=== PATIENT | male | born 1955 | race Caucasian/White ===

== ENCOUNTER → 2017-01-15 | Outpatient (CLI) | payer BC ==
[2017-01-15 13:14] LABS: CHCM 33.7; HCT 44.1 % (39.0-53.0); HDW 2.71; HGB 15.3 gm/dL (13.0-17.5); MCH 31.9 pg (25.0-35.0); MCHC 34.6 g/dL (31.0-37.0); MCV 92.3 fL (80.0-100.0); Mean Platelet Volume 6.7; RBC 4.78 m/uL (4.30-5.90); RDW 13.1 % (11.5-15.5); WBC 6.9 k/uL (3.8-10.6)
[2017-01-15 14:09] LABS: Prostate Specific Antigen 1.59 ng/mL (0.00-4.00)
== END | disposition home or self-care (01) ==
LOC: LABWHC1 12:56
PROVIDERS: ATTEND Specialist
DX: E34.9 Endocrine disorder, unspecified (principal); R53.83 Other fatigue; D64.9 Anemia, unspecified; E89.5 Postprocedural testicular hypofunction; Z12.5 Encounter for screening for malignant neoplasm of prostate; E27.5 Adrenomedullary hyperfunction; E03.4 Atrophy of thyroid (acquired)
CPT/HCPCS: 36415; 82670; 84153; 84403; 84481; 85027

== ENCOUNTER → 2017-06-11 | Outpatient (CLI) | payer BC ==
--- NOTE | 2017-06-11 12:30 | P.PN ---
Progress Note - Text 61-year-old male patient is being seen in follow-up in the sleep center regarding his obstructive sleep apnea. This is the patient's yearly check. The patient is doing well. He has been diagnosed having DEWEY back as thousand and 16 and his disease was severe with an AHI of 74. Currently the patient on CPAP at a pressure of 14 cm of water. He is awaiting his CPAP every night. He is very compliant is waking up refreshed and alert during the day. His epworth score is down to 2. Based on the compliance data, his average CPAP use over the past 30 days is 7.2 hours per night and has been achieving more than 4 hours every night without any interruption. He is AHI while on treatment is down to 0.6 and his affect is only 11 L/m. He is utilizing a simplus fullface mask and is requesting the mass to be switched. Otherwise, his health is been doing well. No new onset comorbidities. No chest pain. No stroke. No signs of any congestion heart failure. No respiratory difficulties at all. VS BP is 145/78, pulse is 68, respirations 16, temperature 97.5, saturation 97% on room air, and poor scores a 12, BMI is 29.6, weight is 195, height is 68 inches The patient appeared well nourished and normally developed. Vital signs as documented. Head exam is unremarkable. No scleral icterus or corneal arcus noted. Neck is without jugular venous distension, thyromegaly, or carotid bruits. Carotid upstrokes are brisk bilaterally. Lungs are clear to auscultation and percussion. Cardiac exam reveals the PMI to be normally sized and situated. Rhythm is regular. First and second heart sounds normal. No murmurs, rubs or gallops. Abdominal exam reveals normal bowel sounds, no masses , no organomegaly and no aortic enlargement. Extremities are nonedematous and both femoral and pedal pulses are normal. Assessment/plan 1 Obstructive sleep apnea CVA with an AHI of 74 currently on CPAP at a pressure of 14 cm of water. The patient is on her successful treatment and the patient has been compliant and treatment will be continued without any changes in the settings and I fitted this patient to airfit F20 fullface mask medium size and the Simplus fullface mask will be discontinued. An order was sent to [facility]. He'll see her back in a years time or earlier if needed
== END ==
LOC: SLEEP 11:49
PROVIDERS: ATTEND Internal Medicine Critical Care Medicine
DX: G47.33 Obstructive sleep apnea (adult) (pediatric) (principal)

== ENCOUNTER 2017-11-29 10:58 | Day surgery (SDC) | payer BC ==
[2017-11-28 08:14] VITALS: BMI 29.5
[~2017-11-29 10:58] MED LIST: ALBUTEROL NEB (CONC) 2.5 MG/0.5 ML INHALATION ONE; ATROPINE SULFATE 0.4 MG/ML 1 ML VIAL IM ONE; LACTATED RINGERS 1,000 ML IV SCH; LIDOCAINE 2% (PF) 20 MG/ML 2 ML AMP INHALATION ONE; Pre Op ABX Message 1 EACH MISC MISCELLANE ONE
[2017-11-29 11:25] VITALS: TEMP 97.7
[2017-11-29] MEDS: LACTATED RINGERS 1,000 ML IV ONE ×2 (11:49→11:54)
[2017-11-29] MEDS ORDERED: LIDOCAINE 1% 20 ML VIAL (10MG/ML) FOR IV START INTRADERMA ONE (11:49)
[2017-11-29 11:50] LABS: Glucose,Whole Blood 83 mg/dL (75-99)
[2017-11-29] MEDS ORDERED: LIDOCAINE 1% INJ 10MG/ML (20 ML MDV) ONE (11:58)
[2017-11-29] MEDS ORDERED: GLYCOPYRROLATE 0.2 MG/ML 2 ML VIAL ONE (11:58)
[2017-11-29] MEDS ORDERED: PROPOFOL 10 MG/ML 20 ML VIAL IV ONE (11:58)
[2017-11-29] MEDS ORDERED: LIDOCAINE 2% (PF) 20 MG/ML 2 ML AMP INHALATION ONE (12:28)
[2017-11-29 12:32] VITALS: RESP 16
--- NOTE | 2017-11-29 12:45 | PCN ---
PROCEDURE NOTE Procedure is a bronchoscopy, airway examination, therapeutic lavage, BAL. PREOPERATIVE DIAGNOSIS: Chronic obstructive pulmonary disease exacerbation with retained secretions. POSTOPERATIVE DIAGNOSIS: Chronic obstructive pulmonary disease exacerbation with retained secretions. PROCEDURE: There was informed consent. There was universal timeout. STEEL WORKER provided unconscious sedation or general anesthesia. The patient's procedure was done in room #1. After the patient was adequately sedated and being fully monitored, the bronchoscope was inserted through the right nostril. It passed through the right nasopharynx into the oropharynx. The hypopharynx was identified and topicalized. The hypopharyngeal structures all appeared normal, that includes the anterior commissure, true cords, false cords, arytenoids, piriform sinuses, right and left vallecula and epiglottis. After topicalization, bronchoscope was pushed through the glottic opening into the trachea. Trachea was quite inflamed and red. Trachea was quite collapsible as well. There were thick secretions noted throughout. We attempted to topicalized the right and left mainstem bronchi, but the patient quickly desaturated. It took him a long time to recover. Therefore, the procedure was aborted. No samples were taken. I will plan on doing the patient next week in the operating room. We will do it under general anesthesia, which would be much safer. MMODL / IJN: [id number] /
[2017-11-29 13:02] VITALS: BP 140/87; PULSE 82
== END 2017-11-29 13:48 | disposition home or self-care (01) ==
LOC: ORWHC2ENDO 10:58
PROVIDERS: ATTEND Internal Medicine Critical Care Medicine
DX: J44.1 Chronic obstructive pulmonary disease with (acute) exacerbation (principal); G47.33 Obstructive sleep apnea (adult) (pediatric); Z99.89 Dependence on other enabling machines and devices; N40.0 Benign prostatic hyperplasia without lower urinary tract symptoms; E78.5 Hyperlipidemia, unspecified; I10 Essential (primary) hypertension; F17.210 Nicotine dependence, cigarettes, uncomplicated; Z88.5 Allergy status to narcotic agent; Z79.51 Long term (current) use of inhaled steroids; Z79.899 Other long term (current) drug therapy; Z88.2 Allergy status to sulfonamides; Z53.8 Procedure and treatment not carried out for other reasons
CPT/HCPCS: 94640; 31622; J0461; J2001 ×2; J2704; 31624

== ENCOUNTER 2017-12-04 11:37 | Day surgery (SDC) | payer BC ==
[2017-12-03 12:49] VITALS: BMI 29.5
[~2017-12-04 11:37] MED LIST changes: +LACTATED RINGERS 1,000 ML IV ONE; -Pre Op ABX Message 1 EACH MISC MISCELLANE ONE
[2017-12-04] MEDS ORDERED: LIDOCAINE 1% 20 ML VIAL (10MG/ML) FOR IV START INTRADERMA ONE (12:14)
[2017-12-04 12:17] LABS: Glucose,Whole Blood 80 mg/dL (75-99)
[2017-12-04] MEDS ORDERED: fentaNYL (PF) 50 MCG/ML 2 ML AMP ONE (13:10)
[2017-12-04] MEDS ORDERED: PROPOFOL 10 MG/ML 20 ML VIAL IV ONE (13:10)
[2017-12-04] MEDS ORDERED: MIDAZOLAM 2 MG/2 ML VIAL ONE (13:10)
[2017-12-04] MEDS ORDERED: SUCCINYLCHOLINE CHLORIDE 100 MG/5 ML SYR IV ONE (13:10)
[2017-12-04] MEDS ORDERED: LIDOCAINE 1% INJ 10MG/ML (20 ML MDV) ONE (13:10)
[2017-12-04 14:05] VITALS: TEMP 99
--- NOTE | 2017-12-04 14:15 | PCN ---
PROCEDURE NOTE PROCEDURE: Bronchoscopy, BAL right middle lobe airway exam, therapeutic lavage. PREOPERATIVE DIAGNOSIS: Severe chronic obstructive pulmonary disease and retained secretions. POSTOP DIAGNOSIS: Severe chronic obstructive pulmonary disease and retained secretions. The patient's procedure was done on the OR side of [facility]. It was done with general anesthesia. There was informed consent. There was universal timeout. Dr. Abdalla was the anesthesiologist. He was assisted by [employer] PRINCIPAL. The operators were myself, Dr. Escamilla and Dr. Puente. After the patient was intubated and placed under general anesthesia, the bronchoscope adapter was connected to the endotracheal tube. The bronchoscope was then pushed through the bronchoscope adapter into the endotracheal tube and down into the windpipe. The trachea appeared normal. Trachea ted was sharp. There was minimal secretions. Next, there was a thorough evaluation of both lungs including the right upper lobe and its three segments, right middle lobe in its two segments, right lower lobe and its five segments, the left upper lobe proper and its two segments, the lingula and its two segments and left lower lobe and its four segments. There were minimal to moderate number of secretions. They were mildly purulent. There was no mass or tumor. There was some bleeding probably from the process of intubation. This is minimal at best. The bronchoscope was wedged into the right middle lobe. The BAL took place. The patient tolerated the procedure well. The bronchoscope was withdrawn. The patient will be recovered. There was no immediate complication. The fluid was sent for analysis. MMODL / IJN: [id number] /
[2017-12-04 14:29] VITALS: RESP 16
[2017-12-04 15:17] VITALS: BP 137/74; PULSE 76
[2017-12-04 17:31] LABS: Color,BF Colorless
[2017-12-04 17:32] LABS: Appearance,BF Hazy; Nucleated Cells, Body Fluid 50 /uL; RBC, Body Fluid 125 /uL
[2017-12-04 17:35] LABS: Mononuclear WBC,Body Fluid 80 %; Polynuclear WBC,Body Fluid 20 %; Total Cells Counted,Body Fluid 100
== END 2017-12-04 15:43 | disposition home or self-care (01) ==
LOC: ORWHC2ENDO 11:37
PROVIDERS: ATTEND Internal Medicine Critical Care Medicine
DX: G47.33 Obstructive sleep apnea (adult) (pediatric) (principal); Z99.89 Dependence on other enabling machines and devices; I10 Essential (primary) hypertension; E78.5 Hyperlipidemia, unspecified; M19.90 Unspecified osteoarthritis, unspecified site; F17.210 Nicotine dependence, cigarettes, uncomplicated; Z79.51 Long term (current) use of inhaled steroids; Z79.52 Long term (current) use of systemic steroids; Z79.899 Other long term (current) drug therapy; Z88.5 Allergy status to narcotic agent; Z88.2 Allergy status to sulfonamides
CPT/HCPCS: 94640; 87798 ×3; 87496; 87498; 87529; 88108; 88305; 89050; 87252; 87502; 87634; 87070; 87205; 87116; 87102; 87206; 31624; J2250; J0461; J2001 ×2; J3010; J0330; J2704; 31645

== ENCOUNTER 2018-02-13 21:37 | Emergency (ER) | payer BC ==
[2018-02-13 21:43] VITALS: TEMP 98.2
[2018-02-13] MEDS ORDERED: methylPREDNISolone SOD SUCCI 125 MG/2 ML VIAL IV STA (21:57)
[2018-02-13] MEDS ORDERED: IPRATROPIUM-ALBUTEROL 3 ML NEB INHALATION STA ×2 (21:57→23:29)
--- NOTE | 2018-02-13 22:00 | ED ---
SOB HPI - General Chief Complaint: Shortness of Breath Stated Complaint: EWA Time Seen by Provider: 02/13/18 21:57 Source: patient, RN notes reviewed Mode of arrival: ambulatory Limitations: no limitations - History of Present Illness Initial Comments: This is a 62-year-old male with a history of COPD who states she's had increasing shortness of breath for the past 2 days. He denies any fevers chills nausea vomiting sweats chest pain phlegm production he does state he has some slight edema to his lower extremities he states his abdomen has been distended but first quite some time he has some epigastric tenderness. He denies any nausea vomiting diarrhea or other symptoms at this time. He has no known history of CHF he states no other modifying factors he does use of grass inhalers at home they have not been helping patient does state also that he had a bronchoscopy done in November but has not seemed to get better since then. MD Complaint: shortness of breath - Related Data Home Medications Medication Instructions Recorded Confirmed Atorvastatin [Lipitor] 20 mg PO HS 11/28/17 02/13/18 Budesonide-Formot 160-4.5 Mcg 2 puff INHALATION BID 11/28/17 02/13/18 [Symbicort 160-4.5 Mcg Inhaler] Tadalafil [Cialis] 5 mg PO DAILY PRN 11/28/17 02/13/18 Testosterone Cypionate 100 mg IM WESA 11/28/17 02/13/18 [Depo-Testosterone] amLODIPine [Norvasc] 5 mg PO DAILY 11/28/17 02/13/18 Previous Rx's Medication Instructions Recorded predniSONE 20 mg PO BID #10 tab 02/14/18 Allergies Allergy/AdvReac Type Severity Reaction Status Date / Time codeine Allergy Unknown Verified 02/13/18 22:31 Sulfa (Sulfonamide Allergy Rash/Hives Verified 02/13/18 22:31 Antibiotics) Review of Systems ROS Statement: Those systems with pertinent positive or pertinent negative responses have been documented in the HPI. ROS Other: All systems not noted in ROS Statement are negative. Past Medical History Past Medical History: Asthma, COPD, Hyperlipidemia, Hypertension, Osteoarthritis (OA), Skin Disorder, Sleep Apnea/CPAP/BIPAP Additional Past Medical History / Comment(s): rash on chest "for years", recent respiratory infection and SOB History of Any Multi-Drug Resistant Organisms: None Reported Past Surgical History: Appendectomy, Cholecystectomy, Orthopedic Surgery Additional Past Surgical History / Comment(s): fx left hand -surgery with pins/ plate, hemorrhoidectomy Past Anesthesia/Blood Transfusion Reactions: No Reported Reaction Additional Past Anesthesia/Blood Transfusion Reaction / Comment(s): states last bronch. was cancelled due to "low O2 sats" Past Psychological History: No Psychological Hx Reported Smoking Status: Current every day smoker - Past Family History Father Family Medical History: Cancer Mother Family Medical History: Cancer Sister(s) Family Medical History: Cancer General Exam - General Exam Comments Initial Comments: This is a well-developed well-nourished awake alert oriented 3 male Limitations: no limitations General appearance: alert, anxious Head exam: Present: atraumatic, normocephalic, normal inspection Eye exam: Present: normal appearance, PERRL, EOMI. Absent: scleral icterus, conjunctival injection, periorbital swelling ENT exam: Present: normal exam, mucous membranes moist Neck exam: Present: normal inspection. Absent: tenderness, meningismus, lymphadenopathy Respiratory exam: Present: accessory muscle use, decreased breath sounds. Absent: respiratory distress, wheezes, rales, rhonchi, stridor Cardiovascular Exam: Present: regular rate, normal rhythm, normal heart sounds. Absent: systolic murmur, diastolic murmur, rubs, gallop, clicks GI/Abdominal exam: Present: soft, distended, tenderness (About epigastric tenderness palpation no guarding rebound masses or bruits), normal bowel sounds. Absent: guarding, rebound, rigid Extremities exam: Present: full ROM, normal capillary refill, pedal edema. Absent: tenderness, joint swelling, calf tenderness Back exam: Present: normal inspection Neurological exam: Present: alert, oriented X3, CN II-XII intact Psychiatric exam: Present: normal affect, normal mood Skin exam: Present: warm, dry, intact, normal color. Absent: rash Course Vital Signs 02/13/18 02/13/18 02/13/18 21:40 22:05 22:10 Temperature 98.2 F Pulse Rate 79 68 69 Respiratory 24 16 Rate Blood Pressure 165/77 154/74 O2 Sat by Pulse 97 93 L Oximetry 02/13/18 02/13/18 02/13/18 22:23 22:49 23:54 Temperature Pulse Rate 72 72 73 Respiratory 19 Rate Blood Pressure 152/78 O2 Sat by Pulse 98 Oximetry 02/14/18 02/14/18 00:00 00:02 Temperature Pulse Rate 71 69 Respiratory 16 Rate Blood Pressure 148/67 O2 Sat by Pulse 97 Oximetry - Reevaluation(s) Reevaluation #1: 02/13/18 23:29 Reevaluation patient reveals he is got some improvement but still short of breath lung sounds are improved with increased aeration still some scattered wheezes at the bases. He will receive a repeat updraft as well as some IV magnesium. His magnesium level was in the low normal range. Medical Decision Making - Medical Decision Making Reevaluation the patient reveals he is feeling much improved and would like to go home he'll be discharged he had markedly improved respiratory status. The presentation is consistent with a COPD exacerbation - Lab Data Result diagrams: 02/13/18 21:57 02/13/18 21:57 Lab Results 02/13/18 02/13/18 02/13/18 Range/Units 21:57 21:57 21:57 WBC (3.8-10.6) k/uL RBC (4.30-5.90) m/uL Hgb (13.0-17.5) gm/dL Hct (39.0-53.0) % MCV (80.0-100.0) fL MCH (25.0-35.0) pg MCHC (31.0-37.0) g/dL RDW (11.5-15.5) % Plt Count (150-450) k/uL Neutrophils % % Lymphocytes % % Monocytes % % Eosinophils % % Basophils % % Neutrophils # (1.3-7.7) k/uL Lymphocytes # (1.0-4.8) k/uL Monocytes # (0-1.0) k/uL Eosinophils # (0-0.7) k/uL Basophils # (0-0.2) k/uL PT (9.0-12.0) sec INR (<1.2) APTT (22.0-30.0) sec Sodium 143 (137-145) mmol/L Potassium 4.3 (3.5-5.1) mmol/L Chloride 108 H (98-107) mmol/L Carbon Dioxide 24 (22-30) mmol/L Anion Gap 11 mmol/L BUN 18 (9-20) mg/dL Creatinine 1.00 (0.66-1.25) mg/dL Est GFR (CKD-EPI)AfAm >90 (>60 ml/min/1.73 sqM) Est GFR (CKD-EPI)NonAf 79 (>60 ml/min/1.73 sqM) Glucose 104 H (74-99) mg/dL Calcium 9.6 (8.4-10.2) mg/dL Magnesium 1.9 (1.6-2.3) mg/dL Total Bilirubin 0.5 (0.2-1.3) mg/dL AST 25 (17-59) U/L ALT 41 (21-72) U/L Alkaline Phosphatase 57 (38-126) U/L Total Creatine Kinase 131 (55-170) U/L CK-MB (CK-2) 1.7 (0.0-2.4) ng/mL CK-MB (CK-2) Rel Index 1.3 Troponin I <0.012 (0.000-0.034) ng/mL NT-Pro-B Natriuret Pep 65 pg/mL Total Protein 6.2 L (6.3-8.2) g/dL Albumin 3.8 (3.5-5.0) g/dL Amylase (30-110) U/L Lipase (23-300) U/L 02/13/18 02/13/18 02/13/18 Range/Units 21:57 21:57 21:57 WBC 9.9 (3.8-10.6) k/uL RBC 5.36 (4.30-5.90) m/uL Hgb 16.3 (13.0-17.5) gm/dL Hct 48.2 (39.0-53.0) % MCV 89.8 (80.0-100.0) fL MCH 30.4 (25.0-35.0) pg MCHC 33.8 (31.0-37.0) g/dL RDW 14.0 (11.5-15.5) % Plt Count 197 (150-450) k/uL Neutrophils % 68 % Lymphocytes % 19 % Monocytes % 6 % Eosinophils % 4 % Basophils % 1 % Neutrophils # 6.7 (1.3-7.7) k/uL Lymphocytes # 1.9 (1.0-4.8) k/uL Monocytes # 0.6 (0-1.0) k/uL Eosinophils # 0.4 (0-0.7) k/uL Basophils # 0.1 (0-0.2) k/uL PT 9.6 (9.0-12.0) sec INR 1.0 (<1.2) APTT 22.4 (22.0-30.0) sec Sodium (137-145) mmol/L Potassium (3.5-5.1) mmol/L Chloride (98-107) mmol/L Carbon Dioxide (22-30) mmol/L Anion Gap mmol/L BUN (9-20) mg/dL Creatinine (0.66-1.25) mg/dL Est GFR (CKD-EPI)AfAm (>60 ml/min/1.73 sqM) Est GFR (CKD-EPI)NonAf (>60 ml/min/1.73 sqM) Glucose (74-99) mg/dL Calcium (8.4-10.2) mg/dL Magnesium (1.6-2.3) mg/dL Total Bilirubin (0.2-1.3) mg/dL AST (17-59) U/L ALT (21-72) U/L Alkaline Phosphatase (38-126) U/L Total Creatine Kinase (55-170) U/L CK-MB (CK-2) (0.0-2.4) ng/mL CK-MB (CK-2) Rel Index Troponin I (0.000-0.034) ng/mL NT-Pro-B Natriuret Pep pg/mL Total Protein (6.3-8.2) g/dL Albumin (3.5-5.0) g/dL Amylase 60 (30-110) U/L Lipase 98 (23-300) U/L - EKG Data -: EKG Interpreted by Ma EKG shows normal: sinus rhythm (Sinus rhythm rate is 72 WA interval 148 QRS 74 QT since QTC 366/400 nonspecific T-wave configuration) - Radiology Data Radiology results: report reviewed (Imaging shows no definite acute processes), image reviewed Disposition Clinical Impression: Acute exacerbation of chronic obstructive airways disease Disposition: HOME SELF-CARE Condition: Good Instructions: COPD (Chronic Obstructive Pulmonary Disease) (ED) Prescriptions: predniSONE 20 mg PO BID #10 tab Is patient prescribed a controlled substance at d/c from ED?: No Referrals: James Mascorro III, MD [Primary Care Provider] - 1-2 days
[2018-02-13 22:07] LABS: Basophils # (A) 0.1 k/uL (0-0.2); Basophils % (A) 1 %; Eosinophils # (A) 0.4 k/uL (0-0.7); Eosinophils % (A) 4 %; HCT 48.2 % (39.0-53.0); HGB 16.3 gm/dL (13.0-17.5); Lymphocytes # (A) 1.9 k/uL (1.0-4.8); Lymphocytes % (A) 19 %; MCH 30.4 pg (25.0-35.0); MCHC 33.8 g/dL (31.0-37.0); MCV 89.8 fL (80.0-100.0); Mean Platelet Volume 6.7; Monocytes # (A) 0.6 k/uL (0-1.0); Monocytes % (A) 6 %; Neutrophils # (A) 6.7 k/uL (1.3-7.7); Neutrophils % (A) 68 %; Platelet Count 197 k/uL (150-450); RBC 5.36 m/uL (4.30-5.90); WBC 9.9 k/uL (3.8-10.6)
[2018-02-13 22:18] LABS: ALT 41 U/L (21-72); AST 25 U/L (17-59); Albumin 3.8 g/dL (3.5-5.0); Alkaline Phosphatase 57 U/L (38-126); Anion Gap 11 mmol/L; Blood Urea Nitrogen 18 mg/dL (9-20); Calcium 9.6 mg/dL (8.4-10.2); Carbon Dioxide 24 mmol/L (22-30); Chloride 108 mmol/L (98-107); Glucose 104 mg/dL (74-99); Magnesium 1.9 mg/dL (1.6-2.3); Potassium 4.3 mmol/L (3.5-5.1); Sodium 143 mmol/L (137-145); Total Bilirubin 0.5 mg/dL (0.2-1.3); Total Protein 6.2 g/dL (6.3-8.2)
[2018-02-13 22:23] LABS: Creatine Kinase 131 U/L (55-170)
[2018-02-13 22:24] LABS: Partial Thromboplastin Time 22.4 sec (22.0-30.0); Prothrombin Time 9.6 sec (9.0-12.0)
[2018-02-13 22:35] LABS: Creatine Kinase MB 1.7 ng/mL (0.0-2.4); Troponin I <0.012 ng/mL (0.000-0.034)
--- NOTE | 2018-02-13 22:59 | XR ---
EXAM: XR Chest, 2 Views CLINICAL HISTORY: difficulty breathing TECHNIQUE: Frontal and lateral views of the chest. COMPARISON: 11/21/17 FINDINGS: Lungs: Unremarkable. No consolidation. Pleural space: Unremarkable. No pneumothorax. Heart: Unremarkable. No cardiomegaly. Mediastinum: Unremarkable. Bones/joints: Unremarkable. IMPRESSION: Normal chest x-rays. No significant interval change
--- NOTE | 2018-02-13 23:00 | XR ---
EXAM: XR Abdomen, 2 Views CLINICAL HISTORY: Pain TECHNIQUE: Frontal view of the abdomen/pelvis with upright view of the abdomen. COMPARISON: No relevant prior studies available. FINDINGS: Intraperitoneal space: No free air. Gastrointestinal tract: Unremarkable. No dilation. Bones/joints: Unremarkable. IMPRESSION: Normal abdominal x-rays.
[2018-02-13 23:01] LABS: Amylase 60 U/L (30-110); Lipase 98 U/L (23-300)
[2018-02-13] MEDS ORDERED: MAGNESIUM SULFATE-D5W PMX 1 GM in DEXTROSE/WATER 1 100ML.BAG IVPB ONE (23:29)
[2018-02-14 00:02] VITALS: PULSE 69
[2018-02-14 00:17] VITALS: BP 148/67; RESP 16
== END 2018-02-14 01:02 | disposition home or self-care (01) ==
LOC: EC 21:37
DX: J44.1 Chronic obstructive pulmonary disease with (acute) exacerbation (principal); R14.0 Abdominal distension (gaseous); R10.816 Epigastric abdominal tenderness; E78.5 Hyperlipidemia, unspecified; I10 Essential (primary) hypertension; G47.30 Sleep apnea, unspecified; F17.200 Nicotine dependence, unspecified, uncomplicated; Z79.51 Long term (current) use of inhaled steroids; Z79.899 Other long term (current) drug therapy; Z88.2 Allergy status to sulfonamides; Z88.5 Allergy status to narcotic agent; Z99.89 Dependence on other enabling machines and devices; Z90.49 Acquired absence of other specified parts of digestive tract
CPT/HCPCS: 99285; 96365; 96375; 36415; 94640 ×2; 93005; 83880; 80053; 82150; 82550; 82553; 83690; 83735; 84484; 85025; 85610; 85730; 71046; 74018; J2930; J3475

== ENCOUNTER 2018-02-21 21:18 | Observation (INO) | payer BC ==
[2018-02-21] MEDS ORDERED: methylPREDNISolone SOD SUCCI 125 MG/2 ML VIAL IV STA (21:51)
[2018-02-21] MEDS ORDERED: IPRATROPIUM-ALBUTEROL 3 ML NEB INHALATION STA (21:51)
--- NOTE | 2018-02-21 21:57 | ED ---
SOB HPI - General Chief Complaint: Shortness of Breath Stated Complaint: EWA Time Seen by Provider: 02/21/18 21:31 Source: patient, family Mode of arrival: ambulatory Limitations: no limitations - History of Present Illness Initial Comments: This 62-year-old white male presents with a complaint of some shortness of breath. It is been present for approximately 10 days. He denies any cough but has had occasional wheezing. He denies any fever or chest pain. He denies any leg pain but does state that he's had some swelling in his legs. He does relate a 20+ pound weight gain in the past 3 months ever since he stop smoking. He is attributing this to increased eating. He denies any history of congestive heart failure or other cardiac disease. He does have a history of COPD and sees Dr. Escamilla up for this. He was just seen this morning and Dr. Escamilla wanted to admit him to the hospital but the patient refused but did agree to come to the hospital this evening if his symptoms did not improve or worsen. He states that they have worsened and therefore he presents to the ER. He does relate that the shortness of breath is much worse with any exertion. He denies any other complaints or modifying factors. - Related Data Home Medications Medication Instructions Recorded Confirmed Atorvastatin [Lipitor] 20 mg PO HS 11/28/17 02/21/18 Budesonide-Formot 160-4.5 Mcg 2 puff INHALATION BID 11/28/17 02/21/18 [Symbicort 160-4.5 Mcg Inhaler] Tadalafil [Cialis] 5 mg PO DAILY PRN 11/28/17 02/21/18 amLODIPine [Norvasc] 5 mg PO DAILY 11/28/17 02/21/18 Azithromycin [Zithromax] 500 mg PO DAILY 02/21/18 02/21/18 Testosterone Cypionate 100 mg IM WESA 02/21/18 02/21/18 [Depo-Testosterone] predniSONE See Taper PO DAILY 02/21/18 02/21/18 Allergies Allergy/AdvReac Type Severity Reaction Status Date / Time codeine Allergy Unknown Verified 02/21/18 22:08 Sulfa (Sulfonamide Allergy Rash/Hives Verified 02/21/18 22:08 Antibiotics) Review of Systems ROS Statement: Those systems with pertinent positive or pertinent negative responses have been documented in the HPI. ROS Other: All systems not noted in ROS Statement are negative. Past Medical History Past Medical History: Asthma, COPD, Hyperlipidemia, Hypertension, Osteoarthritis (OA), Skin Disorder, Sleep Apnea/CPAP/BIPAP Additional Past Medical History / Comment(s): rash on chest "for years" History of Any Multi-Drug Resistant Organisms: None Reported Past Surgical History: Appendectomy, Cholecystectomy, Orthopedic Surgery Additional Past Surgical History / Comment(s): fx left hand -surgery with pins/ plate, hemorrhoidectomy Past Anesthesia/Blood Transfusion Reactions: No Reported Reaction Additional Past Anesthesia/Blood Transfusion Reaction / Comment(s): states last bronch. was cancelled due to "low O2 sats" Past Psychological History: No Psychological Hx Reported Smoking Status: Former smoker Past Alcohol Use History: None Reported Past Drug Use History: None Reported - Past Family History Father Family Medical History: Cancer Mother Family Medical History: Cancer Sister(s) Family Medical History: Cancer General Exam - General Exam Comments Initial Comments: GENERAL: The patient is well nourished and well hydrated. VITAL SIGNS: Heart rate, blood pressure, respiratory rate reviewed as recorded in nurse's notes. EYES: Pupils are round and reactive. Extraocular movements are intact. No conjunctival / lid redness or swelling. ENT: No external evidence of injury, swelling, or ecchymosis. Airway is patent. Throat is clear. NECK: Nontender. No swelling or evidence of injury. No subcutaneous emphysema. Trachea is midline. No thyroid mass. HEART: Regular rate and rhythm. Good peripheral pulses. No pitting edema noted to lower extremities. There may be minimal swelling. LUNGS/CHEST: Breath sounds clear and equal bilaterally. No rales, rhonchi, or wheezes. No ecchymosis, subcutaneous emphysema, or tenderness. ABDOMEN: Abdomen soft without tenderness. No palpable masses or organomegaly. No peritoneal signs. No abdominal wall swelling or ecchymosis. EXTREMITIES: No extremity tenderness. Normal muscle tone and function. No thoracolumbar tenderness. NEUROLOGIC: Sensation is grossly intact. Cranial nerve exam reveals face is symmetrical, tongue is midline, speech is clear. SKIN: No abrasions or ecchymosis is noted. No induration or masses noted. PSYCHIATRIC: Alert and oriented. Appropriate behavior and judgment. Limitations: no limitations Course Vital Signs 02/21/18 02/21/18 02/21/18 21:19 22:02 22:13 Temperature 98.4 F Pulse Rate 87 76 75 Respiratory 20 22 24 Rate Blood Pressure 165/77 174/75 156/75 O2 Sat by Pulse 98 92 L 93 L Oximetry 02/21/18 02/21/18 22:28 23:00 Temperature Pulse Rate 80 70 Respiratory 20 Rate Blood Pressure 136/65 O2 Sat by Pulse 94 L Oximetry Medical Decision Making - Medical Decision Making The patient was seen and examined. All diagnostics were reviewed. An IV is started and he does receive a DuoNeb breathing treatment. He did receive a Solu -Medrol IM injection this morning and therefore is given 60 mg of Solu-Medrol IV now. The EKG shows a normal sinus rhythm at a rate of 79. There is no acute ST-T wave changes identified. The CA interval is 134, QRS duration is 84 , and the QTC intervals 424. The chest x-ray does not show any acute processes. The laboratory is reviewed. He has negative troponin, negative d- dimer, and the BNP is not elevated. The remainder of labs are essentially within normal limits with a slight leukocytosis. His oxygen is down at times to 92% on 2 L per nasal cannula. He states that he feel short of breath still after a breathing treatment on recheck. The exact cause of his symptoms are not definitively determine but it is felt as though he may have an exacerbation of his COPD. Other rare potential possibilities could be a cardiac-related ischemia versus rare fungal infection. Is felt as though he would need additional workup on an inpatient basis. Case is discussed with Dr. Hdz and he is agreeable with admission to internal medicine, Dr. Hooker. Case will be discussed with Dr. Hooker in the near future. - Lab Data Result diagrams: 02/21/18 21:55 02/21/18 21:55 Lab Results 02/21/18 02/21/18 02/21/18 Range/Units 21:55 21:55 21:55 WBC 13.8 H (3.8-10.6) k/uL RBC 5.26 (4.30-5.90) m/uL Hgb 16.3 (13.0-17.5) gm/dL Hct 48.9 (39.0-53.0) % MCV 93.1 (80.0-100.0) fL MCH 31.0 (25.0-35.0) pg MCHC 33.3 (31.0-37.0) g/dL RDW 14.1 (11.5-15.5) % Plt Count 220 (150-450) k/uL Neutrophils % 87 % Lymphocytes % 7 % Monocytes % 5 % Eosinophils % 1 % Basophils % 0 % Neutrophils # 12.0 H (1.3-7.7) k/uL Lymphocytes # 0.9 L (1.0-4.8) k/uL Monocytes # 0.7 (0-1.0) k/uL Eosinophils # 0.1 (0-0.7) k/uL Basophils # 0.0 (0-0.2) k/uL PT (9.0-12.0) sec INR (<1.2) APTT (22.0-30.0) sec D-Dimer (<0.60) mg/L FEU Sodium 140 (137-145) mmol/L Potassium 4.5 (3.5-5.1) mmol/L Chloride 104 (98-107) mmol/L Carbon Dioxide 24 (22-30) mmol/L Anion Gap 12 mmol/L BUN 23 H (9-20) mg/dL Creatinine 1.17 (0.66-1.25) mg/dL Est GFR (CKD-EPI)AfAm 76 (>60 ml/min/1.73 sqM) Est GFR (CKD-EPI)NonAf 65 (>60 ml/min/1.73 sqM) Glucose 153 H (74-99) mg/dL Calcium 9.2 (8.4-10.2) mg/dL Total Bilirubin 0.5 (0.2-1.3) mg/dL AST 35 (17-59) U/L ALT 64 (21-72) U/L Alkaline Phosphatase 79 (38-126) U/L Total Creatine Kinase 80 (55-170) U/L CK-MB (CK-2) 2.4 (0.0-2.4) ng/mL CK-MB (CK-2) Rel Index 3.0 Troponin I <0.012 (0.000-0.034) ng/mL NT-Pro-B Natriuret Pep pg/mL Total Protein 6.2 L (6.3-8.2) g/dL Albumin 3.9 (3.5-5.0) g/dL 02/21/18 02/21/18 Range/Units 21:55 21:55 WBC (3.8-10.6) k/uL RBC (4.30-5.90) m/uL Hgb (13.0-17.5) gm/dL Hct (39.0-53.0) % MCV (80.0-100.0) fL MCH (25.0-35.0) pg MCHC (31.0-37.0) g/dL RDW (11.5-15.5) % Plt Count (150-450) k/uL Neutrophils % % Lymphocytes % % Monocytes % % Eosinophils % % Basophils % % Neutrophils # (1.3-7.7) k/uL Lymphocytes # (1.0-4.8) k/uL Monocytes # (0-1.0) k/uL Eosinophils # (0-0.7) k/uL Basophils # (0-0.2) k/uL PT 9.8 (9.0-12.0) sec INR 1.0 (<1.2) APTT 21.5 L (22.0-30.0) sec D-Dimer <0.17 (<0.60) mg/L FEU Sodium (137-145) mmol/L Potassium (3.5-5.1) mmol/L Chloride (98-107) mmol/L Carbon Dioxide (22-30) mmol/L Anion Gap mmol/L BUN (9-20) mg/dL Creatinine (0.66-1.25) mg/dL Est GFR (CKD-EPI)AfAm (>60 ml/min/1.73 sqM) Est GFR (CKD-EPI)NonAf (>60 ml/min/1.73 sqM) Glucose (74-99) mg/dL Calcium (8.4-10.2) mg/dL Total Bilirubin (0.2-1.3) mg/dL AST (17-59) U/L ALT (21-72) U/L Alkaline Phosphatase (38-126) U/L Total Creatine Kinase (55-170) U/L CK-MB (CK-2) (0.0-2.4) ng/mL CK-MB (CK-2) Rel Index Troponin I (0.000-0.034) ng/mL NT-Pro-B Natriuret Pep 66 pg/mL Total Protein (6.3-8.2) g/dL Albumin (3.5-5.0) g/dL Disposition Clinical Impression: Dyspnea, Hypertension, Acute exacerbation of chronic obstructive airways disease, Hypoxia Disposition: ADMITTED IP TO THIS HOSP Condition: Fair Is patient prescribed a controlled substance at d/c from ED?: No Referrals: James Mascorro III, MD [Primary Care Provider] - 1-2 days Time of Disposition: 23:59 Decision Date: 02/22/18 Decision Time: 00:00
[2018-02-21 22:29] LABS: Basophils % (A) 0 %; Eosinophils # (A) 0.1 k/uL (0-0.7); Eosinophils % (A) 1 %; HCT 48.9 % (39.0-53.0); HGB 16.3 gm/dL (13.0-17.5); Lymphocytes # (A) 0.9 k/uL (1.0-4.8); Lymphocytes % (A) 7 %; MCHC 33.3 g/dL (31.0-37.0); MCV 93.1 fL (80.0-100.0); Mean Platelet Volume 7.2; Monocytes # (A) 0.7 k/uL (0-1.0); Monocytes % (A) 5 %; Neutrophils % (A) 87 %; Platelet Count 220 k/uL (150-450); RBC 5.26 m/uL (4.30-5.90); RDW 14.1 % (11.5-15.5); WBC 13.8 k/uL (3.8-10.6)
[2018-02-21 22:42] LABS: Albumin 3.9 g/dL (3.5-5.0); Calcium 9.2 mg/dL (8.4-10.2); Potassium 4.5 mmol/L (3.5-5.1); Total Bilirubin 0.5 mg/dL (0.2-1.3); Total Protein 6.2 g/dL (6.3-8.2)
[2018-02-21 22:43] LABS: D-Dimer <0.17 mg/L FEU (<0.60); Prothrombin Time 9.8 sec (9.0-12.0)
[2018-02-21 22:55] LABS: Creatine Kinase 80 U/L (55-170); Partial Thromboplastin Time 21.5 sec (22.0-30.0)
[2018-02-21 23:08] LABS: Creatine Kinase MB 2.4 ng/mL (0.0-2.4); Troponin I <0.012 ng/mL (0.000-0.034)
--- NOTE | 2018-02-21 23:22 | XR ---
EXAMINATION TYPE: XR chest 2V DATE OF EXAM: 02/21/2018 COMPARISON: 02/13/2018 HISTORY: Difficulty breathing TECHNIQUE: Frontal and lateral views of the chest are obtained. FINDINGS: There is no heart failure nor confluent pneumonic infiltrate. The costophrenic angles are clear. There are chest leads. Bones appear osteopenic. IMPRESSION: No active cardiopulmonary disease. Lung markings are increased very slightly compared t o old exam.
[2018-02-22] MEDS ORDERED: IPRATROPIUM-ALBUTEROL 3 ML NEB INHALATION PRN (00:18)
[2018-02-22] MEDS: methylPREDNISolone SOD SUCCI 125 MG/2 ML VIAL IV SCH ×4 (05:50→23:16)
[2018-02-22] MEDS: SYMBICORT 160-4.5 MCG INHALER INHALATION SCH ×2 (06:01→20:28)
[2018-02-22 07:28] LABS: Glucose,Whole Blood 129 mg/dL (75-99)
[2018-02-22] MEDS: INSULIN ASPART 100 UNIT/ML 1 ML 10 ML VIAL SQ SCH ×4 (07:40→21:58)
[2018-02-22] MEDS: AZITHROMYCIN 500 MG in SODIUM CHLORIDE 0.9% 250 ML IVPB SCH (08:27)
[2018-02-22] MEDS: ENOXAPARIN 40 MG/0.4 ML SYRINGE SQ SCH (08:29)
[2018-02-22] MEDS: amLODIPine 5 MG TAB PO SCH (08:29)
[2018-02-22] MEDS: TESTOSTERONE CYPIONATE 200 MG/ML 1ML VIAL IM SCH (08:30)
--- NOTE | 2018-02-22 11:24 | P.CNPUL ---
History of Present Illness Consult date: 02/22/18 Requesting physician: Fabrizio Hooker Reason for consult: dyspnea, COPD Chief complaint: Exertional dyspnea, orthopnea, peripheral edema History of present illness: Mr. Cisneros is a 62-year-old white male patient of Dr. Mascorro, who also sees Dr. Escamilla in the pulmonary office for his moderately severe COPD, with a baseline FEV1 of 59% of predicted, presented to the emergency department on 02/21/2018 at 2118, for a complaint of ongoing shortness of breath since last . Patient was seen in the emergency department on 02/13/2018 with complaints of shortness of breath, increasing bilateral lower extremity edema, abdominal distention, some epigastric tenderness. Was treated with nebulized bronchodilators, received some magnesium supplementation for his slightly lower magnesium level, cardiac markers, troponins, proBNP were all within normal limits, there was no leukocytosis, EKG did not show any acute ischemic changes. Patient was sent home on oral prednisone with instructions to follow-up with Dr. Escamilla in the office. Patient was seen by Dr. Escamilla on 02/17/2018, was not feeling any better, still complaining of significant dyspnea, orthopnea, chest tightness. He was given Depo-Medrol in the office, and he was subsequently seen again on 02/21/2018 follow-up. He completed a course of Zithromax, his prednisone dose was increased to 50 mg daily, he was given another dose of Depo- Medrol, started on Lasix 20 mg daily for his bilateral lower extremity edema. Patient was offered an inpatient hospitalization, however he declined initially , in view of his worsening symptoms he did present to the emergency department on the night of 02/21/2018. He states despite outpatient treatment, symptoms persist. 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 He denies any fever or chills, denies any cough, denies any sputum production, denies any chest pain. He is complaining of increased abdominal distention, which is worse after eating. Denies any bowel habit change, on today's exam his abdomen is noted to be significantly distended and tympanic, there is mild epigastric tenderness to palpation. He states he had a normal bowel movement this morning, no melena nor hematochezia. Chest x-ray showed no active cardiopulmonary disease, mild prominence of lung markings compared the previous exam. EKG showed normal sinus rhythm without any acute ischemic changes. Lab work showed WBC of 13.8, hemoglobin of 16.3, d-dimer was negative, electrolytes are within normal limits , BUN was 23, creatinine is 1.17. Liver enzymes were all within normal limits, troponin was negative 1, proBNP was 66, lipase and amylase from 02/13/2018 were at 98 and 60 respectively. Past medical history includes obstructive sleep apnea, and the patient reports being compliant with his CPAP machine, benign prostatic hyperplasia, hyperlipidemia, hypertension. We're asked to see the patient in regards to his ongoing symptoms of dyspnea. Review of Systems All systems: negative Constitutional: Denies chills, Denies fever Eyes: denies blurred vision, denies pain Ears, nose, mouth and throat: Denies headache, Denies sore throat Cardiovascular: Reports dyspnea on exertion, Reports edema, Reports leg edema, Reports orthopnea, Denies chest pain, Denies shortness of breath Respiratory: Reports sleep apnea, Denies cough Gastrointestinal: Denies abdominal pain, Denies diarrhea, Denies nausea, Denies vomiting Musculoskeletal: Denies myalgias Integumentary: Denies pruritus, Denies rash Neurological: Denies numbness, Denies weakness Psychiatric: Denies anxiety, Denies depression Endocrine: Denies fatigue, Denies weight change Past Medical History Past Medical History: Asthma, COPD, Hyperlipidemia, Hypertension, Osteoarthritis (OA), Skin Disorder, Sleep Apnea/CPAP/BIPAP Additional Past Medical History / Comment(s): rash on chest "for years" History of Any Multi-Drug Resistant Organisms: None Reported Past Surgical History: Appendectomy, Cholecystectomy, Orthopedic Surgery Additional Past Surgical History / Comment(s): fx left hand -surgery with pins/ plate, hemorrhoidectomy Past Anesthesia/Blood Transfusion Reactions: No Reported Reaction Additional Past Anesthesia/Blood Transfusion Reaction / Comment(s): states last bronch. was cancelled due to "low O2 sats" Past Psychological History: No Psychological Hx Reported Smoking Status: Former smoker Past Alcohol Use History: None Reported Additional Past Alcohol Use History / Comment(s): smokes 1 PPD, for approx 40 yrs Past Drug Use History: None Reported - Past Family History Father Family Medical History: Cancer Mother Family Medical History: Cancer Sister(s) Family Medical History: Cancer Medications and Allergies Home Medications Medication Instructions Recorded Confirmed Type Atorvastatin [Lipitor] 20 mg PO HS 11/28/17 02/21/18 History Budesonide-Formot 160-4.5 Mcg 2 puff INHALATION BID 11/28/17 02/21/18 History [Symbicort 160-4.5 Mcg Inhaler] Tadalafil [Cialis] 5 mg PO DAILY PRN 11/28/17 02/21/18 History amLODIPine [Norvasc] 5 mg PO DAILY 11/28/17 02/21/18 History Azithromycin [Zithromax] 500 mg PO DAILY 02/21/18 02/21/18 History Testosterone Cypionate 100 mg IM [facility] 02/21/18 02/21/18 History [Depo-Testosterone] predniSONE See Taper PO DAILY 02/21/18 02/21/18 History Allergies Allergy/AdvReac Type Severity Reaction Status Date / Time codeine Allergy Unknown Verified 02/21/18 22:08 Sulfa (Sulfonamide Allergy Rash/Hives Verified 02/21/18 22:08 Antibiotics) Physical Exam Vitals: Vital Signs Temp Pulse Pulse Resp BP BP BP 02/22/18 06:17 98 F 80 20 159/85 02/22/18 06:15 76 02/22/18 06:02 79 02/22/18 01:36 98.2 F 79 20 168/83 02/22/18 00:55 72 22 145/67 02/21/18 23:00 70 20 136/65 02/21/18 22:28 80 02/21/18 22:13 75 24 156/75 02/21/18 22:02 76 22 174/75 02/21/18 21:19 98.4 F 87 20 165/77 Pulse Ox 02/22/18 06:17 97 02/22/18 06:15 02/22/18 06:02 97 02/22/18 01:36 92 L 02/22/18 00:55 92 L 02/21/18 23:00 94 L 02/21/18 22:28 02/21/18 22:13 93 L 02/21/18 22:02 92 L 02/21/18 21:19 98 Intake and Output 02/21/18 02/22/18 02/22/18 22:59 06:59 14:59 Intake Total 120 690 Balance 120 690 Intake: Amount of Fluid Infused ( 20 ml) Intake, IV Titration 250 Amount Azithromycin 500 mg In 250 Sodium Chloride 0.9% 250 ml @ 125 mls/hr IVPB DAILY [facility] Rx#:[id number] Oral 100 440 Other: Weight 95.254 kg 93.894 kg - Constitutional 62-year-old white male, pleasant, appears flushed and mildly short of breath with conversation General appearance: mild distress - EENT Eyes: PERRLA, dentition normal ENT: NA/AT, normal oropharynx Ears: bilateral: normal - Neck Neck: no lymphadenopathy, normal ROM Carotids: bilateral: upstroke normal Thyroid: bilateral: normal size - Respiratory Respiratory: bilateral: diminished - Cardiovascular Rhythm: regular Heart sounds: normal: S1, S2 ankle Peripheral Edema: bilateral: 1+ leg Peripheral Edema: bilateral: 1+ dorsalis pedis Peripheral Pulses: bilateral: Normal radial pulse Peripheral Pulses: bilateral: Normal - Gastrointestinal abdominal distention and epigastric tenderness General gastrointestinal: distended, no organomegaly, soft, tenderness Localized gastrointestinal: tender: epigastric periumbilical - Integumentary Integumentary: normal turgor - Neurologic Neurologic: CNII-XII intact - Musculoskeletal Musculoskeletal: gait normal, strength equal bilaterally - Psychiatric Psychiatric: A&O x's 3, appropriate affect, intact judgment & insight Results - Laboratory Findings CBC and BMP: 02/21/18 21:55 02/21/18 21:55 PT/INR, D-dimer PT 9.8 sec (9.0-12.0) 02/21/18 21:55 INR 1.0 (<1.2) 02/21/18 21:55 D-Dimer <0.17 mg/L FEU (<0.60) 02/21/18 21:55 Abnormal lab findings: Abnormal Labs 02/21/18 02/21/18 02/21/18 21:55 21:55 21:55 WBC 13.8 H Neutrophils # 12.0 H Lymphocytes # 0.9 L APTT 21.5 L BUN 23 H Glucose 153 H POC Glucose (mg/dL) Total Protein 6.2 L 02/22/18 07:14 WBC Neutrophils # Lymphocytes # APTT BUN Glucose POC Glucose (mg/dL) 129 H Total Protein - Diagnostic Findings Chest x-ray: report reviewed, image reviewed Additional studies: EKG reviewed Assessment and Plan Plan: Assessment: #1. Exertional dyspnea, orthopnea, peripheral leg edema, recent weight gain of 15 pounds in 6 weeks under investigation, rule out cardiac etiology #2. Recent exacerbation of COPD, treated with systemic steroids, course of antibiotics. Currently stable #3. Abdominal distention, epigastric tenderness. Patient was seen in the emergency room on 02/13/2018 and lipase and amylase are within normal limits. Two-view abdominal x-ray on 02/13/2018 was normal. No change in bowel pattern, no diarrhea, no constipation. Patient has a previous history of cholecystectomy #4. Moderately severe COPD, with a baseline FEV1 of 59% of predicted #5. Hypertension, hyperlipidemia #6. Severe obstructive sleep apnea with an AHI of 74, on CPAP therapy at a pressure of 14 cm of water, reports being compliant with therapy #7. Recent bronchoscopy with BAL on 12/04/2017, cytology was negative for any evidence of malignant cells, bronchial wash cultures were negative #8. Nicotine dependence, currently in remission, patient quit 6 weeks ago, but smoked 1-1/2 packs a day for over 50 years #9. History of BPH Plan: Continue nebulized bronchodilators, continue systemic steroids, empiric antibiotics. Will obtain 2-D echocardiogram, and consult cardiology to rule out cardiac causes patient's dyspnea. 6 minute walk test was done on room air, during which no desaturation was noted, patient maintain a pulse ox of 95%. We' ll obtain ultrasound of the gallbladder for ongoing abdominal distention and epigastric tenderness. We'll continue to follow I performed a history & physical examination of the patient and discussed their management with my nurse practitioner, Cornelia Chacon. I reviewed the nurse practitioner's note and agree with the documented findings and plan of care. Lung sounds are diminished. The findings and the impression was discussed with the patient. I attest to the documentation by the nurse practitioner. Time with Patient: Greater than 30
[2018-02-22 12:14] LABS: Glucose,Whole Blood 139 mg/dL (75-99)
[2018-02-22] MEDS: IPRATROPIUM-ALBUTEROL 3 ML NEB INHALATION SCH ×3 (12:15→20:28)
[2018-02-22 14:28] LABS: Hemoglobin A1C 5.3 % (4.0-6.0)
--- NOTE | 2018-02-22 16:15 | ECHOF ---
Referral Reason:sob MEASUREMENTS -------- HEIGHT: 175.3 cm WEIGHT: 93.9 kg BP: 170/70 RVIDd: 2.8 cm (< 3.3) IVSd: 1.4 cm (0.6 - 1.1) LVIDd: 3.9 cm (3.9 - 5.3) LVPWd: 1.6 cm (0.6 - 1.1) IVSs: 1.9 cm LVIDs: 2.6 cm LVPWs: 1.6 cm LA Diam: 3.2 cm (2.7 - 3.8) Ao Diam: 3.6 cm (2.0 - 3.7) AV Cusp: 1.5 cm (1.5 - 2.6) LA Diam: 4.0 cm (2.7 - 3.8) MV EXCURSION: 17.701 mm (> 18.000) MV EF SLOPE: 133 mm/s (70 - 150) EPSS: 0.2 cm MV E Kris: 0.68 m/s MV DecT: 180 ms MV A Kris: 0.62 m/s MV E/A Ratio: 1.11 RAP: 5.00 mmHg RVSP: 27.22 mmHg FINDINGS -------- Sinus rhythm. This was a technically adequate study. The left ventricular size is normal. There is moderate concentric left ventricular hypertrophy. O verall left ventricular systolic function is low-normal with, an EF between 50 - 55 %. The right ventricle is normal in size. The left atrial size is normal. The right atrial size is normal. The aortic valve is trileaflet, and appears structurally normal. No aortic stenosis or regurgitation. Mild mitral regurgitation is present. Mild tricuspid regurgitation present. There is no evidence of pulmonary hypertension. The right v entricular systolic pressure, as measured by Doppler, is 27.22mmHg. Trace/mild (physiologic) pulmonic regurgitation. The aortic root size is normal. There is no pericardial effusion. CONCLUSIONS -------- 1. The left ventricular size is normal. 2. There is moderate concentric left ventricular hypertrophy. 3. Overall left ventricular systolic function is low-normal with, an EF between 50 - 55 %. 4. The aortic valve is trileaflet, and appears structurally normal. No aortic stenosis or regurgitati on. 5. Mild mitral regurgitation is present. 6. Mild tricuspid regurgitation present. 7. There is no evidence of pulmonary hypertension. 8. The right ventricular systolic pressure, as measured by Doppler, is 27.22mmHg. 9. Trace/mild (physiologic) pulmonic regurgitation. 10. The aortic root size is normal. 11. There is no pericardial effusion. ACAD[employer]IC AFFAIRS DIRECTOR: Nicole Elaine RDCS
--- NOTE | 2018-02-22 17:15 | P.CRDCN ---
History of Present Illness Consult date: 02/22/18 History of present illness: This is a 62-year-old gentleman with history of COPD and chronic shortness of breath has been experiencing increasing shortness of breath over the last one month. Any activity, will make him short of breath. He was eating also sometimes precipitate this. He denies any chest pain. He does complain of some tightness in the lower chest area. His EKGs did not reveal any acute changes. His troponin is within normal limits. His proBNP is within normal limits. Patient doesn't have any pedal edema or JVD. His lungs appeared to be clear. Apparently, tassel maker felt as his symptoms are not explained by the pulmonary issues. Patient is a smoker and has history of hypertension and hypercholesterolemia. No family history of ischemic heart disease. Echo showed normal LV function. The possibility of underlying ischemic heart disease to be considered, though the symptoms are atypical. I discussed with family about cardiac catheterization and also advised him to discuss with tassel maker. If the tassel maker and feel his symptoms are not pulmonary related, we will proceed with cardiac catheterization for definitive diagnosis. Review of Systems As per the chart Past Medical History Past Medical History: Asthma, COPD, Hyperlipidemia, Hypertension, Osteoarthritis (OA), Skin Disorder, Sleep Apnea/CPAP/BIPAP Additional Past Medical History / Comment(s): rash on chest "for years" History of Any Multi-Drug Resistant Organisms: None Reported Past Surgical History: Appendectomy, Cholecystectomy, Orthopedic Surgery Additional Past Surgical History / Comment(s): fx left hand -surgery with pins/ plate, hemorrhoidectomy Past Anesthesia/Blood Transfusion Reactions: No Reported Reaction Additional Past Anesthesia/Blood Transfusion Reaction / Comment(s): states last bronch. was cancelled due to "low O2 sats" Past Psychological History: No Psychological Hx Reported Smoking Status: Former smoker Past Alcohol Use History: None Reported Additional Past Alcohol Use History / Comment(s): smokes 1 PPD, for approx 40 yrs Past Drug Use History: None Reported - Past Family History Father Family Medical History: Cancer Mother Family Medical History: Cancer Sister(s) Family Medical History: Cancer Medications and Allergies Home Medications Medication Instructions Recorded Confirmed Type Atorvastatin [Lipitor] 20 mg PO HS 11/28/17 02/21/18 History Budesonide-Formot 160-4.5 Mcg 2 puff INHALATION BID 11/28/17 02/21/18 History [Symbicort 160-4.5 Mcg Inhaler] Tadalafil [Cialis] 5 mg PO DAILY PRN 11/28/17 02/21/18 History amLODIPine [Norvasc] 5 mg PO DAILY 11/28/17 02/21/18 History Azithromycin [Zithromax] 500 mg PO DAILY 02/21/18 02/21/18 History Testosterone Cypionate 100 mg IM [facility]A 02/21/18 02/21/18 History [Depo-Testosterone] predniSONE See Taper PO DAILY 02/21/18 02/21/18 History Allergies Allergy/AdvReac Type Severity Reaction Status Date / Time codeine Allergy Unknown Verified 02/21/18 22:08 Sulfa (Sulfonamide Allergy Rash/Hives Verified 02/21/18 22:08 Antibiotics) Physical Exam Vitals: Vital Signs Temp Pulse Pulse Pulse Pulse Pulse Resp 02/22/18 16:27 82 02/22/18 16:15 82 02/22/18 15:00 99.1 F 83 16 02/22/18 12:28 80 02/22/18 12:15 80 02/22/18 10:48 94 92 02/22/18 10:42 85 02/22/18 06:17 98 F 80 20 02/22/18 06:15 76 02/22/18 06:02 79 02/22/18 01:36 98.2 F 79 20 02/22/18 00:55 72 22 02/21/18 23:00 70 20 02/21/18 22:28 80 02/21/18 22:13 75 24 02/21/18 22:02 76 22 02/21/18 21:19 98.4 F 87 20 BP BP BP Pulse Ox Pulse Ox Pulse Ox Pulse Ox 02/22/18 16:27 02/22/18 16:15 02/22/18 15:00 172/81 97 02/22/18 12:28 02/22/18 12:15 02/22/18 10:48 96 94 L 02/22/18 10:42 95 02/22/18 06:17 159/85 97 02/22/18 06:15 02/22/18 06:02 97 02/22/18 01:36 168/83 92 L 02/22/18 00:55 145/67 92 L 02/21/18 23:00 136/65 94 L 02/21/18 22:28 02/21/18 22:13 156/75 93 L 02/21/18 22:02 174/75 92 L 02/21/18 21:19 165/77 98 Intake and Output 02/22/18 02/22/18 02/22/18 06:59 14:59 22:59 Intake Total 120 690 Balance 120 690 Intake: Amount of Fluid Infused ( 20 ml) Intake, IV Titration 250 Amount Azithromycin 500 mg In 250 Sodium Chloride 0.9% 250 ml @ 125 mls/hr IVPB DAILY [facility] Rx#:[id number] Oral 100 440 Other: # Voids 2 2 Weight 93.894 kg 93.894 kg GENERAL EXAM: Patient is alert and oriented: Patient is in moderate distress HEENT: Normocephalic. Normal reaction of pupils, equal size, normal range of extraocular motion. No erythema or exudates in the throat. NECK: No masses, no nuchal rigidity. CHEST: No chest wall deformity. LUNGS: Equal air entry with no crackles or wheeze. HEART: S1 and S2 normal with no audible mumurs or gallops. Regular rhythm, femorals equal on both sides.. ABDOMEN: No hepatosplenomegaly, normal bowel sounds, no guarding or rigidity. SKIN: No rashes CENTRAL NERVOUS SYSTEM: No focal deficits. EXTREMITIES: No cyanosis, clubbing or edema. Results 02/21/18 21:55 02/21/18 21:55 Cardiac Enzymes 02/21/18 02/21/18 Range/Units 21:55 21:55 AST 35 (17-59) U/L CK-MB (CK-2) 2.4 (0.0-2.4) ng/mL Troponin I <0.012 (0.000-0.034) ng/mL Coagulation 02/21/18 Range/Units 21:55 PT 9.8 (9.0-12.0) sec APTT 21.5 L (22.0-30.0) sec CBC 02/21/18 Range/Units 21:55 WBC 13.8 H (3.8-10.6) k/uL RBC 5.26 (4.30-5.90) m/uL Hgb 16.3 (13.0-17.5) gm/dL Hct 48.9 (39.0-53.0) % Plt Count 220 (150-450) k/uL Comprehensive Metabolic Panel 02/21/18 Range/Units 21:55 Sodium 140 (137-145) mmol/L Potassium 4.5 (3.5-5.1) mmol/L Chloride 104 (98-107) mmol/L Carbon Dioxide 24 (22-30) mmol/L BUN 23 H (9-20) mg/dL Creatinine 1.17 (0.66-1.25) mg/dL Glucose 153 H (74-99) mg/dL Calcium 9.2 (8.4-10.2) mg/dL AST 35 (17-59) U/L ALT 64 (21-72) U/L Alkaline Phosphatase 79 (38-126) U/L Total Protein 6.2 L (6.3-8.2) g/dL Albumin 3.9 (3.5-5.0) g/dL Current Medications Generic Name Dose Route Start Last Admin Trade Name Freq PRN Reason Stop Dose Admin Albuterol/Ipratropium 3 ml 02/22/18 00:18 02/22/18 06:01 Duoneb 0.5 Mg-3 Mg/3 Ml Soln INHALATION 3 ml RT-Q4H PRN Administration Shortness Of Breath Or Wheezing Albuterol/Ipratropium 3 ml 02/22/18 12:00 02/22/18 16:15 Duoneb 0.5 Mg-3 Mg/3 Ml Soln INHALATION 3 ml RT-QID VALERIE Administration Amlodipine Besylate 5 mg 02/22/18 09:00 02/22/18 08:29 Norvasc PO 5 mg DAILY [facility] Administration Atorvastatin Calcium 20 mg 02/22/18 21:00 Lipitor PO HS VALERIE Budesonide/Formoterol Fumarate 2 puff 02/22/18 08:00 02/22/18 06:01 Symbicort 160-4.5 Mcg Inhaler INHALATION 2 puff RT-BID VALERIE Administration Enoxaparin Sodium 40 mg 02/22/18 09:00 02/22/18 08:29 Lovenox SQ 40 mg DAILY [facility] Administration Azithromycin 500 mg/ Sodium 250 mls @ 125 mls/hr 02/22/18 09:00 02/22/18 08: 27 Chloride IVPB 125 mls/hr DAILY [facility] Administration Insulin Aspart 0 unit 02/22/18 07:30 02/22/18 12:22 Novolog SQ Not Given ACHS [facility] Protocol Methylprednisolone Sodium Succinate 60 mg 02/22/18 06:00 02/22/18 12:39 Solu-Medrol IV 60 mg Q6HR VALERIE Administration Testosterone Cypionate 100 mg 02/22/18 09:00 02/22/18 08:30 Depo-Testosterone IM Not Given [facility]A [facility] Intake and Output 02/22/18 02/22/18 02/22/18 06:59 14:59 22:59 Intake Total 120 690 Balance 120 690 Intake: Amount of Fluid Infused ( 20 ml) Intake, IV Titration 250 Amount Azithromycin 500 mg In 250 Sodium Chloride 0.9% 250 ml @ 125 mls/hr IVPB DAILY [facility] Rx#:[id number] Oral 100 440 Other: # Voids 2 2 Weight 93.894 kg 93.894 kg Patient Weight 02/23/18 06:59 Weight 93.894 kg 02/21/18 21:55 02/21/18 21:55 EKG Interpretations (text) Sinus rhythm Assessment and Plan (1) Acute exacerbation of chronic obstructive airways disease Current Visit: Yes Status: Acute Code(s): J44.1 - CHRONIC OBSTRUCTIVE PULMONARY DISEASE W (ACUTE) EXACERBATION SNOMED Code(s): 984365745 (2) Dyspnea Current Visit: Yes Status: Acute Code(s): R06.00 - DYSPNEA, UNSPECIFIED SNOMED Code(s): 490611983 (3) Hypertension Current Visit: Yes Status: Acute Code(s): I10 - ESSENTIAL (PRIMARY) HYPERTENSION SNOMED Code(s): 10038854 (4) Hyperlipidemia associated with type 2 diabetes mellitus Current Visit: Yes Status: Acute Code(s): E11.69 - TYPE 2 DIABETES MELLITUS WITH OTHER SPECIFIED COMPLICATION; E78.5 - HYPERLIPIDEMIA, UNSPECIFIED SNOMED Code(s): 625441516687 (5) Hyperlipidemia Current Visit: Yes Status: Acute Code(s): E78.5 - HYPERLIPIDEMIA, UNSPECIFIED SNOMED Code(s): 96196718 Plan: Continue current medical therapy. I will add nitrates empirically. If family and tassel maker agree, may proceed with cardiac catheterization for definitive diagnosis to rule out underlying ischemic heart disease.
[2018-02-22 17:19] LABS: Glucose,Whole Blood 211 mg/dL (75-99)
--- NOTE | 2018-02-22 18:16 | US ---
EXAMINATION TYPE: US abdomen comp/pelvis limited DATE OF EXAM: 02/22/2018 COMPARISON: Previous ultrasound abdomen 02/05/2011 CLINICAL HISTORY: abd distention. GB removed 3-4 years ago. NPO. Abdomen distension. EXAM MEASUREMENTS: Liver Length: 21.3 cm CBD: 0.4 cm CHD: 0.5 cm Spleen: 11.1 cm Right Kidney: 9.9 x 5.4 x 6.5 cm Left Kidney: 10.7 x 4.8 x 6.2 cm Limited exam due to overlying bowel gas Pancreas: Obscured by bowel gas Liver: Appears enlarged and course. Right cystic appearing lesion = 0.7 x 0.6 x 0.8 cm. Left septa jami cystic appearing lesion = 3.4 x 3.3 x 3.6 cm Gallbladder: Surgically absent CBD: wnl CHD: wnl Spleen: wnl Right Kidney: Mid cystic appearing lesion in cortical region - 1.7 x 1.5 x 1.6 cm, lesion is anechoi c. Left Kidney: wnl and the kidneys show normal cortical medullary differentiation Upper IVC: wnl Abd Aorta: Obscured by overlying bowel gas Bladder: distended, wnl as visualized Bilateral Jets not seen There is no ascites. IMPRESSION: Hepatomegaly, correlate for possible hepatic steatosis, large septated cyst was seen on p revious exam. Postop changes. Cystic focus right kidney, consider follow-up to assess for stability.
[2018-02-22 20:55] LABS: Glucose,Whole Blood 185 mg/dL (75-99)
--- NOTE | 2018-02-22 21:53 | P.HPIM ---
History of Present Illness H&P Date: 02/22/18 Chief Complaint: Shortness of breath Mr. Cisneros is a 62-year-old male with a past medical history of severe COPD, hypertension, hyperlipidemia, obstructive sleep apnea coming into the hospital with a chief complaint of difficulty in breathing. Patient follows with Dr. Mascorro and also with Dr. Escamilla for his severe COPD. He was recently in the emergency department the for the same and the he was treated with the bronchodilators and sent home on prednisone. Patient was seen by Dr. Escamilla in his clinic on 02/17/2018 for the same complaint of dyspnea orthopnea and chest tightness for which she was given Medrol Dosepak that he completed. In spite of the antibiotic and the steroid therapy patient continued to have difficulty in breathing and so admitted for it. Patient also complains of some epigastric tenderness and no also abdominal distention that has been going on and off for the past 1-2 months. Patient denies having any fever, cough or chills or rigors. He denies having any orthopnea PND chest pain or palpitations. No complaints of lower extremity swelling. No history of recent travel. No recent history of surgeries. Review of Systems REVIEW OF SYSTEMS: PSYCH: No anxiety or depression NEURO:No c/o weakness of the extremties, No facial droop, No speech abnormalities. VASCULAR: No bilateral lower extremity swelling HEMATOLOGIC: No history of easy bleeding and bruising . No recent infections . RESPIRATORY: No cough, No chest discomfort. IMMUNE: No infections INTEGUMENT: no rashes OPHTHALMOLOGIC: No blurry vision and no eye discharge : No dysuria or hematuria CARDIAC: No chest pain , shortness of breath , paroxysmal nocturnal dyspnea MUSCULOSKELETAL : No Aches or pains in the joints or muscles. GI: Abdominal distention for the past 1-2 months, no nausea vomiting or diarrhea , has some epigastric tenderness Past Medical History Past Medical History: Asthma, COPD, Hyperlipidemia, Hypertension, Osteoarthritis (OA), Skin Disorder, Sleep Apnea/CPAP/BIPAP Additional Past Medical History / Comment(s): rash on chest "for years" History of Any Multi-Drug Resistant Organisms: None Reported Past Surgical History: Appendectomy, Cholecystectomy, Orthopedic Surgery Additional Past Surgical History / Comment(s): fx left hand -surgery with pins/ plate, hemorrhoidectomy Past Anesthesia/Blood Transfusion Reactions: No Reported Reaction Additional Past Anesthesia/Blood Transfusion Reaction / Comment(s): states last bronch. was cancelled due to "low O2 sats" Past Psychological History: No Psychological Hx Reported Smoking Status: Former smoker Past Alcohol Use History: None Reported Additional Past Alcohol Use History / Comment(s): smokes 1 PPD, for approx 40 yrs Past Drug Use History: None Reported - Past Family History Father Family Medical History: Cancer Mother Family Medical History: Cancer Sister(s) Family Medical History: Cancer Medications and Allergies Home Medications Medication Instructions Recorded Confirmed Type Atorvastatin [Lipitor] 20 mg PO HS 11/28/17 02/21/18 History Budesonide-Formot 160-4.5 Mcg 2 puff INHALATION BID 11/28/17 02/21/18 History [Symbicort 160-4.5 Mcg Inhaler] Tadalafil [Cialis] 5 mg PO DAILY PRN 11/28/17 02/21/18 History amLODIPine [Norvasc] 5 mg PO DAILY 11/28/17 02/21/18 History Azithromycin [Zithromax] 500 mg PO DAILY 02/21/18 02/21/18 History Testosterone Cypionate 100 mg IM WESA 02/21/18 02/21/18 History [Depo-Testosterone] predniSONE See Taper PO DAILY 02/21/18 02/21/18 History Allergies Allergy/AdvReac Type Severity Reaction Status Date / Time codeine Allergy Unknown Verified 02/21/18 22:08 Sulfa (Sulfonamide Allergy Rash/Hives Verified 02/21/18 22:08 Antibiotics) Physical Exam Vitals: Vital Signs Temp Pulse Pulse Pulse Pulse Pulse Resp 02/22/18 16:27 82 02/22/18 16:15 82 02/22/18 15:00 99.1 F 83 16 02/22/18 12:28 80 02/22/18 12:15 80 02/22/18 10:48 94 92 02/22/18 10:42 85 02/22/18 06:17 98 F 80 20 02/22/18 06:15 76 02/22/18 06:02 79 02/22/18 01:36 98.2 F 79 20 02/22/18 00:55 72 22 02/21/18 23:00 70 20 02/21/18 22:28 80 02/21/18 22:13 75 24 02/21/18 22:02 76 22 02/21/18 21:19 98.4 F 87 20 BP BP BP Pulse Ox Pulse Ox Pulse Ox Pulse Ox 02/22/18 16:27 02/22/18 16:15 02/22/18 15:00 172/81 97 02/22/18 12:28 02/22/18 12:15 02/22/18 10:48 96 94 L 02/22/18 10:42 95 02/22/18 06:17 159/85 97 02/22/18 06:15 02/22/18 06:02 97 02/22/18 01:36 168/83 92 L 02/22/18 00:55 145/67 92 L 02/21/18 23:00 136/65 94 L 02/21/18 22:28 02/21/18 22:13 156/75 93 L 02/21/18 22:02 174/75 92 L 02/21/18 21:19 165/77 98 Intake and Output 02/22/18 02/22/18 02/22/18 06:59 14:59 22:59 Intake Total 120 690 Balance 120 690 Intake: Amount of Fluid Infused ( 20 ml) Intake, IV Titration 250 Amount Azithromycin 500 mg In 250 Sodium Chloride 0.9% 250 ml @ 125 mls/hr IVPB DAILY [facility] Rx#:[id number] Oral 100 440 Other: # Voids 2 2 Weight 93.894 kg 93.894 kg GENERAL EXAM GEN. APPEARANCE: alert, in no apparent distress HEAD EXAM: atraumatic, normocephalic, normal inspection RESPIRATORY EXAM: Decreased breath sounds in all lung johnson CARDIOVASCULAR EXAM: regular rate, normal rhythm, normal heart sounds. Absent : systolic murmur, diastolic murmur, rubs, gallop, clicks GI/ABDOMINAL EXAM: Positive for epigastric tenderness and mild abdominal distention. No guarding or rigidity. EXTREMITIES EXAM: normal inspection, full ROM, normal capillary refill. Absent : tenderness, pedal edema, joint swelling, calf tenderness NEUROLOGICAL EXAM: alert, oriented X3, CN II-XII intact, motor sensory deficit PSYCHIATRIC EXAM: normal affect, normal mood SKIN EXAM: warm, dry, intact, normal color. Absent: rash Results CBC & Chem 7: 02/21/18 21:55 02/21/18 21:55 Labs: Abnormal Lab Results - Last 24 Hours (Table) 05/18/18 05/18/18 05/18/18 Range/Units 21:55 21:55 21:55 WBC 13.8 H (3.8-10.6) k/uL Neutrophils # 12.0 H (1.3-7.7) k/uL Lymphocytes # 0.9 L (1.0-4.8) k/uL APTT 21.5 L (22.0-30.0) sec BUN 23 H (9-20) mg/dL Glucose 153 H (74-99) mg/dL POC Glucose (mg/dL) (75-99) mg/dL Total Protein 6.2 L (6.3-8.2) g/dL 02/22/18 02/22/18 Range/Units 07:14 11:43 WBC (3.8-10.6) k/uL Neutrophils # (1.3-7.7) k/uL Lymphocytes # (1.0-4.8) k/uL APTT (22.0-30.0) sec BUN (9-20) mg/dL Glucose (74-99) mg/dL POC Glucose (mg/dL) 129 H 139 H (75-99) mg/dL Total Protein (6.3-8.2) g/dL Thrombosis Risk Factor Assmnt - Choose All That Apply Any of the Below Risk Factors Present?: Yes Each Factor Represents 1 point: Obesity (BMI >25) Other Risk Factors: Yes Each Risk Factor Represents 2 Points: Age 61-74 years Thrombosis Risk Factor Assessment Total Risk Factor Score: 3 Thrombosis Risk Factor Assessment Level: Moderate Risk Assessment and Plan Assessment: ASSESSMENT Shortness of breath- multifactorial- COPD exacerbation, , recent abdominal distention, , cannot rule out cardiac etiology Reason exacerbation of COPD Abdominal distention with epigastric tenderness Hypertension Hyperlipidemia Obstructive sleep apnea Severe COPD Nicotine dependence History of BPH CKD Stgae 2 Plan: Patient will be continued on IV steroids and empirically on azithromycin. We will get a 2-D echo. We'll order an ultrasound of the abdomen. Resume his home medications. Further recommendations depending on the progress of the patient.
[2018-02-22] MEDS: ATORVASTATIN 20 MG TAB PO SCH (21:58)
[2018-02-23] MEDS: methylPREDNISolone SOD SUCCI 125 MG/2 ML VIAL IV SCH ×4 (05:55→23:56)
[2018-02-23] MEDS: INSULIN ASPART 100 UNIT/ML 1 ML 10 ML VIAL SQ SCH ×4 (07:36→21:18)
[2018-02-23 07:39] LABS: Glucose,Whole Blood 122 mg/dL (75-99)
[2018-02-23] MEDS: AZITHROMYCIN 500 MG in SODIUM CHLORIDE 0.9% 250 ML IVPB SCH (07:57)
[2018-02-23] MEDS: ENOXAPARIN 40 MG/0.4 ML SYRINGE SQ SCH (07:58)
[2018-02-23] MEDS: amLODIPine 5 MG TAB PO SCH (07:58)
[2018-02-23] MEDS: IPRATROPIUM-ALBUTEROL 3 ML NEB INHALATION SCH ×4 (08:10→19:49)
[2018-02-23] MEDS: SYMBICORT 160-4.5 MCG INHALER INHALATION SCH ×2 (08:10→19:50)
[2018-02-23 12:09] LABS: Glucose,Whole Blood 157 mg/dL (75-99)
[2018-02-23 12:18] LABS: Basophils % (A) 0 %; Eosinophils # (A) 0.1 k/uL (0-0.7); Eosinophils % (A) 0 %; HCT 46.6 % (39.0-53.0); HGB 15.3 gm/dL (13.0-17.5); Lymphocytes # (A) 0.4 k/uL (1.0-4.8); Lymphocytes % (A) 2 %; MCH 31.1 pg (25.0-35.0); MCHC 32.8 g/dL (31.0-37.0); MCV 94.8 fL (80.0-100.0); Mean Platelet Volume 7.8; Monocytes # (A) 0.8 k/uL (0-1.0); Monocytes % (A) 5 %; Neutrophils # (A) 16.4 k/uL (1.3-7.7); Neutrophils % (A) 92 %; Platelet Count 190 k/uL (150-450); RBC 4.92 m/uL (4.30-5.90); RDW 14.4 % (11.5-15.5); WBC 17.7 k/uL (3.8-10.6)
[2018-02-23 12:35] LABS: Anion Gap 14 mmol/L; Blood Urea Nitrogen 26 mg/dL (9-20); Calcium 8.4 mg/dL (8.4-10.2); Carbon Dioxide 20 mmol/L (22-30); Chloride 105 mmol/L (98-107); Glucose 176 mg/dL (74-99); Potassium 4.5 mmol/L (3.5-5.1); Sodium 139 mmol/L (137-145)
--- NOTE | 2018-02-23 16:42 | CT ---
EXAMINATION TYPE: CT abdomen pelvis wo con DATE OF EXAM: 02/23/2018 COMPARISON: NONE HISTORY: 62-year-old male Midline abdominal pain and distention CT DLP: 1048 mGycm. Automated exposure control for dose reduction was used. TECHNIQUE: Contiguous axial scanning of the abdomen and pelvis without IV contrast. Coronal and sagit brett reconstructions performed. FINDINGS: Heart is normal size without pericardial effusion. Lung bases clear without pleural effusion. Small hiatal hernia. Scattered subcentimeter hypodensities within the liver too small for accurate CT characterization, li lexii cysts. Liver is enlarged at 19.3 cm craniocaudal. There is a lobulated cyst at the inferior righ t lobe measuring 3.9 cm. Cholecystectomy clips. Adrenal glands, left kidney with incidental retroaortic left renal vein, spleen, and pancreas show no gross abnormality. 1.4 cm hypodense lesion likely cortical cyst lateral right kidney. No hydronephrosis on either side. No dilated small bowel, free fluid, or free air. No mesenteric or retroperitoneal lymphadenopathy. Sigmoid diverticulosis without pericolonic inflammatory change. Tiny foci of air within the subcutaneous fat of the right mid abdomen. Tiny fatty umbilical hernia. T here is mild periumbilical fat stranding extending down the midline of the lower abdomen. Fat-containing left indirect inguinal hernia. Bladder nondistended but shows mild circumferential wall thickening. Prostate gland mildly enlarged a t 4.9 cm wide. Bones: Degenerative changes lower lumbar spine. No osseous destructive process. IMPRESSION: 1. Periumbilical fat stranding with some fat stranding tracking down the midline lower abdomen. There is also a tiny focus of subcutaneous air in the right mid abdomen. Query history of subcutaneous inj ections in this patient and correlate for cellulitis. 2. Small hiatal hernia, moderate stool, and sigmoid diverticulosis. 3. Tiny fatty umbilical hernia likely incidental.
[2018-02-23 17:32] LABS: Glucose,Whole Blood 208 mg/dL (75-99)
--- NOTE | 2018-02-23 17:56 | P.PN ---
Subjective Progress Note Date: 02/23/18 Principal diagnosis: Dyspnea, secondary to COPD, and possibly cardiac related. Mr. Cisneros is a 62-year-old white male patient of Dr. Mascorro, who also sees Dr. Escamilla in the pulmonary office for his moderately severe COPD, with a baseline FEV1 of 59% of predicted, presented to the emergency department on 02/21/2018 at 2118, for a complaint of ongoing shortness of breath since last . Patient was seen in the emergency department on 02/13/2018 with complaints of shortness of breath, increasing bilateral lower extremity edema, abdominal distention, some epigastric tenderness. Was treated with nebulized bronchodilators, received some magnesium supplementation for his slightly lower magnesium level, cardiac markers, troponins, proBNP were all within normal limits, there was no leukocytosis, EKG did not show any acute ischemic changes. Patient was sent home on oral prednisone with instructions to follow-up with Dr. Escamilla in the office. Patient was seen by Dr. Escamilla on 02/17/2018, was not feeling any better, still complaining of significant dyspnea, orthopnea, chest tightness. He was given Depo-Medrol in the office, and he was subsequently seen again on 02/21/2018 follow-up. He completed a course of Zithromax, his prednisone dose was increased to 50 mg daily, he was given another dose of Depo- Medrol, started on Lasix 20 mg daily for his bilateral lower extremity edema. Patient was offered an inpatient hospitalization, however he declined initially , in view of his worsening symptoms he did present to the emergency department on the night of 02/21/2018. He states despite outpatient treatment, symptoms persist. 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 He denies any fever or chills, denies any cough, denies any sputum production, denies any chest pain. He is complaining of increased abdominal distention, which is worse after eating. Denies any bowel habit change, on today's exam his abdomen is noted to be significantly distended and tympanic, there is mild epigastric tenderness to palpation. He states he had a normal bowel movement this morning, no melena nor hematochezia. Chest x-ray showed no active cardiopulmonary disease, mild prominence of lung markings compared the previous exam. EKG showed normal sinus rhythm without any acute ischemic changes. Lab work showed WBC of 13.8, hemoglobin of 16.3, d-dimer was negative, electrolytes are within normal limits , BUN was 23, creatinine is 1.17. Liver enzymes were all within normal limits, troponin was negative 1, proBNP was 66, lipase and amylase from 02/13/2018 were at 98 and 60 respectively. Past medical history includes obstructive sleep apnea, and the patient reports being compliant with his CPAP machine, benign prostatic hyperplasia, hyperlipidemia, hypertension. We're asked to see the patient in regards to his ongoing symptoms of dyspnea. Patient was reevaluated today on 02/23/2018, feeling slightly better, but overall he is about the same. His echocardiogram was noted, he was seen by cardiology, infiltrating the possibility of cardiac catheterization, and I believe that would be appropriate. Again, based on my clinical judgment, the patient has more profound symptoms of shortness of breath than could be attributed to his underlying COPD. Not to mention on physical examination he has no wheezing, his breath sounds are mostly diminished at the bases, and his FEV1 is not severe enough to explain all his pulmonary symptoms. Objective - Vital Signs Vital signs: Vital Signs Temp 97.7 F 02/23/18 15:00 Pulse 85 02/23/18 15:41 Resp 16 02/23/18 15:35 BP 150/84 02/23/18 15:00 Pulse Ox 97 02/23/18 15:30 Intake & Output 02/22/18 02/23/18 02/23/18 18:59 06:59 18:59 Intake Total 690 600 340 Balance 690 600 340 Weight 93.894 kg 93.894 kg Intake: Intake, IV Titration 250 Amount Azithromycin 500 mg In 250 Sodium Chloride 0.9% 250 ml @ 125 mls/hr IVPB DAILY [facility] Rx#:[id number] Oral 440 600 340 Other: # Voids 2 1 - Exam Constitutional 62-year-old white male, pleasant, appears flushed and mildly short of breath with conversation General appearance: mild distress - EENT Eyes: PERRLA, dentition normal ENT: NA/AT, normal oropharynx Ears: bilateral: normal - Neck Neck: no lymphadenopathy, normal ROM Carotids: bilateral: upstroke normal Thyroid: bilateral: normal size - Respiratory Respiratory: bilateral: diminished, no crackles or rhonchi or wheezes. - Cardiovascular Rhythm: regular Heart sounds: normal: S1, S2 ankle Peripheral Edema: bilateral: 1+ leg Peripheral Edema: bilateral: 1+ dorsalis pedis Peripheral Pulses: bilateral: Normal radial pulse Peripheral Pulses: bilateral: Normal - Gastrointestinal abdominal distention and epigastric tenderness General gastrointestinal: distended, no organomegaly, soft, tenderness Localized gastrointestinal: tender: epigastric periumbilical - Integumentary Integumentary: normal turgor - Neurologic Neurologic: CNII-XII intact - Musculoskeletal Musculoskeletal: gait normal, strength equal bilaterally - Psychiatric Psychiatric: A&O x's 3, appropriate affect, intact judgment & insight - Labs CBC & Chem 7: 02/23/18 11:35 02/23/18 11:35 Labs: Abnormal Lab Results - Last 24 Hours (Table) 02/22/18 02/23/18 02/23/18 Range/Units 20:48 07:19 11:35 WBC 17.7 H (3.8-10.6) k/uL Neutrophils # 16.4 H (1.3-7.7) k/uL Lymphocytes # 0.4 L (1.0-4.8) k/uL Carbon Dioxide (22-30) mmol/L BUN (9-20) mg/dL Glucose (74-99) mg/dL POC Glucose (mg/dL) 185 H 122 H (75-99) mg/dL 02/23/18 02/23/18 02/23/18 Range/Units 11:35 11:58 17:23 WBC (3.8-10.6) k/uL Neutrophils # (1.3-7.7) k/uL Lymphocytes # (1.0-4.8) k/uL Carbon Dioxide 20 L (22-30) mmol/L BUN 26 H (9-20) mg/dL Glucose 176 H (74-99) mg/dL POC Glucose (mg/dL) 157 H 208 H (75-99) mg/dL Microbiology - Last 24 Hours (Table) 02/21/18 21:55 Blood Culture - Preliminary Blood No Growth after 24 hours Assessment and Plan Assessment: #1. Exertional dyspnea, orthopnea, peripheral leg edema, recent weight gain of 15 pounds in 6 weeks under investigation, rule out cardiac etiology #2. Recent exacerbation of COPD, treated with systemic steroids, course of antibiotics. Currently stable #3. Abdominal distention, epigastric tenderness. Patient was seen in the emergency room on 02/13/2018 and lipase and amylase are within normal limits. Two-view abdominal x-ray on 02/13/2018 was normal. No change in bowel pattern, no diarrhea, no constipation. Patient has a previous history of cholecystectomy #4. Moderately severe COPD, with a baseline FEV1 of 59% of predicted #5. Hypertension, hyperlipidemia #6. Severe obstructive sleep apnea with an AHI of 74, on CPAP therapy at a pressure of 14 cm of water, reports being compliant with therapy #7. Recent bronchoscopy with BAL on 12/04/2017, cytology was negative for any evidence of malignant cells, bronchial wash cultures were negative #8. Nicotine dependence, currently in remission, patient quit 6 weeks ago, but smoked 1-1/2 packs a day for over 50 years #9. History of BPH Recommendation: Continue present treatment plan, I believe the patient may benefit from cardiac catheterization, I still have no clue why his symptoms are more pronounced than they should be based on his pulmonary findings and based on his PFT. We'll continue to follow. Time with Patient: Less than 30
[2018-02-23 20:49] LABS: Glucose,Whole Blood 191 mg/dL (75-99)
[2018-02-23] MEDS: ATORVASTATIN 20 MG TAB PO SCH (21:18)
[2018-02-24] MEDS: methylPREDNISolone SOD SUCCI 125 MG/2 ML VIAL IV SCH ×4 (06:25→23:21)
[2018-02-24 07:17] LABS: Glucose,Whole Blood 116 mg/dL (75-99)
[2018-02-24] MEDS: SYMBICORT 160-4.5 MCG INHALER INHALATION SCH (07:24)
[2018-02-24] MEDS: IPRATROPIUM-ALBUTEROL 3 ML NEB INHALATION SCH ×4 (07:24→20:16)
[2018-02-24] MEDS: INSULIN ASPART 100 UNIT/ML 1 ML 10 ML VIAL SQ SCH ×4 (07:48→21:39)
[2018-02-24] MEDS: AZITHROMYCIN 500 MG in SODIUM CHLORIDE 0.9% 250 ML IVPB SCH (08:10)
[2018-02-24] MEDS: amLODIPine 5 MG TAB PO SCH (08:10)
[2018-02-24] MEDS: ENOXAPARIN 40 MG/0.4 ML SYRINGE SQ SCH ×2 (08:10→10:01)
[2018-02-24 08:55] LABS: Anion Gap 16 mmol/L; Blood Urea Nitrogen 29 mg/dL (9-20); Calcium 8.8 mg/dL (8.4-10.2); Carbon Dioxide 19 mmol/L (22-30); Chloride 106 mmol/L (98-107); Glucose 133 mg/dL (74-99); Potassium 4.6 mmol/L (3.5-5.1); Sodium 141 mmol/L (137-145)
[2018-02-24 11:23] LABS: Glucose,Whole Blood 116 mg/dL (75-99)
[2018-02-24 11:25] LABS: Basophils % (A) 0 %; Eosinophils % (A) 0 %; HCT 51.5 % (39.0-53.0); HGB 16.6 gm/dL (13.0-17.5); Lymphocytes # (A) 0.4 k/uL (1.0-4.8); Lymphocytes % (A) 2 %; MCH 30.6 pg (25.0-35.0); MCHC 32.3 g/dL (31.0-37.0); Mean Platelet Volume 7.1; Monocytes # (A) 0.5 k/uL (0-1.0); Monocytes % (A) 3 %; Neutrophils # (A) 16.6 k/uL (1.3-7.7); Neutrophils % (A) 94 %; Platelet Count 224 k/uL (150-450); RBC 5.43 m/uL (4.30-5.90); RDW 14.1 % (11.5-15.5); WBC 17.7 k/uL (3.8-10.6)
[2018-02-24] MEDS ORDERED: NITROGLYCERIN SL TABS 0.4 MG TAB SUBLINGUAL PRN (12:37)
[2018-02-24] MEDS ORDERED: ALPRAZolam 0.5 MG TAB PO PRN (12:37)
[2018-02-24] MEDS ORDERED: ALPRAZolam 0.25 MG TAB PO PRN (12:37)
[2018-02-24] MEDS ORDERED: SODIUM CHLORIDE 0.9% 1,000 ML in EMPTY BAG 1 BAG IV ONE (12:37)
--- NOTE | 2018-02-24 13:21 | P.PN ---
Subjective Progress Note Date: 02/24/18 Principal diagnosis: Exertional dyspnea, orthopnea, in part related to COPD, rule out cardiac etiology Mr. Cisneros is a 62-year-old white male patient of Dr. Mascorro, who also sees Dr. Escamilla in the pulmonary office for his moderately severe COPD, with a baseline FEV1 of 59% of predicted, presented to the emergency department on 02/21/2018 at 2118, for a complaint of ongoing shortness of breath since last . Patient was seen in the emergency department on 02/13/2018 with complaints of shortness of breath, increasing bilateral lower extremity edema, abdominal distention, some epigastric tenderness. Was treated with nebulized bronchodilators, received some magnesium supplementation for his slightly lower magnesium level, cardiac markers, troponins, proBNP were all within normal limits, there was no leukocytosis, EKG did not show any acute ischemic changes. Patient was sent home on oral prednisone with instructions to follow-up with Dr. Escamilla in the office. Patient was seen by Dr. Escamilla on 02/17/2018, was not feeling any better, still complaining of significant dyspnea, orthopnea, chest tightness. He was given Depo-Medrol in the office, and he was subsequently seen again on 02/21/2018 follow-up. He completed a course of Zithromax, his prednisone dose was increased to 50 mg daily, he was given another dose of Depo- Medrol, started on Lasix 20 mg daily for his bilateral lower extremity edema. Patient was offered an inpatient hospitalization, however he declined initially , in view of his worsening symptoms he did present to the emergency department on the night of 02/21/2018. He states despite outpatient treatment, symptoms persist. 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 He denies any fever or chills, denies any cough, denies any sputum production, denies any chest pain. He is complaining of increased abdominal distention, which is worse after eating. Denies any bowel habit change, on today's exam his abdomen is noted to be significantly distended and tympanic, there is mild epigastric tenderness to palpation. He states he had a normal bowel movement this morning, no melena nor hematochezia. Chest x-ray showed no active cardiopulmonary disease, mild prominence of lung markings compared the previous exam. EKG showed normal sinus rhythm without any acute ischemic changes. Lab work showed WBC of 13.8, hemoglobin of 16.3, d-dimer was negative, electrolytes are within normal limits , BUN was 23, creatinine is 1.17. Liver enzymes were all within normal limits, troponin was negative 1, proBNP was 66, lipase and amylase from 02/13/2018 were at 98 and 60 respectively. Past medical history includes obstructive sleep apnea, and the patient reports being compliant with his CPAP machine, benign prostatic hyperplasia, hyperlipidemia, hypertension. We're asked to see the patient in regards to his ongoing symptoms of dyspnea. Patient was reevaluated today on 02/23/2018, feeling slightly better, but overall he is about the same. His echocardiogram was noted, he was seen by cardiology, infiltrating the possibility of cardiac catheterization, and I believe that would be appropriate. Again, based on my clinical judgment, the patient has more profound symptoms of shortness of breath than could be attributed to his underlying COPD. Not to mention on physical examination he has no wheezing, his breath sounds are mostly diminished at the bases, and his FEV1 is not severe enough to explain all his pulmonary symptoms. On 02/24/2018 patient seen in follow-up on medical surgical floor. He states his breathing is about the same, becomes dyspneic on exertion. Lung sounds are diminished, no wheezes over rales. He was seen in consultation by cardiology, and is awaiting cardiac catheterization tomorrow on 02/25/2018. On room air, with O2 sat at 95%, hemodynamically stable, afebrile. Denies any chest pain, has very minimal pretibial trace edema. Continues on nebulized bronchodilators , Symbicort, IV steroids and empiric antibiotics. Blood culture showed no growth to date. Today's labs were reviewed, and showed WBC of 17.7, hemoglobin 16.6, CO2 of 19, B1 is 29, creatinine is 1.0. Echocardiogram was completed and showed preserved left ventricular systolic function with an EF between 50-55%, no evidence of pulmonary hypertension, mild mitral and tricuspid regurgitation. Objective - Vital Signs Vital signs: Vital Signs Temp 97.0 F L 02/24/18 07:00 Pulse 88 02/24/18 10:54 Resp 20 02/24/18 07:00 BP 156/90 05/21/18 07:00 Pulse Ox 95 02/24/18 07:00 Intake & Output 02/23/18 02/24/18 02/24/18 18:59 06:59 18:59 Intake Total 340 Balance 340 Intake: Oral 340 Other: # Voids 1 # Bowel Movements 0 - Exam Constitutional 62-year-old white male, pleasant, appears flushed and mildly short of breath with conversation General appearance: mild distress - EENT Eyes: PERRLA, dentition normal ENT: NA/AT, normal oropharynx Ears: bilateral: normal - Neck Neck: no lymphadenopathy, normal ROM Carotids: bilateral: upstroke normal Thyroid: bilateral: normal size - Respiratory Respiratory: bilateral: diminished, no crackles or rhonchi or wheezes. - Cardiovascular Rhythm: regular Heart sounds: normal: S1, S2 ankle Peripheral Edema: bilateral: 1+ leg Peripheral Edema: bilateral: 1+ dorsalis pedis Peripheral Pulses: bilateral: Normal radial pulse Peripheral Pulses: bilateral: Normal - Gastrointestinal Abdomen is distended, but less tense on today's exam, no epigastric discomfort noted today. General gastrointestinal: distended, no organomegaly, soft, tenderness Localized gastrointestinal: tender: epigastric periumbilical - Integumentary Integumentary: normal turgor - Neurologic Neurologic: CNII-XII intact - Musculoskeletal Musculoskeletal: gait normal, strength equal bilaterally - Psychiatric Psychiatric: A&O x's 3, appropriate affect, intact judgment & insight - Labs CBC & Chem 7: 02/24/18 08:27 02/24/18 08:27 Labs: Abnormal Lab Results - Last 24 Hours (Table) 02/23/18 02/23/18 02/24/18 Range/Units 17:23 20:47 07:14 WBC (3.8-10.6) k/uL Neutrophils # (1.3-7.7) k/uL Lymphocytes # (1.0-4.8) k/uL Carbon Dioxide (22-30) mmol/L BUN (9-20) mg/dL Glucose (74-99) mg/dL POC Glucose (mg/dL) 208 H 191 H 116 H (75-99) mg/dL 02/24/18 02/24/18 02/24/18 Range/Units 08:27 08:27 11:16 WBC 17.7 H (3.8-10.6) k/uL Neutrophils # 16.6 H (1.3-7.7) k/uL Lymphocytes # 0.4 L (1.0-4.8) k/uL Carbon Dioxide 19 L (22-30) mmol/L BUN 29 H (9-20) mg/dL Glucose 133 H (74-99) mg/dL POC Glucose (mg/dL) 116 H (75-99) mg/dL Microbiology - Last 24 Hours (Table) 02/21/18 21:55 Blood Culture - Preliminary Blood No Growth after 48 hours Assessment and Plan Plan: Assessment: #1. Exertional dyspnea, orthopnea, peripheral leg edema, recent weight gain of 15 pounds in 6 weeks under investigation, patient is awaiting to his heart catheterization on 02/25/2018 #2. Recent exacerbation of COPD, treated with systemic steroids, course of antibiotics. Currently stable #3. Abdominal distention, epigastric tenderness. Patient was seen in the emergency room on 02/13/2018 and lipase and amylase are within normal limits. Two-view abdominal x-ray on 02/13/2018 was normal. No change in bowel pattern, no diarrhea, no constipation. Patient has a previous history of cholecystectomy #4. Moderately severe COPD, with a baseline FEV1 of 59% of predicted #5. Hypertension, hyperlipidemia #6. Severe obstructive sleep apnea with an AHI of 74, on CPAP therapy at a pressure of 14 cm of water, reports being compliant with therapy #7. Recent bronchoscopy with BAL on 12/04/2017, cytology was negative for any evidence of malignant cells, bronchial wash cultures were negative #8. Nicotine dependence, currently in remission, patient quit 6 weeks ago, but smoked 1-1/2 packs a day for over 50 years #9. History of BPH Plan: Continue current medical treatment, continue IV steroids at 60 mg every 6 hours , both which Symbicort 2 nebulized Pulmicort and Perforomist, continue DuoNeb. Patient is awaiting his heart catheterization of 02/25/2018. His have moderately severe COPD and his baseline, and his dyspnea could be attributed to his advanced lung disease. Overall remains stable, no acute events overnight. Follow with you. I performed a history & physical examination of the patient and discussed their management with my nurse practitioner, Cornelia Chacon. I reviewed the nurse practitioner's note and agree with the documented findings and plan of care. Lung sounds are diminished. The findings and the impression was discussed with the patient. I attest to the documentation by the nurse practitioner. Time with Patient: Less than 30
[2018-02-24] MEDS ORDERED: amLODIPine 5 MG TAB PO STA (13:58)
--- NOTE | 2018-02-24 14:03 | P.PN ---
Subjective Mr. Cisneros is a pleasant 62-year-old male past medical history significant for asthma, COPD, dyslipidemia, hypertension, sleep apnea and former tobacco use. Dr. Jones saw him in consultation over the weekend for increasing shortness of breath. He has a history of COPD, however he has been following with Dr. Escamilla and it is their feeling that his shortness of breath is possibly related to a cardiac etiology since he has been on steroids and antibiotics with no improvement in exertional dyspnea. He continues to complain of exertional shortness of breath with no chest pain. Laboratory data reviewed, WBC 17.7, hemoglobin 16.6, placed to 24, sodium 141, potassium 4.6, creatinine 1.0. Blood pressure 156/90 heart rate 79 afebrile maintaining oxygen saturation on room air. Echocardiogram obtained reveals preserved left ventricular systolic function with ejection fraction 50-55%, mild MR and mild TR present. No evidence of pulmonary hypertension with an RVSP of 27.22 mmHg. Objective - Vital Signs Vital signs: Vital Signs Temp 97.0 F L 02/24/18 07:00 Pulse 88 02/24/18 10:54 Resp 20 02/24/18 07:00 BP 156/90 02/24/18 07:00 Pulse Ox 95 02/24/18 07:00 Intake & Output 02/23/18 02/24/18 02/24/18 18:59 06:59 18:59 Intake Total 340 Balance 340 Intake: Oral 340 Other: # Voids 1 # Bowel Movements 0 - Exam GENERAL: Well-appearing, well-nourished and in no acute distress. NECK: Supple without JVD or thyromegaly. LUNGS: Breath sounds clear to auscultation bilaterally. Respiration equal and unlabored. No wheezes, rales or rhonchi. HEART: Regular rate and rhythm without murmurs, rubs or gallops. S1 and S2 heard. EXTREMITIES: Normal range of motion, no edema. No clubbing or cyanosis. Peripheral pulses intact and strong. - Labs CBC & Chem 7: 02/24/18 08:27 02/24/18 08:27 Labs: Abnormal Lab Results - Last 24 Hours (Table) 02/23/18 02/23/18 02/24/18 Range/Units 17:23 20:47 07:14 WBC (3.8-10.6) k/uL Neutrophils # (1.3-7.7) k/uL Lymphocytes # (1.0-4.8) k/uL Carbon Dioxide (22-30) mmol/L BUN (9-20) mg/dL Glucose (74-99) mg/dL POC Glucose (mg/dL) 208 H 191 H 116 H (75-99) mg/dL 02/24/18 02/24/18 02/24/18 Range/Units 08:27 08:27 11:16 WBC 17.7 H (3.8-10.6) k/uL Neutrophils # 16.6 H (1.3-7.7) k/uL Lymphocytes # 0.4 L (1.0-4.8) k/uL Carbon Dioxide 19 L (22-30) mmol/L BUN 29 H (9-20) mg/dL Glucose 133 H (74-99) mg/dL POC Glucose (mg/dL) 116 H (75-99) mg/dL Microbiology - Last 24 Hours (Table) 02/21/18 21:55 Blood Culture - Preliminary Blood No Growth after 48 hours Assessment and Plan Assessment: ASSESSMENT 1. Dyspnea on exertion 2. Acute exacerbation COPD, on IV steroids, IV antibiotics and breathing treatments 3. Hypertension, uncontrolled on amlodipine. May be secondary to IV steroids 4. Dyslipidemia 5. Recent history of nicotine dependence, patient quit 6 weeks ago 6. Leukocytosis PLAN Increase amlodpine to 10 mg daily, give additional dose of 5 mg now x1. Plan for cardiac catheterization tomorrow with Dr. Jones. I have discussed the risks, benefits and alternative therapies for the above-mentioned procedure and for both sedation/analgesia as well as necessary blood product administration, if indicated, as they pertain to this patient. The patient has indicated understanding and acceptance of the risks and procedures discussed. Questions have been answered appropriately and he is agreeable to move forward with above stated procedure. Orders have been placed and case boarded with the [facility]. Further recommendations based on clinical course. Nurse Practitioner note has been reviewed, I agree with a documented findings and plan of care. Patient was seen and examined.
[2018-02-24 16:59] LABS: Glucose,Whole Blood 154 mg/dL (75-99)
--- NOTE | 2018-02-24 17:30 | P.PN ---
Subjective Progress Note Date: 02/24/18 Progress note being dictated for Dr. Andrews. Mr. Cisneros is a 62-year-old male with a past medical history of severe COPD, hypertension, hyperlipidemia, obstructive sleep apnea coming into the hospital with a chief complaint of difficulty in breathing. Patient follows with Dr. Mascorro and also with Dr. Escamilla for his severe COPD. He was recently in the emergency department the for the same and the he was treated with the bronchodilators and sent home on prednisone. Patient was seen by Dr. Escamilla in his clinic on 02/17/2018 for the same complaint of dyspnea orthopnea and chest tightness for which she was given Medrol Dosepak that he completed. In spite of the antibiotic and the steroid therapy patient continued to have difficulty in breathing and so admitted for it. Patient also complains of some epigastric tenderness and no also abdominal distention that has been going on and off for the past 1-2 months. Patient denies having any fever, cough or chills or rigors. He denies having any orthopnea PND chest pain or palpitations. No complaints of lower extremity swelling. No history of recent travel. No recent history of surgeries. Review of Systems REVIEW OF SYSTEMS: PSYCH: No anxiety or depression NEURO:No c/o weakness of the extremties, No facial droop, No speech abnormalities. VASCULAR: No bilateral lower extremity swelling HEMATOLOGIC: No history of easy bleeding and bruising . No recent infections . RESPIRATORY: No cough, No chest discomfort. IMMUNE: No infections INTEGUMENT: no rashes OPHTHALMOLOGIC: No blurry vision and no eye discharge : No dysuria or hematuria CARDIAC: No chest pain , shortness of breath , paroxysmal nocturnal dyspnea MUSCULOSKELETAL : No Aches or pains in the joints or muscles. GI: Abdominal distention for the past 1-2 months, no nausea vomiting or diarrhea , has some epigastric tenderness 02/24/2018 Maintained on IV steroids, nebulized bronchodilators and IV antibiotics of Zithromax.Complains of exertional shortness of breath. Denies chest pain, palpitations. Maintaining O2 sats of 95% on room air at rest. LFTs normal on admission, lipase and amylase of 02/13/2018, 98 and 60.reports wwight gain of approximately 15 pounds in the last 2 months. Complains of abdominal distention with mild diffuse midepigastric discomfort. CT of abdomen and pelvis reporting scattered subcentimeter hypodensities within the liver too small for accurate CT characterization, suspect cysts, enlarged liver, lobulated cyst in the inferior right lobe measuring 3.9 cm, Pancreas shows no gross abnormality, right lateral kidney with 1.4 cm hypodense lesion, likely cortical cyst, no bilateral hydronephrosis, right mid abdomen with tiny focus of subcutaneous air, possible cellulitis small hiatal hernia, moderate stool, and sigmoid diverticulosis, tiny fatty umbilical hernia,. Umbilical fat stranding tracking down midline lower abdomen. Echo reports preserved LV function, EF 50-55%. Preliminary blood cultures negative .Afebrile. Objective - Vital Signs Vital signs: Vital Signs Temp 97.4 F L 02/24/18 14:26 Pulse 88 02/24/18 16:41 Resp 16 02/24/18 14:26 BP 155/74 02/24/18 14:26 Pulse Ox 97 02/24/18 16:28 Intake & Output 02/23/18 02/24/18 02/24/18 18:59 06:59 18:59 Intake Total 340 1200 Balance 340 1200 Intake: Oral 340 1200 Other: # Voids 1 3 # Bowel Movements 0 - Exam GEN. APPEARANCE: Sitting up at side of bed, alert and oriented 3, no acute distress HEAD EXAM: atraumatic, normocephalic, normal inspection RESPIRATORY EXAM: Diminished bilateral bases, no crackles or wheezing or rhonchi CARDIOVASCULAR EXAM: regular rate, normal rhythm, normal heart sounds. Absent : systolic murmur, diastolic murmur, rubs, gallop, clicks GI/ABDOMINAL EXAM: Positive for diffuse mid-epigastric tenderness and mild abdominal distention. No guarding or rigidity. EXTREMITIES EXAM: normal inspection, full ROM, normal capillary refill, mild pedal edema. Absent: tenderness, joint swelling, calf tenderness NEUROLOGICAL EXAM: alert, oriented X3, CN II-XII intact, motor sensory deficit PSYCHIATRIC EXAM: normal affect, normal mood SKIN EXAM: warm, dry, intact, normal color. Absent: rash - Labs CBC & Chem 7: 02/24/18 08:27 02/24/18 08:27 Labs: Abnormal Lab Results - Last 24 Hours (Table) 02/23/18 02/23/18 02/24/18 Range/Units 17:23 20:47 07:14 WBC (3.8-10.6) k/uL Neutrophils # (1.3-7.7) k/uL Lymphocytes # (1.0-4.8) k/uL Carbon Dioxide (22-30) mmol/L BUN (9-20) mg/dL Glucose (74-99) mg/dL POC Glucose (mg/dL) 208 H 191 H 116 H (75-99) mg/dL 02/24/18 02/24/18 02/24/18 Range/Units 08:27 08:27 11:16 WBC 17.7 H (3.8-10.6) k/uL Neutrophils # 16.6 H (1.3-7.7) k/uL Lymphocytes # 0.4 L (1.0-4.8) k/uL Carbon Dioxide 19 L (22-30) mmol/L BUN 29 H (9-20) mg/dL Glucose 133 H (74-99) mg/dL POC Glucose (mg/dL) 116 H (75-99) mg/dL Microbiology - Last 24 Hours (Table) 02/21/18 21:55 Blood Culture - Preliminary Blood No Growth after 48 hours Assessment and Plan Assessment: Shortness of breath- multifactorial- COPD exacerbation, , recent abdominal distention, cannot rule out cardiac etiology Reason exacerbation of COPD Abdominal distention with epigastric tenderness of unclear etiology;CT reporting scattered hypodensities within the liver too small for accurate CT characterization, suspect cysts, enlarged liver, lobulated cyst in the inferior right lobe measuring 3.9 cm, right mid abdomen with tiny focus of subcutaneous air,small hiatal hernia, moderate stool, and sigmoid diverticulosis, tiny fatty umbilical hernia right lateral kidney with 1.4 cm hypodense lesion, likely cortical cyst, no bilateral hydronephrosis per CT Hypertension Hyperlipidemia Obstructive sleep apnea Severe COPD Nicotine dependence, quit 6 weeks ago History of BPH CKD Stage II Plan: Continue current medication regime ,monitoring and symptomatic treatment. Maintain IV steroids, nebulized bronchodilators, antibiotics .Scheduled for cardiac catheterization in a.m. Pending findings, consider MRI of abdomen. Repeat labs in a.m. Plan of care discussed at bedside with both patient and , state understanding of and agreement with. The impression and plan of care has been dictated as directed. : I performed a history and examination of this patient, discussed the same with the dictator. I agree with the dictator's note ,documented as a scribe. Any additional findings or plans will be noted.
[2018-02-24] MEDS: BUDESONIDE 1 MG/2 ML NEBU INHALATION SCH (20:14)
[2018-02-24] MEDS: FORMOTEROL FUMARATE 20 MCG/2 ML NEBU INHALATION SCH (20:14)
[2018-02-24 20:32] LABS: Glucose,Whole Blood 252 mg/dL (75-99)
[2018-02-24] MEDS: ATORVASTATIN 20 MG TAB PO SCH (22:28)
[2018-02-25] MEDS ORDERED: ASPIRIN 325 MG TAB PO ONE (06:00)
[2018-02-25] MEDS ORDERED: ATORVASTATIN 80 MG TAB PO ONE (06:00)
[2018-02-25] MEDS: methylPREDNISolone SOD SUCCI 125 MG/2 ML VIAL IV SCH ×2 (06:15→12:41)
[2018-02-25] MEDS: FORMOTEROL FUMARATE 20 MCG/2 ML NEBU INHALATION SCH ×2 (07:08→20:59)
[2018-02-25] MEDS: BUDESONIDE 1 MG/2 ML NEBU INHALATION SCH ×2 (07:08→20:59)
[2018-02-25] MEDS: IPRATROPIUM-ALBUTEROL 3 ML NEB INHALATION SCH ×4 (07:08→20:59)
[2018-02-25 07:27] LABS: Glucose,Whole Blood 118 mg/dL (75-99)
[2018-02-25] MEDS: INSULIN ASPART 100 UNIT/ML 1 ML 10 ML VIAL SQ SCH ×2 (08:00→12:41)
[2018-02-25] MEDS: AZITHROMYCIN 500 MG in SODIUM CHLORIDE 0.9% 250 ML IVPB SCH (08:04)
[2018-02-25] MEDS: amLODIPine 10 MG TAB PO SCH (08:05)
[2018-02-25] MEDS: ENOXAPARIN 40 MG/0.4 ML SYRINGE SQ SCH (08:05)
[2018-02-25 09:17] LABS: Basophils % (A) 0 %; Eosinophils # (A) 0.1 k/uL (0-0.7); Eosinophils % (A) 0 %; HCT 51.1 % (39.0-53.0); HGB 16.5 gm/dL (13.0-17.5); Lymphocytes # (A) 0.3 k/uL (1.0-4.8); Lymphocytes % (A) 2 %; MCH 30.6 pg (25.0-35.0); MCHC 32.2 g/dL (31.0-37.0); MCV 94.9 fL (80.0-100.0); Mean Platelet Volume 6.9; Monocytes # (A) 0.6 k/uL (0-1.0); Monocytes % (A) 4 %; Neutrophils # (A) 14.9 k/uL (1.3-7.7); Neutrophils % (A) 94 %; Platelet Count 183 k/uL (150-450); RBC 5.39 m/uL (4.30-5.90); RDW 14.3 % (11.5-15.5); WBC 15.9 k/uL (3.8-10.6)
[2018-02-25] MEDS ORDERED: SODIUM CHLORIDE 0.9% 1,000 ML IV ONE (09:23)
[2018-02-25] MEDS ORDERED: LIDOCAINE 2% INJ 20 MG/ML SQ ONE (09:27)
[2018-02-25] MEDS ORDERED: MIDAZOLAM 2 MG/2 ML VIAL IVP ONE (09:28)
[2018-02-25] MEDS ORDERED: fentaNYL (PF) 50 MCG/ML 2 ML AMP IVP ONE (09:28)
[2018-02-25 09:30] LABS: Calcium 8.6 mg/dL (8.4-10.2); Potassium 4.6 mmol/L (3.5-5.1)
[2018-02-25] MEDS ORDERED: IOPAMIDOL-370 125ML BTL INJ ONE (09:38)
[2018-02-25] MEDS ORDERED: RX INFO: IV CONTRAST WAS GIVEN 1 EACH MISC MISCELLANE PRN (09:49)
[2018-02-25] MEDS ORDERED: IOPAMIDOL-250 50ML BTL INTRAARTER ONE (09:51)
--- NOTE | 2018-02-25 10:00 | P.PCN ---
Date of Procedure: 02/25/18 Preoperative Diagnosis: Dyspnea Postoperative Diagnosis: Minimal coronary artery disease. Elevated end-diastolic pressure suggestive of diastolic dysfunction and possible CHF based on diastolic dysfunction Procedure(s) Performed: Left heart catheterization with left ventriculography. Description of Procedure: HISTORY: This is a 62-year-old gentleman with history of COPD who is been experiencing increasing shortness of breath. Patient has history of hypertension and hypercholesteremia and previous history of smoking. ProBNP is within normal limits. Patient is advised to have a cardiac catheterization to rule out any underlying ischemic heart disease. CONSENT:I have discussed the risks, benefits and alternative therapies for the above-mentioned procedure and for both sedation/analgesia as well as necessary blood product administration, if indicated, as they pertain to this patient. The patient has indicated understanding and acceptance of the risks and procedures discussed. PROCEDURE: Patient was brought to the lab in a fasting state. Patient was given some IV sedation. The right groin is infiltrated with lidocaine and right femoral artery was entered using Seldinger technique. A 6-Malian catheter was left in place and selective coronary arteriography and left ventriculography was performed. Patient tolerated the procedure well. Femoral angiogram was performed and Angio-Seal was applied for hemostasis. No immediate complications were noted and patient was transferred to [facility] in a stable condition Conscious Sedation: Versed 1 mg Fentanyl 25 g Duration 15minutes HEMODYNAMICS: The aortic pressure is 150/70. Left ankle end-diastolic pressure is about 20-22. There was no gradient across the aortic valve SELECTIVE CORONARY ARTERIOGRAPHY: LEFT MAIN: Almost nonexistent dividing into LAD and circumflex immediately THE LEFT ANTERIOR DESCENDING CORONARY ARTERY: This is a good caliber vessel with mild ectatic changes and irregularities without any significant focal occlusive disease. Use ice to good-sized first diagonal branch THE LEFT CIRCUMFLEX AND IS CORONARY ARTERY: This is a moderate caliber vessel giving rise moderate caliber OM branch. Circumflex and branches are free of occlusive disease THE RIGHT CORONARY ARTERY: This is a dominant vessel giving rise good-sized PDA and PLV. The vessel has mild ectatic changes with irregularities without any significant focal lesion. LEFT VENTRICULOGRAPHY: Showed normal LV size with good systolic function. The end-diastolic pressure is elevated FINAL IMPRESSION: Minimal coronary artery disease. Elevated end-diastolic pressures may suggest diastolic CHF PLAN: We'll add lisinopril along with small dose of diuretic and potassium. Continue risk factor modification PROGNOSIS: Fair
--- NOTE | 2018-02-25 10:17 | P.PN ---
Subjective Progress Note Date: 02/25/18 Principal diagnosis: Exertional dyspnea, orthopnea, in part related to COPD, rule out cardiac etiology Mr. Cisneros is a 62-year-old white male patient of Dr. Mascorro, who also sees Dr. Escamilla in the pulmonary office for his moderately severe COPD, with a baseline FEV1 of 59% of predicted, presented to the emergency department on 02/21/2018 at 2118, for a complaint of ongoing shortness of breath since last . Patient was seen in the emergency department on 02/13/2018 with complaints of shortness of breath, increasing bilateral lower extremity edema, abdominal distention, some epigastric tenderness. Was treated with nebulized bronchodilators, received some magnesium supplementation for his slightly lower magnesium level, cardiac markers, troponins, proBNP were all within normal limits, there was no leukocytosis, EKG did not show any acute ischemic changes. Patient was sent home on oral prednisone with instructions to follow-up with Dr. Escamilla in the office. Patient was seen by Dr. Escamilla on 02/17/2018, was not feeling any better, still complaining of significant dyspnea, orthopnea, chest tightness. He was given Depo-Medrol in the office, and he was subsequently seen again on 02/21/2018 follow-up. He completed a course of Zithromax, his prednisone dose was increased to 50 mg daily, he was given another dose of Depo- Medrol, started on Lasix 20 mg daily for his bilateral lower extremity edema. Patient was offered an inpatient hospitalization, however he declined initially , in view of his worsening symptoms he did present to the emergency department on the night of 02/21/2018. He states despite outpatient treatment, symptoms persist. 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 He denies any fever or chills, denies any cough, denies any sputum production, denies any chest pain. He is complaining of increased abdominal distention, which is worse after eating. Denies any bowel habit change, on today's exam his abdomen is noted to be significantly distended and tympanic, there is mild epigastric tenderness to palpation. He states he had a normal bowel movement this morning, no melena nor hematochezia. Chest x-ray showed no active cardiopulmonary disease, mild prominence of lung markings compared the previous exam. EKG showed normal sinus rhythm without any acute ischemic changes. Lab work showed WBC of 13.8, hemoglobin of 16.3, d-dimer was negative, electrolytes are within normal limits , BUN was 23, creatinine is 1.17. Liver enzymes were all within normal limits, troponin was negative 1, proBNP was 66, lipase and amylase from 02/13/2018 were at 98 and 60 respectively. Past medical history includes obstructive sleep apnea, and the patient reports being compliant with his CPAP machine, benign prostatic hyperplasia, hyperlipidemia, hypertension. We're asked to see the patient in regards to his ongoing symptoms of dyspnea. Patient was reevaluated today on 02/23/2018, feeling slightly better, but overall he is about the same. His echocardiogram was noted, he was seen by cardiology, infiltrating the possibility of cardiac catheterization, and I believe that would be appropriate. Again, based on my clinical judgment, the patient has more profound symptoms of shortness of breath than could be attributed to his underlying COPD. Not to mention on physical examination he has no wheezing, his breath sounds are mostly diminished at the bases, and his FEV1 is not severe enough to explain all his pulmonary symptoms. On 02/24/2018 patient seen in follow-up on medical surgical floor. He states his breathing is about the same, becomes dyspneic on exertion. Lung sounds are diminished, no wheezes over rales. He was seen in consultation by cardiology, and is awaiting cardiac catheterization tomorrow on 02/25/2018. On room air, with O2 sat at 95%, hemodynamically stable, afebrile. Denies any chest pain, has very minimal pretibial trace edema. Continues on nebulized bronchodilators , Symbicort, IV steroids and empiric antibiotics. Blood culture showed no growth to date. Today's labs were reviewed, and showed WBC of 17.7, hemoglobin 16.6, CO2 of 19, B1 is 29, creatinine is 1.0. Echocardiogram was completed and showed preserved left ventricular systolic function with an EF between 50-55%, no evidence of pulmonary hypertension, mild mitral and tricuspid regurgitation. On 02/25/2018 patient seen again. Reports feeling better, lung sounds are diminished with a few scattered rhonchi, but overall patient reports improvement in his dyspnea. He is on room air, pulse ox of 97%, afebrile, vital signs are stable. Denies any chest pain, denies any fever or chills, patient has been treated with IV steroids, nebulized bronchodilators, and empiric antibiotics in the form of azithromycin. Patient is awaiting his heart catheterization today. Objective - Vital Signs Vital signs: Vital Signs Temp 98.4 F 02/25/18 06:00 Pulse 86 02/25/18 07:30 Resp 16 02/25/18 06:00 BP 157/79 02/25/18 06:00 Pulse Ox 95 02/25/18 06:00 Intake & Output 02/24/18 02/25/18 02/25/18 18:59 06:59 18:59 Intake Total 1800 747.2 100 Balance 1800 747.2 100 Intake: IV 100 Intake, IV Titration 747.2 Amount Sodium Chloride 0.9% 1, 747.2 000 ml In Empty Bag 1 bag @ 1 ML/KG/HR 93.89 mls/ hr IV .[id number] ONE Rx#: [id number] Oral 1800 Other: # Voids 1 1 - Exam Constitutional 62-year-old white male, pleasant, appears flushed, but in no acute distress. General appearance: mild distress - EENT Eyes: PERRLA, dentition normal ENT: NA/AT, normal oropharynx Ears: bilateral: normal - Neck Neck: no lymphadenopathy, normal ROM Carotids: bilateral: upstroke normal Thyroid: bilateral: normal size - Respiratory Respiratory: bilateral: diminished, no crackles or rhonchi or wheezes. - Cardiovascular Rhythm: regular Heart sounds: normal: S1, S2 ankle Peripheral Edema: bilateral: 1+ leg Peripheral Edema: bilateral: 1+ dorsalis pedis Peripheral Pulses: bilateral: Normal radial pulse Peripheral Pulses: bilateral: Normal - Gastrointestinal Abdomen is distended, but less tense on today's exam, no epigastric discomfort noted today. General gastrointestinal: distended, no organomegaly, soft, tenderness Localized gastrointestinal: tender: epigastric periumbilical - Integumentary Integumentary: normal turgor - Neurologic Neurologic: CNII-XII intact - Musculoskeletal Musculoskeletal: gait normal, strength equal bilaterally - Psychiatric Psychiatric: A&O x's 3, appropriate affect, intact judgment & insight - Labs CBC & Chem 7: 02/25/18 08:51 02/25/18 08:51 Labs: Abnormal Lab Results - Last 24 Hours (Table) 02/24/18 02/24/18 02/24/18 Range/Units 08:27 11:16 16:56 WBC 17.7 H (3.8-10.6) k/uL Neutrophils # 16.6 H (1.3-7.7) k/uL Lymphocytes # 0.4 L (1.0-4.8) k/uL Carbon Dioxide (22-30) mmol/L BUN (9-20) mg/dL Glucose (74-99) mg/dL POC Glucose (mg/dL) 116 H 154 H (75-99) mg/dL 02/24/18 02/25/18 02/25/18 Range/Units 20:30 07:25 08:51 WBC 15.9 H (3.8-10.6) k/uL Neutrophils # 14.9 H (1.3-7.7) k/uL Lymphocytes # 0.3 L (1.0-4.8) k/uL Carbon Dioxide (22-30) mmol/L BUN (9-20) mg/dL Glucose (74-99) mg/dL POC Glucose (mg/dL) 252 H 118 H (75-99) mg/dL 02/25/18 Range/Units 08:51 WBC (3.8-10.6) k/uL Neutrophils # (1.3-7.7) k/uL Lymphocytes # (1.0-4.8) k/uL Carbon Dioxide 20 L (22-30) mmol/L BUN 31 H (9-20) mg/dL Glucose 127 H (74-99) mg/dL POC Glucose (mg/dL) (75-99) mg/dL Microbiology - Last 24 Hours (Table) 02/21/18 21:55 Blood Culture - Preliminary Blood No Growth after 72 hours Assessment and Plan Plan: Assessment: #1. Exertional dyspnea, orthopnea, peripheral leg edema, recent weight gain of 15 pounds in 6 weeks under investigation, patient is awaiting to his heart catheterization on 02/25/2018 #2. Recent exacerbation of COPD, treated with systemic steroids, course of antibiotics. Currently stable #3. Abdominal distention, epigastric tenderness. Patient was seen in the emergency room on 02/13/2018 and lipase and amylase are within normal limits. Two-view abdominal x-ray on 02/13/2018 was normal. No change in bowel pattern, no diarrhea, no constipation. Patient has a previous history of cholecystectomy #4. Moderately severe COPD, with a baseline FEV1 of 59% of predicted #5. Hypertension, hyperlipidemia #6. Severe obstructive sleep apnea with an AHI of 74, on CPAP therapy at a pressure of 14 cm of water, reports being compliant with therapy #7. Recent bronchoscopy with BAL on 12/04/2017, cytology was negative for any evidence of malignant cells, bronchial wash cultures were negative #8. Nicotine dependence, currently in remission, patient quit 6 weeks ago, but smoked 1-1/2 packs a day for over 50 years #9. History of BPH Plan: We'll continue current plan of treatment, patient reports significant improvement with his dyspnea today. Awaiting his heart catheterization today, we will continue to follow. I performed a history & physical examination of the patient and discussed their management with my nurse practitioner, Cornelia Chacon. I reviewed the nurse practitioner's note and agree with the documented findings and plan of care. Lung sounds are diminished. The findings and the impression was discussed with the patient. I attest to the documentation by the nurse practitioner. Time with Patient: Less than 30
[2018-02-25] MEDS: LISINOPRIL 5 MG TAB PO SCH (12:41)
[2018-02-25] MEDS: SODIUM CHLORIDE 0.9% 1,000 ML IV SCH (12:41)
[2018-02-25] MEDS ORDERED: SENNOSIDES 8.6 MG TAB PO PRN (12:43)
[2018-02-25] MEDS ORDERED: POLYETHYLENE GLYCOL 3350 17 GM POWD.PACK PO PRN (12:43)
--- NOTE | 2018-02-25 15:27 | P.PN ---
Subjective 62-year-old male with a past medical history of severe COPD, hypertension, hyperlipidemia, obstructive sleep apnea coming into the hospital with a chief complaint of difficulty in breathing. Patient follows with Dr. Mascorro and also with Dr. Escamilla for his severe COPD. He was recently in the emergency department the for the same and the he was treated with the bronchodilators and sent home on prednisone. Patient was seen by Dr. Escamilla in his clinic on 2017 for the same complaint of dyspnea orthopnea and chest tightness for which she was given Medrol Dosepak that he completed. In spite of the antibiotic and the steroid therapy patient continued to have difficulty in breathing and so admitted for it. Patient also complains of some epigastric tenderness and no also abdominal distention that has been going on and off for the past 1-2 months. 02/25/2018 Patient is not wheezing today patient underwent cardia catheterization which did not show any stentable atherosclerotic coronary vascular disease, patient and his are concerned about abdominal distention patient has distended abdomen tympanic in nature probably secondary to constipation there is no significant intra-abdominal pathology was appreciated on the CAT scan although patient had some renal cysts with chest incidental findings for which patient will lead to follow up with neurology as an outpatient. Patient will be switched to oral prednisone. IV Solu-Medrol will be discontinued. Patient will be started on oral prednisone Constitutional: Denied any fatigue denied any fever. Cardio vascular: denied any chest pain, palpitations Gastrointestinal denied any nausea vomiting Pulmonary: Denied any shortness of breath cough Neurologic denied any new focal deficits Objective - Vital Signs Vital signs: Vital Signs Temp 97.2 F L 02/25/18 12:34 Pulse 76 02/25/18 15:19 Resp 14 02/25/18 13:34 BP 152/82 02/25/18 13:34 Pulse Ox 92 L 02/25/18 13:34 Intake & Output 02/24/18 02/25/18 02/25/18 18:59 06:59 18:59 Intake Total 1800 747.2 726 Balance 1800 747.2 726 Intake: IV 100 Sodium Chloride 0.9% 1, 0 000 ml @ 75 mls/hr IV . [id number] [facility] Rx#:[id number] Intake, IV Titration 747.2 150 Amount Sodium Chloride 0.9% 1, 150 000 ml @ 75 mls/hr IV . [id number] [facility] Rx#:[id number] Sodium Chloride 0.9% 1, 747.2 000 ml In Empty Bag 1 bag @ 1 ML/KG/HR 93.89 mls/ hr IV .[id number] [facility] Rx#: [id number] Oral 1800 476 Other: # Voids 1 1 - Exam PHYSICAL EXAMINATION: GENERAL: The patient is alert and oriented x3, not in any acute distress. Well developed, well nourished. HEENT: Pupils are round and equally reacting to light. EOMI. No scleral icterus. No conjunctival pallor. Normocephalic, atraumatic. No pharyngeal erythema. No thyromegaly. CARDIOVASCULAR: S1 and S2 present. No murmurs, rubs, or gallops. PULMONARY: Chest is clear to auscultation, no wheezing or crackles. ABDOMEN: , nontender distended tympanic normoactive bowel sounds. No palpable organomegaly. MUSCULOSKELETAL: No joint swelling or deformity. EXTREMITIES: No cyanosis, clubbing, or pedal edema. NEUROLOGICAL: Gross neurological examination did not reveal any focal deficits. SKIN: No rashes. - Labs CBC & Chem 7: 02/25/18 08:51 02/25/18 08:51 Labs: Abnormal Lab Results - Last 24 Hours (Table) 02/24/18 02/24/18 02/25/18 Range/Units 16:56 20:30 07:25 WBC (3.8-10.6) k/uL Neutrophils # (1.3-7.7) k/uL Lymphocytes # (1.0-4.8) k/uL Carbon Dioxide (22-30) mmol/L BUN (9-20) mg/dL Glucose (74-99) mg/dL POC Glucose (mg/dL) 154 H 252 H 118 H (75-99) mg/dL 02/25/18 02/25/18 Range/Units 08:51 08:51 WBC 15.9 H (3.8-10.6) k/uL Neutrophils # 14.9 H (1.3-7.7) k/uL Lymphocytes # 0.3 L (1.0-4.8) k/uL Carbon Dioxide 20 L (22-30) mmol/L BUN 31 H (9-20) mg/dL Glucose 127 H (74-99) mg/dL POC Glucose (mg/dL) (75-99) mg/dL Microbiology - Last 24 Hours (Table) 02/21/18 21:55 Blood Culture - Preliminary Blood No Growth after 72 hours Assessment and Plan Plan: Assessment and Plan Assessment: Shortness of breath- multifactorial- COPD exacerbation, along with morbid obesity obstructive sleep apnea ,, shortness of breath improved. Patient is status post cardiac catheterization which did not show any significant atherosclerotic coronary occlusive disease Acute exacerbation of COPD Abdominal distention with epigastric tenderness of unclear etiology;CT reporting scattered hypodensities within the liver too small for accurate CT characterization, suspect cysts, enlarged liver, lobulated cyst in the inferior right lobe measuring 3.9 cm, right mid abdomen with tiny focus of subcutaneous air,small hiatal hernia, moderate stool, and sigmoid diverticulosis, tiny fatty umbilical hernia right lateral kidney with 1.4 cm hypodense lesion, likely cortical cyst, no bilateral hydronephrosis per CT, follow-up with urology as an outpatient Hypertension Hyperlipidemia Obstructive sleep apnea Severe COPD Nicotine dependence, quit 6 weeks ago History of BPH CKD Stage II
[2018-02-25] MEDS: FUROSEMIDE 20 MG TAB PO SCH (16:19)
[2018-02-25] MEDS: ATORVASTATIN 20 MG TAB PO SCH (19:58)
[2018-02-26 06:21] LABS: Calcium 8.4 mg/dL (8.4-10.2); Potassium 4.8 mmol/L (3.5-5.1)
[2018-02-26] MEDS: BUDESONIDE 1 MG/2 ML NEBU INHALATION SCH (07:01)
[2018-02-26] MEDS: IPRATROPIUM-ALBUTEROL 3 ML NEB INHALATION SCH ×3 (07:01→15:36)
[2018-02-26] MEDS: FORMOTEROL FUMARATE 20 MCG/2 ML NEBU INHALATION SCH (07:01)
[2018-02-26] MEDS: SODIUM CHLORIDE 0.9% 1,000 ML IV SCH ×2 (07:33→12:00)
[2018-02-26 08:42] VITALS: RESP 16; TEMP 97.3
[2018-02-26] MEDS: LISINOPRIL 5 MG TAB PO SCH (08:44)
[2018-02-26] MEDS: amLODIPine 10 MG TAB PO SCH (08:44)
[2018-02-26] MEDS: ENOXAPARIN 40 MG/0.4 ML SYRINGE SQ SCH (08:44)
[2018-02-26] MEDS: FUROSEMIDE 20 MG TAB PO SCH (08:44)
[2018-02-26] MEDS: AZITHROMYCIN 500 MG in SODIUM CHLORIDE 0.9% 250 ML IVPB SCH (08:53)
[2018-02-26] MEDS ORDERED: POTASSIUM CHLORIDE ER 10 MEQ TAB.ER.PRT PO SCH (09:00)
[2018-02-26] MEDS ORDERED: predniSONE 20 MG TAB PO SCH (09:00)
[2018-02-26] MEDS: TESTOSTERONE CYPIONATE 200 MG/ML 1ML VIAL IM SCH (10:47)
[2018-02-26 11:24] VITALS: BP 152/78
--- NOTE | 2018-02-26 12:46 | P.PN ---
Subjective Progress Note Date: 02/26/18 Principal diagnosis: Exertional dyspnea, orthopnea, in part related to COPD, rule out cardiac etiology Mr. Cisneros is a 62-year-old white male patient of Dr. Mascorro, who also sees Dr. Escamilla in the pulmonary office for his moderately severe COPD, with a baseline FEV1 of 59% of predicted, presented to the emergency department on 02/21/2018 at 2118, for a complaint of ongoing shortness of breath since last . Patient was seen in the emergency department on 02/13/2018 with complaints of shortness of breath, increasing bilateral lower extremity edema, abdominal distention, some epigastric tenderness. Was treated with nebulized bronchodilators, received some magnesium supplementation for his slightly lower magnesium level, cardiac markers, troponins, proBNP were all within normal limits, there was no leukocytosis, EKG did not show any acute ischemic changes. Patient was sent home on oral prednisone with instructions to follow-up with Dr. Escamilla in the office. Patient was seen by Dr. Escamilla on 02/17/2018, was not feeling any better, still complaining of significant dyspnea, orthopnea, chest tightness. He was given Depo-Medrol in the office, and he was subsequently seen again on 02/21/2018 follow-up. He completed a course of Zithromax, his prednisone dose was increased to 50 mg daily, he was given another dose of Depo- Medrol, started on Lasix 20 mg daily for his bilateral lower extremity edema. Patient was offered an inpatient hospitalization, however he declined initially , in view of his worsening symptoms he did present to the emergency department on the night of 02/21/2018. He states despite outpatient treatment, symptoms persist. 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 He denies any fever or chills, denies any cough, denies any sputum production, denies any chest pain. He is complaining of increased abdominal distention, which is worse after eating. Denies any bowel habit change, on today's exam his abdomen is noted to be significantly distended and tympanic, there is mild epigastric tenderness to palpation. He states he had a normal bowel movement this morning, no melena nor hematochezia. Chest x-ray showed no active cardiopulmonary disease, mild prominence of lung markings compared the previous exam. EKG showed normal sinus rhythm without any acute ischemic changes. Lab work showed WBC of 13.8, hemoglobin of 16.3, d-dimer was negative, electrolytes are within normal limits , BUN was 23, creatinine is 1.17. Liver enzymes were all within normal limits, troponin was negative 1, proBNP was 66, lipase and amylase from 02/13/2018 were at 98 and 60 respectively. Past medical history includes obstructive sleep apnea, and the patient reports being compliant with his CPAP machine, benign prostatic hyperplasia, hyperlipidemia, hypertension. We're asked to see the patient in regards to his ongoing symptoms of dyspnea. Patient was reevaluated today on 02/23/2018, feeling slightly better, but overall he is about the same. His echocardiogram was noted, he was seen by cardiology, infiltrating the possibility of cardiac catheterization, and I believe that would be appropriate. Again, based on my clinical judgment, the patient has more profound symptoms of shortness of breath than could be attributed to his underlying COPD. Not to mention on physical examination he has no wheezing, his breath sounds are mostly diminished at the bases, and his FEV1 is not severe enough to explain all his pulmonary symptoms. On 02/24/2018 patient seen in follow-up on medical surgical floor. He states his breathing is about the same, becomes dyspneic on exertion. Lung sounds are diminished, no wheezes over rales. He was seen in consultation by cardiology, and is awaiting cardiac catheterization tomorrow on 02/25/2018. On room air, with O2 sat at 95%, hemodynamically stable, afebrile. Denies any chest pain, has very minimal pretibial trace edema. Continues on nebulized bronchodilators , Symbicort, IV steroids and empiric antibiotics. Blood culture showed no growth to date. Today's labs were reviewed, and showed WBC of 17.7, hemoglobin 16.6, CO2 of 19, B1 is 29, creatinine is 1.0. Echocardiogram was completed and showed preserved left ventricular systolic function with an EF between 50-55%, no evidence of pulmonary hypertension, mild mitral and tricuspid regurgitation. On 02/25/2018 patient seen again. Reports feeling better, lung sounds are diminished with a few scattered rhonchi, but overall patient reports improvement in his dyspnea. He is on room air, pulse ox of 97%, afebrile, vital signs are stable. Denies any chest pain, denies any fever or chills, patient has been treated with IV steroids, nebulized bronchodilators, and empiric antibiotics in the form of azithromycin. Patient is awaiting his heart catheterization today. On 02/26/2018 patient seen again on selective care unit. He underwent heart catheterization yesterday and 02/25/2013, and it was a clear cath, with no significant occlusive coronary artery disease was found. From pulmonary standpoint patient reports improvement, less dyspneic, less wheezy. He denies any fever or chills, lung sounds are clear to auscultation, diminished at the bases. He has been treated with 5 days of azithromycin, nebulized bronchodilators and IV steroids, is stable for discharge home today from pulmonary standpoint. Objective - Vital Signs Vital signs: Vital Signs Temp 97.3 F L 02/26/18 08:00 Pulse 85 02/26/18 11:23 Resp 16 02/26/18 11:23 BP 152/78 02/26/18 11:23 Pulse Ox 93 L 02/26/18 11:23 Intake & Output 02/25/18 02/26/18 02/26/18 18:59 06:59 18:59 Intake Total 726 650 118 Balance 726 650 118 Weight 95.5 kg Intake: IV 100 650 Sodium Chloride 0.9% 1, 0 650 000 ml @ 75 mls/hr IV . [id number] VALERIE Rx#:[id number] Intake, IV Titration 150 Amount Sodium Chloride 0.9% 1, 150 000 ml @ 75 mls/hr IV . [id number] VALERIE Rx#:[id number] Oral [id number] Other: # Voids 1 - Exam Constitutional 62-year-old white male, pleasant, appears flushed, but in no acute distress. General appearance: mild distress - EENT Eyes: PERRLA, dentition normal ENT: NA/AT, normal oropharynx Ears: bilateral: normal - Neck Neck: no lymphadenopathy, normal ROM Carotids: bilateral: upstroke normal Thyroid: bilateral: normal size - Respiratory Respiratory: bilateral: diminished, no crackles or rhonchi or wheezes. - Cardiovascular Rhythm: regular Heart sounds: normal: S1, S2 ankle Peripheral Edema: bilateral: 1+ leg Peripheral Edema: bilateral: 1+ dorsalis pedis Peripheral Pulses: bilateral: Normal radial pulse Peripheral Pulses: bilateral: Normal - Gastrointestinal Abdomen is distended, but less tense on today's exam, no epigastric discomfort noted today. General gastrointestinal: distended, no organomegaly, soft, tenderness Localized gastrointestinal: tender: epigastric periumbilical - Integumentary Integumentary: normal turgor - Neurologic Neurologic: CNII-XII intact - Musculoskeletal Musculoskeletal: gait normal, strength equal bilaterally - Psychiatric Psychiatric: A&O x's 3, appropriate affect, intact judgment & insight - Labs CBC & Chem 7: 02/25/18 08:51 02/26/18 05:47 Labs: Abnormal Lab Results - Last 24 Hours (Table) 02/26/18 Range/Units 05:47 BUN 33 H (9-20) mg/dL Glucose 111 H (74-99) mg/dL Microbiology - Last 24 Hours (Table) 02/21/18 21:55 Blood Culture - Preliminary Blood No Growth after 96 hours Assessment and Plan Plan: Assessment: #1. Exertional dyspnea, orthopnea, peripheral leg edema, recent weight gain of 15 pounds in 6 weeks under investigation, heart catheterization on 02/25/2018 was negative for any significant coronary artery disease #2. Recent exacerbation of COPD, treated with systemic steroids, course of antibiotics. Currently stable #3. Abdominal distention, epigastric tenderness. Patient was seen in the emergency room on 02/13/2018 and lipase and amylase are within normal limits. Two-view abdominal x-ray on 02/13/2018 was normal. No change in bowel pattern, no diarrhea, no constipation. Patient has a previous history of cholecystectomy #4. Moderately severe COPD, with a baseline FEV1 of 59% of predicted #5. Hypertension, hyperlipidemia #6. Severe obstructive sleep apnea with an AHI of 74, on CPAP therapy at a pressure of 14 cm of water, reports being compliant with therapy #7. Recent bronchoscopy with BAL on 12/04/2017, cytology was negative for any evidence of malignant cells, bronchial wash cultures were negative #8. Nicotine dependence, currently in remission, patient quit 6 weeks ago, but smoked 1-1/2 packs a day for over 50 years #9. History of BPH Plan: Patient's IV steroids have been transition to prednisone, patient is improving from pulmonary standpoint, less dyspneic. Patient has been tolerating ambulation, heart catheterization results were noted. There was minimal artery artery disease, but there was elevation in the end-diastolic pressure suggesting diastolic CHF. Patient was started on small dose of Lasix. Patient is stable for discharge home from pulmonary standpoint, is completed 5 days of azithromycin, he can go home on prednisone 40 mg daily until she sees Dr. Seymour in the office next week on Saturday, we'll continue his maintenance inhalers. I performed a history & physical examination of the patient and discussed their management with my nurse practitioner, Cornelia Chacon. I reviewed the nurse practitioner's note and agree with the documented findings and plan of care. Lung sounds are diminished. The findings and the impression was discussed with the patient. I attest to the documentation by the nurse practitioner. Time with Patient: Less than 30
--- NOTE | 2018-02-26 14:32 | P.PN ---
Subjective Progress Note Date: 02/26/18 This is a 62-year-old gentleman with history of COPD and chronic shortness of breath has been experiencing increasing shortness of breath over the last one month. Any activity, will make him short of breath. He was eating also sometimes precipitate this. He denies any chest pain. He does complain of some tightness in the lower chest area. His EKGs did not reveal any acute changes. His troponin is within normal limits. His proBNP is within normal limits. Patient doesn't have any pedal edema or JVD. His lungs appeared to be clear. Apparently, health and wellness instructor felt as his symptoms are not explained by the pulmonary issues. Patient is a smoker and has history of hypertension and hypercholesterolemia. No family history of ischemic heart disease. Echo showed normal LV function. The possibility of underlying ischemic heart disease to be considered, though the symptoms are atypical. I discussed with family about cardiac catheterization and also advised him to discuss with health and wellness instructor. If the health and wellness instructor and feel his symptoms are not pulmonary related, we will proceed with cardiac catheterization for definitive diagnosis. 02/26/2018 Patient did undergo cardiac catheterization yesterday that did not reveal any significant obstructive coronary artery disease. Patient was seen and examined this morning, feels well, denies any chest pain, right groin is soft, no evidence of any hematoma. Hemodynamically stable. Objective - Vital Signs Vital signs: Vital Signs Temp 97.3 F L 02/26/18 08:00 Pulse 85 02/26/18 11:23 Resp 16 02/26/18 11:23 BP 152/78 02/26/18 11:23 Pulse Ox 93 L 02/26/18 11:23 Intake & Output 02/25/18 02/26/18 02/26/18 18:59 06:59 18:59 Intake Total 726 650 118 Balance 726 650 118 Weight 95.5 kg Intake: IV 100 650 Sodium Chloride 0.9% 1, 0 650 000 ml @ 75 mls/hr IV . [id number] VALERIE Rx#:[id number] Intake, IV Titration 150 Amount Sodium Chloride 0.9% 1, 150 000 ml @ 75 mls/hr IV . [id number] VALERIE Rx#:[id number] Oral [id number] Other: # Voids 1 - Exam PHYSICAL EXAMINATION: HEENT: Head is atraumatic, normocephalic. Pupils equal, round. Neck is supple. There is no elevated jugular venous pressure. HEART EXAMINATION: Heart S1, S2 normal. No murmur or gallop heard. CHEST EXAMINATION: On's reveal fine expiratory wheezing throughout. ABDOMEN: Soft, nontender. Bowel sounds are heard. No organomegaly noted. EXTREMITIES: 2+ peripheral pulses with no evidence of peripheral edema and no calf tenderness noted. Right groin soft, no evidence of any hematoma. NEUROLOGIC patient is awake, alert and oriented -3.] . - Labs CBC & Chem 7: 02/25/18 08:51 02/26/18 05:47 Labs: Abnormal Lab Results - Last 24 Hours (Table) 02/26/18 Range/Units 05:47 BUN 33 H (9-20) mg/dL Glucose 111 H (74-99) mg/dL Microbiology - Last 24 Hours (Table) 02/21/18 21:55 Blood Culture - Preliminary Blood No Growth after 96 hours Assessment and Plan Plan: Assessment and plan #1 COPD exacerbation #2 exertional shortness of breath, status post cardiac catheterization which did not reveal any obstructive coronary artery disease #3 hypertension #4 hyperlipidemia #5 sleep apnea on CPAP at home. Plan From cardiology's perspective, patient may be able to be discharged home today. We will make him a follow-up appointment in the office post discharge. DNP note has been reviewed, I agree with a documented findings and plan of care. Patient was seen and examined.
--- NOTE | 2018-02-26 15:08 | P.DS ---
Providers Date of admission: 02/22/18 00:18 Attending physician: Jessica Burton Consults: 02/22/18 00:18 Consult Physician Routine Consulting Provider: Corey Hdz Consult Reason/Comments: copd, dyspnea, hypoxia Do you want consulting provider notified?: Yes 02/22/18 09:58 Consult Physician Routine Consulting Provider: Vik Ambrose Consult Reason/Comments: dyspnea on exertion Do you want consulting provider notified?: Yes Primary care physician: James Mascorro [facility] Course: 62-year-old male with a past medical history of severe COPD, hypertension, hyperlipidemia, obstructive sleep apnea coming into the hospital with a chief complaint of difficulty in breathing. Patient follows with Dr. Mascorro and also with Dr. Escamilla for his severe COPD. He was recently in the emergency department the for the same and the he was treated with the bronchodilators and sent home on prednisone. Patient was seen by Dr. Escamilla in his clinic on 2017 for the same complaint of dyspnea orthopnea and chest tightness for which she was given Medrol Dosepak that he completed. In spite of the antibiotic and the steroid therapy patient continued to have difficulty in breathing and so admitted for it. Patient also complains of some epigastric tenderness and no also abdominal distention that has been going on and off for the past 1-2 months. 02/25/2018 Patient is not wheezing today patient underwent cardia catheterization which did not show any stentable atherosclerotic coronary vascular disease, patient and his are concerned about abdominal distention patient has distended abdomen tympanic in nature probably secondary to constipation there is no significant intra-abdominal pathology was appreciated on the CAT scan although patient had some renal cysts with chest incidental findings for which patient will lead to follow up with neurology as an outpatient. Patient will be switched to oral prednisone. IV Solu-Medrol will be discontinued. Patient will be started on oral prednisone 02/26/2018 Patient is clinically doing well had good bowel movement although he does have abdominal distention. Which is tympanic in nature. Patient will be discharged today. PHYSICAL EXAMINATION: GENERAL: The patient is alert and oriented x3, not in any acute distress. Well developed, well nourished. HEENT: Pupils are round and equally reacting to light. EOMI. No scleral icterus. No conjunctival pallor. Normocephalic, atraumatic. No pharyngeal erythema. No thyromegaly. CARDIOVASCULAR: S1 and S2 present. No murmurs, rubs, or gallops. PULMONARY: Chest is clear to auscultation, no wheezing or crackles. ABDOMEN: , nontender distended tympanic normoactive bowel sounds. No palpable organomegaly. MUSCULOSKELETAL: No joint swelling or deformity. EXTREMITIES: No cyanosis, clubbing, or pedal edema. NEUROLOGICAL: Gross neurological examination did not reveal any focal deficits. SKIN: No rashes. Pertinent Studies: Assessment and Plan Assessment: Shortness of breath- multifactorial- COPD exacerbation, along with morbid obesity obstructive sleep apnea ,, shortness of breath improved. Patient is status post cardiac catheterization which did not show any significant atherosclerotic coronary occlusive disease Acute exacerbation of COPD Abdominal distention with epigastric tenderness of unclear etiology;CT reporting scattered hypodensities within the liver too small for accurate CT characterization, suspect cysts, enlarged liver, lobulated cyst in the inferior right lobe measuring 3.9 cm, right mid abdomen with tiny focus of subcutaneous air,small hiatal hernia, moderate stool, and sigmoid diverticulosis, tiny fatty umbilical hernia right lateral kidney with 1.4 cm hypodense lesion, likely cortical cyst, no bilateral hydronephrosis per CT, follow-up with urology as an outpatient Hypertension Hyperlipidemia Obstructive sleep apnea Severe COPD Nicotine dependence, quit 6 weeks ago History of BPH CKD Stage II Patient Condition at Discharge: Fair Plan - Discharge Summary New Discharge Prescriptions: New Furosemide [Lasix] 20 mg PO DAILY #30 tab Lisinopril [Zestril] 5 mg PO DAILY #30 tab Polyethylene Glycol 3350 [Miralax] 17 gm PO DAILY PRN #30 powd.pack PRN Reason: Constipation Potassium Chloride ER [K-Dur 10] 10 meq PO DAILY #30 tab.er.prt predniSONE 40 mg PO DAILY #10 tab Ranitidine HCl [Zantac] 150 mg PO BID #30 tab Continue Budesonide-Formot 160-4.5 Mcg [Symbicort 160-4.5 Mcg Inhaler] 2 puff INHALATION BID Atorvastatin [Lipitor] 20 mg PO HS Tadalafil [Cialis] 5 mg PO DAILY PRN PRN Reason: ERECTILE DYSFUNCTION Testosterone Cypionate [Depo-Testosterone] 100 mg IM WESA Azithromycin [Zithromax] 500 mg PO DAILY Changed amLODIPine [Norvasc] 10 mg PO DAILY #0 Discontinued predniSONE See Taper PO DAILY Discharge Medication List Atorvastatin [Lipitor] 20 mg PO HS 11/28/17 [History] Budesonide-Formot 160-4.5 Mcg [Symbicort 160-4.5 Mcg Inhaler] 2 puff INHALATION BID 11/28/17 [History] Tadalafil [Cialis] 5 mg PO DAILY PRN 11/28/17 [History] Azithromycin [Zithromax] 500 mg PO DAILY 02/21/18 [History] Testosterone Cypionate [Depo-Testosterone] 100 mg IM WESA 02/21/18 [History] Furosemide [Lasix] 20 mg PO DAILY #30 tab 02/26/18 [Rx] Lisinopril [Zestril] 5 mg PO DAILY #30 tab 02/26/18 [Rx] Polyethylene Glycol 3350 [Miralax] 17 gm PO DAILY PRN #30 powd.pack 02/26/18 [Rx ] Potassium Chloride ER [K-Dur 10] 10 meq PO DAILY #30 tab.er.prt 02/26/18 [Rx] Ranitidine HCl [Zantac] 150 mg PO BID #30 tab 02/26/18 [Rx] amLODIPine [Norvasc] 10 mg PO DAILY #0 02/26/18 [Rx] predniSONE 40 mg PO DAILY #10 tab 02/26/18 [Rx] Follow up Appointment(s)/Referral(s): James Mascorro III, MD [Primary Care Provider] - 03/13/18 1:30 pm ( with Beth TAYLOR) Donovan Escamilla DO [Doctor of Osteopathic Medicine] - 03/05/18 11:00 am (Saturday Previously scheduled appointment) Tavo Jones MD [STAFF PHYSICIAN] - 03/06/18 2:15 pm () Patient Instructions/Handouts: *Surgery [facility] - After Heart Catheterization - Forwarder Operator Instructions, Left Heart Catheterization (DC), COPD (Chronic Obstructive Pulmonary Disease) (DC)
[2018-02-26 15:53] VITALS: PULSE 90
[2018-02-26] MEDS ORDERED: SYMBICORT 160-4.5 MCG INHALER INHALATION SCH (20:00)
--- NOTE | 2018-03-05 15:23 | CDI ---
Outpatient Documentation Clarification Form Date: 03-05-18 CDS/Caterer Helper Name: LORENZO TRIVEDI Phone: If you have question, contact Debbie Nails, School Leader at [phone] M-F 8:30 am to 6pm. Patient Name: LOLA FUENTES Admit Date: [id number] Discharge Date: [id number] ATTENTION: The Clinical Documentation Specialists (CDI) and [facility] Coding Staff appreciate your assistance in clarifying documentation. Please respond to the clarification below the line at the bottom and electronically sign. The CDI & [facility] Coding staff will review the response and follow-up if needed. Please note: Queries are made part of the Legal Health Record. If you have any questions, please contact the author of this message via ITS or call the School Leader. Dr. BEDOLLA, PLEASE CONFIRM DX OF "DIABETES MELLITUS" PER CONSULT DICTATION. IF PT HAS DIABETES MELLITUS, PLEASE ADD DIAGNOSIS BELOW THE LINE. THANK YOU FOR YOUR TIME AND CONSIDERATION, LORENZO TRIVEDI No diabetes mellitus MTDD
== END 2018-02-26 15:59 | disposition home or self-care (01) ==
LOC: EC 21:18 → 4MS4W 02-22 00:18 → 6SEL 02-25 10:11
PROVIDERS: ADMIT Hospitalist; ATTEND Hospitalist
DX: R06.02 Shortness of breath (principal); J44.1 Chronic obstructive pulmonary disease with (acute) exacerbation; E66.01 Morbid (severe) obesity due to excess calories; Z68.31 Body mass index [BMI] 31.0-31.9, adult; G47.33 Obstructive sleep apnea (adult) (pediatric); R14.0 Abdominal distension (gaseous); R10.13 Epigastric pain; E78.5 Hyperlipidemia, unspecified; Z87.891 Personal history of nicotine dependence; N40.0 Benign prostatic hyperplasia without lower urinary tract symptoms; D72.829 Elevated white blood cell count, unspecified; R60.0 Localized edema; I12.9 Hypertensive chronic kidney disease with stage 1 through stage 4 chronic kidney disease, or unspecified chronic kidney disease; N18.2 Chronic kidney disease, stage 2 (mild); M79.89 Other specified soft tissue disorders; Z79.899 Other long term (current) drug therapy; Z79.51 Long term (current) use of inhaled steroids; Z88.5 Allergy status to narcotic agent; Z88.2 Allergy status to sulfonamides; M19.90 Unspecified osteoarthritis, unspecified site; Z99.89 Dependence on other enabling machines and devices; R21 Rash and other nonspecific skin eruption; Z90.49 Acquired absence of other specified parts of digestive tract; R07.89 Other chest pain; R06.01 Orthopnea; Z80.9 Family history of malignant neoplasm, unspecified; Z79.890 Hormone replacement therapy; R09.02 Hypoxemia; N28.1 Cyst of kidney, acquired; K59.00 Constipation, unspecified
CPT/HCPCS: 99285 ×2; 96375 ×2; 96376 ×4; 96365; 96366 ×4; 96372 ×4; 36415; 94640 ×11; 94760 ×4; 93005 ×2; 93306; 93458; 85379; 83880; 80053; 80048 ×4; 82550; 82553; 84484; 85025 ×4; 85610; 85730; 87040; 83036; 71046; 76700; 76857; 74176; G0378 ×6; C1760; C1894; C1769; J1071; J2001; J2250; J2930 ×5; J0456 ×5; J1650 ×5; J3010; J7512; Q9966; Q9967

== ENCOUNTER 2018-02-27 11:36 | Observation (INO) | payer BC ==
--- NOTE | 2018-02-27 12:03 | ED ---
Weakness HPI - General Chief complaint: Weakness Stated complaint: falls since heart cath Time Seen by Provider: 02/27/18 11:49 Source: patient, family, RN notes reviewed Mode of arrival: wheelchair Limitations: no limitations - History of Present Illness Initial comments: This is a 62-year-old male who was just discharged from the hospital yesterday after being treated for COPD he also did time in a heart cath which was apparently normal was sent back in today because of weakness. He fell before he went home from the hospital yesterday his legs just suddenly gave out he states he also fell going up the steps in his house. The shower this morning. He denies any back pain fevers chills nausea vomiting sweats no shortness of breath no focal weakness he states is like to suddenly go. This is never happened to him before he has no history of recent illnesses other than the COPD and apparent chest pain. No trouble bowel movements no urinary or fecal incontinence. No other modifying factors at this time MD Complaint: difficulty walking - Related Data Home Medications Medication Instructions Recorded Confirmed Atorvastatin [Lipitor] 20 mg PO HS 11/28/17 02/27/18 Budesonide-Formot 160-4.5 Mcg 2 puff INHALATION BID 11/28/17 02/27/18 [Symbicort 160-4.5 Mcg Inhaler] Tadalafil [Cialis] 5 mg PO DAILY PRN 11/28/17 02/27/18 Testosterone Cypionate 100 mg IM [facility] 02/21/18 02/27/18 [Depo-Testosterone] Previous Rx's Medication Instructions Recorded Furosemide [Lasix] 20 mg PO DAILY #30 tab 02/26/18 Lisinopril [Zestril] 5 mg PO DAILY #30 tab 02/26/18 Polyethylene Glycol 3350 [Miralax] 17 gm PO DAILY PRN #30 powd.pack 02/26/18 Potassium Chloride ER [K-Dur 10] 10 meq PO DAILY #30 tab.er.prt 02/26/18 Ranitidine HCl [Zantac] 150 mg PO BID #30 tab 02/26/18 amLODIPine [Norvasc] 10 mg PO DAILY #0 02/26/18 predniSONE 40 mg PO DAILY #10 tab 02/26/18 Allergies Allergy/AdvReac Type Severity Reaction Status Date / Time codeine Allergy Unknown Verified 02/27/18 12:15 Sulfa (Sulfonamide Allergy Rash/Hives Verified 02/27/18 12:15 Antibiotics) Review of Systems ROS Statement: Those systems with pertinent positive or pertinent negative responses have been documented in the HPI. ROS Other: All systems not noted in ROS Statement are negative. Past Medical History Past Medical History: Asthma, COPD, Hyperlipidemia, Hypertension, Osteoarthritis (OA), Skin Disorder, Sleep Apnea/CPAP/BIPAP Additional Past Medical History / Comment(s): rash on chest "for years" History of Any Multi-Drug Resistant Organisms: None Reported Past Surgical History: Appendectomy, Cholecystectomy, Heart Catheterization, Orthopedic Surgery Additional Past Surgical History / Comment(s): fx left hand -surgery with pins/ plate, hemorrhoidectomy Past Anesthesia/Blood Transfusion Reactions: No Reported Reaction Additional Past Anesthesia/Blood Transfusion Reaction / Comment(s): states last bronch. was cancelled due to "low O2 sats" Past Psychological History: No Psychological Hx Reported Smoking Status: Former smoker Past Alcohol Use History: None Reported Past Drug Use History: None Reported - Past Family History Father Family Medical History: Cancer Mother Family Medical History: Cancer Sister(s) Family Medical History: Cancer General Exam - General Exam Comments Initial Comments: This is a well-developed well-nourished awake alert oriented times 3 male Limitations: no limitations General appearance: alert, in no apparent distress Head exam: Present: atraumatic, normocephalic, normal inspection Eye exam: Present: normal appearance, PERRL, EOMI. Absent: scleral icterus, conjunctival injection, periorbital swelling ENT exam: Present: normal exam, mucous membranes moist Neck exam: Present: normal inspection, full ROM. Absent: tenderness, meningismus, lymphadenopathy Respiratory exam: Present: normal lung sounds bilaterally. Absent: respiratory distress, wheezes, rales, rhonchi, stridor Cardiovascular Exam: Present: regular rate, normal rhythm, normal heart sounds. Absent: systolic murmur, diastolic murmur, rubs, gallop, clicks GI/Abdominal exam: Present: soft, normal bowel sounds. Absent: distended, tenderness, guarding, rebound, rigid Extremities exam: Present: normal inspection, full ROM, normal capillary refill. Absent: tenderness, pedal edema, joint swelling, calf tenderness Back exam: Present: normal inspection, full ROM. Absent: tenderness, CVA tenderness (R), CVA tenderness (L), muscle spasm, paraspinal tenderness, vertebral tenderness Neurological exam: Present: alert, oriented X3, CN II-XII intact Psychiatric exam: Present: normal affect, normal mood Skin exam: Present: warm, dry, intact, normal color. Absent: rash Course Vital Signs 02/27/18 02/27/18 11:44 13:05 Temperature 96.9 F L Pulse Rate 70 74 Respiratory 18 19 Rate Blood Pressure 149/81 160/86 O2 Sat by Pulse 97 97 Oximetry Medical Decision Making - Medical Decision Making I did discuss case with family and with Dr. Burton the patient will be admitted for IV fluids neurological evaluation. - Lab Data Result diagrams: 02/27/18 12:04 02/27/18 12:04 Lab Results 02/27/18 02/27/18 02/27/18 Range/Units 12:00 12:04 12:04 WBC (3.8-10.6) k/uL RBC (4.30-5.90) m/uL Hgb (13.0-17.5) gm/dL Hct (39.0-53.0) % MCV (80.0-100.0) fL MCH (25.0-35.0) pg MCHC (31.0-37.0) g/dL RDW (11.5-15.5) % Plt Count (150-450) k/uL Neutrophils % % Lymphocytes % % Monocytes % % Eosinophils % % Basophils % % Neutrophils # (1.3-7.7) k/uL Lymphocytes # (1.0-4.8) k/uL Monocytes # (0-1.0) k/uL Eosinophils # (0-0.7) k/uL Basophils # (0-0.2) k/uL Sodium 140 (137-145) mmol/L Potassium 4.8 (3.5-5.1) mmol/L Chloride 104 (98-107) mmol/L Carbon Dioxide 24 (22-30) mmol/L Anion Gap 12 mmol/L BUN 35 H (9-20) mg/dL Creatinine 1.00 (0.66-1.25) mg/dL Est GFR (CKD-EPI)AfAm >90 (>60 ml/min/1.73 sqM) Est GFR (CKD-EPI)NonAf 79 (>60 ml/min/1.73 sqM) Glucose 97 (74-99) mg/dL POC Glucose (mg/dL) (75-99) mg/dL POC Glu Farebox Repairer ID Calcium 8.7 (8.4-10.2) mg/dL Magnesium 2.5 H (1.6-2.3) mg/dL Total Bilirubin 1.3 (0.2-1.3) mg/dL AST 53 (17-59) U/L ALT 83 H (21-72) U/L Alkaline Phosphatase 53 (38-126) U/L Total Creatine Kinase 558 H (55-170) U/L CK-MB (CK-2) 3.9 H* (0.0-2.4) ng/mL CK-MB (CK-2) Rel Index 0.7 C-Reactive Protein <5.0 (<10.0) mg/L Total Protein 5.9 L (6.3-8.2) g/dL Albumin 3.6 (3.5-5.0) g/dL TSH 2.380 (0.465-4.680) mIU/L Urine Color Yellow Urine Appearance Clear (Clear) Urine pH 7.0 (5.0-8.0) Ur Specific Carrie 1.020 (1.001-1.035) Urine Protein Negative (Negative) Urine Glucose (UA) Negative (Negative) Urine Ketones Negative (Negative) Urine Blood Negative (Negative) Urine Nitrite Negative (Negative) Urine Bilirubin Negative (Negative) Urine Urobilinogen 3.0 (<2.0) mg/dL Ur Leukocyte Esterase Negative (Negative) 02/27/18 02/27/18 Range/Units 12:04 12:11 WBC 13.4 H (3.8-10.6) k/uL RBC 5.61 (4.30-5.90) m/uL Hgb 17.1 (13.0-17.5) gm/dL Hct 52.0 (39.0-53.0) % MCV 92.6 (80.0-100.0) fL MCH 30.4 (25.0-35.0) pg MCHC 32.9 (31.0-37.0) g/dL RDW 14.0 (11.5-15.5) % Plt Count 174 (150-450) k/uL Neutrophils % 89 % Lymphocytes % 3 % Monocytes % 7 % Eosinophils % 1 % Basophils % 0 % Neutrophils # 11.9 H (1.3-7.7) k/uL Lymphocytes # 0.5 L (1.0-4.8) k/uL Monocytes # 0.9 (0-1.0) k/uL Eosinophils # 0.1 (0-0.7) k/uL Basophils # 0.0 (0-0.2) k/uL Sodium (137-145) mmol/L Potassium (3.5-5.1) mmol/L Chloride (98-107) mmol/L Carbon Dioxide (22-30) mmol/L Anion Gap mmol/L BUN (9-20) mg/dL Creatinine (0.66-1.25) mg/dL Est GFR (CKD-EPI)AfAm (>60 ml/min/1.73 sqM) Est GFR (CKD-EPI)NonAf (>60 ml/min/1.73 sqM) Glucose (74-99) mg/dL POC Glucose (mg/dL) 91 (75-99) mg/dL POC Glu Farebox Repairer ID Ashli John Calcium (8.4-10.2) mg/dL Magnesium (1.6-2.3) mg/dL Total Bilirubin (0.2-1.3) mg/dL AST (17-59) U/L ALT (21-72) U/L Alkaline Phosphatase (38-126) U/L Total Creatine Kinase (55-170) U/L CK-MB (CK-2) (0.0-2.4) ng/mL CK-MB (CK-2) Rel Index C-Reactive Protein (<10.0) mg/L Total Protein (6.3-8.2) g/dL Albumin (3.5-5.0) g/dL TSH (0.465-4.680) mIU/L Urine Color Urine Appearance (Clear) Urine pH (5.0-8.0) Ur Specific Carrie (1.001-1.035) Urine Protein (Negative) Urine Glucose (UA) (Negative) Urine Ketones (Negative) Urine Blood (Negative) Urine Nitrite (Negative) Urine Bilirubin (Negative) Urine Urobilinogen (<2.0) mg/dL Ur Leukocyte Esterase (Negative) - EKG Data -: EKG Interpreted by Hi EKG shows normal: sinus rhythm (EKG shows normal sinus rhythm of 69 NE interval 1:30 QRS duration 90 QT since QTC 410/[address]-T wave changes) - Radiology Data Radiology results: report reviewed, image reviewed Disposition Clinical Impression: Weakness of both lower limbs, Dehydration Disposition: ADMITTED IP TO THIS [facility] Condition: Stable Referrals: James Msacorro III, MD [Primary Care Provider] - 1-2 days
[2018-02-27 12:16] LABS: Glucose,Whole Blood 91 mg/dL (75-99)
[2018-02-27 12:21] LABS: Basophils % (A) 0 %; Eosinophils # (A) 0.1 k/uL (0-0.7); Eosinophils % (A) 1 %; HGB 17.1 gm/dL (13.0-17.5); Lymphocytes # (A) 0.5 k/uL (1.0-4.8); Lymphocytes % (A) 3 %; MCH 30.4 pg (25.0-35.0); MCHC 32.9 g/dL (31.0-37.0); MCV 92.6 fL (80.0-100.0); Monocytes # (A) 0.9 k/uL (0-1.0); Monocytes % (A) 7 %; Neutrophils # (A) 11.9 k/uL (1.3-7.7); Neutrophils % (A) 89 %; Platelet Count 174 k/uL (150-450); RBC 5.61 m/uL (4.30-5.90); WBC 13.4 k/uL (3.8-10.6)
[2018-02-27 12:38] LABS: ALT 83 U/L (21-72); AST 53 U/L (17-59); Albumin 3.6 g/dL (3.5-5.0); Alkaline Phosphatase 53 U/L (38-126); Anion Gap 12 mmol/L; Blood Urea Nitrogen 35 mg/dL (9-20); C Reactive Protein <5.0 mg/L (<10.0); Calcium 8.7 mg/dL (8.4-10.2); Carbon Dioxide 24 mmol/L (22-30); Chloride 104 mmol/L (98-107); Glucose 97 mg/dL (74-99); Magnesium 2.5 mg/dL (1.6-2.3); Potassium 4.8 mmol/L (3.5-5.1); Sodium 140 mmol/L (137-145); Total Bilirubin 1.3 mg/dL (0.2-1.3); Total Protein 5.9 g/dL (6.3-8.2)
--- NOTE | 2018-02-27 12:40 | CT ---
EXAMINATION TYPE: CT brain wo con DATE OF EXAM: 02/27/2018 COMPARISON: NONE HISTORY: Falls, weakness CT DLP: 1072.[address] of the brain was performed. The ventricles, basal cisterns and sulci overlying the cerebral convexities demonstrate mild enlargem ent. There is no evidence for intracranial hemorrhage or sulcal effacement. There is decreased attenuation about the periventricular white matter and deep white matter of both c erebral hemispheres, compatible with chronic small vessel ischemia. Differential diagnosis does inclu de demyelination. No mass effects are seen.No midline shift. Osseous calvarium is intact. If symptoms persist consider MRI. IMPRESSION: 1. Age related atrophic and chronic small vessel ischemic change without acute intracranial process s een at this time.
--- NOTE | 2018-02-27 12:49 | XR ---
EXAMINATION TYPE: XR chest 2V DATE OF EXAM: 02/27/2018 COMPARISON: Prior chest 02/21/2018 HISTORY: Cough TECHNIQUE: Frontal and lateral views of the chest are obtained. FINDINGS: Prominent lung volumes suggests underlying COPD. Heart is enlarged although patient is rot ated which may accentuate the appearance. No evident airspace disease, pneumothorax, or pleural effus ion. Pulmonary vascularity and mau are stable. IMPRESSION: No acute cardiopulmonary process.
--- NOTE | 2018-02-27 12:53 | XR ---
Lumbosacral spine HISTORY: Back pain, falls 5 views of the lumbosacral spine submitted. Correlation CT abdomen pelvis 02/23/2018 Right paraspinal calcification measures approximately 3 mm and corresponds to the level of the head o f the pancreas. Surgical clips are present right upper quadrant. Bone mineralization is somewhat reduced. There is no evident spondylolysis or spondylolisthesis. Mult ilevel spondylosis is present. Loss of disc height is greatest at L5-S1, there is associated vacuum p henomenon. Sclerosis present in the posterior elements is compatible with facet arthropathy. IMPRESSION: Degenerative disc disease, facet arthropathy, osteopenia. Additional findings above. No a cute fracture or subluxation.
[2018-02-27 12:55] LABS: Creatine Kinase MB 3.9 ng/mL (0.0-2.4)
[2018-02-27 13:35] LABS: Appearance,Urine Clear (Clear); Bilirubin,Urine Negative (Negative); Blood,Urine Negative (Negative); Color,Urine Yellow; Glucose,Urine (UA) Negative (Negative); Ketones,Urine Negative (Negative); Leukocyte Esterase,Urine Negative (Negative); Nitrite,Urine Negative (Negative); Protein,Urine Negative (Negative)
[2018-02-27] MEDS ORDERED: NALOXONE 0.4 MG/ML 1 ML VIAL IV PRN (13:41)
[2018-02-27] MEDS ORDERED: POLYETHYLENE GLYCOL 3350 17 GM POWD.PACK PO PRN (13:43)
[2018-02-27] MEDS ORDERED: SODIUM CHLORIDE 0.9% 1,000 ML IV SCH (13:45)
--- NOTE | 2018-02-27 18:07 | P.CNNES ---
History of Present Illness Consult date: 03/03/18 Reason for Consult: Patient admitted with bilateral leg weakness. History of Present Illness: This patient is a 62-year-old right-handed white male who was just recently discharged from the hospital on 02/26/2018 after being treated for COPD exacerbation. Apparently prior to his discharge home yesterday he did have a fall in the hospital and was complaining of weakness in the legs. He was discharged home and apparently while climbing steps to get into his house his legs gave out and he had fallen. This morning in the shower he still complained of bilateral leg weakness. For these reasons he was brought back to the emergency room today for further evaluation. He was seen in the ER by Dr. Oden who recommended a computed tomography scan of the brain to be done as well as CT of the lumbar spine. Computed tomography scan of the brain performed today revealed age-related atrophy and chronic small vessel ischemic changes without acute process. Computed tomography scan of the lumbar spine revealed degenerative disc disease and facet arthropathy. Was some degree of osteopenia noted. No evidence of acute fracture or subluxation. In the emergency room his total creatinine kinase was elevated at 558. This possibly was due to his fall findings. The patient apparently has not had trouble with leg weakness in the past. He denies any bowel or bladder difficulties at this time. He has no significant history of severe back pain symptoms in the past. According to his this morning he continued to have difficulty with his leg weakness which prompted them to see their primary care physician who referred them to the emergency room. The patient once again denies any significant back pain symptoms. During his most recent hospitalization last week apparently on the day of discharge yesterday he was noted to have weakness in the legs but did not mention this to the hospital nursing staff or attendings. states that she did mention it to him that they should have this checked prior to his discharge but he did not want to stay and decided to go home yesterday. The patient once again states that the leg weakness seems to be more when he bends his knees. He denies any significant back pain on examination today. He does have some hip pain bilaterally which comes and goes. The patient denies any recent falls. 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 He normally never gets weak to the point that he cannot ambulate on his own. There has been also a slight increase in abdominal distention in the last year and for this reason he is being further evaluated for this condition with an MRI of the abdomen. The patient states that he has been treated for severe COPD for the past 2 months and has been taking oral steroids. Given the long- standing history of steroid use the possibility of his leg weakness becomes steroid-induced myopathy. He is also taking Lipitor 20 mg daily which may be a statin-induced myopathy contributing to his generalized weakness. Once again the states that he has been very active all of his life and this is a big change for him in terms of his inability to ambulate without the use of a cane or walker. The patient denies any paresthesias or numbness in his legs. Once again he does experience some hip discomfort but is not giving him any significant pain at this time. He also denies any back pain at this time. According to the years ago he was seen by assisted living care manager for possibility of ankylosing spondylitis. We have recommended the patient undergo an MRI of the lumbar spine for further evaluation. The patient denies any bowel or bladder complaints at this time. Given the acute onset of his symptoms we have also recommended that he be evaluated for possibility of early Guillain-Bob syndrome. We will obtain a lumbar puncture for further evaluation for him tomorrow morning. We've also recommended a repeat total creatine kinase to be done tomorrow to see if this is still elevated. If the values continue to increase would consider discontinuation of his Lipitor. We have recommended physical therapy for him as well. Depending on the results of his testing we will give further recommendations. This case was discussed today at length with Dr. Burton at bedside. He is aware of our findings and recommendations and agrees with our treatment plan. This patient's overall neurological findings and our treatment plan was discussed at length with the patient and his at bedside. All of their questions were answered. Neurology is now been consulted for further evaluation and recommendations. Review of Systems Constitutional: Reports weakness, Denies chills, Denies fever Eyes: denies blurred vision, denies pain Ears, nose, mouth and throat: Denies headache, Denies sore throat Cardiovascular: Denies chest pain, Denies shortness of breath Respiratory: Denies cough Gastrointestinal: Denies abdominal pain, Denies diarrhea, Denies nausea, Denies vomiting Musculoskeletal: Denies myalgias Integumentary: Denies pruritus, Denies rash Neurological: Reports gait dysfunction, Reports motor disturbance, Denies numbness, Denies weakness Psychiatric: Denies anxiety, Denies depression Endocrine: Denies fatigue, Denies weight change Past Medical History Past Medical History: Asthma, COPD, Hyperlipidemia, Hypertension, Osteoarthritis (OA), Skin Disorder, Sleep Apnea/CPAP/BIPAP Additional Past Medical History / Comment(s): rash on chest "for years", uses cpap machine, had shingel vaccine not sure of date. History of Any Multi-Drug Resistant Organisms: None Reported Past Surgical History: Appendectomy, Cholecystectomy, Heart Catheterization, Orthopedic Surgery Additional Past Surgical History / Comment(s): fx left hand -surgery with pins/ plate, hemorrhoidectomy, bronchosocpy Past Anesthesia/Blood Transfusion Reactions: No Reported Reaction Additional Past Anesthesia/Blood Transfusion Reaction / Comment(s): states last bronch. was cancelled due to "low O2 sats" Smoking Status: Former smoker - Past Family History Father Family Medical History: Cancer Mother Family Medical History: Cancer Sister(s) Family Medical History: Cancer Medications and Allergies Home Medications Medication Instructions Recorded Confirmed Type Atorvastatin [Lipitor] 20 mg PO HS 11/28/17 02/27/18 History Budesonide-Formot 160-4.5 Mcg 2 puff INHALATION BID 11/28/17 02/27/18 History [Symbicort 160-4.5 Mcg Inhaler] Tadalafil [Cialis] 5 mg PO DAILY PRN 11/28/17 02/27/18 History Testosterone Cypionate 100 mg IM [facility] 02/21/18 02/27/18 History [Depo-Testosterone] Furosemide [Lasix] 20 mg PO DAILY #30 tab 02/26/18 02/27/18 Rx Lisinopril [Zestril] 5 mg PO DAILY #30 tab 02/26/18 02/27/18 Rx Polyethylene Glycol 3350 [Miralax] 17 gm PO DAILY PRN #30 powd.pack 02/26/18 Rx Potassium Chloride ER [K-Dur 10] 10 meq PO DAILY #30 tab.er.prt 02/26/18 Rx Ranitidine HCl [Zantac] 150 mg PO BID #30 tab 02/26/18 02/27/18 Rx amLODIPine [Norvasc] 10 mg PO DAILY #0 02/26/18 02/27/18 Rx predniSONE 40 mg PO DAILY #10 tab 02/26/18 02/27/18 Rx Allergies Allergy/AdvReac Type Severity Reaction Status Date / Time codeine Allergy Unknown Verified 02/27/18 12:15 Sulfa (Sulfonamide Allergy Rash/Hives Verified 02/27/18 12:15 Antibiotics) Physical Examination - Vital Signs Vital Signs: Vital Signs Temp Pulse Pulse Resp BP BP Pulse Ox 02/27/18 14:42 99.0 F 73 18 158/95 99 02/27/18 14:25 97.8 F 72 19 131/79 98 02/27/18 13:05 74 19 160/86 97 02/27/18 11:44 96.9 F L 70 18 149/81 97 Intake and Output 02/27/18 02/27/18 02/27/18 06:59 14:59 22:59 Other: Weight 95.254 kg - Constitutional General appearance: average body habitus, cooperative - EENT EENT: PERRL, mucous membranes moist - Respiratory Respiratory: lungs clear, normal breath sounds - Cardiovascular Cardiovascular: regular rate, normal S1, normal S2 Extremities: no peripheral edema bilaterally - Gastrointestinal Gastrointestinal: normoactive bowel sounds - Integumentary Integumentary: normal - Neurologic Speech examination: intact Sensorimotor examination: intact Motor examination - right side: 3/5: hip flexors, 4/5: knee extensors, dorsiflexion, toe extension (EHL), plantarflexion, 5/5: biceps, triceps, wrist flexion, wrist extension, 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 Motor examination - left side: 3/5: hip flexors, 4/5: knee extensors, dorsiflexion, toe extension (EHL), plantarflexion, 5/5: biceps, triceps, wrist flexion, wrist extension, 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 Detailed sensory examination: intact Reflex and gait examination: intact Reflexes: 1+: ankle, bicep, knee, tricep - Musculoskeletal Musculoskeletal: no pain - Psychiatric Psychiatric: mood/affect appropriate, cooperative Results - Laboratory Findings CBC and BMP: 02/27/18 12:04 02/27/18 12:04 Abnormal Lab Findings: Abnormal Labs 02/27/18 02/27/18 02/27/18 12:04 12:04 12:04 WBC 13.4 H Neutrophils # 11.9 H Lymphocytes # 0.5 L BUN 35 H Magnesium 2.5 H ALT 83 H Total Creatine Kinase 558 H CK-MB (CK-2) 3.9 H* Total Protein 5.9 L Assessment and Plan (1) Steroid-induced myopathy Current Visit: Yes Status: Acute Code(s): G72.0 - DRUG-INDUCED MYOPATHY; T38.0X5A - ADVERSE EFFECT OF GLUCOCORT/SYNTH ANALOG, INIT SNOMED Code(s): 02236199 (2) Statin myopathy Current Visit: Yes Status: Acute Code(s): G72.0 - DRUG-INDUCED MYOPATHY; T46.6X5A - ADVERSE EFFECT OF ANTIHYPERLIP AND ANTIARTERIO DRUGS, INIT SNOMED Code(s): 054066118 (3) Weakness of both lower limbs Current Visit: Yes Status: Acute Code(s): R29.898 - [facility] SYMPTOMS AND SIGNS INVOLVING THE MUSCULOSKELETAL SYSTEM SNOMED Code(s): 4549566 (4) Acute exacerbation of chronic obstructive airways disease Current Visit: No Status: Acute Code(s): J44.1 - CHRONIC OBSTRUCTIVE PULMONARY DISEASE W (ACUTE) EXACERBATION SNOMED Code(s): 428505607 Plan: This patient is a 62-year-old male who was just discharged from hospital yesterday after being treated for acute COPD exacerbation and cardiac catheterization. Patient was discharged home yesterday and apparently developed rather quickly weakness in both of his lower extremities. Apparently prior to discharge yesterday he sustained a fall due to both legs buckling on him. This morning he continued to have weakness in both legs and was advised to come to the emergency room by his primary care physician. Patient was seen in the ER and was sent for a computed tomography scan of the brain and CT of the lumbar spine. Results are as noted above. Patient states that he has had bilateral leg weakness of new onset. We have recommended further evaluation including MRI of the lumbar spine for further evaluation of lumbar disc disease or lumbar spondylosis. Clinically he does not seem to have symptoms to suggest this. We've also recommended that he be evaluated for acute myopathy possibly steroid-induced her statin induced. His total creatine kinase was elevated on admission. We will get a repeat level tomorrow. We will also obtain a lumbar puncture tomorrow to rule out any possibility of early Guillain-Bob syndrome. This seems to be less likely but will be evaluated. We have discussed all of these findings in detail with the patient and his at bedside. All of their questions were answered. We will await further testing to be completed and we will give further recommendations at that time. His overall prognosis at this time remains guarded. Time with Patient: Greater than 30
--- NOTE | 2018-02-27 18:44 | HP ---
HISTORY AND PHYSICAL CHIEF COMPLAINT: Weakness and fall. HISTORY OF PRESENT ILLNESS: This 62-year-old gentleman with a past medical history of multiple medical problems including COPD was recently admitted for COPD acute exacerbation. The patient also had epigastric tenderness and CT scan showed hypodensities scattered in the liver. MRI has been ordered. The patient also had other multiple medical issues including hypertension, hyperlipidemia, sleep apnea. Patient is followed by Dr. Mascorro in the outpatient setting. The patient apparently had a fall. The patient had multiple falls after discharge and the patient apparently trips and falls and under various circumstances mainly because of weakness of the legs. The patient also complaining of progressive abdominal distention. Patient also has some rash also. Patient had facies as well. The patient also seen by Dr. Escamilla in the outpatient setting. A CT scan of the brain was done which showed age-appropriate changes and no acute intracranial process. There is no history of fever, rigors or chills. No history of headache, loss of conscious or seizures. PAST MEDICAL HISTORY: History of recent COPD, history of asthma, hypertension, hyperlipidemia, history of DJD, history of sleep apnea, history of appendectomy, cholecystectomy, cardiac catheterization. MEDICATIONS: Prior to admission include home medications are: 1. Prednisone 40 mg p.o. daily. 2. Norvasc 10 mg p.o. daily. 4. Cialis 5 mg daily p.r.n. 5. Zantac 150 mg p.o. b.i.d. 6. K-Dur 10 mEq p.o. daily. 7. MiraLAX 17 g p.o. daily p.r.n. 8. Zestril 5 mg p.o. daily. 9. Lasix 20 mg p.o. daily. 10.Symbicort 160/4.5 two puffs b.i.d. 11.Lipitor 20 mg p.o. ALLERGIES: ARE CODEINE, SULFA. FAMILY HISTORY: History of cancer in the family. SOCIAL HISTORY: Previous history of smoking. No history of alcohol intake. REVIEW OF SYSTEMS: ENT: No diminished vision. No diminished hearing. CARDIOVASCULAR: No angina or palpitations. Respiratory: As mentioned earlier. GI no nausea or vomiting. : No dysuria. NERVOUS SYSTEM: As mentioned earlier. ALLERGY/IMMUNOLOGY: No asthma or hayfever. MUSCULOSKELETAL: As mentioned earlier. HEMATOLOGY/ONCOLOGY: No history of anemia. ENDOCRINE: No history of diabetes or hypothyroidism. CONSTITUTIONAL: As mentioned earlier. DERMATOLOGY: Negative. RHEUMATOLOGY: Negative. PSYCHIATRIC: As mentioned earlier. PHYSICAL EXAMINATION: GENERAL: Alert, oriented times three. VITAL SIGNS: Pulse 72, blood pressure 131/70, respiration 18, temperature 97.8, pulse ox 98% on 2 L. HEENT: Conjunctivae normal. Oral mucosa moist. NECK: No jugular venous distention. No lymph node enlargement. No carotid bruit. Otherwise present. Rash also present. Acne formation lesions present in the upper limb. CARDIOVASCULAR: S1-S2. RESPIRATORY: Breath sounds diminished in the bases. Bilateral scattered rhonchi and crackles. Breath sounds diminished on the left side. ABDOMEN: Soft, obese, suspected fluid thrill present. No mass palpable. LEGS: No edema. No swelling. Emaciated. NERVOUS SYSTEM: Higher functions as mentioned. Cranial nerves 2 thru 12 grossly intact. Upper limbs minimal proximal weakness grade 4. Lower limbs significant grade 3+ weakness in the both lower limbs and especially the proximal groups. No sensory abnormalities. Reflexes are normal. JOINTS: No active deforming arthropathy. LYMPHATICS: No lymph nodes palpable in the neck, axillae or groin. SKIN: As mentioned earlier. LABS: WBC 13.24, hemoglobin 17, sodium 140, potassium 4.8, CK is 558 and ALT is 83. ASSESSMENT: 1. Fall and proximal myopathy, possibly steroid induced. 2. 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 3. Chronic obstructive pulmonary disease. 4. Increased ALT, possibly mild hepatitis. 5. Increased CK with possibly rhabdomyolysis. 6. Increased WBC. 7. History of recent liver lesions for outpatient MRI. 8. History of asthma, chronic obstructive pulmonary disease. 9. Hypertension. 10.Hyperlipidemia. 11.History of degenerative joint disease. 12.History of sleep apnea. 13.Obesity with body mass index of 31. 14.History of cholecystectomy. 15.History of nicotine dependence. RECOMMENDATIONS AND DISCUSSION: In this 62-year-old gentleman who presented with multiple complex medical issues. We will monitor the patient closely. Continue the current medications, symptomatic treatment. I recommend PT/OT evaluation, possible ECF rehab. Otherwise I would recommend Dr. Escamilla's and Neurology consultation. MRA will be ordered doctor. Dr. Crespo is also planning MRA of the back and also lumbar puncture also. Continue the rest of medications. As mentioned earlier, the prognosis guarded. Further recommendations to follow. A copy of dictation will be forwarded to Dr. Mascorro , who is the primary physician. See orders for details. I would also recommend DVT prophylaxis. Will repeat liver functions as well. See orders for further details. MMODL / IJN: [id number] / MTDD
[2018-02-27] MEDS: SYMBICORT 160-4.5 MCG INHALER INHALATION SCH (19:38)
[2018-02-27] MEDS: ATORVASTATIN 20 MG TAB PO SCH (21:16)
[2018-02-27] MEDS: HEPARIN SODIUM,PORCINE 5,000 UNIT/ML 1 ML VIAL SQ SCH (21:16)
[2018-02-27] MEDS: FAMOTIDINE 20 MG TAB PO SCH (21:16)
[2018-02-27 23:22] VITALS: RESP 16
[2018-02-28 07:18] LABS: Basophils % (A) 0 %; Eosinophils # (A) 0.1 k/uL (0-0.7); Eosinophils % (A) 1 %; HCT 49.5 % (39.0-53.0); HGB 16.4 gm/dL (13.0-17.5); Lymphocytes # (A) 0.8 k/uL (1.0-4.8); Lymphocytes % (A) 7 %; MCH 30.7 pg (25.0-35.0); Mean Platelet Volume 7.1; Monocytes # (A) 0.9 k/uL (0-1.0); Monocytes % (A) 7 %; Neutrophils % (A) 84 %; Platelet Count 155 k/uL (150-450); RBC 5.33 m/uL (4.30-5.90); RDW 13.9 % (11.5-15.5)
[2018-02-28 07:30] LABS: ALT 74 U/L (21-72); AST 40 U/L (17-59); Alkaline Phosphatase 49 U/L (38-126); Anion Gap 8 mmol/L; Blood Urea Nitrogen 32 mg/dL (9-20); Calcium 8.2 mg/dL (8.4-10.2); Carbon Dioxide 26 mmol/L (22-30); Chloride 104 mmol/L (98-107); Creatine Kinase 258 U/L (55-170); Glucose 88 mg/dL (74-99); Potassium 4.5 mmol/L (3.5-5.1); Sodium 138 mmol/L (137-145); Total Protein 5.1 g/dL (6.3-8.2)
[2018-02-28] MEDS: HEPARIN SODIUM,PORCINE 5,000 UNIT/ML 1 ML VIAL SQ SCH ×2 (07:40→20:09)
[2018-02-28] MEDS: predniSONE 20 MG TAB PO SCH (07:41)
[2018-02-28] MEDS: amLODIPine 10 MG TAB PO SCH (07:41)
[2018-02-28] MEDS: FUROSEMIDE 20 MG TAB PO SCH (07:41)
[2018-02-28] MEDS: POTASSIUM CHLORIDE ER 10 MEQ TAB.ER.PRT PO SCH (07:41)
[2018-02-28] MEDS: FAMOTIDINE 20 MG TAB PO SCH ×2 (07:41→20:09)
[2018-02-28] MEDS: LISINOPRIL 5 MG TAB PO SCH (07:42)
[2018-02-28] MEDS: SYMBICORT 160-4.5 MCG INHALER INHALATION SCH ×2 (07:47→19:46)
--- NOTE | 2018-02-28 10:52 | MR ---
EXAMINATION TYPE: MR lumbar spine wo/w con DATE OF EXAM: 02/28/2018 COMPARISON: Plain film 02/27/2018 HISTORY: Bilateral leg weakness, r/o spondylosis TECHNIQUE: Multiplanar, multisequence images of the lumbar spine were acquired utilizing 9.5 mL intravenous Gada vist gadolinium contrast. L1-L2: Normal disc appearance without desiccation. No herniation, protrusion or disc bulging. No ca nal stenosis is present. Foramina are patent bilaterally. L2-L3: Normal disc appearance without desiccation. No herniation, protrusion or disc bulging. No ca nal stenosis is present. Foramina are patent bilaterally. L3-L4: There is loss of disc height signal present. No significant foraminal encroachment or central stenosis. Minimal broad-based posterior disc bulge causes only slight anterior mass effect on the the sarah sac. L4-L5: Broad-based posterior disc bulge causes mild anterior mass effect on the thecal sac, there is no significant central stenosis or foraminal encroachment. Probable hemangioma present in the L4 vert ebral body. There is some facet arthropathy change. L5-S1: Some loss of disc height and signal present at L5-S1, small ossific density present posterior to the disc, there may be contact of the proximal S1 nerve root left greater than right, there is no significant spinal stenosis from circumferential extension of endplate disc complex encroaches somewh at on the foramen on the right greater than left, there is some motion, however. Lumbar segments are intact. No paraspinal masses are identified. Conus medullaris has a normal appe arance. Lumbar vertebral bodies show preserved height, alignment, there is mild multilevel spondylosi s with endplate discogenic marrow signal change. Spinal curvature is noted. No abnormal enhancement f ollowing contrast administration. There is a retroaortic left renal vein noted suggesting renal vein collar IMPRESSION: Degenerative disc disease as described. No sizable disc herniation. Small disc bulges as described co rrelate for S1 radiculopathy.
--- NOTE | 2018-02-28 11:05 | P.CNPUL ---
History of Present Illness Consult date: 02/28/18 Requesting physician: Jessica Burton Reason for consult: other Chief complaint: Bilateral lower extremity weakness History of present illness: Mr. Cisneros is a 62-year-old white male patient of Dr. Mascorro, follows with Dr. Escamilla in the pulmonary office for his history of COPD, who was recently hospitalized for an acute COPD exacerbation and discharged home on 02/27/2018 in stable condition. Patient was treated with multiple rounds of prednisone, IV steroids, antibiotics, on an outpatient basis and inpatient, in view of his symptoms of of dyspnea related to COPD exacerbation. Patient was discharged home on prednisone taper. Note that the patient also underwent presentation during last admission and found minimal coronary artery disease. She came into the emergency department with complaints of weakness in bilateral lower extremities, and a fall due to his legs suddenly giving out. Denied any fever or chills, denied any worsening dyspnea. Denied any headaches, no nausea or vomiting. No episodes of bowel urinary incontinence. Lab work showed elevated creatinine kinase at 558, elevated CK-MB at 3.9, BUN of 35, creatinine 1. Electrolytes are within normal limits, urinalysis was clear, WBC is 13.4. Chest x-ray showed no acute cardiopulmonary process. She showed normal sinus rhythm, lumbar spine x-ray showed degenerative disc disease, facet arthropathic and osteopenia. No acute fracture or subluxation was noted. Brain CT showed age-related atrophic and chronic small vessel ischemic changes without acute intracranial process. Neurology was consulted for neurologic evaluation, and is awaiting to have a lumbar puncture. From pulmonary standpoint his COPD stable, patient is not complaining of any ongoing dyspnea, wheezing, chest congestion. Review of Systems All systems: negative Constitutional: Denies chills, Denies fever Eyes: denies blurred vision, denies pain Ears, nose, mouth and throat: Denies headache, Denies sore throat Cardiovascular: Denies chest pain, Denies shortness of breath Respiratory: Denies cough Gastrointestinal: Denies abdominal pain, Denies diarrhea, Denies nausea, Denies vomiting Musculoskeletal: Denies myalgias Integumentary: Denies pruritus, Denies rash Neurological: Reports gait dysfunction, Reports weakness, Denies numbness Psychiatric: Denies anxiety, Denies depression Endocrine: Denies fatigue, Denies weight change Past Medical History Past Medical History: Asthma, COPD, Hyperlipidemia, Hypertension, Osteoarthritis (OA), Skin Disorder, Sleep Apnea/CPAP/BIPAP Additional Past Medical History / Comment(s): rash on chest "for years", uses cpap machine, had shingel vaccine not sure of date. History of Any Multi-Drug Resistant Organisms: None Reported Past Surgical History: Appendectomy, Cholecystectomy, Heart Catheterization, Orthopedic Surgery Additional Past Surgical History / Comment(s): fx left hand -surgery with pins/ plate, hemorrhoidectomy, bronchosocpy Past Anesthesia/Blood Transfusion Reactions: No Reported Reaction Additional Past Anesthesia/Blood Transfusion Reaction / Comment(s): states last bronch. was cancelled due to "low O2 sats" Smoking Status: Former smoker - Past Family History Father Family Medical History: Cancer Mother Family Medical History: Cancer Sister(s) Family Medical History: Cancer Medications and Allergies Home Medications Medication Instructions Recorded Confirmed Type Atorvastatin [Lipitor] 20 mg PO HS 11/28/17 02/27/18 History Budesonide-Formot 160-4.5 Mcg 2 puff INHALATION BID 11/28/17 02/27/18 History [Symbicort 160-4.5 Mcg Inhaler] Tadalafil [Cialis] 5 mg PO DAILY PRN 11/28/17 02/27/18 History Testosterone Cypionate 100 mg IM WESA 02/21/18 02/27/18 History [Depo-Testosterone] Furosemide [Lasix] 20 mg PO DAILY #30 tab 02/26/18 02/27/18 Rx Lisinopril [Zestril] 5 mg PO DAILY #30 tab 02/26/18 02/27/18 Rx Polyethylene Glycol 3350 [Miralax] 17 gm PO DAILY PRN #30 powd.pack 02/26/18 Rx Potassium Chloride ER [K-Dur 10] 10 meq PO DAILY #30 tab.er.prt 02/26/18 Rx Ranitidine HCl [Zantac] 150 mg PO BID #30 tab 02/26/18 02/27/18 Rx amLODIPine [Norvasc] 10 mg PO DAILY #0 02/26/18 02/27/18 Rx predniSONE 40 mg PO DAILY #10 tab 02/26/18 02/27/18 Rx Allergies Allergy/AdvReac Type Severity Reaction Status Date / Time codeine Allergy Unknown Verified 02/27/18 12:15 Sulfa (Sulfonamide Allergy Rash/Hives Verified 02/27/18 12:15 Antibiotics) Physical Exam Vitals: Vital Signs Temp Pulse Pulse Resp BP BP Pulse Ox 02/28/18 05:00 97.7 F 74 16 166/87 93 L 02/28/18 00:25 72 159/79 02/27/18 21:40 97.5 F L 78 16 178/95 95 02/27/18 14:42 99.0 F 73 18 158/95 99 02/27/18 14:25 97.8 F 72 19 131/79 98 02/27/18 13:05 74 19 160/86 97 02/27/18 11:44 96.9 F L 70 18 149/81 97 Intake and Output 02/27/18 02/28/18 02/28/18 22:59 06:59 14:59 Intake Total 590 Balance 590 Intake: Oral 590 Other: Voiding Method Toilet Toilet # Voids 2 1 1 Weight 95.254 kg GENERAL EXAM: Alert, pleasant, 62-year-old white male, comfortable in no apparent distress. HEAD: Normocephalic/atraumatic. EYES: Normal reaction of pupils, equal size. Conjunctiva pink, sclera white. NOSE: Clear with pink turbinates. THROAT: No erythema or exudates. NECK: No masses, no JVD, no thyroid enlargement, no adenopathy. CHEST: No chest wall deformity. Symmetrical expansion. LUNGS: Diminished breath sounds with no crackles, wheeze, a few scattered rhonchi. CVS: Regular rate and rhythm, normal S1 and S2, no gallops, no murmurs, no rubs ABDOMEN: Soft, nontender. No hepatosplenomegaly, normal bowel sounds, no guarding or rigidity. EXTREMITIES: No clubbing, no edema, no cyanosis, 2+ pulses and upper and lower extremities. MUSCULOSKELETAL: Muscle strength and tone normal. SPINE: No scoliosis or deformity SKIN: No rashes CENTRAL NERVOUS SYSTEM: Alert and oriented -3. No focal deficits, tone is normal in all 4 extremities. PSYCHIATRIC: Alert and oriented -3. Appropriate affect. Intact judgment and insight. Results - Laboratory Findings CBC and BMP: 02/28/18 06:24 02/28/18 06:24 Abnormal lab findings: Abnormal Labs 02/27/18 02/27/18 02/27/18 12:04 12:04 12:04 WBC 13.4 H Neutrophils # 11.9 H Lymphocytes # 0.5 L BUN 35 H Calcium Magnesium 2.5 H ALT 83 H Creatine Kinase Total Creatine Kinase 558 H CK-MB (CK-2) 3.9 H* Total Protein 5.9 L Albumin 02/28/18 02/28/18 06:24 06:24 WBC 12.0 H Neutrophils # 10.0 H Lymphocytes # 0.8 L BUN 32 H Calcium 8.2 L Magnesium ALT 74 H Creatine Kinase 258 H Total Creatine Kinase CK-MB (CK-2) Total Protein 5.1 L Albumin 3.0 L - Diagnostic Findings Chest x-ray: report reviewed, image reviewed Additional studies: EKG reviewed, lumbar spine x-ray and brain CT results reviewed Assessment and Plan Plan: Assessment: #1. Weakness in bilateral lower extremities, under investigation, could possibly be related to steroid-induced myopathy or possibly statin-induced myopathy #2. Elevation of the creatinine kinase, CK-MB possibly related to the above #3. Moderately severe COPD, with a baseline FEV1 of 59% of predicted, stable. History of recent hospitalization for exacerbation of COPD, improved #4. Hypertension, hyperlipidemia #5. Severe obstructive sleep apnea with an AHI of 74, on CPAP therapy at a pressure of 14 cm of water and the patient reports being compliant with therapy #6. History of bronchoscopy with BAL on 11/26/2017, cytology was negative for any evidence of malignancy, bronchial wash cultures were negative #7. Nicotine dependence, currently in remission, patient quit 6 weeks ago, carries [id number] smoking history #8. History of BPH Plan: Continue Symbicort, continue prednisone, lipid DuoNeb on as-needed basis, patient's COPD able, patient denies any worsening dyspnea, appears to be much improved from his last admission. We'll continue to follow with you. Neurology consult was noted. I performed a history & physical examination of the patient and discussed their management with my nurse practitioner, Cornelia Chacon. I reviewed the nurse practitioner's note and agree with the documented findings and plan of care. Lung sounds are positive for a few rhonchi. The findings and the impression was discussed with the patient. I attest to the documentation by the nurse practitioner. Time with Patient: Greater than 30
[2018-02-28] MEDS ORDERED: MIDAZOLAM 2 MG/2 ML VIAL IVP ONE (13:43)
[2018-02-28] MEDS ORDERED: fentaNYL (PF) 50 MCG/ML 2 ML AMP IVP ONE (13:43)
[2018-02-28] MEDS ORDERED: LACTATED RINGERS 1,000 ML IV ONE (13:45)
--- NOTE | 2018-02-28 14:23 | P.PCN ---
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 Condition: stable Complication: none. Description of the procedure procedure risk and benefits discussed with the patient , consent signed. Patient and the procedure area placed in sitting position back prepped with chlorhexidine 3 times been local infiltration of the skin and subcutaneous tissue with lidocaine 1% 2 mL for skin and subcu interstitial frustrations at L4- 5 levels then 22-gauge Quincke-type needle advanced slowly at L4- 5 interlaminar space there was positive cerebrospinal fluid which was clear, no heme, no paresthesia ,total of 8 ML of clear cerebrospinal fluid collected in 4 different tubes 2 mL in each, then the needle removed and a Band-Aid applied and patient tolerated the procedure well without any complications.
[2018-02-28 15:02] LABS: Glucose,CSF 58 mg/dL (40-70); Total Protein,CSF 105 mg/dL (12-60)
[2018-02-28 15:10] LABS: Appearance,CSF Clear; CSF Tube Number 1; CSF Tube Number 4; CSF Tube Volume 2; Nucleated Cells, CSF 1 u/L (0-5); Red Blood Cell,CSF 9 u/L (0-10)
[2018-02-28 15:11] LABS: CSF Tube Volume 2.5; Nucleated Cells, CSF 0 u/L (0-5); Red Blood Cell,CSF 0 u/L (0-10)
--- NOTE | 2018-02-28 18:54 | PN ---
PROGRESS NOTE This 62-year-old gentleman with a past history of multiple medical problems was admitted with weakness and fall, proximal myopathy suspected, possibly steroid- induced or statin-induced. The patient is being followed closely. Neurology following the patient closely. MRI could not be done. Creatine kinase is still elevated and lumbar puncture showed a CSF protein of 105. PT/OT is evaluating the patient for possible ECF rehab. PAST MEDICAL HISTORY: Reviewed. REVIEW OF SYSTEMS: CARDIOVASCULAR: No angina or palpitations. RESPIRATORY: As mentioned earlier. GI: As mentioned earlier. : No dysuria. NERVOUS: No numbness, weakness. As mentioned earlier. CURRENT MEDICATIONS: 1. Norvasc 10 mg daily. 2. Lipitor 20 mg q.h.s. 3. Symbicort 160/4.5, 2 puffs b.i.d. 4. Pepcid 20 mg. 5. Lasix 20 mg daily. 6. Heparin 5 subcu b.i.d. 7. Ceftin. 8. Narcan. 9. MiraLAX. 10.K-Dur. 11.Prednisone 40 mg daily. PHYSICAL EXAM: Patient is alert, oriented x3. Pulse 75, blood pressure 120/88, respirations 16 , temperature 97.5, pulse ox 94% on room air. HEENT: Conjunctivae normal. Oral mucosa moist. NECK: No jugular venous distention. No carotid bruits. No lymph node enlargement. CARDIOVASCULAR: S1, S2 muffled. No S3, S4. RESPIRATORY: Breath sounds diminished in the bases. Scattered rhonchi and crackles. Expiratory wheezing also present. LEGS: No edema. No swelling. Emaciated. NERVOUS SYSTEM: Higher functions as mentioned earlier. No sensory abnormality. Significant weakness in the lower limbs. Proximal muscles upper limb also present. SKIN: As mentioned earlier. LYMPHATIC: No lymphadenopathy in neck or axillae. JOINTS: No active deforming arthropathy. LABS: WBC 12 and BUN is 32, creatinine is 258. ASSESSMENT: 1. 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 2. Possible cushingoid symptoms secondary to steroids. 3. Ruled out Guillain-Shamokin syndrome. 4. Increased protein in the cerebrospinal fluid. 5. Chronic obstructive pulmonary disease. 6. Increased ALT, possibly mild hepatitis. 7. Increased CK with possible acute rhabdomyolysis. 8. Increased WBC. 9. History of recent liver lesions for outpatient MRI. 10.History of asthma, chronic obstructive pulmonary disease. 11.Hypertension. 12.Hyperlipidemia. 13.History of degenerative joint disease. 14.Sleep apnea. 15.Obesity with body mass index of 31. 16.History of cholecystectomy. 17.History nicotine dependence. RECOMMENDATIONS AND DISCUSSION: Recommend to continue current medical management. Continue symptomatic treatment. Otherwise, continue with current medications. Continue with bronchodilators. Continue with. PT/OT evaluation, DVT prophylaxis. Monitor labs closely. Otherwise, closely follow with multiple consultants. Prognosis guarded. Further recommendations to follow. MMODL / IJN: [id number] / MTDD
[2018-02-28] MEDS: ATORVASTATIN 20 MG TAB PO SCH (20:09)
--- NOTE | 2018-02-28 21:38 | P.PN ---
Subjective Progress Note Date: 02/28/18 This patient is a 62-year-old right-handed white male who was admitted to hospital yesterday for evaluation bilateral leg weakness. Patient had just recently been discharged from home after being treated for any acute COPD exacerbation. He was discharged home on 02/27/2018. He was brought back to the ER yesterday due to lateral leg weakness. He was admitted to hospital and we were consulted for further evaluation. We've recommended MRI of the lumbar spine to be done which was completed today. MRI of the lumbar spine reveals degenerative disc disease with no sizable disc herniation. Small disc bulges were noted. Correlation for S1 radiculopathy was mentioned. No significant disc herniation was evident to explain bilateral leg weakness. He had been on high-dose steroids for over a month and a half and there was concern that he may have developed some form of steroid myopathy. He was also recommended to undergo a lumbar puncture for further evaluation of Guillain-Bob syndrome. Patient completed his spinal tap this morning and results are noted. CSF rbc count was 9 and WBC count 1. CSF total protein was 105. The spinal fluid results suggest possibility of early form of acute demyelinating polyneuropathy. However the patient has shown improvement with leg strength today. His deep tendon reflexes are preserved in both lower extremities. This finding would be against a diagnosis of acute GBS. At this point we have discussed these lab results with the patient and his in detail. We have also gone over the MRI and spinal fluid results with Dr. Burton. We have recommended to continue close monitoring of his condition for the next 24-48 hours. As long as his muscle strength continues to improve we will hold off on any further aggressive treatment. As mentioned he would benefit from EMG study possibly his outpatient once he is discharged for further assessment. If his leg weakness were to worsen or he becomes areflexic in the lower extremities we would recommend transfer to a tertiary center for further management of acute demyelinating polyneuropathy. Overall the patient is feeling better today. He states he was able to walk in his room without having his legs buckling. We will continue to follow his progress closely during this admission. Objective - Vital Signs Vital signs: Vital Signs Temp 97.5 F L 02/28/18 14:25 Pulse 75 02/28/18 15:31 Resp 16 02/28/18 15:31 BP 152/86 05/25/18 14:25 Pulse Ox 95 02/28/18 14:25 Intake & Output 02/28/18 02/28/18 03/01/18 06:59 18:59 06:59 Intake Total 590 60 Balance 590 60 Weight 95.254 kg Intake: Oral 590 60 Other: Voiding Method Toilet Toilet Toilet # Voids 1 2 - Exam Physical examination: PHYSICAL EXAMINATION: Patient is resting comfortably in bed. VITAL SIGNS: Blood pressure is [152/86]. Heart rate is [75]. Respiration is [16] . Temperature is [97.5]. HEENT: Head is atraumatic, neck is supple, there were no carotid bruits. CHEST: Lungs are clear to auscultation and percussion. CARDIAC: S1, S2 normal rate and rhythm. There is no murmur. ABDOMEN: Soft and nontender. Bowel sounds are present. EXTREMITIES: There is no pedal edema. Peripheral pulses are present. Neurological examination: Patient has a nonfocal neurological examination. Muscle strength in the lower extremities is improved 4/5 throughout. Deep tendon reflexes are 1+ in both upper and lower extremities. Plantar responses flexor bilaterally. - Labs CBC & Chem 7: 02/28/18 06:24 02/28/18 06:24 Labs: Abnormal Lab Results - Last 24 Hours (Table) 02/28/18 02/28/18 02/28/18 Range/Units 06:24 06:24 11:00 WBC 12.0 H (3.8-10.6) k/uL Neutrophils # 10.0 H (1.3-7.7) k/uL Lymphocytes # 0.8 L (1.0-4.8) k/uL BUN 32 H (9-20) mg/dL Calcium 8.2 L (8.4-10.2) mg/dL ALT 74 H (21-72) U/L Creatine Kinase 258 H 219 H (55-170) U/L Total Protein 5.1 L (6.3-8.2) g/dL Albumin 3.0 L (3.5-5.0) g/dL CSF Total Protein (12-60) mg/dL 02/28/18 Range/Units 13:59 WBC (3.8-10.6) k/uL Neutrophils # (1.3-7.7) k/uL Lymphocytes # (1.0-4.8) k/uL BUN (9-20) mg/dL Calcium (8.4-10.2) mg/dL ALT (21-72) U/L Creatine Kinase (55-170) U/L Total Protein (6.3-8.2) g/dL Albumin (3.5-5.0) g/dL CSF Total Protein 105 H (12-60) mg/dL Assessment and Plan (1) Steroid-induced myopathy Current Visit: Yes Status: Acute Code(s): G72.0 - DRUG-INDUCED MYOPATHY; T38.0X5A - ADVERSE EFFECT OF GLUCOCORT/SYNTH ANALOG, INIT SNOMED Code(s): 63297520 (2) Statin myopathy Current Visit: Yes Status: Acute Code(s): G72.0 - DRUG-INDUCED MYOPATHY; T46.6X5A - ADVERSE EFFECT OF ANTIHYPERLIP AND ANTIARTERIO DRUGS, INIT SNOMED Code(s): 544829436 (3) Weakness of both lower limbs Current Visit: Yes Status: Acute Code(s): R29.898 - OT SYMPTOMS AND SIGNS INVOLVING THE MUSCULOSKELETAL SYSTEM SNOMED Code(s): 2049292 (4) Acute exacerbation of chronic obstructive airways disease Current Visit: No Status: Acute Code(s): J44.1 - CHRONIC OBSTRUCTIVE PULMONARY DISEASE W (ACUTE) EXACERBATION SNOMED Code(s): 403422258 Plan: This patient is a 62-year-old male being evaluated for bilateral lower extremity leg weakness. He underwent an MRI of the lumbar spine today the results of which are noted above. There was no significant disc herniation noted in the lumbar region to explain his leg weakness. He has been on high- dose steroids for over a month and a half for treatment of severe COPD. His findings suggest possibility of steroid-induced myopathy. He underwent a lumbar puncture today for further evaluation for possible Guillain-Bob syndrome. Spinal fluid results came back equivocal. We will need to monitor his condition closely as he is showing improvement in muscle strength today. He has evidence of preserved deep tendon reflexes in both lower extremities which makes Guillain-Bob less likely as a cause. The patient would benefit from EMG study for further evaluation. This can be arranged as outpatient. At this point we will continue close monitoring of the patient in terms of his leg strength. If he worsens we will consider transfer of the patient to a tertiary center for further treatment and management. His overall prognosis at this time remains guarded.
[2018-03-01 05:53] VITALS: BP 151/75; PULSE 66; TEMP 97
[2018-03-01] MEDS: SYMBICORT 160-4.5 MCG INHALER INHALATION SCH (07:37)
[2018-03-01] MEDS: POTASSIUM CHLORIDE ER 10 MEQ TAB.ER.PRT PO SCH (07:41)
[2018-03-01] MEDS: FAMOTIDINE 20 MG TAB PO SCH (07:41)
[2018-03-01] MEDS: FUROSEMIDE 20 MG TAB PO SCH (07:41)
[2018-03-01] MEDS: amLODIPine 10 MG TAB PO SCH (07:41)
[2018-03-01] MEDS: predniSONE 20 MG TAB PO SCH (07:41)
[2018-03-01] MEDS: HEPARIN SODIUM,PORCINE 5,000 UNIT/ML 1 ML VIAL SQ SCH (07:41)
[2018-03-01] MEDS: LISINOPRIL 5 MG TAB PO SCH (07:41)
[2018-03-01 07:54] LABS: ALT 79 U/L (21-72); AST 32 U/L (17-59); Albumin 3.1 g/dL (3.5-5.0); Alkaline Phosphatase 54 U/L (38-126); Anion Gap 9 mmol/L; Basophils % (A) 0 %; Blood Urea Nitrogen 28 mg/dL (9-20); Calcium 8.6 mg/dL (8.4-10.2); Carbon Dioxide 26 mmol/L (22-30); Chloride 103 mmol/L (98-107); Eosinophils # (A) 0.2 k/uL (0-0.7); Eosinophils % (A) 1 %; Glucose 108 mg/dL (74-99); HCT 50.5 % (39.0-53.0); HGB 17.1 gm/dL (13.0-17.5); Lymphocytes # (A) 0.9 k/uL (1.0-4.8); Lymphocytes % (A) 7 %; MCH 31.4 pg (25.0-35.0); MCHC 33.8 g/dL (31.0-37.0); MCV 92.9 fL (80.0-100.0); Monocytes # (A) 0.8 k/uL (0-1.0); Monocytes % (A) 6 %; Neutrophils % (A) 84 %; Platelet Count 171 k/uL (150-450); Potassium 4.4 mmol/L (3.5-5.1); RBC 5.44 m/uL (4.30-5.90); Sodium 138 mmol/L (137-145); Total Bilirubin 1.1 mg/dL (0.2-1.3); Total Protein 5.2 g/dL (6.3-8.2); WBC 13.1 k/uL (3.8-10.6)
--- NOTE | 2018-03-01 11:07 | P.PN ---
Subjective Progress Note Date: 03/01/18 Principal diagnosis: Lower extremity weakness Progress note dated 03/01/2018 Mr. Cisneros is a 62-year-old white male patient of Dr. Mascorro, follows with Dr. Escamilla in the pulmonary office for his history of COPD, who was recently hospitalized for an acute COPD exacerbation and discharged home on 02/27/2018 in stable condition. Patient was treated with multiple rounds of prednisone, IV steroids, antibiotics, on an outpatient basis and inpatient, in view of his symptoms of of dyspnea related to COPD exacerbation. Patient was discharged home on prednisone taper. Note that the patient also underwent presentation during last admission and found minimal coronary artery disease. She came into the emergency department with complaints of weakness in bilateral lower extremities, and a fall due to his legs suddenly giving out. Denied any fever or chills, denied any worsening dyspnea. Denied any headaches, no nausea or vomiting. No episodes of bowel urinary incontinence. Lab work showed elevated creatinine kinase at 558, elevated CK-MB at 3.9, BUN of 35, creatinine 1. Electrolytes are within normal limits, urinalysis was clear, WBC is 13.4. Chest x-ray showed no acute cardiopulmonary process. She showed normal sinus rhythm, lumbar spine x-ray showed degenerative disc disease, facet arthropathic and osteopenia. No acute fracture or subluxation was noted. Brain CT showed age-related atrophic and chronic small vessel ischemic changes without acute intracranial process. Neurology was consulted for neurologic evaluation, and is awaiting to have a lumbar puncture. From pulmonary standpoint his COPD stable, patient is not complaining of any ongoing dyspnea, wheezing, chest congestion. Computed tomography scan of the brain showed only chronic changes. X-rays of the lumbar spine showed degenerative arthritis. MRI of the lumbar spine only showed some degenerative disc disease. Nothing acute to explain spinal cord compression or his lower extremity edema. It may relate to his steroids and steroid myopathy. Objective - Vital Signs Vital signs: Vital Signs Temp 97.0 F L 03/01/18 05:00 Pulse 66 03/01/18 05:00 Resp 16 03/01/18 05:00 BP 151/75 03/01/18 05:00 Pulse Ox 93 L 03/01/18 05:00 Intake & Output 02/28/18 03/01/18 03/01/18 18:59 06:59 18:59 Intake Total 60 Balance 60 Weight 95.254 kg Intake: Oral 60 Other: Voiding Method Toilet Toilet # Voids 2 1 - Exam GENERAL EXAM: Alert, pleasant, 62-year-old white male, comfortable in no apparent distress. HEAD: Normocephalic/atraumatic. EYES: Normal reaction of pupils, equal size. Conjunctiva pink, sclera white. NOSE: Clear with pink turbinates. THROAT: No erythema or exudates. NECK: No masses, no JVD, no thyroid enlargement, no adenopathy. CHEST: No chest wall deformity. Symmetrical expansion. LUNGS: Diminished breath sounds with no crackles, wheeze, a few scattered rhonchi. CVS: Regular rate and rhythm, normal S1 and S2, no gallops, no murmurs, no rubs ABDOMEN: Soft, nontender. No hepatosplenomegaly, normal bowel sounds, no guarding or rigidity. EXTREMITIES: No clubbing, no edema, no cyanosis, 2+ pulses and upper and lower extremities. MUSCULOSKELETAL: Muscle strength and tone normal. SPINE: No scoliosis or deformity SKIN: No rashes CENTRAL NERVOUS SYSTEM: Alert and oriented -3. No focal deficits, tone is normal in all 4 extremities. PSYCHIATRIC: Alert and oriented -3. Appropriate affect. Intact judgment and insight. - Labs CBC & Chem 7: 03/01/18 07:03 03/01/18 07:03 Labs: Abnormal Lab Results - Last 24 Hours (Table) 02/28/18 02/28/18 03/01/18 Range/Units 11:00 13:59 07:03 WBC 13.1 H (3.8-10.6) k/uL Neutrophils # 11.0 H (1.3-7.7) k/uL Lymphocytes # 0.9 L (1.0-4.8) k/uL BUN (9-20) mg/dL Glucose (74-99) mg/dL ALT (21-72) U/L Creatine Kinase 219 H (55-170) U/L Total Protein (6.3-8.2) g/dL Albumin (3.5-5.0) g/dL CSF Total Protein 105 H (12-60) mg/dL 03/01/18 Range/Units 07:03 WBC (3.8-10.6) k/uL Neutrophils # (1.3-7.7) k/uL Lymphocytes # (1.0-4.8) k/uL BUN 28 H (9-20) mg/dL Glucose 108 H (74-99) mg/dL ALT 79 H (21-72) U/L Creatine Kinase (55-170) U/L Total Protein 5.2 L (6.3-8.2) g/dL Albumin 3.1 L (3.5-5.0) g/dL CSF Total Protein (12-60) mg/dL Microbiology - Last 24 Hours (Table) 02/28/18 13:59 CSF Gram Stain - Preliminary Cerebral Spinal Fluid Assessment and Plan Assessment: Assessment: #1. Weakness in bilateral lower extremities, under investigation, could possibly be related to steroid-induced myopathy or possibly statin-induced myopathy #2. Elevation of the creatinine kinase, CK-MB possibly related to the above #3. Moderately severe COPD, with a baseline FEV1 of 59% of predicted, stable. History of recent hospitalization for exacerbation of COPD, improved #4. Hypertension, hyperlipidemia #5. Severe obstructive sleep apnea with an AHI of 74, on CPAP therapy at a pressure of 14 cm of water and the patient reports being compliant with therapy #6. History of bronchoscopy with BAL on 11/26/2017, cytology was negative for any evidence of malignancy, bronchial wash cultures were negative #7. Nicotine dependence, currently in remission, patient quit 6 weeks ago, carries [id number] smoking history #8. History of BPH Plan: Plan dated 03/01/2018. The patient's doing well. He denies any weakness in the lower extremities. States he is walking just fine. But like to be discharged home. From our perspective he could be discharged home. It appears that his lumbar spine x- ray CT of the brain and lumbar MRI are all negative. I don't know if there is anything more for neurology to agonist but she since the patient seems to be recovered. I suspect a lot of this is related to his critical illness and his steroids. Time with Patient: Less than 30
--- NOTE | 2018-03-01 12:19 | P.PN ---
Subjective Progress Note Date: 03/01/18 This patient is a 62-year-old right-handed white male who was admitted to hospital yesterday for evaluation bilateral leg weakness. Patient had just recently been discharged from home after being treated for any acute COPD exacerbation. He was discharged home on 02/27/2018. He was brought back to the ER yesterday due to lateral leg weakness. He was admitted to hospital and we were consulted for further evaluation. We've recommended MRI of the lumbar spine to be done which was completed today. MRI of the lumbar spine reveals degenerative disc disease with no sizable disc herniation. Small disc bulges were noted. Correlation for S1 radiculopathy was mentioned. No significant disc herniation was evident to explain bilateral leg weakness. He had been on high-dose steroids for over a month and a half and there was concern that he may have developed some form of steroid myopathy. He was also recommended to undergo a lumbar puncture for further evaluation of Guillain-Bob syndrome. Patient completed his spinal tap this morning and results are noted. CSF rbc count was 9 and WBC count 1. CSF total protein was 105. The spinal fluid results suggest possibility of early form of acute demyelinating polyneuropathy. However the patient has shown improvement with leg strength today. His deep tendon reflexes are preserved in both lower extremities. This finding would be against a diagnosis of acute GBS. At this point we have discussed these lab results with the patient and his in detail. We have also gone over the MRI and spinal fluid results with Dr. Burton. We have recommended to continue close monitoring of his condition for the next 24-48 hours. As long as his muscle strength continues to improve we will hold off on any further aggressive treatment. As mentioned he would benefit from EMG study possibly his outpatient once he is discharged for further assessment. If his leg weakness were to worsen or he becomes areflexic in the lower extremities we would recommend transfer to a tertiary center for further management of acute demyelinating polyneuropathy. The patient has been up and ambulating today in the hallway with the use of his walker. He feels his lower extremity strength is much better. As noted it is felt his symptoms likely reflect some degree of steroid induced myopathy. He did have some proximal weakness in the lower extremity muscle groups. The patient is being considered for discharge home today. Overall the patient is feeling better today. He states he was able to walk in his room without having his legs buckling. The patient is being readied for discharge to home and should follow-up in the outpatient neurology clinic in 2-3 weeks. We will continue to follow his progress closely during this admission. Objective - Vital Signs Vital signs: Vital Signs Temp 97.0 F L 03/01/18 05:00 Pulse 66 03/01/18 05:00 Resp 16 03/01/18 05:00 BP 151/75 03/01/18 05:00 Pulse Ox 93 L 03/01/18 05:00 Intake & Output 02/28/18 03/01/18 03/01/18 18:59 06:59 18:59 Intake Total 60 Balance 60 Weight 95.254 kg Intake: Oral 60 Other: Voiding Method Toilet Toilet # Voids 2 1 - Exam Physical examination: PHYSICAL EXAMINATION: Patient is resting comfortably in bed. VITAL SIGNS: Blood pressure is [151/75]. Heart rate is [66]. Respiration is [16] . Temperature is [97.0]. HEENT: Head is atraumatic, neck is supple, there were no carotid bruits. CHEST: Lungs are clear to auscultation and percussion. CARDIAC: S1, S2 normal rate and rhythm. There is no murmur. ABDOMEN: Soft and nontender. Bowel sounds are present. EXTREMITIES: There is no pedal edema. Peripheral pulses are present. Neurological examination: Patient has a nonfocal neurological examination. Muscle strength in the lower extremities is improved 4/5 throughout. Deep tendon reflexes are 1+ in both upper and lower extremities. Plantar responses flexor bilaterally. - Labs CBC & Chem 7: 03/01/18 07:03 03/01/18 07:03 Labs: Abnormal Lab Results - Last 24 Hours (Table) 02/28/18 03/01/18 03/01/18 Range/Units 13:59 07:03 07:03 WBC 13.1 H (3.8-10.6) k/uL Neutrophils # 11.0 H (1.3-7.7) k/uL Lymphocytes # 0.9 L (1.0-4.8) k/uL BUN 28 H (9-20) mg/dL Glucose 108 H (74-99) mg/dL ALT 79 H (21-72) U/L Total Protein 5.2 L (6.3-8.2) g/dL Albumin 3.1 L (3.5-5.0) g/dL CSF Total Protein 105 H (12-60) mg/dL Microbiology - Last 24 Hours (Table) 02/28/18 13:59 CSF Gram Stain - Preliminary Cerebral Spinal Fluid Assessment and Plan (1) Steroid-induced myopathy Current Visit: Yes Status: Acute Code(s): G72.0 - DRUG-INDUCED MYOPATHY; T38.0X5A - ADVERSE EFFECT OF GLUCOCORT/SYNTH ANALOG, INIT SNOMED Code(s): 16521812 (2) Statin myopathy Current Visit: Yes Status: Acute Code(s): G72.0 - DRUG-INDUCED MYOPATHY; T46.6X5A - ADVERSE EFFECT OF ANTIHYPERLIP AND ANTIARTERIO DRUGS, INIT SNOMED Code(s): 777776384 (3) Weakness of both lower limbs Current Visit: Yes Status: Acute Code(s): R29.898 - OTH SYMPTOMS AND SIGNS INVOLVING THE MUSCULOSKELETAL SYSTEM SNOMED Code(s): 3007459 (4) Acute exacerbation of chronic obstructive airways disease Current Visit: No Status: Acute Code(s): J44.1 - CHRONIC OBSTRUCTIVE PULMONARY DISEASE W (ACUTE) EXACERBATION SNOMED Code(s): 839473591 Plan: The patient is a 62-year-old male who was initially admitted to Hospital for evaluation of bilateral leg weakness. His symptoms came on rather suddenly as he was just discharged from hospital after being treated for severe COPD exacerbation. He underwent initial computed tomography scan of the brain on admission which came back negative any evidence of acute stroke. He was sent for MRI of the lumbar spine which is also negative for any severe disc herniation. He underwent a lumbar puncture for further evaluation for possibility of acute Guillain-Bob which came back negative. There was slight elevation of his protein however this was felt to be secondary to his other medical conditions. The patient's neurological examination also does not support evidence for acute Guillain-Bob syndrome as he is maintained his reflexes in both lower extremities. The patient's clinical course also is showing improvement day by day. This goes against a diagnosis of acute Guillain -Bob. We have recommended that he continue to monitor for any recurrence of leg weakness which can be reevaluated if it were to recur. Overall he is doing better and it seems that his leg weakness symptoms are likely related to steroid induced myopathy. He is being discharged home today and may schedule follow-up in the outpatient neurology clinic in 2-3 weeks. Once again he was advised that if his leg weakness should recur very suddenly and he is unable to walk or ambulate as before he should return to the emergency room immediately for further evaluation and treatment. The patient overall seems to be doing very well today in terms of his leg strength. He is being discharged home and we will continue to follow-up with him in the outpatient clinic. His overall prognosis at this time remains fair.
--- NOTE | 2018-03-02 05:22 | DS ---
DISCHARGE SUMMARY DATE OF SERVICE: 03/01/2018. FINAL DIAGNOSES: 1. 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 2. Possible Cushingoid symptoms secondary to steroids. 3. Rule out Guillain [place] syndrome. 4. Increased protein in the CSF fluid. 5. Chronic obstructive pulmonary disease. 6. Increased ALT, possibly mild hepatitis. 7. Increased CK with mild rhabdomyolysis. 8. Increased WBC. 9. History of recent liver lesions for outpatient MRI. 10.History of asthma. 11.Chronic obstructive pulmonary disease. 12.Hypertension. 13.Hyperlipidemia. 14.History of degenerative joint disease. 15.History of sleep apnea. 16.History of obesity with body mass index of 31. 17.History of cholecystectomy. 18.Remote history of nicotine dependence. DISCHARGE DISPOSITION: The patient is being discharged in stable condition with guarded prognosis. HISTORY OF PRESENT ILLNESS: This 62-year-old gentleman with a past medical history of multiple medical problems was recently admitted to [facility] for COPD acute exacerbation. Currently the patient having generalized myopathy, proximal myopathy, possible steroid induced. The patient was evaluated by pulmonology and as well as Neurology. CSF protein was slightly increased, but however the patient had significant improvement. Guillain [place] syndrome was supposed to be unlikely per Dr. Crespo. The patient has improved significantly. PT/OT was evaluated. Home PT/OT is being arranged. On exam vitals are stable. Cardiovascular: S1, S2 muffled. Abdomen soft. Nervous system: No focal deficits. DISCHARGE INSTRUCTIONS: 1. Diet is cardiac diet. 2. Activity limited until followup. 3. Follow up with Dr. Franki Crespo as advised. 4. Follow up with Dr. Mascorro in 2-3 days. MEDICATIONS ARE: 1. Norvasc 10 mg p.o. daily. 2. Hold Lipitor for now. 3. Symbicort 160/4.5 two puffs b.i.d. 4. Folic acid 1 mg b.i.d. 5. Lasix 20 mg daily. 6. Zestril 2.5 mg. 7. Multivitamins one p.o. daily. 8. Polyethylene glycol. 9. MiraLAX 17 g daily. 10.K-Dur 10 mEq p.o. daily. 11.Prednisone taper as before. 12.Zantac 150 mg p.o. b.i.d. 13.Cialis p.r.n. 14.Testosterone 100 mg IM. 15.Thiamine 100 mg p.o. daily. Once again, the patient is being discharged in stable condition with guarded prognosis. MMSANDOVALL / SIDNEYN: [id number] / MTDD
== END 2018-03-01 13:32 | disposition home health service (06) ==
LOC: EC 11:36 → 5MS5E 13:41
PROVIDERS: ADMIT Hospitalist; ATTEND Hospitalist
DX: G71.11 Myotonic muscular dystrophy (principal); J44.1 Chronic obstructive pulmonary disease with (acute) exacerbation; I10 Essential (primary) hypertension; E78.5 Hyperlipidemia, unspecified; D72.829 Elevated white blood cell count, unspecified; E86.0 Dehydration; Z91.81 History of falling; R74.0 Nonspecific elevation of levels of transaminase and lactic acid dehydrogenase [LDH]; M51.36 Other intervertebral disc degeneration, lumbar region; R74.8 Abnormal levels of other serum enzymes; K76.89 Other specified diseases of liver; M85.80 Other specified disorders of bone density and structure, unspecified site; G47.33 Obstructive sleep apnea (adult) (pediatric); N40.0 Benign prostatic hyperplasia without lower urinary tract symptoms; M25.551 Pain in right hip; M25.552 Pain in left hip; R14.0 Abdominal distension (gaseous); R21 Rash and other nonspecific skin eruption; M19.90 Unspecified osteoarthritis, unspecified site; Z99.89 Dependence on other enabling machines and devices; Z68.31 Body mass index [BMI] 31.0-31.9, adult; E66.9 Obesity, unspecified; Z79.51 Long term (current) use of inhaled steroids; Z79.899 Other long term (current) drug therapy; Z79.52 Long term (current) use of systemic steroids; Z88.2 Allergy status to sulfonamides; Z88.5 Allergy status to narcotic agent; Z87.891 Personal history of nicotine dependence; Z90.49 Acquired absence of other specified parts of digestive tract; Z80.9 Family history of malignant neoplasm, unspecified
CPT/HCPCS: 99285 ×2; 96372 ×2; 36415; 94640 ×4; 93005; 97162; 97166; 62270; 87476; 88108; 84157; 80053 ×3; 82945; 85652; 84443; 82550 ×2; 82553; 83735; 85025 ×3; 86140; 89050; 81003; 87070; 87205; 72110; 71046; 70450; 72158; G0378 ×3; J2250; J1644 ×3; J3010; J7512 ×2; A9581

== ENCOUNTER 2018-03-06 18:39 | Observation (INO) | payer BC ==
[2018-03-06] MEDS ORDERED: ASPIRIN 325 MG TAB PO STA (19:19)
[2018-03-06 19:55] LABS: Basophils # (A) 0.1 k/uL (0-0.2); Basophils % (A) 0 %; Eosinophils # (A) 0.1 k/uL (0-0.7); Eosinophils % (A) 1 %; HCT 52.5 % (39.0-53.0); HGB 17.6 gm/dL (13.0-17.5); Lymphocytes # (A) 0.8 k/uL (1.0-4.8); Lymphocytes % (A) 5 %; MCH 31.4 pg (25.0-35.0); MCHC 33.6 g/dL (31.0-37.0); MCV 93.5 fL (80.0-100.0); Mean Platelet Volume 6.7; Monocytes # (A) 0.8 k/uL (0-1.0); Monocytes % (A) 5 %; Neutrophils % (A) 88 %; Platelet Count 174 k/uL (150-450); RBC 5.61 m/uL (4.30-5.90); RDW 14.1 % (11.5-15.5); WBC 15.9 k/uL (3.8-10.6)
[2018-03-06 20:05] LABS: Calcium 9.4 mg/dL (8.4-10.2); Potassium 5.2 mmol/L (3.5-5.1)
--- NOTE | 2018-03-06 20:59 | CT ---
EXAMINATION TYPE: CT chest angio for PE with contrast and with 3-D reconstructions. DATE OF EXAM: 03/06/2018 COMPARISON: NONE HISTORY: Difficulty breathing x8 days. CONTRAST: CT Chest for pulmonary embolism performed with with IV Contrast, patient injected with 78ml mL of Isovue 370. 3-D reconstructions. CT DLP: 344.8 mGycm. Automated exposure control for dose redu ction was used. FINDINGS: LUNGS: The lungs are grossly clear, there is no concerning parenchymal mass or nodule identified. T here is no pleural effusion or pneumothorax seen. The tracheobronchial tree is patent. MEDIASTINUM: There is satisfactory enhancement of the pulmonary artery and its branches, there is no CT evidence for pulmonary embolism. There are no greater than 1 cm hilar or mediastinal lymph nodes. Coronary calcification noted. No cardiomegaly. No pericardial effusion is seen. OTHER: No additional significant abnormality is seen. IMPRESSION: No acute process. Coronary calcifications noted.
[2018-03-06] MEDS ORDERED: MORPHINE SULFATE 2 MG/ML SYRINGE IV PRN (21:10)
[2018-03-06] MEDS ORDERED: ACETAMINOPHEN TAB 325 MG TAB PO PRN (21:10)
[2018-03-06] MEDS ORDERED: IBUPROFEN 400 MG TAB PO PRN (21:10)
[2018-03-06] MEDS ORDERED: ONDANSETRON 4 MG/2 ML VIAL IVP PRN (21:10)
[2018-03-06] MEDS ORDERED: NALOXONE 0.4 MG/ML 1 ML VIAL IV PRN (21:10)
--- NOTE | 2018-03-06 21:10 | ED ---
SOB HPI - General Chief Complaint: Shortness of Breath Stated Complaint: SOB Time Seen by Provider: 03/06/18 18:47 Source: patient Mode of arrival: ambulatory Limitations: no limitations - History of Present Illness Initial Comments: 62-year-old male with past medical history of COPD presenting for evaluation of shortness of breath. He states that he was evaluated by his primary care physician today who stated that given his continued shortness breath without abnormal lung findings he should present to the ED for evaluation to rule out pulmonary embolus and. The patient states that he has had 2 admissions this last month for COPD and has been on multiple courses of steroids which she has been trying to wean himself off of. He states that his shortness of breath has been constant and there are no alleviating factors however it is worsened with exertion. Denies any associated chest pain, abdominal pain, fevers, chills or cough. He has been having a rash across his abdomen and back and proximal extremities however he states that he has been evaluated for this for the last 3 weeks without any indication of its etiology. Denies any sick contacts. - Related Data Home Medications Medication Instructions Recorded Confirmed Budesonide-Formot 160-4.5 Mcg 2 puff INHALATION RT-BID 11/28/17 03/06/18 [Symbicort 160-4.5 Mcg Inhaler] Tadalafil [Cialis] 5 mg PO DAILY PRN 11/28/17 03/06/18 Testosterone Cypionate 100 mg IM WESA 02/21/18 03/06/18 [Depo-Testosterone] predniSONE 30 mg PO DAILY 03/06/18 03/06/18 Previous Rx's Medication Instructions Recorded Furosemide [Lasix] 20 mg PO DAILY #30 tab 02/26/18 Lisinopril [Zestril] 5 mg PO DAILY #30 tab 02/26/18 Polyethylene Glycol 3350 [Miralax] 17 gm PO DAILY PRN #30 powd.pack 02/26/18 Potassium Chloride ER [K-Dur 10] 10 meq PO DAILY #30 tab.er.prt 02/26/18 Ranitidine HCl [Zantac] 150 mg PO BID #30 tab 02/26/18 amLODIPine [Norvasc] 10 mg PO DAILY #0 02/26/18 Folic Acid 1 mg PO DAILY #30 tablet 03/01/18 Multivitamins, Thera [Multivitamin] 1 tab PO DAILY #30 tablet 03/01/18 Thiamine [Vitamin B-1] 100 mg PO DAILY #30 tablet 03/01/18 Allergies Allergy/AdvReac Type Severity Reaction Status Date / Time codeine Allergy Unknown Verified 03/06/18 19:28 Sulfa (Sulfonamide Allergy Rash/Hives Verified 03/06/18 19:28 Antibiotics) Review of Systems ROS Statement: Those systems with pertinent positive or pertinent negative responses have been documented in the HPI. ROS Other: All systems not noted in ROS Statement are negative. Constitutional: Denies: fever, chills Eyes: Denies: eye pain, eye discharge, vision change ENT: Denies: ear pain, throat pain Respiratory: Reports: dyspnea. Denies: cough, wheezes, hemoptysis, stridor Cardiovascular: Reports: dyspnea on exertion. Denies: chest pain, palpitations , orthopnea, edema, syncope, paroxysmal nocturnal dyspnea Endocrine: Denies: fatigue, polydipsia, polyuria Gastrointestinal: Denies: abdominal pain, nausea, vomiting, diarrhea, constipation, hematemesis, melena, hematochezia Genitourinary: Denies: urgency, dysuria Musculoskeletal: Denies: back pain, arthralgia, myalgia Skin: Reports: rash. Denies: lesions Neurological: Denies: headache, weakness Psychiatric: Denies: anxiety, depression Hematological/Lymphatic: Denies: easy bleeding, easy bruising Past Medical History Past Medical History: Asthma, COPD, Hyperlipidemia, Hypertension, Osteoarthritis (OA), Skin Disorder, Sleep Apnea/CPAP/BIPAP Additional Past Medical History / Comment(s): rash on chest "for years", uses cpap machine, had shingel vaccine not sure of date. History of Any Multi-Drug Resistant Organisms: None Reported Past Surgical History: Appendectomy, Cholecystectomy, Heart Catheterization, Orthopedic Surgery Additional Past Surgical History / Comment(s): fx left hand -surgery with pins/ plate, hemorrhoidectomy, bronchosocpy Past Anesthesia/Blood Transfusion Reactions: No Reported Reaction Additional Past Anesthesia/Blood Transfusion Reaction / Comment(s): states last bronch. was cancelled due to "low O2 sats" Past Psychological History: No Psychological Hx Reported Smoking Status: Former smoker Past Alcohol Use History: None Reported Past Drug Use History: None Reported - Past Family History Father Family Medical History: Cancer Mother Family Medical History: Cancer Sister(s) Family Medical History: Cancer General Exam Limitations: no limitations General appearance: alert, in no apparent distress Head exam: Present: atraumatic, normocephalic, normal inspection Eye exam: Present: normal appearance, PERRL, EOMI. Absent: scleral icterus, conjunctival injection, periorbital swelling ENT exam: Present: normal exam, mucous membranes moist Neck exam: Present: normal inspection. Absent: tenderness, meningismus, lymphadenopathy Respiratory exam: Present: normal lung sounds bilaterally. Absent: respiratory distress, wheezes, rales, rhonchi, stridor Cardiovascular Exam: Present: regular rate, normal rhythm, normal heart sounds. Absent: systolic murmur, diastolic murmur, rubs, gallop, clicks GI/Abdominal exam: Present: soft, normal bowel sounds. Absent: distended, tenderness, guarding, rebound, rigid Rectal exam: Present: deferred Extremities exam: Present: normal inspection, full ROM, normal capillary refill. Absent: tenderness, pedal edema, joint swelling, calf tenderness Back exam: Present: normal inspection Neurological exam: Present: alert, oriented X3, CN II-XII intact Psychiatric exam: Present: normal affect, normal mood Skin exam: Present: warm, dry, intact, rash Course Vital Signs 03/06/18 03/06/18 18:41 19:10 Temperature 97.8 F Pulse Rate 83 Respiratory 20 18 Rate Blood Pressure 157/74 O2 Sat by Pulse 97 Oximetry Medical Decision Making - Medical Decision Making 62-year-old male with past medical history of COPD presenting for evaluation of shortness of breath. On physical examination he appears to be in no apparent distress. Only significant abnormality noted is a maculopapular rash to the abdomen, chest, back, and proximal extremities. No lower extremity edema or JVD. Remainder of his physical exam is benign. He was given a breathing female which did not reveal any worsening breath sounds. Labs are significant for acute kidney injury and a leukocytosis however this is likely due to recent steroid use. There is also an elevation in his initial troponin. CTA of the chest showed no acute process. Given the troponin elevation will admit for further treatment and evaluation and although he has had a recent heart cath we'll continue to trend troponins.Discussed with Dr. Macias who accepted the admission with request for consult to cardiology. Admission order placed and bed request submitted. - Lab Data Result diagrams: 03/06/18 19:46 03/06/18 19:46 Lab Results 03/06/18 03/06/18 03/06/18 Range/Units 19:46 19:46 19:46 WBC 15.9 H (3.8-10.6) k/uL RBC 5.61 (4.30-5.90) m/uL Hgb 17.6 H (13.0-17.5) gm/dL Hct 52.5 (39.0-53.0) % MCV 93.5 (80.0-100.0) fL MCH 31.4 (25.0-35.0) pg MCHC 33.6 (31.0-37.0) g/dL RDW 14.1 (11.5-15.5) % Plt Count 174 (150-450) k/uL Neutrophils % 88 % Lymphocytes % 5 % Monocytes % 5 % Eosinophils % 1 % Basophils % 0 % Neutrophils # 14.0 H (1.3-7.7) k/uL Lymphocytes # 0.8 L (1.0-4.8) k/uL Monocytes # 0.8 (0-1.0) k/uL Eosinophils # 0.1 (0-0.7) k/uL Basophils # 0.1 (0-0.2) k/uL Sodium 137 (137-145) mmol/L Potassium 5.2 H (3.5-5.1) mmol/L Chloride 102 (98-107) mmol/L Carbon Dioxide 22 (22-30) mmol/L Anion Gap 13 mmol/L BUN 47 H (9-20) mg/dL Creatinine 1.26 H (0.66-1.25) mg/dL Est GFR (CKD-EPI)AfAm 69 (>60 ml/min/1.73 sqM) Est GFR (CKD-EPI)NonAf 60 (>60 ml/min/1.73 sqM) Glucose 111 H (74-99) mg/dL Calcium 9.4 (8.4-10.2) mg/dL Troponin I (0.000-0.034) ng/mL NT-Pro-B Natriuret Pep 48 pg/mL 03/06/18 Range/Units 19:46 WBC (3.8-10.6) k/uL RBC (4.30-5.90) m/uL Hgb (13.0-17.5) gm/dL Hct (39.0-53.0) % MCV (80.0-100.0) fL MCH (25.0-35.0) pg MCHC (31.0-37.0) g/dL RDW (11.5-15.5) % Plt Count (150-450) k/uL Neutrophils % % Lymphocytes % % Monocytes % % Eosinophils % % Basophils % % Neutrophils # (1.3-7.7) k/uL Lymphocytes # (1.0-4.8) k/uL Monocytes # (0-1.0) k/uL Eosinophils # (0-0.7) k/uL Basophils # (0-0.2) k/uL Sodium (137-145) mmol/L Potassium (3.5-5.1) mmol/L Chloride (98-107) mmol/L Carbon Dioxide (22-30) mmol/L Anion Gap mmol/L BUN (9-20) mg/dL Creatinine (0.66-1.25) mg/dL Est GFR (CKD-EPI)AfAm (>60 ml/min/1.73 sqM) Est GFR (CKD-EPI)NonAf (>60 ml/min/1.73 sqM) Glucose (74-99) mg/dL Calcium (8.4-10.2) mg/dL Troponin I 0.040 H* (0.000-0.034) ng/mL NT-Pro-B Natriuret Pep pg/mL - EKG Data EKG Comments: EKG shows normal sinus rhythm with ventricular rate of 75. Disposition Clinical Impression: Elevated troponin, DEE DEE (acute kidney injury), Shortness of breath Disposition: ADMITTED IP TO THIS HOSP Referrals: James Mascorro III, MD [Primary Care Provider] - 1-2 days Decision to Admit Reason: Admit from EC Decision Date: 03/06/18 Decision Time: 21:10
[2018-03-06] MEDS ORDERED: NON-FORMULARY DRUG (Tadalafil [Cialis] 5 MG) PO PRN (21:13)
[2018-03-06] MEDS ORDERED: POLYETHYLENE GLYCOL 3350 17 GM POWD.PACK PO PRN (21:13)
[2018-03-07 02:36] LABS: Basophils # (A) 0.1 k/uL (0-0.2); Basophils % (A) 0 %; Eosinophils # (A) 0.1 k/uL (0-0.7); Eosinophils % (A) 1 %; HCT 49.5 % (39.0-53.0); HGB 16.1 gm/dL (13.0-17.5); Lymphocytes % (A) 7 %; MCH 30.6 pg (25.0-35.0); MCHC 32.6 g/dL (31.0-37.0); Mean Platelet Volume 6.7; Monocytes # (A) 0.8 k/uL (0-1.0); Monocytes % (A) 6 %; Neutrophils # (A) 12.7 k/uL (1.3-7.7); Neutrophils % (A) 85 %; Platelet Count 161 k/uL (150-450); RBC 5.26 m/uL (4.30-5.90); RDW 14.2 % (11.5-15.5); WBC 14.9 k/uL (3.8-10.6)
[2018-03-07 02:52] LABS: Calcium 9.1 mg/dL (8.4-10.2); Potassium 4.4 mmol/L (3.5-5.1)
[2018-03-07 07:48] VITALS: RESP 20
[2018-03-07] MEDS ORDERED: SYMBICORT 160-4.5 MCG INHALER INHALATION SCH (08:00)
[2018-03-07] MEDS ORDERED: predniSONE 10 MG TAB PO SCH (09:00)
[2018-03-07] MEDS ORDERED: POTASSIUM CHLORIDE ER 10 MEQ TAB.ER.PRT PO SCH (09:00)
[2018-03-07] MEDS ORDERED: LISINOPRIL 5 MG TAB PO SCH (09:00)
[2018-03-07] MEDS ORDERED: THIAMINE 100 MG TAB PO SCH (09:00)
[2018-03-07] MEDS ORDERED: FUROSEMIDE 20 MG TAB PO SCH (09:00)
[2018-03-07] MEDS ORDERED: FAMOTIDINE 20 MG TAB PO SCH (09:00)
[2018-03-07] MEDS ORDERED: amLODIPine 10 MG TAB PO SCH (09:00)
[2018-03-07] MEDS ORDERED: MULTIVITAMINS, THERA 1 EACH TAB PO SCH (12:00)
[2018-03-07] MEDS ORDERED: FOLIC ACID 1 MG TAB PO SCH (12:00)
--- NOTE | 2018-03-07 15:21 | CONS ---
CONSULTATION Jacob Cisneros is a 62-year-old gentleman who sees Dr. Jones in the outpatient setting. This gentleman recently on February 25 about 8 days ago underwent a cardiac cath which did not reveal any obstructive CAD. He came into the hospital last evening complaining of some worsening shortness of breath and also he complained of having recurrent episodes of exacerbation of COPD, but did not have any chest discomfort. Because of the equivocal troponin elevation, I was asked to see this patient. He has history of bronchial asthma, hypertension, hyperlipidemia, has a sleep apnea, wears a CPAP. He is status post left hand surgery, some bronchoscopy, cholecystectomy, and also appendectomy. MEDICATIONS: At home include Lasix, lisinopril. potassium supplements, ranitidine, amlodipine, and vitamin supplements. He also takes inhalers and Cialis. EKG revealed a sinus mechanism without any acute changes. PHYSICAL EXAMINATION: Blood pressure is 130/70, pulse is 80 per minute, regular. HEENT: Unremarkable. Fundus was not examined by me. NECK: Supple. No JVD. I do not hear a carotid bruit. There is no thyromegaly. Heart exam reveals S1, S2 heard normally without a rub, murmur or gallop. Lungs are clear. Abdomen is soft, nontender. Lower extremity with normal pulses no edema. Central system is normal. EKG does not reveal any acute changes. LABORATORY DATA: Revealed troponin levels of 0.03 and 0.04, both of which are equivocal. IMPRESSION: 1. Equivocal troponins. Recent cardiac cath was unremarkable for significant coronary artery disease. 2. Hypertension. 3. Chronic obstructive pulmonary disease with recurrent hospitalizations. 4. History of some hypertensive cardiovascular disease. RECOMMENDATIONS: From a cardiac standpoint, no further intervention is necessary. He can be safely discharged and his a pain is atypical. does not require any intervention. His recent cardiac cath within the last 10 days was normal. Discussed with the patient. I will see the patient as needed during the hospitalization, but he can be discharged today and see Dr. Jones in one week. Thank you very much for the consult. MMODL / IJN: [id number] /
[2018-03-07 15:28] VITALS: BP 134/76; PULSE 80; TEMP 97.3
--- NOTE | 2018-03-07 15:58 | P.DS ---
Providers Date of admission: 03/06/18 21:10 Attending physician: John Macias Consults: 03/06/18 21:11 Consult Physician Routine Consulting Provider: [facility] Consult Reason/Comments: Elevated troponin Do you want consulting provider notified?: Yes, Notify in am Primary care physician: [facility] Course: Please refer to my HPI Plan - Discharge Summary Discharge Rx Participant: Yes New Discharge Prescriptions: No Action Budesonide-Formot 160-4.5 Mcg [Symbicort 160-4.5 Mcg Inhaler] 2 puff INHALATION RT-BID Tadalafil [Cialis] 5 mg PO DAILY PRN PRN Reason: ERECTILE DYSFUNCTION Testosterone Cypionate [Depo-Testosterone] 100 mg IM WESA Furosemide [Lasix] 20 mg PO DAILY #30 tab Lisinopril [Zestril] 5 mg PO DAILY #30 tab Polyethylene Glycol 3350 [Miralax] 17 gm PO DAILY PRN #30 powd.pack PRN Reason: Constipation Potassium Chloride ER [K-Dur 10] 10 meq PO DAILY #30 tab.er.prt Ranitidine HCl [Zantac] 150 mg PO BID #30 tab amLODIPine [Norvasc] 10 mg PO DAILY #0 Folic Acid 1 mg PO DAILY #30 tablet Multivitamins, Thera [Multivitamin] 1 tab PO DAILY #30 tablet Thiamine [Vitamin B-1] 100 mg PO DAILY #30 tablet predniSONE 30 mg PO DAILY Discharge Medication List Budesonide-Formot 160-4.5 Mcg [Symbicort 160-4.5 Mcg Inhaler] 2 puff INHALATION RT-BID 11/28/17 [History] Tadalafil [Cialis] 5 mg PO DAILY PRN 11/28/17 [History] Testosterone Cypionate [Depo-Testosterone] 100 mg IM WESA 02/21/18 [History] Furosemide [Lasix] 20 mg PO DAILY #30 tab 02/26/18 [Rx] Lisinopril [Zestril] 5 mg PO DAILY #30 tab 02/26/18 [Rx] Polyethylene Glycol 3350 [Miralax] 17 gm PO DAILY PRN #30 powd.pack 02/26/18 [Rx ] Potassium Chloride ER [K-Dur 10] 10 meq PO DAILY #30 tab.er.prt 02/26/18 [Rx] Ranitidine HCl [Zantac] 150 mg PO BID #30 tab 02/26/18 [Rx] amLODIPine [Norvasc] 10 mg PO DAILY #0 02/26/18 [Rx] Folic Acid 1 mg PO DAILY #30 tablet 03/01/18 [Rx] Multivitamins, Thera [Multivitamin] 1 tab PO DAILY #30 tablet 03/01/18 [Rx] Thiamine [Vitamin B-1] 100 mg PO DAILY #30 tablet 03/01/18 [Rx] predniSONE 30 mg PO DAILY 03/06/18 [History] Follow up Appointment(s)/Referral(s): James Mascorro III, MD [Primary Care Provider] - 03/10/18 10:30 am (saturday with [facility]) Tavo Jones MD [STAFF PHYSICIAN] - 03/10/18 3:00 pm (Saturday at [facility] [place]) Discharge Disposition: HOME SELF-CARE
--- NOTE | 2018-03-07 15:58 | P.HPIM ---
History of Present Illness 58-year-old gentleman with known history of COPD was complaining of on and off shortness of breath because of which her PCP Dr. Mascorro send him to ER to get a CT angios the chest rule out pulmonary embolism patient underwent CT angios the chest which did not show any PE. Patient does have mild leukocytosis due to systemic strides he was taking at home. Patient was recently discharged from my service after he was treated for COPD at that time patient complained of abdominal distention CAT scan was essentially within normal limits but other some angiomas in the liver because of which patient was scheduled to get an outpatient MRI for that. Patient still has abdominal distention without any significant tenderness or pain patient the upon palpation does have mild my minimal tenderness. Patient is found to have minimally elevated troponins because of which a cardiac was consulted and patient was admitted to the hospital. These minimal elevation of troponins are secondary to the recent cutting catheterization. And recent cardiac catheterization did not show any significant atherosclerotic coronary occlusive disease that needs any intervention at this time.. Cardiology evaluated the patient during this hospitalization to clear for him for discharge. Patient is being discharged today in stable medical condition. 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 Review of Systems REVIEW OF SYSTEMS: CONSTITUTIONAL: No fever, no malaise, no fatigue. HEENT: No recent visual problems or hearing problems. Denied any sore throat. CARDIOVASCULAR: No chest pain, orthopnea, PND, no palpitations, no syncope. PULMONARY: No shortness of breath, no cough, no hemoptysis. GASTROINTESTINAL: No diarrhea, no nausea, no vomiting, no abdominal pain. Normoactive bowel sounds. NEUROLOGICAL: No headaches, no weakness, no numbness. HEMATOLOGICAL: Denies any bleeding or petechiae. GENITOURINARY: Denies any burning micturition, frequency, or urgency. MUSCULOSKELETAL/RHEUMATOLOGICAL: Denies any joint pain, swelling, or any muscle pain. ENDOCRINE: Denies any polyuria or polydipsia. The rest of the 14-point review of systems is negative. Past Medical History Past Medical History: Asthma, COPD, Hyperlipidemia, Hypertension, Osteoarthritis (OA), Skin Disorder, Sleep Apnea/CPAP/BIPAP Additional Past Medical History / Comment(s): rash on chest "for years", uses cpap machine, had shingelles vaccine not sure of date. History of Any Multi-Drug Resistant Organisms: None Reported Past Surgical History: Appendectomy, Cholecystectomy, Heart Catheterization, Orthopedic Surgery Additional Past Surgical History / Comment(s): fx left hand -surgery with pins/ plate, hemorrhoidectomy, bronchosocpy Past Anesthesia/Blood Transfusion Reactions: No Reported Reaction Additional Past Anesthesia/Blood Transfusion Reaction / Comment(s): states durign a bronch it . was cancelled due to "low O2 sats/michelle" Smoking Status: Former smoker - Past Family History Father Family Medical History: Cancer Mother Family Medical History: Cancer Sister(s) Family Medical History: Cancer Medications and Allergies Home Medications Medication Instructions Recorded Confirmed Type Budesonide-Formot 160-4.5 Mcg 2 puff INHALATION RT-BID 11/28/17 03/06/18 History [Symbicort 160-4.5 Mcg Inhaler] Tadalafil [Cialis] 5 mg PO DAILY PRN 11/28/17 03/06/18 History Testosterone Cypionate 100 mg IM WESA 02/21/18 03/06/18 History [Depo-Testosterone] Furosemide [Lasix] 20 mg PO DAILY #30 tab 02/26/18 03/06/18 Rx Lisinopril [Zestril] 5 mg PO DAILY #30 tab 02/26/18 03/06/18 Rx Polyethylene Glycol 3350 [Miralax] 17 gm PO DAILY PRN #30 powd.pack 02/26/18 Rx Potassium Chloride ER [K-Dur 10] 10 meq PO DAILY #30 tab.er.prt 02/26/18 Rx Ranitidine HCl [Zantac] 150 mg PO BID #30 tab 02/26/18 03/06/18 Rx amLODIPine [Norvasc] 10 mg PO DAILY #0 02/26/18 03/06/18 Rx Folic Acid 1 mg PO DAILY #30 tablet 03/01/18 03/06/18 Rx Multivitamins, Thera [Multivitamin] 1 tab PO DAILY #30 tablet 03/01/18 03/06/18 Rx Thiamine [Vitamin B-1] 100 mg PO DAILY #30 tablet 03/01/18 03/06/18 Rx predniSONE 30 mg PO DAILY 03/06/18 03/06/18 History Allergies Allergy/AdvReac Type Severity Reaction Status Date / Time codeine Allergy Unknown Verified 03/06/18 19:28 Sulfa (Sulfonamide Allergy Rash/Hives Verified 03/06/18 19:28 Antibiotics) Physical Exam Vitals: Vital Signs Temp Pulse Pulse Resp BP BP Pulse Ox 03/07/18 15:28 97.3 F L 80 20 134/76 95 03/07/18 11:05 97.5 F L 77 20 140/84 93 L 03/07/18 07:44 97.3 F L 81 20 147/84 95 03/07/18 04:00 97.6 F 79 18 142/76 96 03/07/18 00:00 97.8 F 86 18 134/81 95 03/06/18 22:05 97.3 F L 72 18 151/72 96 03/06/18 20:40 91 18 160/90 95 03/06/18 19:10 18 03/06/18 18:41 97.8 F 83 20 157/74 97 Intake and Output 03/07/18 03/07/18 03/07/18 06:59 14:59 22:59 Output Total 300 Balance -300 Output: Urine 300 Other: # Voids 1 1 Weight 87.8 kg PHYSICAL EXAMINATION: GENERAL: The patient is alert and oriented x3, not in any acute distress. Well developed, well nourished. HEENT: Pupils are round and equally reacting to light. EOMI. No scleral icterus. No conjunctival pallor. Normocephalic, atraumatic. No pharyngeal erythema. No thyromegaly. CARDIOVASCULAR: S1 and S2 present. No murmurs, rubs, or gallops. PULMONARY: Chest is clear to auscultation, no wheezing or crackles. ABDOMEN: Soft, distended tympanic with bruises from his previous heparin shots, normoactive bowel sounds. No palpable organomegaly. MUSCULOSKELETAL: No joint swelling or deformity. EXTREMITIES: No cyanosis, clubbing, or pedal edema. NEUROLOGICAL: Gross neurological examination did not reveal any focal deficits. SKIN: No rashes. Results CBC & Chem 7: 03/07/18 02:18 03/07/18 02:18 Labs: Abnormal Lab Results - Last 24 Hours (Table) 03/06/18 03/06/18 03/06/18 Range/Units 19:46 19:46 19:46 WBC 15.9 H (3.8-10.6) k/uL Hgb 17.6 H (13.0-17.5) gm/dL Neutrophils # 14.0 H (1.3-7.7) k/uL Lymphocytes # 0.8 L (1.0-4.8) k/uL Sodium (137-145) mmol/L Potassium 5.2 H (3.5-5.1) mmol/L BUN 47 H (9-20) mg/dL Creatinine 1.26 H (0.66-1.25) mg/dL Glucose 111 H (74-99) mg/dL Troponin I 0.040 H* (0.000-0.034) ng/mL 03/07/18 03/07/18 03/07/18 Range/Units 02:18 02:18 06:09 WBC 14.9 H (3.8-10.6) k/uL Hgb (13.0-17.5) gm/dL Neutrophils # 12.7 H (1.3-7.7) k/uL Lymphocytes # (1.0-4.8) k/uL Sodium 136 L (137-145) mmol/L Potassium (3.5-5.1) mmol/L BUN 43 H (9-20) mg/dL Creatinine (0.66-1.25) mg/dL Glucose 160 H (74-99) mg/dL Troponin I 0.035 H* (0.000-0.034) ng/mL Thrombosis Risk Factor Assmnt - Choose All That Apply Any of the Below Risk Factors Present?: Yes Each Factor Represents 1 point: Abnormal pulmonary function (COPD), Obesity ( BMI >25) Other Risk Factors: Yes Each Risk Factor Represents 2 Points: Age 61-74 years Thrombosis Risk Factor Assessment Total Risk Factor Score: 4 Thrombosis Risk Factor Assessment Level: Moderate Risk Assessment and Plan Plan: -Shortness of breath: Patient is doing well patient is not in COPD exacerbation at this point of time ruled out pulmonary embolism -Minimally elevated troponins: Secondary to above-mentioned reasons as mentioned above no further intervention at this point of time. -Possible hepatic cyst: Patient is undergoing MRI to rule out any significant malignancy associated with that. 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 Mascorro as an outpatient
[2018-03-08] MEDS ORDERED: TESTOSTERONE CYPIONATE 100 MG IM SCH (09:00)
== END 2018-03-07 16:19 | disposition home or self-care (01) ==
LOC: EC 18:39 → 6SEL 21:10
PROVIDERS: ADMIT Internal Medicine; ATTEND Internal Medicine
DX: R06.02 Shortness of breath (principal); J44.9 Chronic obstructive pulmonary disease, unspecified; D72.829 Elevated white blood cell count, unspecified; R14.0 Abdominal distension (gaseous); R77.8 Other specified abnormalities of plasma proteins; E78.5 Hyperlipidemia, unspecified; N17.9 Acute kidney failure, unspecified; I11.9 Hypertensive heart disease without heart failure; M19.90 Unspecified osteoarthritis, unspecified site; G47.30 Sleep apnea, unspecified; Z99.89 Dependence on other enabling machines and devices; R21 Rash and other nonspecific skin eruption; E66.9 Obesity, unspecified; Z68.28 Body mass index [BMI] 28.0-28.9, adult; Z90.49 Acquired absence of other specified parts of digestive tract; Z87.891 Personal history of nicotine dependence; Z80.9 Family history of malignant neoplasm, unspecified; Z79.51 Long term (current) use of inhaled steroids; Z79.899 Other long term (current) drug therapy; Z79.52 Long term (current) use of systemic steroids; Z88.2 Allergy status to sulfonamides; Z88.5 Allergy status to narcotic agent
CPT/HCPCS: 99285; 36415; 94640; 93005; 83880; 80048 ×2; 84484 ×2; 85025 ×2; 71275; G0378 ×2; J7512; Q9967

== ENCOUNTER → 2018-03-14 | Outpatient (CLI) | payer BC ==
[2018-03-14 19:28] LABS: Vitamin D 25 Hydroxy 13.5 ng/mL (30.0-100.0)
== END | disposition home or self-care (01) ==
LOC: LABWHC1 13:53
PROVIDERS: ATTEND Psychiatry & Neurology Neurology
DX: G72.0 Drug-induced myopathy (principal); G62.9 Polyneuropathy, unspecified
CPT/HCPCS: 36415; 82306; 82550; 82553; 82607

== ENCOUNTER 2018-05-23 11:20 | Emergency (ER) | payer BC ==
[2018-05-23 11:51] VITALS: RESP 18
[2018-05-23] MEDS ORDERED: IPRATROPIUM-ALBUTEROL 3 ML NEB INHALATION STA ×2 (12:03→13:30)
[2018-05-23] MEDS ORDERED: methylPREDNISolone SOD SUCCI 125 MG/2 ML VIAL IV STA (12:03)
--- NOTE | 2018-05-23 12:22 | ED ---
General Adult HPI - General Chief complaint: Shortness of Breath Stated complaint: MICHELLE Time Seen by Provider: 05/23/18 11:57 Source: patient, RN notes reviewed Mode of arrival: ambulatory Limitations: no limitations - History of Present Illness Initial comments: Patient is a 62-year-old male with significant past medical history for COPD, presented to the emergency room today with a chief complaint of increased shortness of breath over the last 3-4 months. He does admit that he was hospitalized back in February for the same complaint. Patient states he states symptoms do not seem to be improving. Patient denies any pain. He denies any increased leg swelling. He states that it does get worse as the day goes on. Patient denies any recent fever, chills, chest pain, back pain, abdominal pain, nausea or vomiting, numbness or tingling, dysuria or hematuria, constipation or diarrhea, headaches or visual changes, or any other complaints. - Related Data Home Medications Medication Instructions Recorded Confirmed Budesonide-Formot 160-4.5 Mcg 2 puff INHALATION RT-BID 11/28/17 05/23/18 [Symbicort 160-4.5 Mcg Inhaler] Testosterone Cypionate 100 mg IM WESA 02/21/18 05/23/18 [Depo-Testosterone] predniSONE 20 mg PO DAILY 03/06/18 05/23/18 Previous Rx's Medication Instructions Recorded Furosemide [Lasix] 20 mg PO DAILY #30 tab 02/26/18 Lisinopril [Zestril] 5 mg PO DAILY #30 tab 02/26/18 Polyethylene Glycol 3350 [Miralax] 17 gm PO DAILY PRN #30 powd.pack 02/26/18 Potassium Chloride ER [K-Dur 10] 10 meq PO DAILY #30 tab.er.prt 02/26/18 Ranitidine HCl [Zantac] 150 mg PO BID #30 tab 02/26/18 amLODIPine [Norvasc] 10 mg PO DAILY #0 02/26/18 Folic Acid 1 mg PO DAILY #30 tablet 03/01/18 Multivitamins, Thera [Multivitamin] 1 tab PO DAILY #30 tablet 03/01/18 Thiamine [Vitamin B-1] 100 mg PO DAILY #30 tablet 03/01/18 Allergies Allergy/AdvReac Type Severity Reaction Status Date / Time codeine Allergy Unknown Verified 05/23/18 12:40 Sulfa (Sulfonamide Allergy Rash/Hives Verified 05/23/18 12:40 Antibiotics) Review of Systems ROS Statement: Those systems with pertinent positive or pertinent negative responses have been documented in the HPI. ROS Other: All systems not noted in ROS Statement are negative. Past Medical History Past Medical History: Asthma, COPD, Hypertension, Osteoarthritis (OA), Skin Disorder, Sleep Apnea/CPAP/BIPAP Additional Past Medical History / Comment(s): rash on chest "for years", uses cpap machine, had shingelles vaccine not sure of date. History of Any Multi-Drug Resistant Organisms: None Reported Past Surgical History: Appendectomy, Cholecystectomy, Heart Catheterization, Orthopedic Surgery Additional Past Surgical History / Comment(s): fx left hand -surgery with pins/ plate, hemorrhoidectomy, bronchosocpy Past Anesthesia/Blood Transfusion Reactions: No Reported Reaction Additional Past Anesthesia/Blood Transfusion Reaction / Comment(s): states durign a bronch it . was cancelled due to "low O2 sats/michelle" Past Psychological History: No Psychological Hx Reported Smoking Status: Former smoker Past Alcohol Use History: None Reported Past Drug Use History: None Reported - Past Family History Father Family Medical History: Cancer Mother Family Medical History: Cancer Sister(s) Family Medical History: Cancer General Exam - General Exam Comments Initial Comments: General: The patient is awake and alert, in no distress, and does not appear acutely ill. Eye: Pupils are equal, round and reactive to light, extra-ocular movements are intact. No nystagmus. There is normal conjunctiva bilaterally. No signs of icterus. Ears, nose, mouth and throat: There are moist mucous membranes and no oral lesions. Neck: The neck is supple, there is no tenderness or JVD. Cardiovascular: There is a regular rate and rhythm. No murmur, rub or gallop is appreciated. Respiratory: Bilateral expiratory wheeze. respirations are non-labored, breath sounds are equal. No stridor, rales, or rhonchi. Musculoskeletal: Normal ROM, no tenderness. Strength 5/5. Sensation intact. Pulses equal bilaterally 2+. Neurological: A&O x 3. CN II-XII intact, There are no obvious motor or sensory deficits. Coordination appears grossly intact. Speech is normal. Skin: Skin is warm and dry and no rashes or lesions are noted. Psychiatric: Cooperative, appropriate mood & affect, normal judgment. Limitations: no limitations Course Vital Signs 05/23/18 05/23/18 05/23/18 11:47 12:47 12:57 Temperature 98 F Pulse Rate 73 70 76 Respiratory 18 Rate Blood Pressure 137/76 O2 Sat by Pulse 97 Oximetry 05/23/18 05/23/18 05/23/18 13:43 14:00 14:27 Temperature Pulse Rate 85 80 78 Respiratory 18 Rate Blood Pressure 135/62 O2 Sat by Pulse 95 Oximetry Medical Decision Making - Medical Decision Making Patient reexamined at this time shows no signs of distress. He does move to feeling better after breathing treatments. Patient does have steroids at home. Patient states he feels comfortable being discharged home at this time. 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 He'll return if symptoms increase or worsen. Chest x-ray was negative for any acute abnormality. - Lab Data Result diagrams: 05/23/18 12:20 05/23/18 12:20 Lab Results 05/23/18 05/23/18 05/23/18 Range/Units 12:20 12:20 12:20 WBC 10.4 (3.8-10.6) k/uL RBC 5.35 (4.30-5.90) m/uL Hgb 16.4 (13.0-17.5) gm/dL Hct 49.3 (39.0-53.0) % MCV 92.2 (80.0-100.0) fL MCH 30.7 (25.0-35.0) pg MCHC 33.3 (31.0-37.0) g/dL RDW 15.0 (11.5-15.5) % Plt Count 243 (150-450) k/uL Neutrophils % 79 % Lymphocytes % 10 % Monocytes % 7 % Eosinophils % 2 % Basophils % 1 % Neutrophils # 8.2 H (1.3-7.7) k/uL Lymphocytes # 1.0 (1.0-4.8) k/uL Monocytes # 0.8 (0-1.0) k/uL Eosinophils # 0.2 (0-0.7) k/uL Basophils # 0.1 (0-0.2) k/uL PT (9.0-12.0) sec INR (<1.2) APTT (22.0-30.0) sec Sodium (137-145) mmol/L Potassium (3.5-5.1) mmol/L Chloride (98-107) mmol/L Carbon Dioxide (22-30) mmol/L Anion Gap mmol/L BUN (9-20) mg/dL Creatinine (0.66-1.25) mg/dL Est GFR (CKD-EPI)AfAm (>60 ml/min/1.73 sqM) Est GFR (CKD-EPI)NonAf (>60 ml/min/1.73 sqM) Glucose (74-99) mg/dL Calcium (8.4-10.2) mg/dL Total Bilirubin (0.2-1.3) mg/dL AST (17-59) U/L ALT (21-72) U/L Alkaline Phosphatase (38-126) U/L Total Creatine Kinase 172 H (55-170) U/L CK-MB (CK-2) 1.7 (0.0-2.4) ng/mL CK-MB (CK-2) Rel Index 1.0 Troponin I <0.012 (0.000-0.034) ng/mL NT-Pro-B Natriuret Pep 42 pg/mL Total Protein (6.3-8.2) g/dL Albumin (3.5-5.0) g/dL 05/23/18 05/23/18 Range/Units 12:20 12:20 WBC (3.8-10.6) k/uL RBC (4.30-5.90) m/uL Hgb (13.0-17.5) gm/dL Hct (39.0-53.0) % MCV (80.0-100.0) fL MCH (25.0-35.0) pg MCHC (31.0-37.0) g/dL RDW (11.5-15.5) % Plt Count (150-450) k/uL Neutrophils % % Lymphocytes % % Monocytes % % Eosinophils % % Basophils % % Neutrophils # (1.3-7.7) k/uL Lymphocytes # (1.0-4.8) k/uL Monocytes # (0-1.0) k/uL Eosinophils # (0-0.7) k/uL Basophils # (0-0.2) k/uL PT 9.4 (9.0-12.0) sec INR 0.9 (<1.2) APTT 21.7 L (22.0-30.0) sec Sodium 140 (137-145) mmol/L Potassium 4.8 (3.5-5.1) mmol/L Chloride 106 (98-107) mmol/L Carbon Dioxide 23 (22-30) mmol/L Anion Gap 11 mmol/L BUN 24 H (9-20) mg/dL Creatinine 1.32 H (0.66-1.25) mg/dL Est GFR (CKD-EPI)AfAm 66 (>60 ml/min/1.73 sqM) Est GFR (CKD-EPI)NonAf 57 (>60 ml/min/1.73 sqM) Glucose 109 H (74-99) mg/dL Calcium 10.3 H (8.4-10.2) mg/dL Total Bilirubin 0.8 (0.2-1.3) mg/dL AST 35 (17-59) U/L ALT 57 (21-72) U/L Alkaline Phosphatase 54 (38-126) U/L Total Creatine Kinase (55-170) U/L CK-MB (CK-2) (0.0-2.4) ng/mL CK-MB (CK-2) Rel Index Troponin I (0.000-0.034) ng/mL NT-Pro-B Natriuret Pep pg/mL Total Protein 7.5 (6.3-8.2) g/dL Albumin 4.6 (3.5-5.0) g/dL Disposition Clinical Impression: COPD exacerbation Disposition: HOME SELF-CARE Condition: Good Instructions: COPD (Chronic Obstructive Pulmonary Disease) (ED) Additional Instructions: Please use medication as discussed. Please follow-up with raking machine operator/family doctor in the next 2 days of symptoms have not improved. Please return to emergency room if the symptoms increase or worsen or for any other concerns. Is patient prescribed a controlled substance at d/c from ED?: No Referrals: James Mascorro III, MD [Primary Care Provider] - 1-2 days Time of Disposition: 14:36
[2018-05-23 12:40] LABS: Basophils # (A) 0.1 k/uL (0-0.2); Basophils % (A) 1 %; Eosinophils # (A) 0.2 k/uL (0-0.7); Eosinophils % (A) 2 %; HCT 49.3 % (39.0-53.0); HGB 16.4 gm/dL (13.0-17.5); Lymphocytes % (A) 10 %; MCH 30.7 pg (25.0-35.0); MCHC 33.3 g/dL (31.0-37.0); MCV 92.2 fL (80.0-100.0); Mean Platelet Volume 6.6; Monocytes # (A) 0.8 k/uL (0-1.0); Monocytes % (A) 7 %; Neutrophils # (A) 8.2 k/uL (1.3-7.7); Neutrophils % (A) 79 %; Platelet Count 243 k/uL (150-450); RBC 5.35 m/uL (4.30-5.90); WBC 10.4 k/uL (3.8-10.6)
[2018-05-23 12:54] LABS: Albumin 4.6 g/dL (3.5-5.0); Calcium 10.3 mg/dL (8.4-10.2); Potassium 4.8 mmol/L (3.5-5.1); Total Bilirubin 0.8 mg/dL (0.2-1.3); Total Protein 7.5 g/dL (6.3-8.2)
[2018-05-23 13:04] LABS: Creatine Kinase 172 U/L (55-170)
--- NOTE | 2018-05-23 13:11 | XR ---
EXAMINATION TYPE: XR chest 2V DATE OF EXAM: 05/23/2018 COMPARISON: 02/27/2018 TECHNIQUE: PA and lateral views submitted. HISTORY: Shortness of breath FINDINGS: The lungs are clear and there is no pneumothorax, pleural effusion, or focal pneumonia. Hypertrophi c and degenerative change of the spine. Surgical clips in the abdomen. Bilateral pleural thickening. IMPRESSION: 1. No acute process.
[2018-05-23 13:17] LABS: Creatine Kinase MB 1.7 ng/mL (0.0-2.4); Troponin I <0.012 ng/mL (0.000-0.034)
[2018-05-23 13:21] LABS: INR 0.9 (<1.2); Prothrombin Time 9.4 sec (9.0-12.0)
[2018-05-23 13:22] LABS: Partial Thromboplastin Time 21.7 sec (22.0-30.0)
[2018-05-23 15:21] VITALS: BP 145/71; PULSE 76; TEMP 97.6
== END 2018-05-23 15:20 | disposition home or self-care (01) ==
LOC: EC 11:20
DX: J44.1 Chronic obstructive pulmonary disease with (acute) exacerbation (principal); G47.30 Sleep apnea, unspecified; Z99.89 Dependence on other enabling machines and devices; Z95.818 Presence of other cardiac implants and grafts; Z87.891 Personal history of nicotine dependence; Z79.51 Long term (current) use of inhaled steroids; Z79.52 Long term (current) use of systemic steroids; Z79.890 Hormone replacement therapy; Z88.5 Allergy status to narcotic agent; Z88.2 Allergy status to sulfonamides
CPT/HCPCS: 36415; 94640 ×2; 93005; 83880; 80053; 82550; 82553; 84484; 85025; 85610; 85730; 71046; 99285; 96374; J2930

== ENCOUNTER → 2018-05-26 | Outpatient (CLI) | payer BC ==
[2018-05-26 15:27] LABS: Prostate Specific Antigen 2.13 ng/mL (0.00-4.00)
== END | disposition home or self-care (01) ==
LOC: LABWHC1 05-24 08:42
PROVIDERS: ATTEND Family Medicine
DX: Z00.01 Encounter for general adult medical examination with abnormal findings (principal); I10 Essential (primary) hypertension; N40.1 Benign prostatic hyperplasia with lower urinary tract symptoms; E29.1 Testicular hypofunction
CPT/HCPCS: 36415; 80061; 84153; 84402; 84403; 86803

== ENCOUNTER 2018-06-23 00:52 | Emergency (ER) | payer BC ==
[2018-06-23 00:57] VITALS: RESP 20
[2018-06-23] MEDS ORDERED: ACETAMINOPHEN TAB 500 MG TAB PO STA (00:57)
--- NOTE | 2018-06-23 00:59 | ED ---
General Adult HPI - General Chief complaint: Weakness Stated complaint: Weakness Source: patient, EMS Mode of arrival: EMS Limitations: no limitations - History of Present Illness Initial comments: Jacob is a 62-year-old gentleman with extensive past medical history presents the ED today via EMS for evaluation of fever, and is of breath and generalized weakness. - Related Data Home Medications Medication Instructions Recorded Confirmed Budesonide-Formot 160-4.5 Mcg 2 puff INHALATION RT-BID 11/28/17 06/23/18 [Symbicort 160-4.5 Mcg Inhaler] Testosterone Cypionate 100 mg IM [facility]A 02/21/18 06/23/18 [Depo-Testosterone] predniSONE 20 mg PO DAILY 03/06/18 06/23/18 Previous Rx's Medication Instructions Recorded Furosemide [Lasix] 20 mg PO DAILY #30 tab 02/26/18 Lisinopril [Zestril] 5 mg PO DAILY #30 tab 02/26/18 Polyethylene Glycol 3350 [Miralax] 17 gm PO DAILY PRN #30 powd.pack 02/26/18 Potassium Chloride ER [K-Dur 10] 10 meq PO DAILY #30 tab.er.prt 02/26/18 Ranitidine HCl [Zantac] 150 mg PO BID #30 tab 02/26/18 amLODIPine [Norvasc] 10 mg PO DAILY #0 02/26/18 Folic Acid 1 mg PO DAILY #30 tablet 03/01/18 Multivitamins, Thera [Multivitamin] 1 tab PO DAILY #30 tablet 03/01/18 Thiamine [Vitamin B-1] 100 mg PO DAILY #30 tablet 03/01/18 Allergies Allergy/AdvReac Type Severity Reaction Status Date / Time codeine Allergy Unknown Verified 06/23/18 00:57 Sulfa (Sulfonamide Allergy Rash/Hives Verified 06/23/18 00:57 Antibiotics) Review of Systems ROS Statement: Those systems with pertinent positive or pertinent negative responses have been documented in the HPI. ROS Other: All systems not noted in ROS Statement are negative. Past Medical History Past Medical History: Asthma, COPD, Hypertension, Osteoarthritis (OA), Skin Disorder, Sleep Apnea/CPAP/BIPAP Additional Past Medical History / Comment(s): rash on chest "for years", uses cpap machine, had shingelles vaccine not sure of date. History of Any Multi-Drug Resistant Organisms: None Reported Past Surgical History: Appendectomy, Cholecystectomy, Heart Catheterization, Orthopedic Surgery Additional Past Surgical History / Comment(s): fx left hand -surgery with pins/ plate, hemorrhoidectomy, bronchosocpy Past Anesthesia/Blood Transfusion Reactions: No Reported Reaction Additional Past Anesthesia/Blood Transfusion Reaction / Comment(s): states durign a bronch it . was cancelled due to "low O2 sats/michelle" Past Psychological History: No Psychological Hx Reported Smoking Status: Former smoker Past Alcohol Use History: None Reported Past Drug Use History: None Reported - Past Family History Father Family Medical History: Cancer Mother Family Medical History: Cancer Sister(s) Family Medical History: Cancer General Exam Limitations: no limitations Course Vital Signs 06/23/18 06/23/18 00:53 03:47 Temperature 100 F H 97.7 F Pulse Rate 94 76 Respiratory 20 20 Rate Blood Pressure 152/72 143/70 O2 Sat by Pulse 95 96 Oximetry EKG Findings - EKG Comments: EKG Findings:: EKG obtained at 1:13 AM, rate is 89, rhythm is sinus, there is normal axis, normal intervals, IN 140, QRS was 76, QTC 418. There is no acute ST elevations or depressions no evidence of acute ischemia or infarction. There is flattening of the T waves in lead V6. Medical Decision Making - Lab Data Result diagrams: 06/23/18 01:35 06/23/18 01:35 Lab Results 06/23/18 06/23/18 06/23/18 Range/Units 01:35 01:35 01:35 WBC 9.5 (3.8-10.6) k/uL RBC 4.65 (4.30-5.90) m/uL Hgb 14.2 (13.0-17.5) gm/dL Hct 43.1 (39.0-53.0) % MCV 92.8 (80.0-100.0) fL MCH 30.6 (25.0-35.0) pg MCHC 33.0 (31.0-37.0) g/dL RDW 14.2 (11.5-15.5) % Plt Count 265 (150-450) k/uL Neutrophils % 71 % Lymphocytes % 14 % Monocytes % 9 % Eosinophils % 3 % Basophils % 1 % Neutrophils # 6.8 (1.3-7.7) k/uL Lymphocytes # 1.3 (1.0-4.8) k/uL Monocytes # 0.8 (0-1.0) k/uL Eosinophils # 0.3 (0-0.7) k/uL Basophils # 0.1 (0-0.2) k/uL PT (9.0-12.0) sec INR (<1.2) APTT (22.0-30.0) sec Sodium 138 (137-145) mmol/L Potassium 4.3 (3.5-5.1) mmol/L Chloride 108 H (98-107) mmol/L Carbon Dioxide 20 L (22-30) mmol/L Anion Gap 10 mmol/L BUN 20 (9-20) mg/dL Creatinine 1.31 H (0.66-1.25) mg/dL Est GFR (CKD-EPI)AfAm 66 (>60 ml/min/1.73 sqM) Est GFR (CKD-EPI)NonAf 57 (>60 ml/min/1.73 sqM) Glucose 104 H (74-99) mg/dL Plasma Lactic Acid Alexander 1.2 (0.7-2.0) mmol/L Calcium 9.0 (8.4-10.2) mg/dL Total Bilirubin 0.4 (0.2-1.3) mg/dL AST 27 (17-59) U/L ALT 46 (21-72) U/L Alkaline Phosphatase 57 (38-126) U/L Troponin I (0.000-0.034) ng/mL Total Protein 6.3 (6.3-8.2) g/dL Albumin 3.9 (3.5-5.0) g/dL Urine Color Urine Appearance (Clear) Urine pH (5.0-8.0) Ur Specific [place] (1.001-1.035) Urine Protein (Negative) Urine Glucose (UA) (Negative) Urine Ketones (Negative) Urine Blood (Negative) Urine Nitrite (Negative) Urine Bilirubin (Negative) Urine Urobilinogen (<2.0) mg/dL Ur Leukocyte Esterase (Negative) Influenza Type A RNA (Not Detectd) Influenza Type B (PCR) (Not Detectd) 06/23/18 06/23/18 06/23/18 Range/Units 01:35 01:35 01:35 WBC (3.8-10.6) k/uL RBC (4.30-5.90) m/uL Hgb (13.0-17.5) gm/dL Hct (39.0-53.0) % MCV (80.0-100.0) fL MCH (25.0-35.0) pg MCHC (31.0-37.0) g/dL RDW (11.5-15.5) % Plt Count (150-450) k/uL Neutrophils % % Lymphocytes % % Monocytes % % Eosinophils % % Basophils % % Neutrophils # (1.3-7.7) k/uL Lymphocytes # (1.0-4.8) k/uL Monocytes # (0-1.0) k/uL Eosinophils # (0-0.7) k/uL Basophils # (0-0.2) k/uL PT 9.4 (9.0-12.0) sec INR 0.9 (<1.2) APTT 21.3 L (22.0-30.0) sec Sodium (137-145) mmol/L Potassium (3.5-5.1) mmol/L Chloride (98-107) mmol/L Carbon Dioxide (22-30) mmol/L Anion Gap mmol/L BUN (9-20) mg/dL Creatinine (0.66-1.25) mg/dL Est GFR (CKD-EPI)AfAm (>60 ml/min/1.73 sqM) Est GFR (CKD-EPI)NonAf (>60 ml/min/1.73 sqM) Glucose (74-99) mg/dL Plasma Lactic Acid Alexandre (0.7-2.0) mmol/L Calcium (8.4-10.2) mg/dL Total Bilirubin (0.2-1.3) mg/dL AST (17-59) U/L ALT (21-72) U/L Alkaline Phosphatase (38-126) U/L Troponin I <0.012 (0.000-0.034) ng/mL Total Protein (6.3-8.2) g/dL Albumin (3.5-5.0) g/dL Urine Color Urine Appearance (Clear) Urine pH (5.0-8.0) Ur Specific [place] (1.001-1.035) Urine Protein (Negative) Urine Glucose (UA) (Negative) Urine Ketones (Negative) Urine Blood (Negative) Urine Nitrite (Negative) Urine Bilirubin (Negative) Urine Urobilinogen (<2.0) mg/dL Ur Leukocyte Esterase (Negative) Influenza Type A RNA Not Detected (Not Detectd) Influenza Type B (PCR) Not Detected (Not Detectd) 06/23/18 Range/Units 02:44 WBC (3.8-10.6) k/uL RBC (4.30-5.90) m/uL Hgb (13.0-17.5) gm/dL Hct (39.0-53.0) % MCV (80.0-100.0) fL MCH (25.0-35.0) pg MCHC (31.0-37.0) g/dL RDW (11.5-15.5) % Plt Count (150-450) k/uL Neutrophils % % Lymphocytes % % Monocytes % % Eosinophils % % Basophils % % Neutrophils # (1.3-7.7) k/uL Lymphocytes # (1.0-4.8) k/uL Monocytes # (0-1.0) k/uL Eosinophils # (0-0.7) k/uL Basophils # (0-0.2) k/uL PT (9.0-12.0) sec INR (<1.2) APTT (22.0-30.0) sec Sodium (137-145) mmol/L Potassium (3.5-5.1) mmol/L Chloride (98-107) mmol/L Carbon Dioxide (22-30) mmol/L Anion Gap mmol/L BUN (9-20) mg/dL Creatinine (0.66-1.25) mg/dL Est GFR (CKD-EPI)AfAm (>60 ml/min/1.73 sqM) Est GFR (CKD-EPI)NonAf (>60 ml/min/1.73 sqM) Glucose (74-99) mg/dL Plasma Lactic Acid Alexandre (0.7-2.0) mmol/L Calcium (8.4-10.2) mg/dL Total Bilirubin (0.2-1.3) mg/dL AST (17-59) U/L ALT (21-72) U/L Alkaline Phosphatase (38-126) U/L Troponin I (0.000-0.034) ng/mL Total Protein (6.3-8.2) g/dL Albumin (3.5-5.0) g/dL Urine Color Light Yellow Urine Appearance Clear (Clear) Urine pH 5.5 (5.0-8.0) Ur Specific [place] 1.009 (1.001-1.035) Urine Protein Negative (Negative) Urine Glucose (UA) Negative (Negative) Urine Ketones Negative (Negative) Urine Blood Negative (Negative) Urine Nitrite Negative (Negative) Urine Bilirubin Negative (Negative) Urine Urobilinogen <2.0 (<2.0) mg/dL Ur Leukocyte Esterase Negative (Negative) Influenza Type A RNA (Not Detectd) Influenza Type B (PCR) (Not Detectd) Disposition Clinical Impression: Shortness of breath Disposition: HOME SELF-CARE Condition: Good Instructions: Weakness (ED) Is patient prescribed a controlled substance at d/c from ED?: No Referrals: James Mascorro III, MD [Primary Care Provider] - 1-2 days Time of Disposition: 04:19
[2018-06-23] MEDS: SODIUM CHLORIDE 0.9% 500 ML IV SCH (01:28)
[2018-06-23 01:54] LABS: Basophils # (A) 0.1 k/uL (0-0.2); Basophils % (A) 1 %; Eosinophils # (A) 0.3 k/uL (0-0.7); Eosinophils % (A) 3 %; HCT 43.1 % (39.0-53.0); HGB 14.2 gm/dL (13.0-17.5); Lymphocytes # (A) 1.3 k/uL (1.0-4.8); Lymphocytes % (A) 14 %; MCH 30.6 pg (25.0-35.0); MCV 92.8 fL (80.0-100.0); Mean Platelet Volume 6.6; Monocytes # (A) 0.8 k/uL (0-1.0); Monocytes % (A) 9 %; Neutrophils # (A) 6.8 k/uL (1.3-7.7); Neutrophils % (A) 71 %; Platelet Count 265 k/uL (150-450); RBC 4.65 m/uL (4.30-5.90); RDW 14.2 % (11.5-15.5); WBC 9.5 k/uL (3.8-10.6)
--- NOTE | 2018-06-23 01:56 | XR ---
EXAMINATION TYPE: XR chest 2V DATE OF EXAM: 06/23/2018 COMPARISON: 05/23/2018 HISTORY: Fever TECHNIQUE: Frontal and lateral views of the chest are obtained. FINDINGS: Heart and mediastinum are normal. Lungs are clear of consolidation. There is no pleural ef fusion. Bony thorax is intact. IMPRESSION: No active cardiopulmonary disease. Normal heart. No change.
[2018-06-23 02:03] LABS: Albumin 3.9 g/dL (3.5-5.0); Potassium 4.3 mmol/L (3.5-5.1); Total Bilirubin 0.4 mg/dL (0.2-1.3); Total Protein 6.3 g/dL (6.3-8.2)
[2018-06-23 02:10] LABS: INR 0.9 (<1.2); Prothrombin Time 9.4 sec (9.0-12.0)
[2018-06-23 02:13] LABS: Partial Thromboplastin Time 21.3 sec (22.0-30.0)
[2018-06-23 02:53] LABS: Appearance,Urine Clear (Clear); Bilirubin,Urine Negative (Negative); Blood,Urine Negative (Negative); Color,Urine Light Yellow; Glucose,Urine (UA) Negative (Negative); Ketones,Urine Negative (Negative); Leukocyte Esterase,Urine Negative (Negative); Nitrite,Urine Negative (Negative); PH, Urine 5.5 (5.0-8.0); Protein,Urine Negative (Negative); Specific Gravity,Urine 1.009 (1.001-1.035); Urobilinogen,Urine <2.0 mg/dL (<2.0)
[2018-06-23 03:49] VITALS: BP 143/70; PULSE 76; TEMP 97.7
== END 2018-06-23 04:55 | disposition home or self-care (01) ==
LOC: EC 00:52
DX: R06.02 Shortness of breath (principal); R53.1 Weakness; R50.9 Fever, unspecified; J45.909 Unspecified asthma, uncomplicated; I10 Essential (primary) hypertension; G47.30 Sleep apnea, unspecified; Z79.51 Long term (current) use of inhaled steroids; Z88.5 Allergy status to narcotic agent; Z88.2 Allergy status to sulfonamides; Z87.891 Personal history of nicotine dependence; Z95.1 Presence of aortocoronary bypass graft
CPT/HCPCS: 36415; 71046; 80053; 81003; 83605; 84484; 85025; 85610; 85730; 87040; 87086; 87502; 93005; 96360; 96361; 99285

== ENCOUNTER 2018-10-30 07:27 | Day surgery (SDC) | payer BC ==
[2018-10-28 14:38] VITALS: BMI 31.0
[~2018-10-30 07:27] MED LIST changes: -ALBUTEROL NEB (CONC) 2.5 MG/0.5 ML INHALATION ONE; -ATROPINE SULFATE 0.4 MG/ML 1 ML VIAL IM ONE; -LACTATED RINGERS 1,000 ML IV ONE; +LIDOCAINE 1% 20 ML VIAL (10MG/ML) FOR IV START INTRADERMA PRN; -LIDOCAINE 2% (PF) 20 MG/ML 2 ML AMP INHALATION ONE
[2018-10-30 08:08] VITALS: RESP 16; TEMP 98.3
[2018-10-30 08:35] LABS: Glucose,Whole Blood 94 mg/dL (75-99)
[2018-10-30] MEDS ORDERED: LIDOCAINE 1% INJ 10MG/ML (20 ML MDV) ONE (08:46)
[2018-10-30] MEDS ORDERED: PROPOFOL 10 MG/ML 20 ML VIAL IV ONE (08:46)
--- NOTE | 2018-10-30 08:52 | P.GSHP ---
History of Present Illness H&P Date: 10/30/18 Chief Complaint: Screening colonoscopy This a 63-year-old male presents today for screening colonoscopy. Patient denies a significant GI complaints. His last colonoscopy was over 5 years ago. Past Medical History Past Medical History: Asthma, COPD, Hypertension, Osteoarthritis (OA), Skin Disorder, Sleep Apnea/CPAP/BIPAP Additional Past Medical History / Comment(s): rash on chest "for years", uses cpap machine History of Any Multi-Drug Resistant Organisms: None Reported Past Surgical History: Appendectomy, Cholecystectomy, Heart Catheterization, Orthopedic Surgery Additional Past Surgical History / Comment(s): fx left hand -surgery with pins/ plate, hemorrhoidectomy, bronchoscopy x2, colonscopies Past Anesthesia/Blood Transfusion Reactions: Previous Problems w/ Anesthesia Additional Past Anesthesia/Blood Transfusion Reaction / Comment(s): per "during brochoscopy stopped breathing rescheduled to 12/04/17 was done under general anesthesic and was fine" Smoking Status: Former smoker - Past Family History Father Family Medical History: Cancer Mother Family Medical History: Cancer Sister(s) Family Medical History: Cancer Medications and Allergies Home Medications Medication Instructions Recorded Confirmed Type Budesonide-Formot 160-4.5 Mcg 2 puff INHALATION RT-BID 11/28/17 10/28/18 History [Symbicort 160-4.5 Mcg Inhaler] Testosterone Cypionate 100 mg IM [facility] 02/21/18 10/28/18 History [Depo-Testosterone] Polyethylene Glycol 3350 [Miralax] 17 gm PO DAILY PRN #30 powd.pack 02/26/18 Rx Potassium Chloride ER [K-Dur 10] 10 meq PO DAILY #30 tab.er.prt 02/26/18 Rx Ranitidine HCl [Zantac] 150 mg PO BID #30 tab 02/26/18 10/28/18 Rx Folic Acid 1 mg PO DAILY #30 tablet 03/01/18 10/28/18 Rx Thiamine [Vitamin B-1] 100 mg PO DAILY #30 tablet 03/01/18 10/28/18 Rx Allopurinol [Zyloprim] 100 mg PO DAILY 10/28/18 10/28/18 History Cholecalciferol [Vitamin D3] 5,000 unit PO BID 10/28/18 10/28/18 History Furosemide [Lasix] 40 mg PO DAILY 10/28/18 10/28/18 History Gabapentin [Neurontin] 300 mg PO TID 10/28/18 10/28/18 History Losartan Potassium 100 mg PO DAILY 10/28/18 10/28/18 History Sacubitril/Valsartan [Entresto 24 1 each PO BID 10/28/18 10/28/18 History mg-26 mg Tablet] Vitamin B Complex 1 each PO DAILY 10/28/18 10/28/18 History amLODIPine [Norvasc] 5 mg PO BID 10/28/18 10/28/18 History Allergies Allergy/AdvReac Type Severity Reaction Status Date / Time codeine Allergy Unknown Verified 10/30/18 07:59 Sulfa (Sulfonamide Allergy Rash/Hives Verified 10/30/18 07:59 Antibiotics) Surgical - Exam Vital Signs Temp Pulse Resp BP Pulse Ox 98.3 F 73 16 140/75 97 10/30/18 08:07 10/30/18 08:07 10/30/18 08:07 10/30/18 08:07 10/30/18 08:07 - General well developed, well nourished, no distress - Eyes PERRL - ENT normal pinna - Neck no masses - Respiratory normal expansion - Cardiovascular Rhythm: regular - Abdomen Abdomen: soft, non tender Assessment and Plan Assessment: We'll perform screening colonoscopy.
--- NOTE | 2018-10-30 09:08 | P.OP ---
Date of Procedure: 10/30/18 Preoperative Diagnosis: Screening colonoscopy Postoperative Diagnosis: Diverticulosis Rectal polyp Procedure(s) Performed: Colonoscopy Anesthesia: MAC Surgeon: Bryn Moncada Pathology: other (Rectal polyp) Condition: stable Disposition: PACU Description of Procedure: The patient's placed on the endoscopy table in the lateral position. He received IV sedation. Digital rectal exam was performed which revealed no abnormalities. Flexible colonoscope was then placed patient anus passed throughout the entire colon. The ileocecal valve was visualized. The cecum, ascending and transverse colon appeared normal. In the descending and sigmoid: There was evidence of diverticular changes. There is no evidence of diverticulitis. The scope was then brought back the rectum and there was a small sessile polyp and this was removed with the cold forcep. Scope was withdrawn from the anus. Patient top she will was sent to recovery room stable condition.
[2018-10-30 09:28] VITALS: BP 143/75; PULSE 73
== END 2018-10-30 09:57 | disposition home or self-care (01) ==
LOC: ORWHC2ENDO 07:27
PROVIDERS: ATTEND Surgery
DX: Z12.11 Encounter for screening for malignant neoplasm of colon (principal); K62.1 Rectal polyp; K57.30 Diverticulosis of large intestine without perforation or abscess without bleeding; J44.9 Chronic obstructive pulmonary disease, unspecified; I10 Essential (primary) hypertension; M19.90 Unspecified osteoarthritis, unspecified site; G47.33 Obstructive sleep apnea (adult) (pediatric); R21 Rash and other nonspecific skin eruption; Z99.89 Dependence on other enabling machines and devices; Z79.890 Hormone replacement therapy; Z79.51 Long term (current) use of inhaled steroids; Z79.899 Other long term (current) drug therapy; Z88.5 Allergy status to narcotic agent; Z88.2 Allergy status to sulfonamides; Z90.49 Acquired absence of other specified parts of digestive tract; Z87.891 Personal history of nicotine dependence
CPT/HCPCS: 88305; 45380; J2001; J2704

== ENCOUNTER → 2019-05-26 | Outpatient (CLI) | payer BC ==
--- NOTE | 2019-05-26 16:17 | PN ---
PROGRESS NOTE SLEEP CENTER PROGRESS NOTE: This patient is a 63-year-old male patient coming in for an annual check regarding his obstructive sleep apnea. The patient is well known to me. I diagnosed him having severe obstructive sleep apnea back in 2016, and the patient was found to have severe DEWEY with an AHI of 74. The patient is currently on a CPAP pressure of 14 cm of water. Over this past year the patient has done extremely well. He had a recent hospitalization for increased shortness of breath, and was diagnosed having diastolic heart failure. The patient was given Entresto. Since then his condition has improved and the patient is not having any significant fluid retention. He is also on oral Lasix. In terms of his CPAP therapy, the patient is utilizing his CPAP every night. His compliancy for more than 4 hours is 100%, averaging around 7.3 hours of CPAP use per night. His AHI is down to 1 with a leak of 24 L/minute. He is using a medium-sized Simplus full-face mask. He is waking up refreshed and alert during the day. No angina. No shortness of breath. No chest pain. No cardiac arrhythmias or palpitation overnight. His weight is up by around 10 pounds since his last evaluation 2 years ago. REVIEW OF SYSTEMS: A 14-point review of system was done and is positive for weight gain. No hypersomnia or sleepiness. No restlessness in the lower extremities. No leg cramps. No seizure activity. No altered mentation. No nausea or vomiting. No chest pain. No palpitations. No diarrhea. No constipation. No dysuria, frequency or urgency. No other complaints otherwise for now. MEDICATIONS: Medications include: 1. Entresto one tablet twice a day. 2. Neurontin 300 mg 3 times a day. 3. Allopurinol 100 mg p.o. daily. 4. Lasix 20 mg twice a day. 5. Losartan 100 daily. 6. Ranitidine 150 mg b.i.d. 7. Norvasc 5 mg twice a day. 8. Vitamin B12. 9. Folic acid. 10.Vitamin D3. 11.Potassium. 12.Vitamin B12. SOCIAL HISTORY: The patient is a nonsmoker. No history of alcoholism. No history of IV drugs. PHYSICAL EXAMINATION: VITAL SIGNS: BP is 139/74, pulse 79, respiratory rate 18, temperature 97.7, saturation 95% on room air. Height is 5 feet 8 inches. Weight is 204. BMI is 31.0 [place] score is 12. GENERAL APPEARANCE: Calm, comfortable. HEAD: Atraumatic, normocephalic. NECK: Supple. No JVD. No goiter or neck mass. Mallampati class IV. LUNGS: Clear to auscultation. HEART: Heart sounds are regular rate and rhythm. Normal S1, S2. No S3, S4. No murmurs. ABDOMEN: Soft, nontender. No organomegaly. EXTREMITIES: Plus one pitting edema. There is no cyanosis or clubbing. IMPRESSION: 1. Severe symptomatic obstructive sleep apnea; apnea/hypopnea index of 74; currently on CPAP pressure of 14. The patient continues to be extremely compliant with CPAP therapy. His treatment is successful. His machine was checked and his compliance data was done. 2. Chronic obstructive pulmonary disease. 3. Hyperlipidemia. 4. Hypertension. 5. Osteoarthritis. 6. Diastolic heart failure. PLAN: 1. Continue CPAP therapy at the same level of pressure. 2. Treatment is successful compliance data was checked. 3. Renew the patient's CPAP supplies. 4. medications were reviewed. His condition is stable. See me back in a few years' time, earlier if needed. For now, there is no need for any adjustments on his CPAP pressure setting. MMODL / IJN: [id number] /
== END | disposition home or self-care (01) ==

== ENCOUNTER → 2020-06-15 | Outpatient (CLI) | payer BC ==
--- NOTE | 2020-06-16 07:46 | CTL ---
EXAMINATION TYPE: CT Low Dose Lung DATE OF EXAM ORDERED: 06/15/2020 HISTORY: Long-term tobacco use. Lung cancer screening CT DLP: 142.[address] CTDI: 3.70 mGy Automated exposure control for dose reduction was used. SCREENING VISIT: Initial study COMPARISON: Chest x-ray June 23, 2018. CT chest March 06, 2018. TECHNIQUE: Low dose computed tomography scan was performed through the chest at 1 mm thick sections a nd reconstructed images in the coronal plane at [address] DIAGNOSTIC QUALITY: Satisfactory FINDINGS: LUNG NODULES: None. LUNGS: COPD: Severity: Mild Fibrosis: Severity: None Lymph nodes: None Other findings: None BILATERAL PLEURAL SPACE: Effusion: None Calcification: None Thickening: None Pneumothorax: None HEART: Heart Size: Normal Coronary calcification: Mild to moderate Pericardial effusion: Narrowing OTHER FINDINGS: Upper abdomen: Cholecystectomy clips. Mild generalized fat replaced atrophy of visualized portion of pancreas. Visualized liver shows mild fatty infiltration. Bony thorax: [id number] multilevel anterior and lateral spurring. Mild multilevel disc space na rrowing. Supraclavicular region: None. Other: Moderate calcification at level of aortic valve IMPRESSION: No suspicious nodules. FOLLOW UP CT CHEST RECOMMENDATION: Annual low-dose lung screening CT CT LUNG RAD: Lung-Rad 1 Negative
== END | disposition home or self-care (01) ==
LOC: RADCTMAIN 19:09
PROVIDERS: ATTEND Family Medicine
DX: Z12.2 Encounter for screening for malignant neoplasm of respiratory organs (principal); Z87.891 Personal history of nicotine dependence

== ENCOUNTER 2020-08-03 22:50 | Emergency (ER) | payer BC ==
[2020-08-03] MEDS ORDERED: ACETAMINOPHEN TAB 325 MG TAB PO STA (23:17)
[2020-08-03] MEDS ORDERED: ALBUTEROL HFA INHALER INHALATION STA (23:17)
--- NOTE | 2020-08-03 23:19 | ED ---
Fever HPI - General Chief Complaint: Shortness of Breath Stated Complaint: fever, URI, poss covid exposure Time Seen by Provider: 08/03/20 23:01 Source: patient Mode of arrival: ambulatory Limitations: no limitations - History of Present Illness Initial Comments: This patient is 64-year-old man who presents for fever, cough, wheezing, shortness of breath, congestion and sore throat. The patient states that a few days ago he did have coronavirus exposure. He states that he had been at a health care facility which was experiencing an outbreak. The patient states that he was in bed last night when he developed some myalgias, fever, and then the remainder the symptoms developed over the course of the night and today. MD Complaint: fever Onset/Timin -: days(s) Temperature Source: subjective Context: sick contacts Associated Symptoms: nasal congestion, sore throat, cough, shortness of breath Treatments Prior to Arrival: none - Related Data Home Medications Medication Instructions Recorded Confirmed Budesonide-Formot 160-4.5 Mcg 2 puff INHALATION RT-BID 11/28/17 08/03/20 [Symbicort 160-4.5 Mcg Inhaler] Furosemide [Lasix] 20 mg PO BID@0900,1400 10/28/18 08/03/20 Sacubitril/Valsartan [Entresto 24 1 tab PO BID 10/28/18 08/03/20 mg-26 mg Tablet] Vitamin B Complex 1 cap PO DAILY 10/28/18 08/03/20 amLODIPine [Norvasc] 5 mg PO BID 10/28/18 08/03/20 Cetirizine HCl 10 mg PO HS 08/03/20 08/03/20 Ipratropium-Albuterol Nebulize 3 ml INHALATION RT-QID 08/03/20 08/03/20 [Duoneb 0.5 mg-3 mg/3 ml Soln] Potassium Chloride 10 meq PO HS 08/03/20 08/03/20 Tadalafil [Cialis] 5 mg PO DAILY 08/03/20 08/03/20 Testosterone Cypionate 100 mg IM WESA 08/03/20 08/03/20 [Depo-Testosterone] Previous Rx's Medication Instructions Recorded Folic Acid 1 mg PO DAILY #30 tablet 03/01/18 Thiamine [Vitamin B-1] 100 mg PO DAILY #30 tablet 03/01/18 Allergies Allergy/AdvReac Type Severity Reaction Status Date / Time codeine Allergy Unknown Verified 08/03/20 22:54 Sulfa (Sulfonamide Allergy Rash/Hives Verified 08/03/20 22:54 Antibiotics) Review of Systems ROS Statement: Those systems with pertinent positive or pertinent negative responses have been documented in the HPI. ROS Other: All systems not noted in ROS Statement are negative. Constitutional: Reports: fever, chills. Denies: weakness ENT: Reports: throat pain, congestion Respiratory: Reports: cough, dyspnea, wheezes. Denies: hemoptysis Cardiovascular: Denies: chest pain, palpitations, edema, syncope Gastrointestinal: Denies: abdominal pain, nausea, vomiting, diarrhea Genitourinary: Denies: dysuria, hematuria Musculoskeletal: Reports: myalgia. Denies: back pain, arthralgia Skin: Denies: rash Neurological: Reports: headache. Denies: weakness, numbness Past Medical History Past Medical History: Asthma, COPD, Hypertension, Osteoarthritis (OA), Skin Disorder, Sleep Apnea/CPAP/BIPAP Additional Past Medical History / Comment(s): rash on chest "for years", uses cpap machine History of Any Multi-Drug Resistant Organisms: None Reported Past Surgical History: Appendectomy, Cholecystectomy, Heart Catheterization, Orthopedic Surgery Additional Past Surgical History / Comment(s): fx left hand -surgery with pins/plate, hemorrhoidectomy, bronchoscopy x2, colonscopies Past Anesthesia/Blood Transfusion Reactions: Previous Problems w/ Anesthesia Additional Past Anesthesia/Blood Transfusion Reaction / Comment(s): per 11/29/17 "during brochoscopy stopped breathing rescheduled to 12/04/17 was done under general anesthesic and was fine" Past Psychological History: No Psychological Hx Reported Smoking Status: Never smoker Past Alcohol Use History: None Reported Past Drug Use History: None Reported - Past Family History Father Family Medical History: Cancer Mother Family Medical History: Cancer Sister(s) Family Medical History: Cancer General Exam Limitations: no limitations General appearance: alert, in no apparent distress Head exam: Present: atraumatic, normocephalic Eye exam: Present: normal appearance. Absent: scleral icterus, conjunctival injection Neck exam: Present: full ROM. Absent: meningismus Respiratory exam: Present: wheezes. Absent: respiratory distress, rales, rhonchi, stridor Cardiovascular Exam: Present: regular rate, normal rhythm, normal heart sounds. Absent: systolic murmur, diastolic murmur, rubs, gallop GI/Abdominal exam: Present: soft. Absent: distended, tenderness, guarding, rebound, rigid, mass Extremities exam: Present: normal inspection, normal capillary refill. Absent: pedal edema, calf tenderness Back exam: Present: normal inspection. Absent: CVA tenderness (R), CVA tenderness (L) Neurological exam: Present: alert Skin exam: Present: warm, dry, intact, normal color. Absent: rash Course Vital Signs 08/03/20 22:52 Temperature 101.5 F H Pulse Rate 97 Respiratory 22 Rate Blood Pressure 164/78 O2 Sat by Pulse 93 L Oximetry Medical Decision Making - Lab Data Result diagrams: 08/03/20 23:54 08/03/20 23:54 Lab Results 08/03/20 08/03/20 08/03/20 Range/Units 23:54 23:54 23:54 WBC 12.7 H (3.8-10.6) k/uL RBC 5.27 (4.30-5.90) m/uL Hgb 16.1 (13.0-17.5) gm/dL Hct 48.8 (39.0-53.0) % MCV 92.6 (80.0-100.0) fL MCH 30.5 (25.0-35.0) pg MCHC 33.0 (31.0-37.0) g/dL RDW 13.1 (11.5-15.5) % Plt Count 240 (150-450) k/uL Neutrophils % 77 % Lymphocytes % 11 % Monocytes % 8 % Eosinophils % 2 % Basophils % 2 % Neutrophils # 9.7 H (1.3-7.7) k/uL Lymphocytes # 1.4 (1.0-4.8) k/uL Monocytes # 1.0 (0-1.0) k/uL Eosinophils # 0.3 (0-0.7) k/uL Basophils # 0.2 (0-0.2) k/uL PT 9.5 (9.0-12.0) sec INR 0.9 (<1.2) APTT 24.6 (22.0-30.0) sec D-Dimer 0.49 (<0.60) mg/L FEU Sodium 136 L (137-145) mmol/L Potassium 4.3 (3.5-5.1) mmol/L Chloride 103 (98-107) mmol/L Carbon Dioxide 24 (22-30) mmol/L Anion Gap 9 mmol/L BUN 26 H (9-20) mg/dL Creatinine 1.40 H (0.66-1.25) mg/dL Est GFR (CKD-EPI)AfAm 60 (>60 ml/min/1.73 sqM) Est GFR (CKD-EPI)NonAf 52 (>60 ml/min/1.73 sqM) Glucose 92 (74-99) mg/dL Plasma Lactic Acid Alexandre (0.7-2.0) mmol/L Calcium 9.7 (8.4-10.2) mg/dL Magnesium 1.9 (1.6-2.3) mg/dL Total Bilirubin 0.5 (0.2-1.3) mg/dL AST 23 (17-59) U/L ALT 26 (4-49) U/L Alkaline Phosphatase 59 (38-126) U/L Lactate Dehydrogenase 388 (313-618) U/L C-Reactive Protein 37.8 H (<10.0) mg/L Total Protein 7.0 (6.3-8.2) g/dL Albumin 4.1 (3.5-5.0) g/dL Influenza Type A RNA (Not Detectd) Influenza Type B (PCR) (Not Detectd) 08/03/20 08/03/20 Range/Units 23:54 23:55 WBC (3.8-10.6) k/uL RBC (4.30-5.90) m/uL Hgb (13.0-17.5) gm/dL Hct (39.0-53.0) % MCV (80.0-100.0) fL MCH (25.0-35.0) pg MCHC (31.0-37.0) g/dL RDW (11.5-15.5) % Plt Count (150-450) k/uL Neutrophils % % Lymphocytes % % Monocytes % % Eosinophils % % Basophils % % Neutrophils # (1.3-7.7) k/uL Lymphocytes # (1.0-4.8) k/uL Monocytes # (0-1.0) k/uL Eosinophils # (0-0.7) k/uL Basophils # (0-0.2) k/uL PT (9.0-12.0) sec INR (<1.2) APTT (22.0-30.0) sec D-Dimer (<0.60) mg/L FEU Sodium (137-145) mmol/L Potassium (3.5-5.1) mmol/L Chloride (98-107) mmol/L Carbon Dioxide (22-30) mmol/L Anion Gap mmol/L BUN (9-20) mg/dL Creatinine (0.66-1.25) mg/dL Est GFR (CKD-EPI)AfAm (>60 ml/min/1.73 sqM) Est GFR (CKD-EPI)NonAf (>60 ml/min/1.73 sqM) Glucose (74-99) mg/dL Plasma Lactic Acid Alexandre 1.4 (0.7-2.0) mmol/L Calcium (8.4-10.2) mg/dL Magnesium (1.6-2.3) mg/dL Total Bilirubin (0.2-1.3) mg/dL AST (17-59) U/L ALT (4-49) U/L Alkaline Phosphatase (38-126) U/L Lactate Dehydrogenase (313-618) U/L C-Reactive Protein (<10.0) mg/L Total Protein (6.3-8.2) g/dL Albumin (3.5-5.0) g/dL Influenza Type A RNA Not Detected (Not Detectd) Influenza Type B (PCR) Not Detected (Not Detectd) - EKG Data -: EKG Interpreted by Sc EKG shows normal: sinus rhythm, axis (normal), intervals (normal), QRS complexes (normal) Rate: normal (rate 83 bpm) Interpretation: nonspecific ST-T wave changes Disposition Clinical Impression: Fever Narrative: suspected Covid 19 infection Disposition: HOME SELF-CARE Condition: Good Instructions (If sedation given, give patient instructions): Viral Syndrome (ED) Is patient prescribed a controlled substance at d/c from ED?: No Referrals: James Mascorro III, MD [Primary Care Provider] - 1-2 days
--- NOTE | 2020-08-03 23:41 | XR ---
EXAMINATION TYPE: XR chest 1V DATE OF EXAM: 08/03/2020 COMPARISON: 06/23/2018 HISTORY: Fever TECHNIQUE: FINDINGS: There is no heart failure nor confluent pneumonic infiltrate. There is slight coarsening of interstitial markings. Heart size is normal. There are no hilar masses. There is no sign of pleural effusion. IMPRESSION: Mild pulmonary fibrosis. No acute lung disease. No significant change.
[2020-08-04 00:24] LABS: Basophils # (A) 0.2 k/uL (0-0.2); Basophils % (A) 2 %; Eosinophils # (A) 0.3 k/uL (0-0.7); Eosinophils % (A) 2 %; HCT 48.8 % (39.0-53.0); HGB 16.1 gm/dL (13.0-17.5); Lymphocytes # (A) 1.4 k/uL (1.0-4.8); Lymphocytes % (A) 11 %; MCH 30.5 pg (25.0-35.0); MCV 92.6 fL (80.0-100.0); Mean Platelet Volume 7.1; Monocytes % (A) 8 %; Neutrophils # (A) 9.7 k/uL (1.3-7.7); Neutrophils % (A) 77 %; Platelet Count 240 k/uL (150-450); RBC 5.27 m/uL (4.30-5.90); RDW 13.1 % (11.5-15.5); WBC 12.7 k/uL (3.8-10.6)
[2020-08-04 00:38] LABS: D-Dimer 0.49 mg/L FEU (<0.60); INR 0.9 (<1.2); Partial Thromboplastin Time 24.6 sec (22.0-30.0); Prothrombin Time 9.5 sec (9.0-12.0)
[2020-08-04 00:50] LABS: Albumin 4.1 g/dL (3.5-5.0); C Reactive Protein 37.8 mg/L (<10.0); Calcium 9.7 mg/dL (8.4-10.2); Magnesium 1.9 mg/dL (1.6-2.3); Potassium 4.3 mmol/L (3.5-5.1); Total Bilirubin 0.5 mg/dL (0.2-1.3)
[2020-08-04 01:54] VITALS: BP 160/72; PULSE 90; RESP 18; TEMP 100
[2020-08-04 09:44] LABS: Ferritin 88.1 ng/mL (22.0-322.0)
== END 2020-08-04 01:55 | disposition home or self-care (01) ==
LOC: EC 22:50
DX: R50.9 Fever, unspecified (principal); R05 Cough; R06.2 Wheezing; R06.02 Shortness of breath; R09.89 Other specified symptoms and signs involving the circulatory and respiratory systems; M79.10 Myalgia, unspecified site; R94.31 Abnormal electrocardiogram [ECG] [EKG]; J44.9 Chronic obstructive pulmonary disease, unspecified; I10 Essential (primary) hypertension; G47.30 Sleep apnea, unspecified; Z79.51 Long term (current) use of inhaled steroids; Z79.899 Other long term (current) drug therapy; Z95.5 Presence of coronary angioplasty implant and graft; Z99.89 Dependence on other enabling machines and devices; Z88.5 Allergy status to narcotic agent; Z88.2 Allergy status to sulfonamides
CPT/HCPCS: 36415; 71045; 80053; 82728; 83605; 83615; 83735; 84145; 85025; 85379; 85610; 85730; 86140; 87040; 87502; 93005; 94640; 99285

== ENCOUNTER 2021-04-19 20:26 | Emergency (ER) | payer MEDICARE ==
[2021-04-19 20:34] VITALS: TEMP 98.9
[2021-04-19] MEDS ORDERED: IPRATROPIUM 0.5 MG/2.5 ML NEBU INHALATION STA (21:03)
[2021-04-19] MEDS ORDERED: ALBUTEROL NEBULIZED 2.5 MG/3 ML INHALATION STA (21:03)
[2021-04-19] MEDS ORDERED: methylPREDNISolone SOD SUCCI 125 MG/2 ML VIAL IV STA (21:03)
[2021-04-19] MEDS ORDERED: SODIUM CHLORIDE 0.9% 500 ML 500 ML IV STA (21:03)
--- NOTE | 2021-04-19 21:12 | ED ---
URI HPI - General Chief Complaint: Upper Respiratory Infection Stated Complaint: SOB, chest tightness, fever, diarrhea Time Seen by Provider: 04/19/21 20:49 Source: patient Mode of arrival: ambulatory Limitations: no limitations - History of Present Illness Initial Comments: 65 year-old male patient presents for evaluation of chest tightness, shortness o f breath, and cough that started this morning. States he also had 3 episodes of diarrhea today. Denies any nausea or vomiting. Denies any known fever or chills. Did do 2 breathing treatments at home. Previous smoker. Hx COPD. Patient denies any recent rash, abdominal pain, back pain, numbness, tingling, dizziness, weakness, hematuria, dysuria, urinary urgency, urinary frequency, headache, visual changes, or any other complaints. Did have COVID vaccine in November this year. - Related Data Home Medications Medication Instructions Recorded Confirmed Budesonide-Formot 160-4.5 Mcg 2 puff INHALATION RT-BID 11/28/17 08/03/20 [Symbicort 160-4.5 Mcg Inhaler] Furosemide [Lasix] 20 mg PO BID@0900,1400 10/28/18 08/03/20 Sacubitril/Valsartan [Entresto 24 1 tab PO BID 10/28/18 08/03/20 mg-26 mg Tablet] Vitamin B Complex 1 cap PO DAILY 10/28/18 08/03/20 amLODIPine [Norvasc] 5 mg PO BID 10/28/18 08/03/20 Cetirizine HCl 10 mg PO HS 08/03/20 08/03/20 Ipratropium-Albuterol Nebulize 3 ml INHALATION RT-QID 08/03/20 08/03/20 [Duoneb 0.5 mg-3 mg/3 ml Soln] Potassium Chloride 10 meq PO HS 08/03/20 08/03/20 Tadalafil [Cialis] 5 mg PO DAILY 08/03/20 08/03/20 Testosterone Cypionate 100 mg IM WESA 08/03/20 08/03/20 [Depo-Testosterone] Previous Rx's Medication Instructions Recorded Folic Acid 1 mg PO DAILY #30 tablet 03/01/18 Thiamine [Vitamin B-1] 100 mg PO DAILY #30 tablet 03/01/18 Azithromycin [Zithromax Z-pack (6 0 mg PO DIRECTED #6 tab 04/19/21 tabs)] predniSONE 50 mg PO DAILY #5 tablet 04/19/21 Allergies Allergy/AdvReac Type Severity Reaction Status Date / Time codeine Allergy Unknown Verified 08/03/20 22:54 Sulfa (Sulfonamide Allergy Rash/Hives Verified 08/03/20 22:54 Antibiotics) Review of Systems ROS Statement: Those systems with pertinent positive or pertinent negative responses have been documented in the HPI. ROS Other: All systems not noted in ROS Statement are negative. Past Medical History Past Medical History: Asthma, COPD, Hypertension, Osteoarthritis (OA), Skin Disorder, Sleep Apnea/CPAP/BIPAP Additional Past Medical History / Comment(s): rash on chest "for years", uses cpap machine History of Any Multi-Drug Resistant Organisms: None Reported Past Surgical History: Appendectomy, Cholecystectomy, Heart Catheterization, Or thopedic Surgery Additional Past Surgical History / Comment(s): fx left hand -surgery with pins/plate, hemorrhoidectomy, bronchoscopy x2, colonscopies Past Anesthesia/Blood Transfusion Reactions: Previous Problems w/ Anesthesia Additional Past Anesthesia/Blood Transfusion Reaction / Comment(s): per 11/29/17 "during brochoscopy stopped breathing rescheduled to 12/04/17 was done under general anesthesic and was fine" Past Psychological History: No Psychological Hx Reported Smoking Status: Never smoker Past Alcohol Use History: None Reported Past Drug Use History: None Reported - Past Family History Father Family Medical History: Cancer Mother Family Medical History: Cancer Sister(s) Family Medical History: Cancer General Exam Limitations: no limitations General appearance: alert, in no apparent distress, other (Well-developed, well- nourished adult male patient in mild respiratory distress. Vital signs upon presentation temperature 98.9F oral, pulse 90, respirations 20, blood pressure 140/66, pulse ox 97% on room air.) Eye exam: Present: normal appearance, PERRL, EOMI. Absent: scleral icterus, c onjunctival injection, periorbital swelling ENT exam: Present: normal exam, normal oropharynx, mucous membranes moist Respiratory exam: Present: wheezes (faint expiratory wheezing and noted in the posterior lung johnson). Absent: normal lung sounds bilaterally, respiratory distress, rales, rhonchi, stridor Cardiovascular Exam: Present: regular rate, normal rhythm, normal heart sounds. Absent: systolic murmur, diastolic murmur, rubs, gallop, clicks GI/Abdominal exam: Present: soft, normal bowel sounds. Absent: distended, tenderness, guarding, rebound, rigid Neurological exam: Present: alert, oriented X3, CN II-XII intact Psychiatric exam: Present: normal affect, normal mood Skin exam: Present: warm, dry, intact, normal color. Absent: rash Course Vital Signs 04/19/21 04/19/21 04/19/21 20:32 20:57 21:26 Temperature 98.9 F Pulse Rate 90 81 Respiratory 20 18 Rate Blood Pressure 140/66 O2 Sat by Pulse 97 Oximetry 04/19/21 04/19/21 04/19/21 21:34 21:56 23:20 Temperature Pulse Rate 94 85 94 Respiratory 18 16 Rate Blood Pressure 145/84 165/80 O2 Sat by Pulse 95 98 Oximetry Medical Decision Making - Medical Decision Making 65-year-old male patient passed medical history significant for COPD presents to the emergency department today for evaluation of chest tightness and shortness of breath. Patient states symptoms started this morning. States he has had cough with clear sputum production. Denies any fever or chills. States he also has had 3 episodes of diarrhea today. Physical examination did reveal expiratory wheezing noted in the posterior lung johnson. Abdomen soft and nontender. He is afebrile, oxygen saturation 94-95% on room air. Chest x-ray is negative. Labs are unremarkable. He was given breathing treatment and IV steroids. Upon reevaluation states he is feeling better. Oxygen saturation is improved. He will be discharged with prednisone, azithromycin, and instructed to breathing treatments every 4-6 hours. He is instructed to follow-up with his primary care physician for recheck in 1-2 days. Return parameters discussed in detail. He verbalizes understanding and agrees with this plan. Case discussed with my attending Dr. Martínez. - Lab Data Result diagrams: 04/19/21 21:04/19/21 21: Lab Results 04/19/21 04/19/21 04/19/21 Range/Units 21:13 21:13 21:13 WBC 7.4 (3.8-10.6) k/uL RBC 5.10 (4.30-5.90) m/uL Hgb 16.1 (13.0-17.5) gm/dL Hct 45.5 (39.0-53.0) % MCV 89.2 (80.0-100.0) fL MCH 31.5 (25.0-35.0) pg MCHC 35.3 (31.0-37.0) g/dL RDW 13.6 (11.5-15.5) % Plt Count 195 (150-450) k/uL MPV 6.9 Neutrophils % 72 % Lymphocytes % 14 % Monocytes % 9 % Eosinophils % 1 % Basophils % 1 % Neutrophils # 5.3 (1.3-7.7) k/uL Lymphocytes # 1.0 (1.0-4.8) k/uL Monocytes # 0.7 (0-1.0) k/uL Eosinophils # 0.1 (0-0.7) k/uL Basophils # 0.1 (0-0.2) k/uL PT 9.8 (9.0-12.0) sec INR 0.9 (<1.2) APTT 25.5 (22.0-30.0) sec D-Dimer 0.52 (<0.60) mg/L FEU Sodium 140 (137-145) mmol/L Potassium 4.0 (3.5-5.1) mmol/L Chloride 106 (98-107) mmol/L Carbon Dioxide 23 (22-30) mmol/L Anion Gap 11 mmol/L BUN 18 (9-20) mg/dL Creatinine 1.36 H (0.66-1.25) mg/dL Est GFR (CKD-EPI)AfAm 62 (>60 ml/min/1.73 sqM) Est GFR (CKD-EPI)NonAf 54 (>60 ml/min/1.73 sqM) Glucose 102 H (74-99) mg/dL Lactic Ac Sepsis Rflx Plasma Lactic Acid Alexandre (0.7-2.0) mmol/L Calcium 9.5 (8.4-10.2) mg/dL Magnesium 1.8 (1.6-2.3) mg/dL Total Bilirubin 0.5 (0.2-1.3) mg/dL AST 32 (17-59) U/L ALT 37 (4-49) U/L Alkaline Phosphatase 69 (38-126) U/L Troponin I (0.000-0.034) ng/mL Total Protein 7.4 (6.3-8.2) g/dL Albumin 4.6 (3.5-5.0) g/dL Coronavirus (PCR) (Not Detectd) 04/19/21 04/19/21 04/19/21 Range/Units 21:13 21:13 21:13 WBC (3.8-10.6) k/uL RBC (4.30-5.90) m/uL Hgb (13.0-17.5) gm/dL Hct (39.0-53.0) % MCV (80.0-100.0) fL MCH (25.0-35.0) pg MCHC (31.0-37.0) g/dL RDW (11.5-15.5) % Plt Count (150-450) k/uL MPV Neutrophils % % Lymphocytes % % Monocytes % % Eosinophils % % Basophils % % Neutrophils # (1.3-7.7) k/uL Lymphocytes # (1.0-4.8) k/uL Monocytes # (0-1.0) k/uL Eosinophils # (0-0.7) k/uL Basophils # (0-0.2) k/uL PT (9.0-12.0) sec INR (<1.2) APTT (22.0-30.0) sec D-Dimer (<0.60) mg/L FEU Sodium (137-145) mmol/L Potassium (3.5-5.1) mmol/L Chloride (98-107) mmol/L Carbon Dioxide (22-30) mmol/L Anion Gap mmol/L BUN (9-20) mg/dL Creatinine (0.66-1.25) mg/dL Est GFR (CKD-EPI)AfAm (>60 ml/min/1.73 sqM) Est GFR (CKD-EPI)NonAf (>60 ml/min/1.73 sqM) Glucose (74-99) mg/dL Lactic Ac Sepsis Rflx Plasma Lactic Acid Alexandre 2.3 H* (0.7-2.0) mmol/L Calcium (8.4-10.2) mg/dL Magnesium (1.6-2.3) mg/dL Total Bilirubin (0.2-1.3) mg/dL AST (17-59) U/L ALT (4-49) U/L Alkaline Phosphatase (38-126) U/L Troponin I <0.012 (0.000-0.034) ng/mL Total Protein (6.3-8.2) g/dL Albumin (3.5-5.0) g/dL Coronavirus (PCR) Not Detected (Not Detectd) 04/19/21 Range/Units 21:54 WBC (3.8-10.6) k/uL RBC (4.30-5.90) m/uL Hgb (13.0-17.5) gm/dL Hct (39.0-53.0) % MCV (80.0-100.0) fL MCH (25.0-35.0) pg MCHC (31.0-37.0) g/dL RDW (11.5-15.5) % Plt Count (150-450) k/uL MPV Neutrophils % % Lymphocytes % % Monocytes % % Eosinophils % % Basophils % % Neutrophils # (1.3-7.7) k/uL Lymphocytes # (1.0-4.8) k/uL Monocytes # (0-1.0) k/uL Eosinophils # (0-0.7) k/uL Basophils # (0-0.2) k/uL PT (9.0-12.0) sec INR (<1.2) APTT (22.0-30.0) sec D-Dimer (<0.60) mg/L FEU Sodium (137-145) mmol/L Potassium (3.5-5.1) mmol/L Chloride (98-107) mmol/L Carbon Dioxide (22-30) mmol/L Anion Gap mmol/L BUN (9-20) mg/dL Creatinine (0.66-1.25) mg/dL Est GFR (CKD-EPI)AfAm (>60 ml/min/1.73 sqM) Est GFR (CKD-EPI)NonAf (>60 ml/min/1.73 sqM) Glucose (74-99) mg/dL Lactic Ac Sepsis Rflx Y Plasma Lactic Acid Alexandre (0.7-2.0) mmol/L Calcium (8.4-10.2) mg/dL Magnesium (1.6-2.3) mg/dL Total Bilirubin (0.2-1.3) mg/dL AST (17-59) U/L ALT (4-49) U/L Alkaline Phosphatase (38-126) U/L Troponin I (0.000-0.034) ng/mL Total Protein (6.3-8.2) g/dL Albumin (3.5-5.0) g/dL Coronavirus (PCR) (Not Detectd) - EKG Data -: EKG Interpreted by Me EKG Comments: EKG obtained at 2040 shows normal sinus rhythm with a ventricular rate of 87, PA interval 156, QRS duration 70, QT 322, QTc 387. No evidence of ST elevation or depression. - Radiology Data Radiology results: report reviewed, image reviewed 2 views of the chest shows increased interstitial markings lower lung johnson could relate some mild fibrosis. Normal heart. Disposition Clinical Impression: Upper respiratory infection, COPD exacerbation Disposition: HOME SELF-CARE Condition: Good Instructions (If sedation given, give patient instructions): Upper Respiratory Infection (ED), COPD (Chronic Obstructive Pulmonary Disease) (ED) Additional Instructions: Take medications as directed. Follow-up with the primary care physician for recheck in 1-2 days. May treat him breathing treatments every 4-6 hours. Return for any new, worsening, or concerning symptoms. Prescriptions: predniSONE 50 mg PO DAILY #5 tablet Azithromycin [Zithromax Z-pack (6 tabs)] 0 mg PO DIRECTED #6 tab Is patient prescribed a controlled substance at d/c from ED?: No Referrals: James Mascorro III, MD [Primary Care Provider] - 1-2 days Time of Disposition: 23:03
[2021-04-19 21:23] LABS: Basophils # (A) 0.1 k/uL (0-0.2); Basophils % (A) 1 %; Eosinophils # (A) 0.1 k/uL (0-0.7); Eosinophils % (A) 1 %; HCT 45.5 % (39.0-53.0); HGB 16.1 gm/dL (13.0-17.5); Lymphocytes % (A) 14 %; MCH 31.5 pg (25.0-35.0); MCHC 35.3 g/dL (31.0-37.0); MCV 89.2 fL (80.0-100.0); Mean Platelet Volume 6.9; Monocytes # (A) 0.7 k/uL (0-1.0); Monocytes % (A) 9 %; Neutrophils # (A) 5.3 k/uL (1.3-7.7); Neutrophils % (A) 72 %; Platelet Count 195 k/uL (150-450); RDW 13.6 % (11.5-15.5); WBC 7.4 k/uL (3.8-10.6)
[2021-04-19 21:32] LABS: Albumin 4.6 g/dL (3.5-5.0); Calcium 9.5 mg/dL (8.4-10.2); Magnesium 1.8 mg/dL (1.6-2.3); Total Bilirubin 0.5 mg/dL (0.2-1.3); Total Protein 7.4 g/dL (6.3-8.2)
[2021-04-19 21:39] LABS: D-Dimer 0.52 mg/L FEU (<0.60); INR 0.9 (<1.2); Partial Thromboplastin Time 25.5 sec (22.0-30.0); Prothrombin Time 9.8 sec (9.0-12.0)
--- NOTE | 2021-04-19 22:16 | XR ---
EXAMINATION TYPE: XR chest 2V DATE OF EXAM: 04/19/2021 COMPARISON: 08/03/2020 HISTORY: Short of breath TECHNIQUE: 2 views FINDINGS: Heart and mediastinum are normal. Lungs are clear of consolidation. There are no hilar mass es. There is mild interstitial density in the lower lung johnson. There are chest leads. Costophrenic angles are clear. IMPRESSION: Increased interstitial markings in the lower lung johnson could relate to some mild fibros is. Normal heart.
[2021-04-19] MEDS ORDERED: AZITHROMYCIN 500 MG TAB PO STA (23:01)
[2021-04-19 23:21] VITALS: BP 165/80; PULSE 94; RESP 16
== END 2021-04-19 23:20 | disposition home or self-care (01) ==
LOC: EC 20:26
DX: J06.9 Acute upper respiratory infection, unspecified (principal); J44.1 Chronic obstructive pulmonary disease with (acute) exacerbation; I10 Essential (primary) hypertension; Z20.822 Contact with and (suspected) exposure to COVID-19; Z88.5 Allergy status to narcotic agent; Z88.2 Allergy status to sulfonamides; Z79.51 Long term (current) use of inhaled steroids; Z79.899 Other long term (current) drug therapy; Z87.891 Personal history of nicotine dependence; Z79.52 Long term (current) use of systemic steroids
CPT/HCPCS: 99285; 96374; 36415; 94640; 93005; 85379; 80053; 83605; 83735; 84484; 85025; 85610; 85730; 87635; 71046; J2930

== ENCOUNTER → 2021-07-05 | Outpatient (CLI) | payer MEDICARE ==
--- NOTE | 2021-07-05 14:12 | CTL ---
EXAMINATION TYPE: CT Low Dose Lung DATE OF EXAM ORDERED: 07/05/2021 HISTORY: Personal history of tobacco dependence. Lung cancer screening CT DLP: 93 mGycm Automated exposure control for dose reduction was used. SCREENING VISIT: Subsequent COMPARISON: 06/15/2020 TECHNIQUE: Low dose computed tomography scan was performed through the chest at 1 mm thick sections a nd reconstructed images in the coronal plane at [address] DIAGNOSTIC QUALITY: Limited, but interpretable FINDINGS: LUNG No suspicious lung nodules. LUNGS: COPD: Severity: None Fibrosis: Severity: Lymph nodes: None Other findings: None RIGHT PLEURAL SPACE: Effusion: None Calcification: None Thickening: None Pneumothorax: None LEFT PLEURAL SPACE: Effusion: None Calcification: None Thickening: None Pneumothorax: None HEART: Heart Size: Normal Coronary calcification: Mild Pericardial effusion: None OTHER FINDINGS: Upper abdomen: Normal Bony thorax: Normal Supraclavicular region: Normal Other: Ascending thoracic aorta at the level of the main pulmonary artery is 3.7 cm. The main pulmona ry bifurcation is 2.8 cm. IMPRESSION: Negative low-dose CT chest FOLLOW UP CT CHEST RECOMMENDATION: Yes, 1 year low-dose CT chest CT LUNG RAD: Lung-Rad 1 Negative
== END | disposition home or self-care (01) ==
LOC: RADCTMAIN 13:01
PROVIDERS: ATTEND Family Medicine
DX: Z09 Encounter for follow-up examination after completed treatment for conditions other than malignant neoplasm (principal); Z87.891 Personal history of nicotine dependence
CPT/HCPCS: 71271

== ENCOUNTER → 2022-01-02 | Outpatient (CLI) | payer MEDICARE ==
[2022-01-03 00:18] LABS: Basophils # (A) 0.07 X 10*3/uL (0.00-0.10); Basophils % (A) 1.1 %; Eosinophils # (A) 0.14 X 10*3/uL (0.04-0.35); Eosinophils % (A) 2.1 %; HCT 49.8 % (39.6-50.0); HGB 15.6 g/dL (13.0-17.0); Immature Grans, Automated 0.5 %; Lymphocytes # (A) 1.32 X 10*3/uL (0.90-5.00); MCH 29.7 pg (27.0-32.0); MCHC 31.3 g/dL (32.0-37.0); MCV 94.7 fL (80.0-97.0); Mean Platelet Volume 9.8 fL (9.5-12.2); Monocytes # (A) 0.56 X 10*3/uL (0.20-1.00); Monocytes % (A) 8.5 %; NRBC Per 100 WBC 0 /100 WBCS (0.0-0.0); Neutrophils # (A) 4.48 X 10*3/uL (1.80-7.70); Neutrophils % (A) 67.8 %; Platelet Count 254 X 10*3/uL (140-440); RBC 5.26 X 10*6/uL (4.40-5.60)
[2022-01-03 00:40] LABS: ALT 33 U/L (10-49); AST 20 U/L (14-35); African American GFR (CKD) 59.4 (60.0-200.0); Albumin 4.3 g/dL (3.8-4.9); Albumin/Globulin Ratio 1.59 (1.60-3.17); Alkaline Phosphatase 66 U/L (41-126); BUN/Creat Ratio 11.29 Ratio (12.00-20.00); Blood Urea Nitrogen 15.8 mg/dL (9.0-27.0); Calcium 9.5 mg/dL (8.7-10.3); Carbon Dioxide 20.5 mmol/L (20.0-27.5); Chloride 106 mmol/L (96-109); Chol/HDL Ratio 6.87 Ratio; Globulin 2.7 g/dL (1.6-3.3); Glucose 93 mg/dL (70-110); LDL Cholesterol,Calculated 121.7 mg/dL (0.0-131.0); Non-African American GFR(CKD) 51.3 (60.0-200.0); Potassium 4.5 mmol/L (3.5-5.5); Sodium 141 mmol/L (135-145); Uric Acid 7.2 mg/dL (3.7-8.7)
== END | disposition home or self-care (01) ==
LOC: LABWHC1 12:03
PROVIDERS: ATTEND Family Medicine
DX: I10 Essential (primary) hypertension (principal); E78.2 Mixed hyperlipidemia; M1A.9XX0 Chronic gout, unspecified, without tophus (tophi); I50.32 Chronic diastolic (congestive) heart failure
CPT/HCPCS: 36415; 80053; 80061; 82040; 84270; 84403; 84550; 85025

== ENCOUNTER → 2022-07-16 | Outpatient (CLI) | payer MEDICARE | END | disposition home or self-care (01) | LOC: LABWHC1 11:47 | PROVIDERS: ATTEND Family Medicine | DX: Z53.9 Procedure and treatment not carried out, unspecified reason (principal) ==

== ENCOUNTER → 2022-07-16 | Outpatient (CLI) | payer MEDICARE ==
[2022-07-16 13:38] LABS: INR 0.8 (<1.2); Partial Thromboplastin Time 24.7 sec (22.0-30.0); Prothrombin Time 9.5 sec (9.0-12.0)
[2022-07-16 17:43] LABS: HCT 47.2 % (39.6-50.0); MCHC 33.9 g/dL (32.0-37.0); MCV 88.4 fL (80.0-97.0); Mean Platelet Volume 9.9 fL (9.5-12.2); NRBC Per 100 WBC 0 /100 WBCS (0.0-0.0); Platelet Count 228 X 10*3/uL (140-440); RBC 5.34 X 10*6/uL (4.40-5.60); RDW 13.4 % (11.5-14.5); WBC 7.02 X 10*3/uL (4.50-10.00)
[2022-07-16 17:54] LABS: Albumin 4.4 g/dL (3.8-4.9); Albumin/Globulin Ratio 1.57 (1.60-3.17); Anion Gap 8.9 mmol/L (10.00-18.00); BUN/Creat Ratio 12.23 Ratio (12.00-20.00); Blood Urea Nitrogen 15.9 mg/dL (9.0-27.0); Calcium 9.5 mg/dL (8.7-10.3); Carbon Dioxide 24.1 mmol/L (20.0-27.5); Globulin 2.8 g/dL (1.6-3.3); Non-African American GFR(CKD) 56.1 (60.0-200.0); Potassium 4.3 mmol/L (3.5-5.5); Total Bilirubin 0.3 mg/dL (0.30-1.20); Total Protein 7.2 g/dL (6.2-8.2)
[2022-07-16 20:22] LABS: Appearance,Urine Clear (Clear); Bilirubin,Urine Negative (Negative); Blood,Urine Negative (Negative); Color,Urine Yellow (Yellow); Ketones,Urine Negative (Negative); Nitrite,Urine Negative (Negative); PH, Urine 5.5 (5.0-8.0); Specific Gravity,Urine 1.017 (1.001-1.030); Urobilinogen,Urine 0.2 (0.2,1.0)
== END | disposition home or self-care (01) ==
LOC: LABWHC1 11:42
PROVIDERS: ATTEND Orthopaedic Surgery
DX: Z01.812 Encounter for preprocedural laboratory examination (principal); Z01.818 Encounter for other preprocedural examination
CPT/HCPCS: 80053; 81003; 85027; 85610; 85730; 87070

== ENCOUNTER 2022-07-27 14:07 | Day surgery (SDC) | payer MEDICARE ==
[~2022-07-27 14:07] MED LIST changes: +ACETAMINOPHEN TAB 500 MG TAB PO PRN; +DEXAMETHASONE SOD PHOSPHATE 10 MG/ML 1 ML VIAL IV PRN; +DOCUSATE 100 MG CAP PO PRN; +FAMOTIDINE 20 MG/2 ML VIAL IVP PRN; +KETOROLAC 15 MG/ML 1 ML VIAL IVP PRN; -LACTATED RINGERS 1,000 ML IV SCH; -LIDOCAINE 1% 20 ML VIAL (10MG/ML) FOR IV START INTRADERMA PRN; +MIDAZOLAM 2 MG/2 ML VIAL IV PRN; +ONDANSETRON 4 MG/2 ML VIAL IVP PRN; +Pre Op ABX Message 1 EACH MISC MISCELLANE ONE; +TRANEXAMIC ACID IN NACL,ISO-OS 1,000 MG in SALINE 1 100ML.BAG IVPB PRN; +fentaNYL (PF) 50 MCG/ML 2 ML AMP IV PRN
[2022-07-27] MEDS: LACTATED RINGERS 1,000 ML IV SCH ×2 (14:55→23:21)
[2022-07-27] MEDS ORDERED: MIDAZOLAM 2 MG/2 ML VIAL IVP ONE (15:23)
[2022-07-27] MEDS ORDERED: SUCCINYLCHOLINE CHLORIDE 200 MG/10 ML VIAL IV ONE (16:06)
[2022-07-27] MEDS ORDERED: fentaNYL (PF) 50 MCG/ML 2 ML AMP ONE (16:06)
[2022-07-27] MEDS ORDERED: NEOSTIGMINE 1 MG/ML 10 ML VIAL ONE (16:06)
[2022-07-27] MEDS ORDERED: PHENYLEPHRINE-0.9% NACL SYG 1,000 MCG/10 ML SYRINGE ONE (16:06)
[2022-07-27] MEDS ORDERED: PROPOFOL 10 MG/ML 20 ML VIAL IV ONE (16:06)
[2022-07-27] MEDS ORDERED: SODIUM CHLORIDE 0.9% (PF) 10 ML VIAL ONE (16:06)
[2022-07-27] MEDS ORDERED: ROPIVACAINE 5 MG/ML 30 ML VIAL ONE (16:06)
[2022-07-27] MEDS ORDERED: LIDOCAINE 2% INJ 20 MG/ML (2 ML VIAL) ONE (16:06)
[2022-07-27] MEDS ORDERED: TRANEXAMIC ACID IN NACL,ISO-OS 1,000 MG/100 ML BAG ONE (16:06)
[2022-07-27] MEDS ORDERED: GLYCOPYRROLATE 0.2 MG/ML 2 ML VIAL ONE (16:06)
[2022-07-27] MEDS ORDERED: LIDOCAINE 4% LTA KIT (4 ML) TOPICAL ONE (16:06)
[2022-07-27] MEDS ORDERED: MIDAZOLAM 2 MG/2 ML VIAL ONE (16:06)
[2022-07-27] MEDS ORDERED: ROCURONIUM 10 MG/ML (5 ML VIAL) IV ONE (16:06)
[2022-07-27] MEDS: ROPIVACAINE/EPI/CLONIDINE/KET 50 ML SYRINGE MISCELLANE PRN ×2 (16:17→18:04)
[2022-07-27] MEDS ORDERED: LACTATED RINGERS 1,000 ML IV ONE (17:42)
[2022-07-27] MEDS ORDERED: NALOXONE 0.4 MG/ML 1 ML VIAL IV PRN (18:40)
[2022-07-27] MEDS ORDERED: HYDROcodone/APAP 5-325MG 1 EACH TAB PO PRN (18:40)
[2022-07-27] MEDS ORDERED: HYDROmorphone 0.5 MG/0.5 ML SYRINGE IVP PRN ×3 (18:40)
[2022-07-27] MEDS ORDERED: hydrOXYzine pamoate 25 MG CAP PO PRN (18:40)
--- NOTE | 2022-07-27 18:44 | P.OP ---
Date of Procedure: 07/27/22 Preoperative Diagnosis: 1. Right hip osteoarthritis 2. Lumbar degenerative spine disease 3. COPD Postoperative Diagnosis: Same Procedure(s) Performed: Right total hip arthroplasty Implants: 1. [place] Trident II Acetabular Cup, Size #54 2. [place] Insignia Size # 7 Femoral Stem, Standard Offset 3. Biolox delta femoral head, 36, -5 neck Anesthesia: GETA, regional Surgeon: Jose Roberto Ordoñez Apiarist #1: Darwin Nieves Estimated Blood Loss (ml): 100 IV fluids (ml): 1,200 Pathology: none sent Condition: stable Disposition: PACU Indications for Procedure: I met with the patient and his in the office in regards to his right hip and groin pain. The patient has had a long-standing history of right hip and groin pain. He states the time of my initial evaluation that he had been told in the past by another doctor that he needed a hip replacement. His presenting complaint was activity-related groin pain on the right side. He denied having any posterior buttock pain or pain radiating into his right leg. His physical exam showed exquisite pain with passive range of motion of the right hip. His x-rays showed moderate degenerative changes but some intact joint space. I do lengthy discussion with the patient is weight on treatment options going forward. We discussed conservative treatment, a diagnostic injection into his right hip to confirm his pain, workup of his back, or proceeding with a total hip replacement. Due to his physical exam and presenting complaints as well as degenerative changes on x-ray were both agreed that the majority of his pain is likely coming from intra-articular degenerative hip disease. The patient understands the potential for continued pain if he has referred pain from his back. He voiced his understanding of this. I had a long discussion with the patient in the office on the potential risks and complications of an elective total hip replacement through a direct anterior approach. Risks discussed include, but are certainly not limited to, risks from anesthesia, superficial infection requiring local wound care or antibiotics, deep shadi-prosthetic joint infection and the treatment required to eradicate infection, intraoperative fracture, postoperative periprosthetic fracture, damage to local blood vessels or nerves particularly the lateral femoral cutaneous nerve, delayed wound healing requiring local wound care or possibly s urgical debridement, hip dislocation, leg length discrepancy, soft tissue irritation around the total hip implant such as iliopsoas tendinitis or trochanteric bursitis, wear and osteolysis from the implants, squeaking or audible noises, groin pain, thigh pain, heterotopic ossification, stiffness, aseptic loosening of the implants, dissatisfaction with surgical outcome, need for revision surgery, DVT, PE, swelling of the operative extremity, acute coronary event, stroke, failure to thrive, and possibly loss of life or limb. The patient understands that while these are the most common complications after an elective hip replacement there are certainly other less common complications possible. They were given ample time to ask questions regarding the potential complications of a hip replacement. Following our discussion the patient provided their verbal and written consent to go forward with an elective total hip replacement. Operative Findings: I met with the patient in preoperative holding. We again reviewed his x-rays and discussed that they showed mild to moderate degenerative changes. His main complaint was groin pain. I examined the patient in preoperative holding prior to receiving any anesthesia and he had exquisite pain with passive range of motion of the hip. We both agreed that intra-articular pathology was the most likely diagnosis. The patient also understands the possibility of referred pain from his back. The patient stated he would like to proceed with a total hip replacement. On evaluation of the patient's femoral head there is a large area of full- thickness cartilage loss. On inspection the patient's acetabulum there was full-thickness cartilage loss throughout the acetabulum. The synovium surrounding the joint was inflamed consistent with degenerative arthritis. Description of Procedure: The patient was identified in the preoperative holding area and the correct hip was marked with my initials. I reviewed the procedure and consent with the patient. All of their questions were answered. The patient was then brought back into the operating room by anesthesia. While on the [facility] anesthesia was administered by the anesthesia team. Preoperative antibiotics and tranexamic acid were also given. After the patient was under anesthesia I examined their ankles to determine their preoperative leg length discrepancy. The skin over the anterior aspect of the hip was shaved to remove hair over the site of planned incision. Both feet and ankles were padded with webril and boots for the [place] were applied. The patient was then carefully transferred onto the [place] table. A perineal post was immediately placed. The arms were placed on arm holders and were well-padded. Both boots were secured to the spars on the [place] table. The patient was positioned so that the pelvis was centered over the post. Nonsterile drapes were applied. A timeout was performed identifying the correct patient, operative extremity, and procedure. At this point fluoroscopy was brought in to take preoperative images of the pelvis and operative hip. Using the standing AP pelvis from the office as a template, a comparable image was obtained with fluoroscopy. A metallic bar was used to create a bi-ischial line for use as a reference to leg length adjustments during the procedure. Global offset was also measured on both the operative and nonoperative leg. Fluoroscopy was then brought out and a pre-scrub using a chlorhexidine scrub brush was performed. The operative limb was then prepped and draped in the standard sterile fashion. An anterior longitudinal incision was made lateral and distal to the ASIS. The skin and subcutaneous tissues were incised sharply. The underlying tensor fa scia was identified and incised in its midportion. The fascia was dissected free from the underlying muscle and the muscle belly was retracted. A blunt tipped cobra retractor was placed over the superior neck under the muscle fibers of the gluteus minimus. The deep enveloping fascia of the tensor was incised. The anterior leash of vessels were then identified and cauterized. The fascia between the rectus and the capsule was then incised and the pre-capsular fat was excised. A second Cobra was placed inferior to the neck. The interval between the rectus and iliocapsularis and the hip capsule was developed and a retractor was placed carefully over the anterior rim of the acetabulum. A T-shaped anterior capsulotomy was performed. The superior capsular leaflet was left in place in the inferior capsular flap was excised. The Cobra retractors were placed intracapsularly. We then made a femoral neck osteotomy according to preoperative and intraoperative templating and confirmed the level of the osteotomy using fluoroscopic imaging. The femoral head was removed, passed off to the back table, and sized. The superior capsular flap was excised. Retractors were placed circumferentially exposing the acetabulum. We then circumferentially debrided the acetabulum free of labrum and osteophytes. The pulvinar was removed to fully visualize the cotyloid fossa. We then sequentiall y reamed to achieve peripheral fit and excellent bleeding subchondral bone. The socket was thoroughly irrigated. The acetabular component was impacted into the appropriate position using fluoroscopy to guide version, inclination, and depth of insertion taking care to have a comparable image of the AP pelvis to the standing image taken in the office. An excellent press-fit was achieved and final position was confirmed using fluoroscopy. The press fit was augmented with bony cancellus dome screws. The liner was then impacted into the socket. Attention was then turned to the femur. The remnant dorsal lateral capsule was excised. The short external rotators were visible and protected. A bone hook was used to confirm appropriate translation of the trochanter away from the acetabulum. The leg was then extended and adducted and the bone hook was used to elevate the femur for broaching. A box osteotome and blunt tipped canal sound was then utilized to gain access to the femoral canal. We then sequentially broached the femur in appropriate anteversion until excellent torsional stability was achieved. The neck cut was brought flush to the trial broach with a calcar planar. A trial neck and head were then placed onto the broach and the hip was atraumatically reduced under direct visualization. External rotation to 90 was performed to assess stability. Fluoroscopy was brought in. An AP and lateral fluoroscopic image of the proximal femur was obtained to assess position and fill of the trial broach. An AP of the pelvis was then obtained and matched to the preoperative image taken. A bi-ischial bar was then placed and measurements were taken to assess changes in length and offset. The hip was then carefully dislocated, the proximal femur was exposed, and the trial implants were removed. The wound and proximal femur was thoroughly irrigated using sterile saline and pulsatile lavage. The final femoral implant was dispensed and gently tapped into place generating an excellent press-fit. The trunnion was cleansed and the final head was tapped into place to engage the Burton taper. The acetabulum was irrigated and visualized to be free of debris. The hip was carefully reduced. Stability was checked clinically with external rotation to 90 and there was no evidence of instability. Final fluoroscopic images were taken. The wound was then thoroughly irrigated and soaked with a dilute Betadine rinse for 3 minutes. 3 L of sterile saline was irrigated through the wound using pulsatile lavage. Local anesthetic cocktail was injected into the soft tissues around the surgical field. The wound was then closed in layers. A sterile dressing was placed over the surgical incision. The drapes were taken down and the patient was carefully transferred off of the [place] table. Following removal of the boots the leg lengths felt acceptable. The patient was then taken to recovery room having tolerated the procedure well. Darwin Nieves PA-C was required as a skilled health center assistant for patient positioning, surgical exposure, retraction, placement of implants, and closure of the surgical wound. PLAN: The patient can weight-bear as tolerated on the operative extremity. 2 doses of postoperative antibiotics. DVT prophylaxis with aspirin 81 mg twice a day based on preoperative risk stratification. Physical therapy for gait training.
--- NOTE | 2022-07-27 18:48 | P.ANPRN ---
Procedure Note - Anesthesia - Nerve Block Performed Right Erector Spinae Time Out Performed: Yes (:) Date of Procedure: 07/27/22 Procedure Start Time: Procedure Stop Time: Location of Patient: PreOp Indication: Acute Post-Operative Pain, Requested by Surgeon (dR Medley) Sedation Type: Sedate with meaningful contact maintained Preparation: Sterile Prep Position: Prone Catheter: None Needle Types: Pajunk Needle Gauge: 21 Ultrasound used to visualize needle placement: Yes Ultrasound used to observe medication spread: Yes Injectate: 0.5% Ropivacaine (see comment for volume) (15cc +10cc PF Normal saline) Blood Aspirated: No Pain Paresthesia on Injection Noted: No Resistance on Injection: Normal Image Stored and Saved: Yes Events: Uneventful and Well Tolerated
--- NOTE | 2022-07-27 20:20 | XR ---
EXAMINATION TYPE: XR Hip Limited RT DATE OF EXAM: 07/27/2022 COMPARISON: NONE HISTORY: Hip surgery TECHNIQUE: 3 views FINDINGS: 44 seconds fluoroscopy time was recorded. There are 3 fluoroscopic images that show a right total hip prosthesis. IMPRESSION: No complicating process seen.
[2022-07-27] MEDS: ASPIRIN 81 MG PO SCH (21:31)
--- NOTE | 2022-07-27 23:20 | FL ---
EXAMINATION TYPE: FL guidance operating room DATE OF EXAM: 07/27/2022 CLINICAL HISTORY: Right hip pain and osteoarthritis TECHNIQUE: Fluoroscopy. COMPARISON: None. FINDINGS: Fluoroscopic guidance was provided during right hip replacement procedure performed by Dr. Ordoñez. A total of 44 seconds of fluoroscopic time was utilized during the procedure and 0 spot i mages are acquired. IMPRESSION: As Above.
[2022-07-27] MEDS: HYDROcodone/APAP 5-325MG 1 EACH TAB PO PRN (23:37)
[2022-07-28 03:04] VITALS: RESP 17
--- NOTE | 2022-07-28 07:04 | P.DS ---
Providers Attending physician: Jose Roberto Ordoñez Consults: 07/27/22 18:40 Consult Physician Routine Consulting Provider: Jessica Burton Consult Reason/Comments: medical management Do you want consulting provider notified?: Yes Primary care physician: [facility] Course: The patient is a very pleasant 66-year-old male who underwent a right total hip replacement yesterday. He did well during surgery and was transferred to the general floor. This morning his having mild thigh discomfort but his hip pain is improved. He is been up and walk. He is tolerating diet. He denies chest pain or shortness of breath. Plan - Discharge Summary Discharge Rx Participant: Yes New Discharge Prescriptions: New Aspirin 81 mg PO BID 30 Days #60 tab Docusate [Colace] 100 mg PO BID #60 capsule Omeprazole 40 mg PO DAILY 30 Days #30 cap HYDROcodone/APAP 5-325MG [[place] 5-325] 1 - 2 tab PO Q6HR PRN 7 Days #32 tab PRN Reason: Pain No Action Folic Acid 1 mg PO DAILY #30 tablet Sacubitril/Valsartan [Entresto 24 mg-26 mg Tablet] 1 tab PO BID Furosemide [Lasix] 20 mg PO DAILY amLODIPine [Norvasc] 5 mg PO BID Ipratropium-Albuterol Nebulize [Duoneb 0.5 mg-3 mg/3 ml Soln] 3 ml INHALATION RT-QID Testosterone Cypionate [Depo-Testosterone] 100 mg IM WE Potassium Chloride [Potassium Chloride ER] 10 meq PO HS Ergocalciferol [Vitamin D2 (1250 Mcg = 89743 Iu)] 1,250 mcg PO WEEKLY Discharge Medication List Folic Acid 1 mg PO DAILY #30 tablet 03/01/18 [Rx] Furosemide [Lasix] 20 mg PO DAILY 10/28/18 [History] Sacubitril/Valsartan [Entresto 24 mg-26 mg Tablet] 1 tab PO BID 10/28/18 [History] amLODIPine [Norvasc] 5 mg PO BID 10/28/18 [History] Ipratropium-Albuterol Nebulize [Duoneb 0.5 mg-3 mg/3 ml Soln] 3 ml INHALATION RT-QID 08/03/20 [History] Potassium Chloride [Potassium Chloride ER] 10 meq PO HS 08/03/20 [History] Testosterone Cypionate [Depo-Testosterone] 100 mg IM WE 08/03/20 [History] Ergocalciferol [Vitamin D2 (1250 Mcg = 61305 Iu)] 1,250 mcg PO WEEKLY 07/25/22 [History] Aspirin 81 mg PO BID 30 Days #60 tab 07/27/22 [Rx] Docusate [Colace] 100 mg PO BID #60 capsule 07/27/22 [Rx] HYDROcodone/APAP 5-325MG [[place] 5-325] 1 - 2 tab PO Q6HR PRN 7 Days #32 tab 07/27/22 [Rx] Omeprazole 40 mg PO DAILY 30 Days #30 cap 07/27/22 [Rx] Follow up Appointment(s)/Referral(s): [facility] [[facility]] - 1-2 Days ([facility] will call you to schedule your in home physical therapy visits. ) Jose Roberto Ordoñez MD [Medical Doctor] - 2 Weeks Activity/Diet/Wound Care/Special Instructions: Weight bear to tolerance on operative extremity with a walker. Keep operative dressing intact until follow-up appointment in the office. Call the office if dressing becomes saturated or falls off. May shower over dressing. Take pain medications as needed. Take aspirin 81mg BID x 4 weeks for blood clot prevention. Follow-up in the office in two weeks with Dr. Ordoñez. Call the office with any questions or concerns, Discharge Disposition: HOME WITH HOME HEALTH SERVICES
[2022-07-28] MEDS: LACTATED RINGERS 1,000 ML IV SCH ×3 (07:47→07:48)
[2022-07-28] MEDS: ASPIRIN 81 MG PO SCH (07:49)
[2022-07-28 08:37] VITALS: BP 125/67; PULSE 81; TEMP 97.6
[2022-07-28] MEDS: HYDROcodone/APAP 5-325MG 1 EACH TAB PO PRN (09:15)
--- NOTE | 2022-07-28 12:19 | P.CONS ---
History of Present Illness - History of Present Illness This is a pleasant 66 years old male with past medical history of advanced COPD he follows up with Dr. Ba. Sleep apnea on CPAP machine at night, hypertension, advanced osteoarthritis. Patient was admitted for elective right hip replacement surgery. Today is postop day #1. Medical consult has been requested for routine medical management. Patient was sitting standing up and walking in his room using his walker. He denies any complaints. He says that pain at his right hip area is controlled. He denies chest pain or dyspnea or coughing. No abdominal complaints or pain or vomiting or diarrhea. No urinary complaints. Patient was eager to be discharged soon to home. and family at bedside. I told the patient about his chest tightness, and his oxygen saturations somewhere between 91-95, this morning was 94% on room air. Patient states that his pulse ox at home was 94-96%. She is close where he is at now. I offered to give him some systemic steroid pills and he declined because causing side effects. He states alternatively he has Symbicort inhaled steroids and he thinks also this could be caused by not using his CPAP machine over the last 2 nights. Patient does not wait for Dr. Mcgovern the wire roller while he is here in the hospital. Patient and wants to go home which is half an hour away and he wants to use his bronchodilator nebulizers and CPAP machine which make her more comfortable. Patient and were instructed to keep monitoring him closely in this coming 48 hours and to come to the emergency room if he got worsening shortness of breath cough and chest tightness and they verbalized understanding and acceptance. Also instructed to follow up with Dr. Ba the wire roller this coming week and they verbalized understanding and acceptance as well Review of Systems Review of systems CONSTITUTIONAL: No fever, no malaise, no fatigue. HEENT: No recent visual problems or hearing problems. Denied any sore throat. CARDIOVASCULAR: No orthopnea, PND, no palpitations, no syncope. PULMONARY: No shortness of breath, no cough, no hemoptysis. GASTROINTESTINAL: No diarrhea, no nausea, no vomiting, no abdominal pain. Normoactive bowel sounds. NEUROLOGICAL: No headaches, no weakness, no numbness. HEMATOLOGICAL: Denies any bleeding or petechiae. GENITOURINARY: Denies any burning micturition, frequency, or urgency. MUSCULOSKELETAL/RHEUMATOLOGICAL: Denies any joint pain, swelling, or any muscle pain. ENDOCRINE: Denies any polyuria or polydipsia. Past Medical History Past Medical History: Asthma, COPD, Hypertension, Osteoarthritis (OA), Skin Disorder, Sleep Apnea/CPAP/BIPAP Additional Past Medical History / Comment(s): psoriasis, uses cpap machine History of Any Multi-Drug Resistant Organisms: None Reported Past Surgical History: Appendectomy, Cholecystectomy, Heart Catheterization, Orthopedic Surgery Additional Past Surgical History / Comment(s): repair fx. left hand with pins/plate, hemorrhoidectomy, bronchoscopy x2, colonscopies, arthroscopy knee Past Anesthesia/Blood Transfusion Reactions: Previous Problems w/ Anesthesia Additional Past Anesthesia/Blood Transfusion Reaction / Comm: per 11/29/17 "during bronchoscopy, stopped breathing rescheduled to 12/04/17 was done under general anesthesic and was fine" Past Psychological History: No Psychological Hx Reported Smoking Status: Never smoker Past Alcohol Use History: None Reported Additional Past Alcohol Use History / Comment(s): started smoking at age 13 was smoking 1.5 ppd and quit nov 2017 Past Drug Use History: Marijuana Additional Drug Use History / Comment(s): occasional edible - Past Family History Father Family Medical History: Cancer Mother Family Medical History: Cancer Sister(s) Family Medical History: Cancer Medications and Allergies Home Medications Medication Instructions Recorded Confirmed Type Folic Acid 1 mg PO DAILY #30 tablet 03/01/18 07/27/22 Rx Furosemide [Lasix] 20 mg PO DAILY 10/28/18 07/27/22 History Sacubitril/Valsartan [Entresto 24 1 tab PO BID 10/28/18 07/27/22 History mg-26 mg Tablet] amLODIPine [Norvasc] 5 mg PO BID 10/28/18 07/27/22 History Ipratropium-Albuterol Nebulize 3 ml INHALATION RT-QID 08/03/20 07/27/22 History [Duoneb 0.5 mg-3 mg/3 ml Soln] Potassium Chloride [Potassium 10 meq PO HS 08/03/20 07/27/22 History Chloride ER] Testosterone Cypionate 100 mg IM WE 08/03/20 07/27/22 History [Depo-Testosterone] Ergocalciferol [Vitamin D2 (1250 1,250 mcg PO WEEKLY 07/25/22 07/27/22 History Mcg = 94916 Iu)] Aspirin 81 mg PO BID 30 Days #60 tab 07/27/22 Rx Docusate [Colace] 100 mg PO BID #60 capsule 07/27/22 Rx HYDROcodone/APAP 5-325MG [[place] 1 - 2 tab PO Q6HR PRN 7 Days #32 07/27/22 Rx 5-325] tab Omeprazole 40 mg PO DAILY 30 Days #30 cap 07/27/22 Rx Allergies Allergy/AdvReac Type Severity Reaction Status Date / Time codeine Allergy Unknown Verified 07/27/22 15:02 Sulfa (Sulfonamide Allergy Rash/Hives Verified 07/27/22 15:02 Antibiotics) Physical Exam Vitals: Vital Signs Temp Pulse Resp BP Pulse Ox 07/28/22 08:00 97.6 F 81 17 125/67 94 L 07/28/22 02:22 98.3 F 86 17 103/53 95 07/27/22 21:30 82 121/65 92 L 07/27/22 21:15 84 123/67 91 L 07/27/22 21:00 80 129/75 94 L 07/27/22 20:45 75 121/67 94 L 07/27/22 20:30 74 123/64 91 L 07/27/22 20:15 78 120/74 95 07/27/22 20:00 78 131/78 94 L 07/27/22 19:45 81 124/66 95 07/27/22 19:30 80 142/75 96 07/27/22 18:59 74 16 136/75 95 07/27/22 18:51 75 16 136/75 97 07/27/22 18:40 98 F 88 16 141/76 94 L 07/27/22 15:32 83 16 154/77 94 L 07/27/22 14:54 98.2 F 83 16 144/83 97 Intake and Output 07/27/22 07/28/22 07/28/22 22:59 06:59 14:59 Intake Total 1050 Output Total 150 Balance 900 Intake: IV 1050 Output: Estimated Blood Loss 150 Other: Voiding Method Toilet # Voids 3 1 Weight 98.2 kg GENERAL: The patient is alert and oriented x3, not in any acute distress. Well developed, well nourished. HEENT: Pupils are round and equally reacting to light. EOMI. No scleral icterus. No conjunctival pallor. Normocephalic, atraumatic. No pharyngeal erythema. No thyromegaly. CARDIOVASCULAR: S1 and S2 present. No murmurs, rubs, or gallops. -PULMONARY: Chest is clear to auscultation, no wheezing or crackles. Mild chest tightness and limited air entry ABDOMEN: Soft, nontender, nondistended, normoactive bowel sounds. No palpable organomegaly. -MUSCULOSKELETAL: No joint swelling or deformity. Right surgical wound in a dressing, breast EXAM is deferred to surgery team EXTREMITIES: No cyanosis, clubbing, or pedal edema. NEUROLOGICAL: Gross neurological examination did not reveal any focal deficits. SKIN: No rashes. no petechiae. Assessment and Plan Assessment: Advanced osteoarthritis status post total right hip arthroplasty. Postop day #1 COPD, advanced. Patient follow up with Dr. Escamilla Obstructive sleep apnea on CPAP Obesity with BMI of 32 Hypertension Plan: Continue with a breathing treatment Continue with Symbicort and bronchodilator nebulizer (patient states that he has this medication at home and he does not want prescription) Keep monitoring breathing pattern and oxygen level (patient says that she has pulse ox at home) We recommend patient follow up with his PCP Dr. Mascorro in one week and Dr. Ba his wire roller in this coming week as well. Patient was instructed to call and make appointment as today his weekend and patient is agreeable Patient is medically stable Continue with DVT prophylaxis and pain management as per surgery primary team Thank you for consulting us. Please feel free to call for any further question or clarification
[2022-07-28 12:54] LABS: Basophils # (A) 0.03 X 10*3/uL (0.00-0.10); Basophils % (A) 0.2 %; Eosinophils # (A) 0.01 X 10*3/uL (0.04-0.35); Eosinophils % (A) 0.1 %; HCT 41.4 % (39.6-50.0); HGB 13.5 g/dL (13.0-17.0); Immature Grans, Automated 0.8 %; Lymphocytes # (A) 0.73 X 10*3/uL (0.90-5.00); Lymphocytes % (A) 4.6 %; MCH 29.3 pg (27.0-32.0); MCHC 32.6 g/dL (32.0-37.0); Mean Platelet Volume 9.8 fL (9.5-12.2); Monocytes # (A) 1.07 X 10*3/uL (0.20-1.00); Monocytes % (A) 6.7 %; NRBC Per 100 WBC 0 /100 WBCS (0.0-0.0); Neutrophils # (A) 13.92 X 10*3/uL (1.80-7.70); Neutrophils % (A) 87.6 %; Platelet Count 258 X 10*3/uL (140-440); RDW 13.3 % (11.5-14.5); WBC 15.89 X 10*3/uL (4.50-10.00)
== END 2022-07-28 12:21 | disposition home health service (06) ==
LOC: OR 14:07 → 4SSUR 18:27 → OR 07-28 12:21
PROVIDERS: ATTEND Orthopaedic Surgery
DX: M16.11 Unilateral primary osteoarthritis, right hip (principal); M51.36 Other intervertebral disc degeneration, lumbar region; G89.18 Other acute postprocedural pain; J44.9 Chronic obstructive pulmonary disease, unspecified; M25.751 Osteophyte, right hip; I10 Essential (primary) hypertension; Z97.3 Presence of spectacles and contact lenses; Z90.49 Acquired absence of other specified parts of digestive tract; Z90.89 Acquired absence of other organs; Z87.891 Personal history of nicotine dependence
CPT/HCPCS: 97162; 64999; 85025; 73501; 27130; C1776; J2250; J0330; J1100; J2710; J0690 ×2; J2405; J3010; J2795; J1885; J2370; J2704; J2001; 86850; 86900; 86901

== ENCOUNTER 2022-09-11 23:15 | Observation (INO) | payer MEDICARE ==
[2022-09-11] MEDS ORDERED: SODIUM CHLORIDE 0.9% 1,000 ML IV STA (23:18)
[2022-09-11] MEDS ORDERED: IPRATROPIUM-ALBUTEROL 3 ML NEB INHALATION STA (23:23)
[2022-09-11] MEDS ORDERED: ACETAMINOPHEN TAB 500 MG TAB PO STA (23:23)
--- NOTE | 2022-09-11 23:25 | ED ---
Fever HPI - General Stated Complaint: EWA Time Seen by Provider: 09/11/22 23:18 Source: RN notes reviewed - History of Present Illness Initial Comments: This is a pleasant 66-year-old male with history of COPD. He presents to the emergency department today complaining of fever, cough, shortness of breath, chest tightness, body aches. T-max 104F prior to arrival. Patient took 2 acetaminophen at 6 PM. Noted the patient did not get his flu shot. POSITIVE chills, no changes in vision or hearing, no sore throat or difficulty with speech, no neck pain, , no abdominal pain, no nausea or vomiting, no changes in urination or bowel movements, no numbness or tingling, no extremity pain, no skin rashes or lesions. Past medical, surgical, social, and family history reviewed. MD Complaint: fever - Related Data Home Medications Medication Instructions Recorded Confirmed Furosemide [Lasix] 20 mg PO DAILY 10/28/18 07/27/22 Sacubitril/Valsartan [Entresto 24 1 tab PO BID 10/28/18 07/27/22 mg-26 mg Tablet] amLODIPine [Norvasc] 5 mg PO BID 10/28/18 07/27/22 Ipratropium-Albuterol Nebulize 3 ml INHALATION RT-QID 08/03/20 07/27/22 [Duoneb 0.5 mg-3 mg/3 ml Soln] Potassium Chloride [Potassium 10 meq PO HS 08/03/20 07/27/22 Chloride ER] Testosterone Cypionate 100 mg IM WE 08/03/20 07/27/22 [Depo-Testosterone] Ergocalciferol [Vitamin D2 (1250 1,250 mcg PO WEEKLY 07/25/22 07/27/22 Mcg = 15894 Iu)] Previous Rx's Medication Instructions Recorded Folic Acid 1 mg PO DAILY #30 tablet 03/01/18 Aspirin 81 mg PO BID 30 Days #60 tab 07/27/22 Docusate [Colace] 100 mg PO BID #60 capsule 07/27/22 HYDROcodone/APAP 5-325MG [[place] 1 - 2 tab PO Q6HR PRN 7 Days #32 07/27/22 5-325] tab Omeprazole 40 mg PO DAILY 30 Days #30 cap 07/27/22 Allergies Allergy/AdvReac Type Severity Reaction Status Date / Time codeine Allergy Unknown Verified 07/27/22 15:02 Sulfa (Sulfonamide Allergy Rash/Hives Verified 07/27/22 15:02 Antibiotics) Review of Systems ROS Statement: Those systems with pertinent positive or pertinent negative responses have been documented in the HPI. ROS Other: All systems not noted in ROS Statement are negative. Past Medical History Past Medical History: Asthma, COPD, Hypertension, Osteoarthritis (OA), Skin Disorder, Sleep Apnea/CPAP/BIPAP Additional Past Medical History / Comment(s): psoriasis, uses cpap machine History of Any Multi-Drug Resistant Organisms: None Reported Past Surgical History: Appendectomy, Cholecystectomy, Heart Catheterization, Or thopedic Surgery Additional Past Surgical History / Comment(s): repair fx. left hand with pins/plate, hemorrhoidectomy, bronchoscopy x2, colonscopies, arthroscopy knee Past Anesthesia/Blood Transfusion Reactions: Previous Problems w/ Anesthesia Additional Past Anesthesia/Blood Transfusion Reaction / Comment(s): per "during bronchoscopy, stopped breathing rescheduled to 12/04/17 was done under general anesthesic and was fine" Past Psychological History: No Psychological Hx Reported Smoking Status: Never smoker Past Alcohol Use History: None Reported Additional Past Alcohol Use History / Comment(s): started smoking at age 13 was smoking 1.5 ppd and quit nov 2017 Past Drug Use History: Marijuana Additional Drug Use History / Comment(s): occasional edible - Past Family History Father Family Medical History: Cancer Mother Family Medical History: Cancer Sister(s) Family Medical History: Cancer General Exam - General Exam Comments Initial Comments: Patient appears to be ill but not toxic. Capillary refill less than 2 seconds. No modeling. Adequate perfusion and color. Moist mucous membranes. General appearance: alert, in no apparent distress Head exam: Present: atraumatic, normocephalic, normal inspection Eye exam: Present: normal appearance, PERRL, EOMI. Absent: scleral icterus, c onjunctival injection, periorbital swelling ENT exam: Present: normal exam, normal oropharynx, mucous membranes moist, normal external ear exam. Absent: mucous membranes dry Neck exam: Present: normal inspection, full ROM. Absent: tenderness, menin gismus, lymphadenopathy Respiratory exam: Present: wheezes (Faint expiratory wheezes.), accessory muscle use (Minimal). Absent: normal lung sounds bilaterally, respiratory distress, rales, rhonchi, stridor, chest wall tenderness, decreased breath sounds, prolonged expiratory Cardiovascular Exam: Present: regular rate, normal rhythm, normal heart sounds. Absent: systolic murmur, diastolic murmur, rubs, gallop, clicks GI/Abdominal exam: Present: soft, normal bowel sounds. Absent: distended, tenderness, guarding, rebound, rigid Extremities exam: Present: normal inspection, full ROM, normal capillary refill. Absent: tenderness, pedal edema, joint swelling, calf tenderness Back exam: Present: normal inspection Neurological exam: Present: alert, oriented X3, CN II-XII intact Psychiatric exam: Present: normal affect, normal mood Skin exam: Present: warm, dry, intact, normal color. Absent: rash Course Vital Signs 09/11/22 09/12/22 09/12/22 23:18 00:07 00:15 Temperature 102.9 F H Pulse Rate 92 85 86 Respiratory 26 H Rate Blood Pressure 150/72 O2 Sat by Pulse 97 Oximetry 09/12/22 01:50 Temperature 98.4 F Pulse Rate 89 Respiratory 24 Rate Blood Pressure 134/69 O2 Sat by Pulse 94 L Oximetry - Reevaluation(s) Reevaluation #1: 09/12/22 00:43 Patient reevaluated and is minimally improved. Reevaluation #2: 09/12/22 02:27 Patient improved. Case was discussed in detail with the patient from [facility] group. Patient admitted for COPD exacerbation, fever, probable viral syndrome. Patient was given a dose of Levaquin here in the ER. Medical Decision Making - Medical Decision Making Patient presents with fever, cough, wheezing, differential diagnosis viral versus bacterial etiology. COVID-19, influenza ordered. Both tests were negative here. This could be a false negative. Two-view chest x-ray interpreted by me reveals no evidence of acute pathology. Awaiting radiology interpretation. Given the patient's history of diabetes and COPD. Went to cover the patient with antibiotics for COPD exacerbation and fever. Suspect the patient has underlying viral illness as well. Levaquin 750 mg by mouth ordered. Repeat DuoNeb treatment. Solu-Medrol 125 mg IV push. Given the patient's presentation. I do not believe this is consistent with cardiac disease. The case was discussed in detail with ED attending physician. Presentation, fi ndings, treatment plan discussed in detail. Supervising Dr. Vigil - Lab Data Result diagrams: 09/11/22 23:30 09/11/22 23:30 Lab Results 09/11/22 09/11/22 09/11/22 Range/Units 23:30 23:30 23:30 WBC 6.5 (3.8-10.6) k/uL RBC 4.92 (4.30-5.90) m/uL Hgb 14.5 (13.0-17.5) gm/dL Hct 43.4 (39.0-53.0) % MCV 88.2 (80.0-100.0) fL MCH 29.5 (25.0-35.0) pg MCHC 33.5 (31.0-37.0) g/dL RDW 13.5 (11.5-15.5) % Plt Count 236 (150-450) k/uL MPV 7.3 Neutrophils % 75 % Lymphocytes % 10 % Monocytes % 10 % Eosinophils % 1 % Basophils % 1 % Neutrophils # 4.9 (1.3-7.7) k/uL Lymphocytes # 0.7 L (1.0-4.8) k/uL Monocytes # 0.6 (0-1.0) k/uL Eosinophils # 0.1 (0-0.7) k/uL Basophils # 0.1 (0-0.2) k/uL PT 10.1 (9.0-12.0) sec INR 0.9 (<1.2) APTT 26.6 (22.0-30.0) sec Sodium 139 (137-145) mmol/L Potassium 4.1 (3.5-5.1) mmol/L Chloride 106 (98-107) mmol/L Carbon Dioxide 20 L (22-30) mmol/L Anion Gap 13 mmol/L BUN 16 (9-20) mg/dL Creatinine 1.22 (0.66-1.25) mg/dL Est GFR (CKD-EPI)AfAm 70 (>60 ml/min/1.73 sqM) Est GFR (CKD-EPI)NonAf 61 (>60 ml/min/1.73 sqM) Glucose 109 H (74-99) mg/dL Plasma Lactic Acid Alexandre (0.7-2.0) mmol/L Calcium 8.8 (8.4-10.2) mg/dL Total Bilirubin 0.5 (0.2-1.3) mg/dL AST 26 (17-59) U/L ALT 30 (4-49) U/L Alkaline Phosphatase 113 (38-126) U/L Troponin I (0.000-0.034) ng/mL C-Reactive Protein 2.3 H (<1.0) mg/dL NT-Pro-B Natriuret Pep pg/mL Total Protein 7.1 (6.3-8.2) g/dL Albumin 4.3 (3.5-5.0) g/dL Coronavirus (PCR) (Not Detectd) Influenza Type A RNA (Not Detectd) Influenza Type B (PCR) (Not Detectd) 09/11/22 09/11/22 09/11/22 Range/Units 23:30 23:30 23:30 WBC (3.8-10.6) k/uL RBC (4.30-5.90) m/uL Hgb (13.0-17.5) gm/dL Hct (39.0-53.0) % MCV (80.0-100.0) fL MCH (25.0-35.0) pg MCHC (31.0-37.0) g/dL RDW (11.5-15.5) % Plt Count (150-450) k/uL MPV Neutrophils % % Lymphocytes % % Monocytes % % Eosinophils % % Basophils % % Neutrophils # (1.3-7.7) k/uL Lymphocytes # (1.0-4.8) k/uL Monocytes # (0-1.0) k/uL Eosinophils # (0-0.7) k/uL Basophils # (0-0.2) k/uL PT (9.0-12.0) sec INR (<1.2) APTT (22.0-30.0) sec Sodium (137-145) mmol/L Potassium (3.5-5.1) mmol/L Chloride (98-107) mmol/L Carbon Dioxide (22-30) mmol/L Anion Gap mmol/L BUN (9-20) mg/dL Creatinine (0.66-1.25) mg/dL Est GFR (CKD-EPI)AfAm (>60 ml/min/1.73 sqM) Est GFR (CKD-EPI)NonAf (>60 ml/min/1.73 sqM) Glucose (74-99) mg/dL Plasma Lactic Acid Alexandre 1.9 (0.7-2.0) mmol/L Calcium (8.4-10.2) mg/dL Total Bilirubin (0.2-1.3) mg/dL AST (17-59) U/L ALT (4-49) U/L Alkaline Phosphatase (38-126) U/L Troponin I <0.012 (0.000-0.034) ng/mL C-Reactive Protein (<1.0) mg/dL NT-Pro-B Natriuret Pep 83 pg/mL Total Protein (6.3-8.2) g/dL Albumin (3.5-5.0) g/dL Coronavirus (PCR) (Not Detectd) Influenza Type A RNA (Not Detectd) Influenza Type B (PCR) (Not Detectd) 09/11/22 09/11/22 Range/Units 23:42 23:42 WBC (3.8-10.6) k/uL RBC (4.30-5.90) m/uL Hgb (13.0-17.5) gm/dL Hct (39.0-53.0) % MCV (80.0-100.0) fL MCH (25.0-35.0) pg MCHC (31.0-37.0) g/dL RDW (11.5-15.5) % Plt Count (150-450) k/uL MPV Neutrophils % % Lymphocytes % % Monocytes % % Eosinophils % % Basophils % % Neutrophils # (1.3-7.7) k/uL Lymphocytes # (1.0-4.8) k/uL Monocytes # (0-1.0) k/uL Eosinophils # (0-0.7) k/uL Basophils # (0-0.2) k/uL PT (9.0-12.0) sec INR (<1.2) APTT (22.0-30.0) sec Sodium (137-145) mmol/L Potassium (3.5-5.1) mmol/L Chloride (98-107) mmol/L Carbon Dioxide (22-30) mmol/L Anion Gap mmol/L BUN (9-20) mg/dL Creatinine (0.66-1.25) mg/dL Est GFR (CKD-EPI)AfAm (>60 ml/min/1.73 sqM) Est GFR (CKD-EPI)NonAf (>60 ml/min/1.73 sqM) Glucose (74-99) mg/dL Plasma Lactic Acid Alexandre (0.7-2.0) mmol/L Calcium (8.4-10.2) mg/dL Total Bilirubin (0.2-1.3) mg/dL AST (17-59) U/L ALT (4-49) U/L Alkaline Phosphatase (38-126) U/L Troponin I (0.000-0.034) ng/mL C-Reactive Protein (<1.0) mg/dL NT-Pro-B Natriuret Pep pg/mL Total Protein (6.3-8.2) g/dL Albumin (3.5-5.0) g/dL Coronavirus (PCR) Not Detected (Not Detectd) Influenza Type A RNA Not Detected (Not Detectd) Influenza Type B (PCR) Not Detected (Not Detectd) - EKG Data -: EKG Interpreted by Me EKG Comments: [facility] EKG done at 2234 and interpreted by me revealed sinus rhythm with rate of 94. Normal axis, normal intervals, no evidence of acute ST or T wave changes. When compared to the previous study from 04/19/2021 there is no significant change. - Radiology Data Radiology results: report reviewed, image reviewed Two-view chest x-ray interpreted by me reveals no acute pathology. Reviewed radiology interpretation. Disposition Clinical Impression: COPD exacerbation, Acute bronchitis, Acute viral syndrome, Fever Disposition: ADMITTED IP TO THIS HOSP Condition: Fair Is patient prescribed a controlled substance at d/c from ED?: No Referrals: James Mascorro III, MD [Primary Care Provider] - 1-2 days Time of Disposition: 00:50 Decision to Admit Reason: Admit from EC Decision Time: 00:50
[2022-09-11 23:50] LABS: Basophils # (A) 0.1 k/uL (0-0.2); Basophils % (A) 1 %; Eosinophils # (A) 0.1 k/uL (0-0.7); Eosinophils % (A) 1 %; HCT 43.4 % (39.0-53.0); HGB 14.5 gm/dL (13.0-17.5); Lymphocytes # (A) 0.7 k/uL (1.0-4.8); Lymphocytes % (A) 10 %; MCH 29.5 pg (25.0-35.0); MCHC 33.5 g/dL (31.0-37.0); MCV 88.2 fL (80.0-100.0); Mean Platelet Volume 7.3; Monocytes # (A) 0.6 k/uL (0-1.0); Monocytes % (A) 10 %; Neutrophils # (A) 4.9 k/uL (1.3-7.7); Neutrophils % (A) 75 %; Platelet Count 236 k/uL (150-450); RBC 4.92 m/uL (4.30-5.90); RDW 13.5 % (11.5-15.5); WBC 6.5 k/uL (3.8-10.6)
[2022-09-12 00:06] LABS: INR 0.9 (<1.2); Partial Thromboplastin Time 26.6 sec (22.0-30.0); Prothrombin Time 10.1 sec (9.0-12.0)
--- NOTE | 2022-09-12 00:10 | XR ---
EXAMINATION TYPE: XR chest 2V DATE OF EXAM: 09/11/2022 COMPARISON: 04/19/2021 HISTORY: Short of breath TECHNIQUE: FINDINGS: There is no heart failure nor confluent pneumonic infiltrate. There are no hilar masses. Co stophrenic angles are clear. There are chest leads. Bony thorax is intact. No pleural effusion. There is minor spurring in the thoracic spine. IMPRESSION: No active cardiopulmonary disease. Normal heart. There is clearing of the mild interstiti al lower lobe pulmonary infiltrates compared to old exam
[2022-09-12 00:25] LABS: Albumin 4.3 g/dL (3.5-5.0); Calcium 8.8 mg/dL (8.4-10.2); Potassium 4.1 mmol/L (3.5-5.1); Total Bilirubin 0.5 mg/dL (0.2-1.3); Total Protein 7.1 g/dL (6.3-8.2)
[2022-09-12] MEDS ORDERED: IPRATROPIUM-ALBUTEROL 3 ML NEB INHALATION STA (00:44)
[2022-09-12] MEDS ORDERED: methylPREDNISolone SOD SUCCI 125 MG/2 ML VIAL IV STA (00:44)
[2022-09-12] MEDS ORDERED: LEVOFLOXACIN 750 MG TAB PO STA (00:46)
[2022-09-12 01:00] LABS: C Reactive Protein 2.3 mg/dL (<1.0)
[2022-09-12] MEDS ORDERED: ACETAMINOPHEN TAB 325 MG TAB PO PRN (02:21)
[2022-09-12] MEDS ORDERED: NALOXONE 0.4 MG/ML 1 ML VIAL IVP PRN (02:21)
[2022-09-12] MEDS ORDERED: IPRATROPIUM-ALBUTEROL 3 ML NEB INHALATION PRN (02:21)
[2022-09-12] MEDS ORDERED: DEXTROSE 50% SYRINGE 50 ML IVP PRN ×2 (02:25)
[2022-09-12] MEDS ORDERED: OXYMETAZOLINE 0.05% NASL SPRAY 1 SPRAY BOTTLE NASAL STA (02:46)
[2022-09-12] MEDS ORDERED: methylPREDNISolone SOD SUCCI 125 MG/2 ML VIAL IV SCH (06:00)
[2022-09-12] MEDS ORDERED: INSULIN ASPART (NovoLOG) 100 UNIT/ML VIAL SQ SCH (07:30)
[2022-09-12 07:57] LABS: Glucose,Whole Blood 152 mg/dL (70-110)
[2022-09-12] MEDS ORDERED: HEPARIN SODIUM,PORCINE/PF 5,000 UNIT/0.5 ML SYRINGE SQ SCH (08:00)
[2022-09-12 08:46] VITALS: BP 122/69; RESP 18; TEMP 98.1
[2022-09-12] MEDS: IPRATROPIUM-ALBUTEROL 3 ML NEB INHALATION SCH ×2 (08:51→11:39)
[2022-09-12] MEDS ORDERED: guaiFENesin 600 MG TABLET.ER PO SCH (09:00)
[2022-09-12] MEDS ORDERED: OSELTAMIVIR 75 MG CAP PO SCH (10:15)
--- NOTE | 2022-09-12 10:22 | P.CNPUL ---
History of Present Illness Consult date: 09/12/22 Requesting physician: Nilam Ramos Reason for consult: dyspnea, cough, COPD, hypoxemia Chief complaint: Shortness of breath, fever. History of present illness: Pulmonary consult dated 09/12/2022. 66-year-old male, well-known to me. He has a history of COPD. He was a previous heavy smoker. The patient apparently came into the emergency room complaining of shortness of breath, cough, and fever. He also had body aches and chest tightness. The patient's is currently in the hospital with influenza A. He tested negative for coronavirus, as well as influenza A and influenza B. He is currently seen in the emergency room, room 22. He is on room air. No IV fluids. No respiratory distress. Chest x-ray was normal. Actually he looks pretty stable to me. CBC is completely normal. Coagulation studies are normal. Sodium 139, potassium 4.1, chlorides 106, CO2 20, anion gap 13, with a normal BUN and creatinine. Liver function tests were normal. C- reactive protein was 2.3. Chest x-ray showed normal heart size, and no active cardiopulmonary disease. It was compared to a chest x-ray that was sudden in April 2021. Review of Systems REVIEW OF SYSTEMS: CONSTITUTIONAL: Fever. NEUROLOGIC: [ Negative.] HEENT: [ Negative.] CARDIAC: [Negative.] PULMONARY: Shortness of breath, and cough. GI: [Negative.] : [Negative.] RHEUMATOLOGIC: [ Negative.] IMMUNOLOGIC: [ Negative.] ENDOCRINE: [Negative. ] DERMATOLOGIC: [Negative.] Past Medical History Past Medical History: Asthma, COPD, Hypertension, Osteoarthritis (OA), Skin Disorder, Sleep Apnea/CPAP/BIPAP Additional Past Medical History / Comment(s): psoriasis, uses cpap machine History of Any Multi-Drug Resistant Organisms: None Reported Past Surgical History: Appendectomy, Cholecystectomy, Heart Catheterization, Orthopedic Surgery Additional Past Surgical History / Comment(s): repair fx. left hand with pins/plate, hemorrhoidectomy, bronchoscopy x2, colonscopies, arthroscopy knee Past Anesthesia/Blood Transfusion Reactions: Previous Problems w/ Anesthesia Additional Past Anesthesia/Blood Transfusion Reaction / Comment(s): per 11/29/17 "during bronchoscopy, stopped breathing rescheduled to 12/04/17 was done under general anesthesic and was fine" Past Psychological History: No Psychological Hx Reported Smoking Status: Never smoker Past Alcohol Use History: None Reported Additional Past Alcohol Use History / Comment(s): started smoking at age 13 was smoking 1.5 ppd and quit nov 2017 Past Drug Use History: Marijuana Additional Drug Use History / Comment(s): occasional edible - Past Family History Father Family Medical History: Cancer Mother Family Medical History: Cancer Sister(s) Family Medical History: Cancer Medications and Allergies Home Medications Medication Instructions Recorded Confirmed Type Folic Acid 1 mg PO DAILY #30 tablet 03/01/18 09/12/22 Rx Furosemide [Lasix] 20 mg PO BID 10/28/18 09/12/22 History Sacubitril/Valsartan [Entresto 24 1 tab PO BID 10/28/18 09/12/22 History mg-26 mg Tablet] amLODIPine [Norvasc] 5 mg PO BID 10/28/18 09/12/22 History Ipratropium-Albuterol Nebulize 3 ml INHALATION RT-QID 08/03/20 09/12/22 History [Duoneb 0.5 mg-3 mg/3 ml Soln] Potassium Chloride [Potassium 10 meq PO HS 08/03/20 09/12/22 History Chloride ER] Testosterone Cypionate 100 mg IM WE 08/03/20 09/12/22 History [Depo-Testosterone] Ergocalciferol [Vitamin D2 (1250 1,250 mcg PO TU 07/25/22 09/12/22 History Mcg = 36280 Iu)] Allergies Allergy/AdvReac Type Severity Reaction Status Date / Time codeine Allergy Unknown Verified 09/12/22 07:48 Sulfa (Sulfonamide Allergy Rash/Hives Verified 09/12/22 07:48 Antibiotics) Physical Exam Osteopathic Statement: *. No significant issues noted on an osteopathic structural exam other than those noted in the History and Physical/Consult. Vitals: Vital Signs Temp Pulse Pulse Resp BP BP Pulse Ox 09/12/22 09:02 86 09/12/22 08:52 86 96 09/12/22 07:00 98.1 F 78 18 122/69 96 09/12/22 05:56 98.2 F 76 22 136/75 96 09/12/22 01:50 98.4 F 89 24 134/69 94 L 09/12/22 00:15 86 09/12/22 00:07 85 09/11/22 23:18 102.9 F H 92 26 H 150/72 97 FiO2 09/12/22 09:02 09/12/22 08:52 21 09/12/22 07:00 09/12/22 05:56 09/12/22 01:50 09/12/22 00:15 09/12/22 00:07 09/11/22 23:18 Intake and Output 09/11/22 09/12/22 09/12/22 22:59 06:59 14:59 Other: # Voids 1 Weight 97.069 kg No acute distress, oriented 3. No audible wheezing, use of accessory muscles, or conversational dyspnea. HEENT examination is grossly unremarkable. Neck supple. Full range of motion. No adenopathy thyromegaly or neck vein distention. Cardiovascular examination reveals regular rhythm rate. S1-S2 normal. No S3 or S4. No discernible murmur noted. Heart rate 86 bpm. Lungs reveal scattered mild rhonchi. No wheezes. No crackles. Breath sounds equal bilaterally. Room air saturation is 96%. Abdomen soft bowel sounds are heard. No masses or tenderness. Extremities are intact. No cyanosis clubbing or edema. Skin is without rash or lesion. Neurologic examination is brief but nonfocal. Results - Laboratory Findings CBC and BMP: 09/11/22 23:30 09/11/22 23:30 PT/INR, D-dimer PT 10.1 sec (9.0-12.0) 09/11/22 23:30 INR 0.9 (<1.2) 09/11/22 23:30 Abnormal lab findings: Abnormal Labs 09/11/22 09/11/22 09/12/22 23:30 23:30 07:50 Lymphocytes # 0.7 L Carbon Dioxide 20 L Glucose 109 H POC Glucose (mg/dL) 152 H C-Reactive Protein 2.3 H - Diagnostic Findings Chest x-ray: image reviewed Assessment and Plan Assessment: COPD exacerbation, likely triggered by a respiratory virus. No clearcut evidence of pneumonia, or active bacterial infection. History of hypertension. History sleep apnea syndrome. History of psoriasis. History of heart failure. Plan: Plan dated 09/12/2022. The patient appears to be very stable. He's on room air. No respiratory distress. His is in the hospital with influenza A infection. He tested negative for influenza A, and influenza B, as well as coronavirus infection. The patient could be considered for possible discharge home, on a prednisone burst and taper, and a short course of antibiotics. I did relay that to the nurses. She will call the primary service. X-ray is normal. Labs are reviewed. Time with Patient: Greater than 30
--- NOTE | 2022-09-12 10:44 | P.HPIM ---
History of Present Illness H&P Date: 09/12/22 Chief Complaint: SOB Patient is a 66-year-old male with history of COPD, sleep apnea, hypertension, diastolic heart failure presenting with acute shortness of breath, cough, and fever. He claims that he was doing well up until yesterday, when he started fee ling weak. Overnight he was febrile, had shortness of breath, cough. His cough is nonproductive. He also noted sore throat, and rhinorrhea. His is currently admitted in the hospital for influenza A. He denies any other sick contacts. Denies any skin rashes. He denies any increased lower extremity edema or orthopnea or PND. He denies any chest pain, nausea, vomiting, diarrhea, or constipation. He has occasional diffuse abdominal pain. He denies any urinary complaints. He denies any smoking, alcohol use, illicit drug use. In the ED, he was febrile up to 102.9, respiratory rate 26, rest of the vitals signs were otherwise normal. He has remained on room air. Lab work was signi ficant for elevated CRP at 2.3. COVID-19 and influenza DNB were negative. Chest x-ray showed no acute process. EKG showed normal sinus rhythm. Patient seen and examined at bedside. Pertinent positives and negatives as discussed in HPI, a complete review of systems was performed and all other systems are negative. Vital signs reviewed General: nontoxic, no distress, appears at stated age, obese Derm: warm, dry Head: atraumatic, normocephalic, symmetric Eyes: EOMI, no lid lag, anicteric sclera, pupils equal round reactive to light ENT: Nose and ears atraumatic Neck: No thyromegaly, supple Mouth: no lip lesion, mucus membranes moist Cardiovascular: S1S2 reg, no murmur, no edema Lungs: clear to auscultation bilateral, no rhonchi, no rales, no wheeze, no accessory muscle use Abdominal: soft, nontender to palpation, no guarding, no appreciable organomegaly Ext: no gross muscle atrophy, muscle strength muscle strength 5 out of 5 in all 4 extremities, no contractures Neuro: CN II-XII grossly intact Psych: Alert, oriented, appropriate affect Assessment/Plan: Acute COPD exacerbation Viral URI SIRS Febrile -Bronchodilators, steroids -Received antibiotics in the ED, chest x-ray normal -Has a nonproductive cough -Monitor off of antibiotics -Pulmonology consult -Given recent influenza A positive contact from , will give at least a prophylactic dose of Tamiflu for 5 days -Supportive care History of diastolic heart failure Hypertension -Continue home medications The patient is admitted with an anticipated less than 2 midnight stay for evaluation of shortness of breath. Surrogate decision-maker: CODE STATUS: Full code DVT prophylaxis: SCDs Anticipated discharge date: Today Anticipated discharge place: Home A total of 55 minutes was spent on the care of this complex patient more than 50% of the time was spent in counseling and care coordination. Past Medical History Past Medical History: Asthma, COPD, Hypertension, Osteoarthritis (OA), Skin Disorder, Sleep Apnea/CPAP/BIPAP Additional Past Medical History / Comment(s): psoriasis, uses cpap machine History of Any Multi-Drug Resistant Organisms: None Reported Past Surgical History: Appendectomy, Cholecystectomy, Heart Catheterization, Orthopedic Surgery Additional Past Surgical History / Comment(s): repair fx. left hand with pins/plate, hemorrhoidectomy, bronchoscopy x2, colonscopies, arthroscopy knee Past Anesthesia/Blood Transfusion Reactions: Previous Problems w/ Anesthesia Additional Past Anesthesia/Blood Transfusion Reaction / Comment(s): per 11/29/17 "during bronchoscopy, stopped breathing rescheduled to 12/04/17 was done under general anesthesic and was fine" Past Psychological History: No Psychological Hx Reported Smoking Status: Never smoker Past Alcohol Use History: None Reported Additional Past Alcohol Use History / Comment(s): started smoking at age 13 was smoking 1.5 ppd and quit nov 2017 Past Drug Use History: Marijuana Additional Drug Use History / Comment(s): occasional edible - Past Family History Father Family Medical History: Cancer Mother Family Medical History: Cancer Sister(s) Family Medical History: Cancer Medications and Allergies Home Medications Medication Instructions Recorded Confirmed Type Folic Acid 1 mg PO DAILY #30 tablet 03/01/18 09/12/22 Rx Furosemide [Lasix] 20 mg PO BID 10/28/18 09/12/22 History Sacubitril/Valsartan [Entresto 24 1 tab PO BID 10/28/18 09/12/22 History mg-26 mg Tablet] amLODIPine [Norvasc] 5 mg PO BID 10/28/18 09/12/22 History Ipratropium-Albuterol Nebulize 3 ml INHALATION RT-QID 08/03/20 09/12/22 History [Duoneb 0.5 mg-3 mg/3 ml Soln] Potassium Chloride [Potassium 10 meq PO HS 08/03/20 09/12/22 History Chloride ER] Testosterone Cypionate 100 mg IM WE 08/03/20 09/12/22 History [Depo-Testosterone] Ergocalciferol [Vitamin D2 (1250 1,250 mcg PO TU 07/25/22 09/12/22 History Mcg = 41770 Iu)] Allergies Allergy/AdvReac Type Severity Reaction Status Date / Time codeine Allergy Unknown Verified 09/12/22 07:48 Sulfa (Sulfonamide Allergy Rash/Hives Verified 09/12/22 07:48 Antibiotics) Physical Exam Vitals: Vital Signs Temp Pulse Pulse Resp BP BP Pulse Ox 09/12/22 09:02 86 09/12/22 08:52 86 96 09/12/22 08:00 18 09/12/22 07:00 98.1 F 78 18 122/69 96 09/12/22 05:56 98.2 F 76 22 136/75 96 09/12/22 01:50 98.4 F 89 24 134/69 94 L 09/12/22 00:15 86 09/12/22 00:07 85 09/11/22 23:18 102.9 F H 92 26 H 150/72 97 FiO2 09/12/22 09:02 09/12/22 08:52 21 09/12/22 08:00 09/12/22 07:00 09/12/22 05:56 09/12/22 01:50 09/12/22 00:15 09/12/22 00:07 09/11/22 23:18 Intake and Output 09/11/22 09/12/22 09/12/22 22:59 06:59 14:59 Other: # Voids 1 Weight 97.069 kg Results CBC & Chem 7: 09/11/22 23:30 09/11/22 23:30 Labs: Abnormal Lab Results - Last 24 Hours (Table) 09/11/22 09/11/22 09/12/22 Range/Units 23:30 23:30 07:50 Lymphocytes # 0.7 L (1.0-4.8) k/uL Carbon Dioxide 20 L (22-30) mmol/L Glucose 109 H (74-99) mg/dL POC Glucose (mg/dL) 152 H (70-110) mg/dL C-Reactive Protein 2.3 H (<1.0) mg/dL
--- NOTE | 2022-09-12 10:58 | P.DS ---
Providers Date of admission: 09/12/22 02:26 Expected date of discharge: 09/12/22 Attending physician: Nilam Ramos MD Consults: 09/12/22 02:36 Consult Physician Urgent Consulting Provider: Donovan Escamilla Consult Reason/Comments: COPD exacerbation, viral syndrome Do you want consulting provider notified?: Yes, Notify in am Primary care physician: James Mascorro Hospital Course: Discharge Diagnosis: Acute COPD exacerbation Viral URI SIRS Febrile History of diastolic heart failure History of hypertension Hospital Course: Patient is a 66-year-old male with history of COPD, sleep apnea, hypertension, diastolic heart failure presenting with acute shortness of breath, cough, and fever. He claims that he was doing well up until yesterday, when he started feeling weak. Overnight he was febrile, had shortness of breath, cough. His cough is nonproductive. He also noted sore throat, and rhinorrhea. His is currently admitted in the hospital for influenza A. He denies any other sick contacts. Denies any skin rashes. He denies any increased lower extremity edema or orthopnea or PND. He denies any chest pain, nausea, vomiting, diarrhea, or constipation. He has occasional diffuse abdominal pain. He denies any urinary complaints. In the ED, he was febrile up to 102.9, respiratory rate 26, rest of the vitals signs were otherwise normal. He has remained on room air. Lab work was significant for elevated CRP at 2.3. COVID-19 and influenza DNB were negative. Chest x-ray showed no acute process. EKG showed normal sinus rhythm. Patient was assessed by pulmonology. Patient to be discharged on short course of steroids for COPD exacerbation. Patient to resume his home bronchodilators. Mucinex and Tylenol for supportive care. Since his is influenza A positive, and he has viral URI symptoms despite testing negative for influenza, will be sent home with prophylactic dose of Tamiflu for 5 days. Patient has a nonproductive cough, and a clear chest x-ray, unlikely to have bacterial pneumonia. Patient seen and examined at bedside. Vital signs reviewed and stable. General: nontoxic, no distress, appears at stated age Derm: warm, dry Head: atraumatic, normocephalic, symmetric Eyes: EOMI, no lid lag, anicteric sclera Mouth: no lip lesion, mucus membranes moist Cardiovascular: S1S2 reg, no murmur Lungs: CTA bilateral, no rhonchi, no rales , no accessory muscle use Abdominal: soft, nontender to palpation, no guarding, no appreciable organomegaly Ext: no gross muscle atrophy, no edema, no contractures Neuro: CN II-XI grossly intact, no focal neuro deficits Psych: Alert, oriented, appropriate affect A total of 32 minutes of time were spent preparing this complex discharge summary. Patient was discharged on 09/12/22 at 10:48. Patient Condition at Discharge: Stable Plan - Discharge Summary New Discharge Prescriptions: New predniSONE [Deltasone] 40 mg PO DAILY #10 tab Oseltamivir [Tamiflu] 75 mg PO DAILY #5 cap guaiFENesin [Mucinex] 600 mg PO Q12HR #14 tab Continue Folic Acid 1 mg PO DAILY #30 tablet Sacubitril/Valsartan [Entresto 24 mg-26 mg Tablet] 1 tab PO BID Furosemide [Lasix] 20 mg PO BID amLODIPine [Norvasc] 5 mg PO BID Ipratropium-Albuterol Nebulize [Duoneb 0.5 mg-3 mg/3 ml Soln] 3 ml INHALATION RT-QID Testosterone Cypionate [Depo-Testosterone] 100 mg IM WE Potassium Chloride [Potassium Chloride ER] 10 meq PO HS Ergocalciferol [Vitamin D2 (1250 Mcg = 88624 Iu)] 1,250 mcg PO Discharge Medication List Folic Acid 1 mg PO DAILY #30 tablet 03/01/18 [Rx] Furosemide [Lasix] 20 mg PO BID 10/28/18 [History] Sacubitril/Valsartan [Entresto 24 mg-26 mg Tablet] 1 tab PO BID 10/28/18 [History] amLODIPine [Norvasc] 5 mg PO BID 10/28/18 [History] Ipratropium-Albuterol Nebulize [Duoneb 0.5 mg-3 mg/3 ml Soln] 3 ml INHALATION RT-QID 08/03/20 [History] Potassium Chloride [Potassium Chloride ER] 10 meq PO HS 08/03/20 [History] Testosterone Cypionate [Depo-Testosterone] 100 mg IM WE 08/03/20 [History] Ergocalciferol [Vitamin D2 (1250 Mcg = 18140 Iu)] 1,250 mcg PO TU 07/25/22 [History] Oseltamivir [Tamiflu] 75 mg PO DAILY #5 cap 09/12/22 [Rx] guaiFENesin [Mucinex] 600 mg PO Q12HR #14 tab 09/12/22 [Rx] predniSONE [Deltasone] 40 mg PO DAILY #10 tab 09/12/22 [Rx] Follow up Appointment(s)/Referral(s): James Mascorro III, MD [Primary Care Provider] - 1-2 days Donovan Escamilla DO [Doctor of Osteopathic Medicine] - 1 Week Patient Instructions/Handouts: Upper Respiratory Infection (DC), COPD (Chronic Obstructive Pulmonary Disease) (DC) Activity/Diet/Wound Care/Special Instructions: Please see her PCP in 1-2 days, and 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 Discharge Disposition: HOME SELF-CARE
[2022-09-12] MEDS ORDERED: TESTOSTERONE CYPIONATE 200 MG/ML 1ML VIAL IM SCH (11:00)
[2022-09-12 11:51] VITALS: PULSE 90
[2022-09-12] MEDS ORDERED: FUROSEMIDE 20 MG TAB PO SCH (16:00)
[2022-09-12] MEDS ORDERED: amLODIPine 5 MG TAB PO SCH (21:00)
[2022-09-12] MEDS ORDERED: POTASSIUM CHLORIDE ER 10 MEQ TAB.ER.PRT PO SCH (21:00)
[2022-09-12] MEDS ORDERED: SACUBITRIL/VALSARTAN 24 MG-26 MG TABLET PO SCH (21:00)
[2022-09-13] MEDS ORDERED: FOLIC ACID 1 MG TAB PO SCH (09:00)
[2022-09-18] MEDS ORDERED: ERGOCALCIFEROL 1,250 MCG (50,000 IU) CAPSULE PO SCH (09:00)
== END 2022-09-12 13:11 | disposition home or self-care (01) ==
LOC: EC 23:15 → 6NMEDSUR 09-12 02:26
PROVIDERS: ADMIT Internal Medicine; ATTEND Internal Medicine
DX: J44.1 Chronic obstructive pulmonary disease with (acute) exacerbation (principal); J20.8 Acute bronchitis due to other specified organisms; R65.10 Systemic inflammatory response syndrome (SIRS) of non-infectious origin without acute organ dysfunction; J10.1 Influenza due to other identified influenza virus with other respiratory manifestations; L40.9 Psoriasis, unspecified; I11.0 Hypertensive heart disease with heart failure; I50.32 Chronic diastolic (congestive) heart failure; G47.30 Sleep apnea, unspecified; Z87.891 Personal history of nicotine dependence; Z79.899 Other long term (current) drug therapy; Z79.82 Long term (current) use of aspirin; Z88.5 Allergy status to narcotic agent; Z88.2 Allergy status to sulfonamides; Z20.822 Contact with and (suspected) exposure to COVID-19
CPT/HCPCS: 96361 ×2; 96372; 96374; 99285; 36415; 94640; 93005; 83880; 80053; 83605; 84484; 85025; 85610; 85730; 86140; 87040; 87502; 83036; 87635; 71046; G0378 ×2; J2930; J1644

== ENCOUNTER 2023-01-30 12:29 | Inpatient (IN) | payer MEDICARE ==
[2023-01-30] MEDS ORDERED: ALBUTEROL NEBULIZED 2.5 MG/3 ML INHALATION STA (13:41)
[2023-01-30] MEDS ORDERED: IPRATROPIUM-ALBUTEROL 3 ML NEB INHALATION STA (13:41)
[2023-01-30 14:16] LABS: Basophils % (A) 0 %; Eosinophils # (A) 0.2 k/uL (0-0.7); Eosinophils % (A) 2 %; HGB 14.5 gm/dL (13.0-17.5); Lymphocytes # (A) 1.1 k/uL (1.0-4.8); Lymphocytes % (A) 11 %; MCH 29.1 pg (25.0-35.0); MCV 88.2 fL (80.0-100.0); Monocytes # (A) 0.7 k/uL (0-1.0); Monocytes % (A) 7 %; Neutrophils # (A) 7.7 k/uL (1.3-7.7); Neutrophils % (A) 78 %; Platelet Count 207 k/uL (150-450); RBC 4.99 m/uL (4.30-5.90); RDW 14.1 % (11.5-15.5); WBC 9.9 k/uL (3.8-10.6)
[2023-01-30 14:28] LABS: INR 0.9 (<1.2); Partial Thromboplastin Time 23.8 sec (22.0-30.0); Prothrombin Time 9.5 sec (9.0-12.0)
[2023-01-30 14:29] LABS: Albumin 3.9 g/dL (3.5-5.0); Calcium 8.9 mg/dL (8.4-10.2); Potassium 4.6 mmol/L (3.5-5.1); Total Bilirubin 0.7 mg/dL (0.2-1.3); Total Protein 6.8 g/dL (6.3-8.2)
--- NOTE | 2023-01-30 14:29 | ED ---
General Adult HPI - General Chief complaint: Abdominal Pain Stated complaint: abd pain Time Seen by Provider: 01/30/23 13:08 Source: patient, RN notes reviewed Mode of arrival: ambulatory Limitations: no limitations - History of Present Illness Initial comments: 67-year-old male presents to the emergency department with chief complaint of abdominal pain and shortness of breath. Patient states that he has been experiencing these symptoms for the past 2-3 weeks but the shortness of breath has worsened in the past 3 days. He states that the shortness of breath is worse with exertion and with lying down in bed. He admits to bilateral lower extremity edema. Denies chest pain. Patient has a history of COPD and heart failure. He sees a endoscopy rn, but does not follow up with cardiology. He also states that he has been having lower abdominal pain for the past 2 weeks but it has been increasing in intensity. He has not noticed any aggravating or alleviating factors for the abdominal pain. He states that he has been having difficulties having bowel movements but reports his last bowel movement was today. He states that he forgot has to strain to have a bowel movement. He states that his bowel movements are nonbloody. Denies fever, urinary frequency, dysuria. - Related Data Home Medications Medication Instructions Recorded Confirmed Furosemide [Lasix] 20 mg PO BID 10/28/18 09/12/22 Sacubitril/Valsartan [Entresto 24 1 tab PO BID 10/28/18 09/12/22 mg-26 mg Tablet] amLODIPine [Norvasc] 5 mg PO BID 10/28/18 09/12/22 Ipratropium-Albuterol Nebulize 3 ml INHALATION RT-QID 08/03/20 09/12/22 [Duoneb 0.5 mg-3 mg/3 ml Soln] Potassium Chloride [Potassium 10 meq PO HS 08/03/20 09/12/22 Chloride ER] Testosterone Cypionate 100 mg IM WE 08/03/20 09/12/22 [Depo-Testosterone] Ergocalciferol [Vitamin D2 (1250 1,250 mcg PO TU 07/25/22 09/12/22 Mcg = 64823 Iu)] Previous Rx's Medication Instructions Recorded Folic Acid 1 mg PO DAILY #30 tablet 03/01/18 Oseltamivir [Tamiflu] 75 mg PO DAILY #5 cap 09/12/22 guaiFENesin [Mucinex] 600 mg PO Q12HR #14 tab 09/12/22 predniSONE [Deltasone] 40 mg PO DAILY #10 tab 09/12/22 Allergies Allergy/AdvReac Type Severity Reaction Status Date / Time codeine Allergy Unknown Verified 01/30/23 13:00 Sulfa (Sulfonamide Allergy Rash/Hives Verified 01/30/23 13:00 Antibiotics) Review of Systems ROS Statement: Those systems with pertinent positive or pertinent negative responses have been documented in the HPI. ROS Other: All systems not noted in ROS Statement are negative. Past Medical History Past Medical History: Asthma, COPD, Hypertension, Osteoarthritis (OA), Skin Disorder, Sleep Apnea/CPAP/BIPAP Additional Past Medical History / Comment(s): psoriasis, uses cpap machine History of Any Multi-Drug Resistant Organisms: None Reported Past Surgical History: Appendectomy, Cholecystectomy, Heart Catheterization, Joint Replacement, Orthopedic Surgery Additional Past Surgical History / Comment(s): repair fx. left hand with pins/plate, hemorrhoidectomy, bronchoscopy x2, colonscopies, arthroscopy knee, rt hip replacement, Past Anesthesia/Blood Transfusion Reactions: Previous Problems w/ Anesthesia Additional Past Anesthesia/Blood Transfusion Reaction / Comment(s): per 11/29/17 "during bronchoscopy, stopped breathing rescheduled to 12/04/17 was done under general anesthesic and was fine" Past Psychological History: No Psychological Hx Reported Smoking Status: Never smoker Past Alcohol Use History: None Reported Past Drug Use History: Marijuana - Past Family History Father Family Medical History: Cancer Mother Family Medical History: Cancer Sister(s) Family Medical History: Cancer General Exam Limitations: no limitations General appearance: alert, in no apparent distress Head exam: Present: atraumatic, normocephalic, normal inspection Eye exam: Present: normal appearance ENT exam: Present: normal exam, mucous membranes moist Neck exam: Present: normal inspection. Absent: tenderness, meningismus, lymphadenopathy Respiratory exam: Present: wheezes. Absent: respiratory distress, rales, rhonchi, stridor Cardiovascular Exam: Present: regular rate, normal rhythm, normal heart sounds. Absent: systolic murmur, diastolic murmur, rubs, gallop, clicks GI/Abdominal exam: Present: soft, tenderness, guarding, normal bowel sounds. Absent: distended, rebound, rigid Extremities exam: Present: other (Mild bilateral nonpitting lower extremity edema) Neurological exam: Present: alert, oriented X3 Psychiatric exam: Present: normal affect, normal mood Skin exam: Present: warm, dry, intact, normal color. Absent: rash Course Vital Signs 01/30/23 01/30/23 01/30/23 12:57 13:45 14:19 Temperature 98.4 F Pulse Rate 77 88 Respiratory 20 20 18 Rate Blood Pressure 127/64 O2 Sat by Pulse 93 L Oximetry 01/30/23 01/30/23 14:29 16:01 Temperature Pulse Rate 77 68 Respiratory 18 20 Rate Blood Pressure 157/96 O2 Sat by Pulse 98 Oximetry Medical Decision Making - Medical Decision Making Was pt. sent in by a medical professional or institution (, PA, CUSTOMER TRAINER, urgent care, hospital, or intermediate...) When possible be specific @ -[No] Did you speak to anyone other than the patient for history (EMS, parent, family, police, friend...)? What history was obtained from this source @ -[No] Did you review nursing and triage notes (agree or disagree)? Why? @ -[I reviewed and agree with nursing and triage notes] Were old charts reviewed (outside hosp., previous admission, EMS record, old EKG, old radiological studies, urgent care reports/EKG's, intermediate records)? Report findings @ -[No old charts were reviewed] Differential Diagnosis (chest pain, altered mental status, abdominal pain women, abdominal pain men, vaginal bleeding, weakness, fever, dyspnea, syncope, headache, dizziness, GI bleed, back pain, seizure, CVA, palpatations, mental health, musculoskeletal)? @ -[Differential Abdominal Pain Men: Appendicitis, cholecystitis, diverticulosis, ischemic bowel, pancreatitis, hepatitis, UTI, gastroenteritis, AAA, incarcerated hernia, bowel obstruction, constipation, inflammatory bowel, hepatitis, peptic ulcer disease, splenic infarction, perforated viscus, testicular torsion, this is not meant to be an all-inclusive list] EKG interpreted by me (3pts min.). @ -[EKG at 1439 shows sinus rhythm, no specific T wave abnormality comparable to EKG in 2021 rate 77, KS 153, QRS 75, QTQTc [id number]] X-rays interpreted by me (1pt min.). @ -[Chest x-ray showed no acute cardiopulmonary disease process, COPD changes KUB shows nonspecific bowel gas pattern without radiological evidence for acute process] CT interpreted by me (1pt min.). @ -[CT abdomen and pelvis with contrast showed acute diverticulitis of the proximal sigmoid colon left pelvis with focal small abscess and focal perforation or free air] U/S interpreted by me (1pt. min.). @ -[None done] What testing was considered but not performed or refused? (CT, X-rays, U/S, labs)? Why? @ -[None] What meds were considered but not given or refused? Why? @ -[None] Did you discuss the management of the patient with other professionals (professionals i.e. Dr., PA, CUSTOMER TRAINER, lab, RT, psych nurse, home health care social worker, licensed practical vocational nurse, teacher, neighborhood conservation officer, case operator)? Give summary @ -[Yes. Case was discussed with Dr. Michael regarding CT findings including acute diverticulitis with small focal abscess and focal perforation or free air, recommended admit to hospital with consult to surgery.] Was smoking cessation discussed for >3mins.? @ -[No] Was critical care preformed (if so, how long)? @ -[No] Were there social determinants of health that impacted care today? How? (Homelessness, low income, unemployed, alcoholism, drug addiction, transportation, low edu. Level, literacy, decrease access to med. care, alf, rehab)? @ -[No] Was there de-escalation of care discussed even if they declined (Discuss DNR or withdrawal of care, Hospice)? DNR status @ -[No] What co-morbidities impacted this encounter? (DM, HTN, Smoking, COPD, CAD, Cancer, CVA, ARF, Chemo, Hep., AIDS, mental health diagnosis, sleep apnea, morbid obesity)? @ -[None] Was patient admitted / discharged? Hospital course, mention meds given and route, prescriptions, significant lab abnormalities, going to OR and other pertinent info. @ -Admitted. Patient presented to the emergency department with chief complaint of abdominal pain x2 week, worse in the past 3 days. CBC showed WBC 9.9, hbg 14.5, hct 44; CMP showed na137, potassium 4.6; UA within normal limits. Chest x-ray was obtained for shortness of breath which showed no acute process, COPD changes. KUB showed no acute process. CT abdomen and pelvis with contrast showed acute diverticulitis of the proximal sigmoid colon with pelvis with focal small abscess and focal perforation or free air. Case was discussed with Dr. Michael who recommended admission to hospital medicine with surgery con dmaari. 1 L bolus of normal saline was administered, maintenance 130mL/hr. blood cultures obtained. Zosyn administered. [facility]. ] Undiagnosed new problem with uncertain prognosis? @ -[No] Drug Therapy requiring intensive monitoring for toxicity (Heparin, Nitro, Insulin, Cardizem)? @ -[No] Were any procedures done? @ -[No] Diagnosis/symptom? @ -[Diverticulitis with focal abscess and focal perforation or free air] Acute, or Chronic, or Acute on Chronic? @ -[Acute] Uncomplicated (without systemic symptoms) or Complicated (systemic symptoms)? @ -[default] Side effects of treatment? @ -[No] Exacerbation, Progression, or Severe Exacerbation? @ -[No] Poses a threat to life or bodily function? How? (Chest pain, USA, LA, pneumonia, PE, COPD, DKA, ARF, appy, cholecystitis, CVA, Diverticulitis, Homicidal, Suicidal, threat to staff... and all critical care pts) @ -[Yes diverticulitis] - Lab Data Result diagrams: 01/30/23 14:08 01/30/23 14:08 Lab Results 01/30/23 01/30/23 01/30/23 Range/Units 14:08 14:08 14:08 WBC 9.9 (3.8-10.6) k/uL RBC 4.99 (4.30-5.90) m/uL Hgb 14.5 (13.0-17.5) gm/dL Hct 44.0 (39.0-53.0) % MCV 88.2 (80.0-100.0) fL MCH 29.1 (25.0-35.0) pg MCHC 33.0 (31.0-37.0) g/dL RDW 14.1 (11.5-15.5) % Plt Count 207 (150-450) k/uL MPV 7.0 Neutrophils % 78 % Lymphocytes % 11 % Monocytes % 7 % Eosinophils % 2 % Basophils % 0 % Neutrophils # 7.7 (1.3-7.7) k/uL Lymphocytes # 1.1 (1.0-4.8) k/uL Monocytes # 0.7 (0-1.0) k/uL Eosinophils # 0.2 (0-0.7) k/uL Basophils # 0.0 (0-0.2) k/uL PT 9.5 (9.0-12.0) sec INR 0.9 (<1.2) APTT 23.8 (22.0-30.0) sec Sodium 137 (137-145) mmol/L Potassium 4.6 (3.5-5.1) mmol/L Chloride 106 (98-107) mmol/L Carbon Dioxide 21 L (22-30) mmol/L Anion Gap 10 mmol/L BUN 18 (9-20) mg/dL Creatinine 1.17 (0.66-1.25) mg/dL Est GFR (CKD-EPI)AfAm 73 (>60 ml/min/1.73 sqM) Est GFR (CKD-EPI)NonAf 63 (>60 ml/min/1.73 sqM) Glucose 109 H (74-99) mg/dL Plasma Lactic Acid Alexandre (0.7-2.0) mmol/L Calcium 8.9 (8.4-10.2) mg/dL Total Bilirubin 0.7 (0.2-1.3) mg/dL AST 23 (17-59) U/L ALT 37 (4-49) U/L Alkaline Phosphatase 70 (38-126) U/L Troponin I (0.000-0.034) ng/mL NT-Pro-B Natriuret Pep pg/mL Total Protein 6.8 (6.3-8.2) g/dL Albumin 3.9 (3.5-5.0) g/dL Urine Color Urine Appearance (Clear) Urine pH (5.0-8.0) Ur Specific Phillips (1.001-1.035) Urine Protein (Negative) Urine Glucose (UA) (Negative) Urine Ketones (Negative) Urine Blood (Negative) Urine Nitrite (Negative) Urine Bilirubin (Negative) Urine Urobilinogen (<2.0) mg/dL Ur Leukocyte Esterase (Negative) 01/30/23 01/30/23 01/30/23 Range/Units 14:08 14:08 14:08 WBC (3.8-10.6) k/uL RBC (4.30-5.90) m/uL Hgb (13.0-17.5) gm/dL Hct (39.0-53.0) % MCV (80.0-100.0) fL MCH (25.0-35.0) pg MCHC (31.0-37.0) g/dL RDW (11.5-15.5) % Plt Count (150-450) k/uL MPV Neutrophils % % Lymphocytes % % Monocytes % % Eosinophils % % Basophils % % Neutrophils # (1.3-7.7) k/uL Lymphocytes # (1.0-4.8) k/uL Monocytes # (0-1.0) k/uL Eosinophils # (0-0.7) k/uL Basophils # (0-0.2) k/uL PT (9.0-12.0) sec INR (<1.2) APTT (22.0-30.0) sec Sodium (137-145) mmol/L Potassium (3.5-5.1) mmol/L Chloride (98-107) mmol/L Carbon Dioxide (22-30) mmol/L Anion Gap mmol/L BUN (9-20) mg/dL Creatinine (0.66-1.25) mg/dL Est GFR (CKD-EPI)AfAm (>60 ml/min/1.73 sqM) Est GFR (CKD-EPI)NonAf (>60 ml/min/1.73 sqM) Glucose (74-99) mg/dL Plasma Lactic Acid Alexandre 1.3 (0.7-2.0) mmol/L Calcium (8.4-10.2) mg/dL Total Bilirubin (0.2-1.3) mg/dL AST (17-59) U/L ALT (4-49) U/L Alkaline Phosphatase (38-126) U/L Troponin I <0.012 (0.000-0.034) ng/mL NT-Pro-B Natriuret Pep 55 pg/mL Total Protein (6.3-8.2) g/dL Albumin (3.5-5.0) g/dL Urine Color Urine Appearance (Clear) Urine pH (5.0-8.0) Ur Specific Phillips (1.001-1.035) Urine Protein (Negative) Urine Glucose (UA) (Negative) Urine Ketones (Negative) Urine Blood (Negative) Urine Nitrite (Negative) Urine Bilirubin (Negative) Urine Urobilinogen (<2.0) mg/dL Ur Leukocyte Esterase (Negative) 01/30/23 Range/Units 15:52 WBC (3.8-10.6) k/uL RBC (4.30-5.90) m/uL Hgb (13.0-17.5) gm/dL Hct (39.0-53.0) % MCV (80.0-100.0) fL MCH (25.0-35.0) pg MCHC (31.0-37.0) g/dL RDW (11.5-15.5) % Plt Count (150-450) k/uL MPV Neutrophils % % Lymphocytes % % Monocytes % % Eosinophils % % Basophils % % Neutrophils # (1.3-7.7) k/uL Lymphocytes # (1.0-4.8) k/uL Monocytes # (0-1.0) k/uL Eosinophils # (0-0.7) k/uL Basophils # (0-0.2) k/uL PT (9.0-12.0) sec INR (<1.2) APTT (22.0-30.0) sec Sodium (137-145) mmol/L Potassium (3.5-5.1) mmol/L Chloride (98-107) mmol/L Carbon Dioxide (22-30) mmol/L Anion Gap mmol/L BUN (9-20) mg/dL Creatinine (0.66-1.25) mg/dL Est GFR (CKD-EPI)AfAm (>60 ml/min/1.73 sqM) Est GFR (CKD-EPI)NonAf (>60 ml/min/1.73 sqM) Glucose (74-99) mg/dL Plasma Lactic Acid Alexandre (0.7-2.0) mmol/L Calcium (8.4-10.2) mg/dL Total Bilirubin (0.2-1.3) mg/dL AST (17-59) U/L ALT (4-49) U/L Alkaline Phosphatase (38-126) U/L Troponin I (0.000-0.034) ng/mL NT-Pro-B Natriuret Pep pg/mL Total Protein (6.3-8.2) g/dL Albumin (3.5-5.0) g/dL Urine Color Yellow Urine Appearance Clear (Clear) Urine pH 6.0 (5.0-8.0) Ur Specific Phillips 1.037 H (1.001-1.035) Urine Protein Negative (Negative) Urine Glucose (UA) Negative (Negative) Urine Ketones Negative (Negative) Urine Blood Negative (Negative) Urine Nitrite Negative (Negative) Urine Bilirubin Negative (Negative) Urine Urobilinogen <2.0 (<2.0) mg/dL Ur Leukocyte Esterase Negative (Negative) Disposition Clinical Impression: Diverticulitis Disposition: ADMITTED IP TO THIS [facility] Condition: Stable Is patient prescribed a controlled substance at d/c from ED?: No Referrals: James Mascorro III, MD [Primary Care Provider] - 1-2 days Time of Disposition: 17:10 Decision Date: 01/30/23 Decision Time: 16:30
--- NOTE | 2023-01-30 15:25 | CT ---
EXAMINATION TYPE: CT abdomen pelvis w con DATE OF EXAM: 01/30/2023 COMPARISON: CT abdomen and pelvis 2018 HISTORY: abdominal pain. Not further specified CT DLP: 1677.1 mGycm, Automated Exposure Control for Dose Reduction was Utilized. CONTRAST: CT scan of the abdomen and pelvis is performed without oral and with IV Contrast, patient injected wi th 100 mL of Isovue 300. FINDINGS: LUNG BASES: Some calcification at level of the aortic valve. Coronary artery calcification is seen. LIVER/GB: Cholecystectomy clips are seen. Liver is diffusely low dense consistent with fatty infiltra tive hepatocellular disease. There is simple appearing 6.1 cm thin-walled cyst lower right hepatic lo be increased in size from prior study. Adjacent smaller hypodense lesion medially favors benign thin- walled cyst. PANCREAS: No significant abnormality is seen. SPLEEN: No significant abnormality is seen. ADRENALS: No significant abnormality is seen. KIDNEYS: Small simple appearing thin-walled cysts scattered throughout both kidneys are present. BOWEL: Suboptimal evaluation without enteric contrast. No suspicious small or large bowel dilatation. Diffuse colonic diverticulosis with focal moderate to severe wall thickening in the proximal sigmoid colon of the left pelvis axial image 72. There is mild to moderate adjacent fat stranding with focal perforation axial image 76 and thin-walled fluid collection measuring 2.1 cm axial image 74 consiste nt with small abscess. PROSTATE/SEMINAL VESICLES: No gross abnormality seen. LYMPH NODES: No greater than 1cm abdominal or pelvic lymph nodes are appreciated. OSSEOUS STRUCTURES: Metallic hardware from right hip arthroplasty causes streak artifact limiting rebekah luation of pelvic structures. OTHER: No significant additional abnormality is seen. IMPRESSION: CT findings are consistent with acute diverticulitis of the proximal sigmoid colon left p lata with focal small abscess and focal perforation or free air. Case discussed with ordering ER physician via telephone at time of dictation
--- NOTE | 2023-01-30 15:28 | XR ---
EXAMINATION TYPE: XR KUB DATE OF EXAM: 01/30/2023 2:58 PM INDICATION: Patient age:Male; 67 years old; Reason for study: abdominal pain; COMPARISON: None. TECHNIQUE: One radiographic view of the abdomen was obtained. FINDINGS: The bowel gas pattern is nonspecific without dilated loops of small or large bowel. There i s no evidence for organomegaly or pneumoperitoneum. The osseous structures are intact. No abnormal calcifications are present. Fecal material and gas are demonstrated throughout the colon and rectum. Right upper quadrant cholecystectomy clips. IMPRESSION: Nonspecific bowel gas pattern without radiographic evidence for acute process.
[2023-01-30] MEDS ORDERED: SODIUM CHLORIDE 0.9% 1,000 ML IV ONE (15:29)
--- NOTE | 2023-01-30 15:29 | XR ---
EXAMINATION TYPE: XR chest 2V DATE OF EXAM: 01/30/2023 2:58 PM COMPARISON: Chest radiographs from 09/11/2022 TECHNIQUE: XR chest 2V Frontal and lateral views of the chest. CLINICAL INDICATION:Male, 67 years old with history of difficulty breathing; FINDINGS: Lungs/Pleura: There is flattening of the diaphragm with increased lucency of the lungs. No evidence o f pneumothorax, pleural effusion or focal consolidation. Pulmonary vascularity: Unremarkable. Heart/mediastinum: Cardiomediastinal silhouette is unremarkable. Musculoskeletal: No acute osseous pathology. IMPRESSION: 1. No acute cardiopulmonary disease process. 2. COPD changes.
[2023-01-30] MEDS: PIPERACILLIN-TAZOBACTAM 3.375 GM in SODIUM CHLORIDE 0.9% 100 ML IVPB SCH ×2 (15:58→23:53)
[2023-01-30] MEDS: SODIUM CHLORIDE 0.9% 1,000 ML IV SCH ×2 (15:58→23:53)
[2023-01-30] MEDS ORDERED: NALOXONE 0.4 MG/ML 1 ML VIAL IV PRN (16:35)
[2023-01-30 17:00] LABS: Appearance,Urine Clear (Clear); Bilirubin,Urine Negative (Negative); Blood,Urine Negative (Negative); Color,Urine Yellow; Glucose,Urine (UA) Negative (Negative); Ketones,Urine Negative (Negative); Leukocyte Esterase,Urine Negative (Negative); Nitrite,Urine Negative (Negative); Protein,Urine Negative (Negative); Specific Gravity,Urine 1.037 (1.001-1.035); Urobilinogen,Urine <2.0 mg/dL (<2.0)
--- NOTE | 2023-01-30 18:05 | P.HPIM ---
History of Present Illness This is a pleasant 67 years old male with past medical history of COPD/asthma, hypertension, history of arthritis, sleep apnea Patient presents because of abdominal pain for 2 weeks duration, his pain in the lower abdomen about 5/10 in severity felt like sharp No vomiting, no diarrhea Patient complains from also chronic dyspnea, no coughing, no chest pain He denies smoking alcohol or illicit drug He denies urinary symptoms, no dysuria urgency, he has little headache and dizziness but no confusion weakness or numbness Patient is afebrile and vitals are stable He has unremarkable labs including CBC, INR, BMP, liver enzymes and urine analysis in CT of the abdomen and pelvis with contrast: Hepatic cyst 6.1 cm adjacent smaller hypodense lesion medially favors benign thin-walled cyst. Diffuse colonic diverticulosis with focal moderate to severe wall thickening in the proximal sigmoid colon of the left pelvis with there is mild to moderate adjacent Deepthi stranding with focal perforation and thin-walled fluid collection measuring 2.1 cm consistent with small abscess, with focal perforation or free air I spoke with Sandrita from ER team she told me she already talked to Dr. Michael the general surgeon on-call and he wants the patient to be admitted under medicine service and he will evaluate the patient for surgical treatment. Patient is started on Zosyn and aggressive fluid hydration in the emergency room Review of Systems Review of systems CONSTITUTIONAL: No fever, no malaise, no fatigue. HEENT: No recent visual problems or hearing problems. Denied any sore throat. CARDIOVASCULAR: No orthopnea, PND, no palpitations, no syncope. PULMONARY: No shortness of breath, no cough, no hemoptysis. GASTROINTESTINAL: No diarrhea, no nausea, no vomiting,. Normoactive bowel sound s. NEUROLOGICAL: No headaches, no weakness, no numbness. HEMATOLOGICAL: Denies any bleeding or petechiae. GENITOURINARY: Denies any burning micturition, frequency, or urgency. MUSCULOSKELETAL/RHEUMATOLOGICAL: Denies any joint pain, swelling, or any muscle pain. ENDOCRINE: Denies any polyuria or polydipsia. Past Medical History Past Medical History: Asthma, COPD, Hypertension, Osteoarthritis (OA), Skin Disorder, Sleep Apnea/CPAP/BIPAP Additional Past Medical History / Comment(s): psoriasis, uses cpap machine History of Any Multi-Drug Resistant Organisms: None Reported Past Surgical History: Appendectomy, Cholecystectomy, Heart Catheterization, Joint Replacement, Orthopedic Surgery Additional Past Surgical History / Comment(s): repair fx. left hand with pins/plate, hemorrhoidectomy, bronchoscopy x2, colonscopies, arthroscopy knee, rt hip replacement, Past Anesthesia/Blood Transfusion Reactions: Previous Problems w/ Anesthesia Additional Past Anesthesia/Blood Transfusion Reaction / Comment(s): per 11/29/17 "during bronchoscopy, stopped breathing rescheduled to 12/04/17 was d one under general anesthesic and was fine" Past Psychological History: No Psychological Hx Reported Smoking Status: Never smoker Past Alcohol Use History: None Reported Past Drug Use History: Marijuana - Past Family History Father Family Medical History: Cancer Mother Family Medical History: Cancer Sister(s) Family Medical History: Cancer Medications and Allergies Home Medications Medication Instructions Recorded Confirmed Type Folic Acid 1 mg PO DAILY #30 tablet 03/01/18 09/12/22 Rx Furosemide [Lasix] 20 mg PO BID 10/28/18 09/12/22 History Sacubitril/Valsartan [Entresto 24 1 tab PO BID 10/28/18 09/12/22 History mg-26 mg Tablet] amLODIPine [Norvasc] 5 mg PO BID 10/28/18 09/12/22 History Ipratropium-Albuterol Nebulize 3 ml INHALATION RT-QID 08/03/20 09/12/22 History [Duoneb 0.5 mg-3 mg/3 ml Soln] Potassium Chloride [Potassium 10 meq PO HS 08/03/20 09/12/22 History Chloride ER] Testosterone Cypionate 100 mg IM WE 08/03/20 09/12/22 History [Depo-Testosterone] Ergocalciferol [Vitamin D2 (1250 1,250 mcg PO TU 07/25/22 09/12/22 History Mcg = 14590 Iu)] Oseltamivir [Tamiflu] 75 mg PO DAILY #5 cap 09/12/22 Rx guaiFENesin [Mucinex] 600 mg PO Q12HR #14 tab 09/12/22 Rx predniSONE [Deltasone] 40 mg PO DAILY #10 tab 09/12/22 Rx Allergies Allergy/AdvReac Type Severity Reaction Status Date / Time codeine Allergy Unknown Verified 01/30/23 13:00 Sulfa (Sulfonamide Allergy Rash/Hives Verified 01/30/23 13:00 Antibiotics) Physical Exam Vitals: Vital Signs Temp Pulse Resp BP Pulse Ox 01/30/23 16:01 68 20 157/96 98 01/30/23 14:29 77 18 01/30/23 14:19 88 18 01/30/23 13:45 20 01/30/23 12:57 98.4 F 77 20 127/64 93 L Intake and Output 01/30/23 01/30/23 01/30/23 06:59 14:59 22:59 Other: Weight 99.79 kg -GENERAL: The patient is alert and oriented x3, not in any acute distress. Obese. HEENT: Pupils are round and equally reacting to light. EOMI. No scleral icterus. No conjunctival pallor. Normocephalic, atraumatic. No pharyngeal erythema. No thyromegaly. CARDIOVASCULAR: S1 and S2 present. No murmurs, rubs, or gallops. PULMONARY: Chest is clear to auscultation, no wheezing or crackles. -ABDOMEN: Soft, suprapubic and LLQ tenderness, no rebound tenderness or guarding, nondistended, normoactive bowel sounds. No palpable organomegaly. MUSCULOSKELETAL: No joint swelling or deformity. -EXTREMITIES: No cyanosis, clubbing,. Bilateral pitting leg edema. NEUROLOGICAL: Gross neurological examination did not reveal any focal deficits. SKIN: No rashes. no petechiae. Results CBC & Chem 7: 01/30/23 14:08 01/30/23 14:08 Labs: Abnormal Lab Results - Last 24 Hours (Table) 01/30/23 Range/Units 14:08 Carbon Dioxide 21 L (22-30) mmol/L Glucose 109 H (74-99) mg/dL Assessment and Plan Assessment: Acute proximal sigmoid diverticulitis with perforation and colonic abscess 2.1 cm COPD with no acute exacerbation Hypertension History of osteoarthritis History of sleep apnea obesity with BMI of 32.5 Plan: Continue with Zosyn and normal saline Bowel rest Pain management Surgery team consult Labs and medication were reviewed.. Continue same treatment. Continue with symptomatic treatment. Resume home medication. Monitor labs and vitals. DVT and GI prophylaxis. Further recommendations as per clinical course of the patient DVT prophylaxis: Subcutaneous heparin GI Prophylaxis: Pepcid PT/OT: Pending Prognosis is guarded
[2023-01-30] MEDS: FAMOTIDINE 20 MG/2 ML VIAL IV SCH (23:52)
[2023-01-30] MEDS: HEPARIN SODIUM,PORCINE/PF 5,000 UNIT/0.5 ML SYRINGE SQ SCH (23:52)
[2023-01-31] MEDS: IPRATROPIUM-ALBUTEROL 3 ML NEB INHALATION PRN ×2 (00:12→07:52)
[2023-01-31] MEDS: HEPARIN SODIUM,PORCINE/PF 5,000 UNIT/0.5 ML SYRINGE SQ SCH ×2 (08:38→22:29)
[2023-01-31] MEDS: FOLIC ACID 1 MG TAB PO SCH (08:38)
[2023-01-31] MEDS: PIPERACILLIN-TAZOBACTAM 3.375 GM in SODIUM CHLORIDE 0.9% 100 ML IVPB SCH ×2 (08:38→15:58)
[2023-01-31] MEDS: FAMOTIDINE 20 MG/2 ML VIAL IV SCH ×2 (08:39→22:28)
[2023-01-31] MEDS: SACUBITRIL/VALSARTAN 24 MG-26 MG TABLET PO SCH ×2 (08:39→22:28)
[2023-01-31] MEDS: FUROSEMIDE 20 MG TAB PO SCH ×2 (08:39→22:28)
[2023-01-31] MEDS ORDERED: HYDROmorphone 1 MG/ML 1 ML SYRINGE IVP PRN (09:41)
[2023-01-31] MEDS: IPRATROPIUM-ALBUTEROL 3 ML NEB INHALATION SCH ×3 (11:23→18:20)
--- NOTE | 2023-01-31 11:55 | P.GSCN ---
History of Present Illness Consult date: 01/31/23 History of present illness: CHIEF COMPLAINT: Abdominal pain HISTORY OF PRESENT ILLNESS: This is a 67-year-old male with a known history of diverticulosis. Patient presents to the hospital with suprapubic and left lower quadrant abdominal pain for the last 2 weeks. He reports that he had been doing with constipation at home in the last night he did have 3 episodes of diarrhea. No blood in stools. He denies any fever, chills or sweats. Denies any nausea or vomiting. Denies a prior history of diverticulitis. Computed tomography scan had shown evidence of diverticulitis of the sigmoid colon with small abscess and focal perforation. Patient is on IV antibiotics. Patient's last colonoscopy was in 2019 revealed diverticulosis and a rectal polyp. Past surgi sarah history does include appendectomy and cholecystectomy. Patient seen and examined with Dr. Moncada PAST MEDICAL HISTORY: Asthma, COPD, Hypertension, Osteoarthritis (OA), Skin Disorder, Sleep Ap iva/CPAP/BIPAP PAST SURGICAL HISTORY: See below MEDICATIONS: See below ALLERGIES: See below SOCIAL HISTORY: No illicit drug use. REVIEW OF SYSTEMS: CONSTITUTIONAL: Denies fever or chills. HEENT: Denies blurred vision, vision changes, or eye pain. Denies hemoptysis CARDIOVASCULAR: Denies chest pain or pressure. RESPIRATORY: No shortness of breath. GASTROINTESTINAL: See HPI for pertinent findings HEMATOLOGIC: Denies bleeding disorders. GENITOURINARY: Denies any blood in urine or increased urinary frequency. SKIN: Denies pruitis. Denies rash. PHYSICAL EXAM: VITAL SIGNS: Reviewed GENERAL: Well-developed in no acute distress. HEENT: No sclera icterus. Extraocular movements grossly intact. Moist buccal mucosa. Head is atraumatic, normocephalic. No nasal drainage. ABDOMEN: Soft. Nondistended. Diffuse tenderness with more pain noted in the left lower quadrant and suprapubic with palpation NEUROLOGIC: Alert and oriented. Cranial nerves II through XII grossly intact. LABORATORY DATA: WBC 9.9 HGB 14.5 plt 207 Na 137 K 4.6 Cr 1.17 LFTs normal UA negative for infection IMAGING: Computed tomography scan of pelvis findings are consistent with acute diverticulitis of the proximal sigmoid colon left pelvis with focal small abscess and local perforation or free air ASSESSMENT: 1. Acute sigmoid diverticulitis with abscess and microperforation PLAN: -Continue to monitor patient closely -Continue conservative management -Start clear liquid diet -Continue IV antibiotics -Continue pain medication as needed Thank you for this consultation Physician [employer] note has been reviewed by physician. Signing provider agrees with the documented findings, assessment, and plan of care. Past Medical History Past Medical History: Asthma, COPD, Hypertension, Osteoarthritis (OA), Skin Disorder, Sleep Apnea/CPAP/BIPAP Additional Past Medical History / Comment(s): psoriasis, uses cpap machine History of Any Multi-Drug Resistant Organisms: None Reported Past Surgical History: Appendectomy, Cholecystectomy, Heart Catheterization, Joint Replacement, Orthopedic Surgery Additional Past Surgical History / Comment(s): repair fx. left hand with pins/plate, hemorrhoidectomy, bronchoscopy x2, colonscopies, arthroscopy knee, rt hip replacement, Past Anesthesia/Blood Transfusion Reactions: Previous Problems w/ Anesthesia Additional Past Anesthesia/Blood Transfusion Reaction / Comm: per 11/29/17 "during bronchoscopy, stopped breathing rescheduled to 12/04/17 was done under g eneral anesthesic and was fine" Past Psychological History: No Psychological Hx Reported Smoking Status: Former smoker Past Alcohol Use History: None Reported Additional Past Alcohol Use History / Comment(s): started smoking at age 13 was smoking 1.5 ppd and quit nov 2017 Past Drug Use History: Marijuana Additional Drug Use History / Comment(s): occasional edible - Past Family History Father Family Medical History: Cancer Mother Family Medical History: Cancer Sister(s) Family Medical History: Cancer Medications and Allergies Home Medications Medication Instructions Recorded Confirmed Type Folic Acid 1 mg PO DAILY #30 tablet 03/01/18 01/30/23 Rx Furosemide [Lasix] 20 mg PO BID 10/28/18 01/30/23 History Sacubitril/Valsartan [Entresto 24 1 tab PO BID 10/28/18 01/30/23 History mg-26 mg Tablet] Potassium Chloride [Potassium 10 meq PO DAILY 08/03/20 01/30/23 History Chloride ER] Testosterone Cypionate 100 mg IM WE 08/03/20 01/30/23 History [Depo-Testosterone] Cetirizine HCl [Zyrtec] 10 mg PO HS 01/30/23 01/30/23 History NIFEdipine XL [Procardia XL] 60 mg PO DAILY 01/30/23 01/30/23 History Allergies Allergy/AdvReac Type Severity Reaction Status Date / Time codeine Allergy Unknown Verified 01/30/23 17:58 Sulfa (Sulfonamide Allergy Rash/Hives Verified 01/30/23 17:58 Antibiotics) Surgical - Exam Vital Signs Temp Pulse Resp BP Pulse Ox 98.4 F 77 20 127/64 93 L 01/30/23 12:57 01/30/23 12:57 01/30/23 12:57 01/30/23 12:57 01/30/23 12:57 Results - Labs 01/30/23 14:08 01/30/23 14:08 Abnormal Lab Results - Last 24 Hours (Table) 01/30/23 01/30/23 Range/Units 14:08 15:52 Carbon Dioxide 21 L (22-30) mmol/L Glucose 109 H (74-99) mg/dL Ur Specific [place] 1.037 H (1.001-1.035) Diabetes panel 01/30/23 Range/Units 14:08 Sodium 137 (137-145) mmol/L Potassium 4.6 (3.5-5.1) mmol/L Chloride 106 (98-107) mmol/L Carbon Dioxide 21 L (22-30) mmol/L BUN 18 (9-20) mg/dL Creatinine 1.17 (0.66-1.25) mg/dL Glucose 109 H (74-99) mg/dL Calcium 8.9 (8.4-10.2) mg/dL AST 23 (17-59) U/L ALT 37 (4-49) U/L Alkaline Phosphatase 70 (38-126) U/L Total Protein 6.8 (6.3-8.2) g/dL Albumin 3.9 (3.5-5.0) g/dL Calcium panel 01/30/23 Range/Units 14:08 Calcium 8.9 (8.4-10.2) mg/dL Albumin 3.9 (3.5-5.0) g/dL Pituitary panel 01/30/23 Range/Units 14:08 Sodium 137 (137-145) mmol/L Potassium 4.6 (3.5-5.1) mmol/L Chloride 106 (98-107) mmol/L Carbon Dioxide 21 L (22-30) mmol/L BUN 18 (9-20) mg/dL Creatinine 1.17 (0.66-1.25) mg/dL Glucose 109 H (74-99) mg/dL Calcium 8.9 (8.4-10.2) mg/dL Adrenal panel 01/30/23 Range/Units 14:08 Sodium 137 (137-145) mmol/L Potassium 4.6 (3.5-5.1) mmol/L Chloride 106 (98-107) mmol/L Carbon Dioxide 21 L (22-30) mmol/L BUN 18 (9-20) mg/dL Creatinine 1.17 (0.66-1.25) mg/dL Glucose 109 H (74-99) mg/dL Calcium 8.9 (8.4-10.2) mg/dL Total Bilirubin 0.7 (0.2-1.3) mg/dL AST 23 (17-59) U/L ALT 37 (4-49) U/L Alkaline Phosphatase 70 (38-126) U/L Total Protein 6.8 (6.3-8.2) g/dL Albumin 3.9 (3.5-5.0) g/dL
--- NOTE | 2023-01-31 12:45 | P.CNPUL ---
History of Present Illness Consult date: 01/31/23 Requesting physician: David Kenney Reason for consult: COPD Chief complaint: Abdominal pain, shortness of breath History of present illness: This a very pleasant 67-year-old male patient who has history of hyperlipidemia, congestive heart failure, benign prosthetic hyperplasia, hypertension, o bstructive sleep apnea maintained on CPAP at 14 cm of water, moderate chronic obstructive pulmonary disease maintained on Symbicort and albuterol and follows with Dr. Escamilla in our office for the same. He was treated for COPD exacerbation on 01/09/2023. He presented here to the emergency room yesterday with complaints of lower abdominal pain and shortness of breath. He stated his shortness of breath had gotten worse the past 3 days. He was having orthopnea. He was having some bilateral lower extremity edema. He is having lower abdominal pain for the past 2 weeks but had been increasing in intensity. Computed tomography scan of the abdomen revealed acute diverticulitis of the proximal sigmoid colon left pelvis with focal small abscess and focal perforation or free air. X-ray of the abdomen revealed nonspecific bowel gas pattern without radiographic evidence for acute process. Chest x-ray revealed no acute pulmonary process. Evidence of COPD. He is seen today in consultation on the regular medical floor. He is currently sitting up in bed. Awake and alert in no acute distress. Still having some lower abdominal discomfort. Still having some shortness of breath with minimal conversation and minimal exertion. He is maintaining good O2 saturations in the 90s on room air. He's been afebrile. Hemodynamically stable. White count 9.9. Hemoglobin 14.5. INR 0.9. Sodium 137. Potassium 4.6. Bicarb 21. BUN 18. Creatinine 1.17. Glucose 109. AST 23. ALT 37. Troponin negative 1. ProBNP 55. He had been seen by surgical services who are planning to continue conservative management. He's been initiated on Zosyn. Resume Symbicort and DuoNeb inhalations. Review of Systems REVIEW OF SYSTEMS: CONSTITUTIONAL: Denies any recent significant weight loss or weight gain. EYES: Denies change in vision. EARS, NOSE, MOUTH, THROAT: Denies headaches, denies sore throat. CARDIOVASCULAR: Denies chest pain, palpitations or syncopal episodes. RESPIRATORY: Positive for shortness of breath, no cough, congestion or hemoptysis. GASTROINTESTINAL: Positive for abdominal pain GENITOURINARY: Denies hematuria, denies infections. MUSKULOSKELETAL: Denies pain, denies swelling. INTEGUMENTARY: Denies rash, denies eczema. NEUROLOGICAL: Denies recent memory loss, no recent seizure activity. PSYCHIATRIC: Denies anxiety, denies depression. HEMATOLOGIC/LYMPHATIC: Denies anemia, denies enlarged lymph nodes. Past Medical History Past Medical History: Asthma, COPD, Hypertension, Osteoarthritis (OA), Skin Disorder, Sleep Apnea/CPAP/BIPAP Additional Past Medical History / Comment(s): psoriasis, uses cpap machine History of Any Multi-Drug Resistant Organisms: None Reported Past Surgical History: Appendectomy, Cholecystectomy, Heart Catheterization, Joint Replacement, Orthopedic Surgery Additional Past Surgical History / Comment(s): repair fx. left hand with pins/plate, hemorrhoidectomy, bronchoscopy x2, colonscopies, arthroscopy knee, rt hip replacement, Past Anesthesia/Blood Transfusion Reactions: Previous Problems w/ Anesthesia Additional Past Anesthesia/Blood Transfusion Reaction / Comment(s): per 11/29/17 "during bronchoscopy, stopped breathing rescheduled to 12/04/17 was done under general anesthesic and was fine" Past Psychological History: No Psychological Hx Reported Smoking Status: Former smoker Past Alcohol Use History: None Reported Additional Past Alcohol Use History / Comment(s): started smoking at age 13 was smoking 1.5 ppd and quit nov 2017 Past Drug Use History: Marijuana Additional Drug Use History / Comment(s): occasional edible - Past Family History Father Family Medical History: Cancer Mother Family Medical History: Cancer Sister(s) Family Medical History: Cancer Medications and Allergies Home Medications Medication Instructions Recorded Confirmed Type Folic Acid 1 mg PO DAILY #30 tablet 03/01/18 01/30/23 Rx Furosemide [Lasix] 20 mg PO BID 10/28/18 01/30/23 History Sacubitril/Valsartan [Entresto 24 1 tab PO BID 10/28/18 01/30/23 History mg-26 mg Tablet] Potassium Chloride [Potassium 10 meq PO DAILY 08/03/20 01/30/23 History Chloride ER] Testosterone Cypionate 100 mg IM WE 08/03/20 01/30/23 History [Depo-Testosterone] Cetirizine HCl [Zyrtec] 10 mg PO HS 01/30/23 01/30/23 History NIFEdipine XL [Procardia XL] 60 mg PO DAILY 01/30/23 01/30/23 History Allergies Allergy/AdvReac Type Severity Reaction Status Date / Time codeine Allergy Unknown Verified 01/30/23 17:58 Sulfa (Sulfonamide Allergy Rash/Hives Verified 01/30/23 17:58 Antibiotics) Physical Exam Vitals: Vital Signs Temp Pulse Pulse Resp BP BP Pulse Ox 01/31/23 11:52 98 F 84 18 147/74 97 01/31/23 11:33 84 01/31/23 11:23 83 01/31/23 08:01 80 01/31/23 07:54 97 01/31/23 07:52 84 01/31/23 07:25 98.3 F 83 18 156/84 97 01/31/23 02:00 99.7 F H 85 16 142/75 96 01/31/23 00:27 76 01/31/23 00:13 76 01/30/23 21:28 98.1 F 77 16 156/75 96 01/30/23 20:32 80 20 146/83 96 01/30/23 16:01 68 20 157/96 98 01/30/23 14:29 77 18 01/30/23 14:19 88 18 01/30/23 13:45 20 01/30/23 12:57 98.4 F 77 20 127/64 93 L Intake and Output 01/30/23 01/31/23 01/31/23 22:59 06:59 14:59 Intake Total 0 Balance 0 Intake: Oral 0 Other: Voiding Method Toilet # Voids 2 # Bowel Movements 4 Weight 103 kg GENERAL EXAM: Alert, pleasant 67-year-old male patient, on 2 L nasal cannula, fairly comfortable in no apparent distress. HEAD: Normocephalic. EYES: Normal reaction of pupils, equal size. NOSE: Clear with pink turbinates. THROAT: No erythema or exudates. NECK: No masses, no JVD. CHEST: No chest wall deformity. LUNGS: Equal air entry with no crackles, wheeze, rhonchi or dullness. Dim inished. CVS: S1 and S2 normal with no audible murmur, regular rhythm. ABDOMEN: Positive for left lower quadrant pain, normal bowel sounds, slightly guarding no rigidity. SPINE: No scoliosis or deformity SKIN: No rashes CENTRAL NERVOUS SYSTEM: No focal deficits, tone is normal in all 4 extremities. EXTREMITIES: There is no peripheral edema. No clubbing, no cyanosis. Peripheral pulses are intact. Results - Laboratory Findings CBC and BMP: 01/30/23 14:08 01/30/23 14:08 PT/INR, D-dimer PT 9.5 sec (9.0-12.0) 01/30/23 14:08 INR 0.9 (<1.2) 01/30/23 14:08 Abnormal lab findings: Abnormal Labs 01/30/23 01/30/23 14:08 15:52 Carbon Dioxide 21 L Glucose 109 H Ur Specific [place] 1.037 H - Diagnostic Findings Chest x-ray: image reviewed Assessment and Plan Assessment: Acute abdominal pain secondary to acute diverticulitis of the proximal sigmoid colon left pelvis with focal small abscess and focal perforation or free air. Currently on Zosyn. Being managed conservatively. Acute exacerbation of chronic obstructive pulmonary disease Hyperlipidemia Hypertension Obstructive sleep apnea maintained on CPAP at 14 cm water Benign prosthetic hyperplasia History of congestive heart failure Plan: The patient was seen and evaluated Chest x-ray, CAT scan, medications and labs reviewed Continue Symbicort and albuterol Surgical services following Continue Zosyn, clear liquid diet We will continue to follow and make further recommendations based on his clinical status I have personally seen and examined the patient, performed the documentation and the assessment and plan as written. Number of minutes spent on the visit: 20.
[2023-01-31] MEDS: SODIUM CHLORIDE 0.9% 1,000 ML IV SCH (15:23)
[2023-01-31] MEDS: SYMBICORT 160-4.5 MCG INHALER INHALATION SCH (18:20)
[2023-01-31] MEDS: ACETAMINOPHEN TAB 325 MG TAB PO PRN (18:43)
--- NOTE | 2023-01-31 20:52 | P.PN ---
Subjective This is a pleasant 67 years old male with past medical history of COPD/asthma, hypertension, history of arthritis, sleep apnea Patient presents because of abdominal pain for 2 weeks duration, his pain in the lower abdomen about 5/10 in severity felt like sharp No vomiting, no diarrhea Patient complains from also chronic dyspnea, no coughing, no chest pain He denies smoking alcohol or illicit drug He denies urinary symptoms, no dysuria urgency, he has little headache and dizziness but no confusion weakness or numbness Patient is afebrile and vitals are stable He has unremarkable labs including CBC, INR, BMP, liver enzymes and urine analysis in CT of the abdomen and pelvis with contrast: Hepatic cyst 6.1 cm adjacent smaller hypodense lesion medially favors benign thin-walled cyst. Diffuse colonic diverticulosis with focal moderate to severe wall thickening in the proximal sigmoid colon of the left pelvis with there is mild to moderate adjacent Deepthi stranding with focal perforation and thin-walled fluid collection measuring 2.1 cm consistent with small abscess, with focal perforation or free air I spoke with Sandrita from ER team she told me she already talked to Dr. Michael the general surgeon on-call and he wants the patient to be admitted under medicine service and he will evaluate the patient for surgical treatment. Patient is started on Zosyn and aggressive fluid hydration in the emergency room 01/31/2023 Patient with minimal abdominal pain, tolerates that well, no diarrhea. Surgery team evaluated the patient and plan to continue with conservative management with IV antibiotics for 4 days. COPD is mild, pulmonary team evaluated the patient continue with Symbicort and bronchodilator Objective - Vital Signs Vital signs: Vital Signs Temp 98 F 01/31/23 11:52 Pulse 84 01/31/23 11:52 Resp 18 01/31/23 11:52 BP 147/74 01/31/23 11:52 Pulse Ox 97 01/31/23 11:52 FiO2 Intake & Output 01/30/23 01/31/23 01/31/23 18:59 06:59 18:59 Intake Total 0 Balance 0 Weight 99.79 kg 103 kg Intake: Oral 0 Other: Voiding Method Toilet # Voids 2 # Bowel Movements 4 - Exam GENERAL: The patient is alert and oriented x3, not in any acute distress. Well developed, well nourished. HEENT: Pupils are round and equally reacting to light. EOMI. No scleral icterus. No conjunctival pallor. Normocephalic, atraumatic. No pharyngeal erythema. No thyromegaly. CARDIOVASCULAR: S1 and S2 present. No murmurs, rubs, or gallops. PULMONARY: Chest is clear to auscultation, no wheezing or crackles. ABDOMEN: Soft, nontender, nondistended, normoactive bowel sounds. No palpable organomegaly. MUSCULOSKELETAL: No joint swelling or deformity. EXTREMITIES: No cyanosis, clubbing, or pedal edema. NEUROLOGICAL: Gross neurological examination did not reveal any focal deficits. SKIN: No rashes. no petechiae. - Labs CBC & Chem 7: 01/30/23 14:08 01/30/23 14:08 Labs: Abnormal Lab Results - Last 24 Hours (Table) 01/30/23 01/30/23 Range/Units 14:08 15:52 Carbon Dioxide 21 L (22-30) mmol/L Glucose 109 H (74-99) mg/dL Ur Specific [place] 1.037 H (1.001-1.035) Assessment and Plan Assessment: Acute proximal sigmoid diverticulitis with perforation and colonic abscess 2.1 cm COPD with no mild acute exacerbation Hypertension History of osteoarthritis History of sleep apnea obesity with BMI of 32.5 Plan: Continue with Zosyn and normal saline Bowel rest Pain management Surgery team consult Pulmonary consult, continue Symbicort Labs and medication were reviewed.. Continue same treatment. Continue with symptomatic treatment. Resume home medication. Monitor labs and vitals. DVT and GI prophylaxis. Further recommendations as per clinical course of the patient DVT prophylaxis: Subcutaneous heparin GI Prophylaxis: Pepcid PT/OT: Pending Prognosis is guarded
[2023-01-31] MEDS: LORATADINE 10 MG TAB PO SCH (22:29)
[2023-02-01] MEDS: PIPERACILLIN-TAZOBACTAM 3.375 GM in SODIUM CHLORIDE 0.9% 100 ML IVPB SCH ×3 (00:51→16:24)
[2023-02-01] MEDS: SODIUM CHLORIDE 0.9% 1,000 ML IV SCH ×2 (00:52→21:04)
[2023-02-01] MEDS: ACETAMINOPHEN TAB 325 MG TAB PO PRN ×2 (02:34→16:30)
[2023-02-01] MEDS: IPRATROPIUM-ALBUTEROL 3 ML NEB INHALATION SCH ×4 (07:51→19:27)
[2023-02-01] MEDS: SYMBICORT 160-4.5 MCG INHALER INHALATION SCH ×2 (07:51→19:24)
[2023-02-01] MEDS: FUROSEMIDE 20 MG TAB PO SCH ×2 (08:51→21:01)
[2023-02-01] MEDS: HEPARIN SODIUM,PORCINE/PF 5,000 UNIT/0.5 ML SYRINGE SQ SCH ×2 (08:51→21:01)
[2023-02-01] MEDS: FOLIC ACID 1 MG TAB PO SCH (08:51)
[2023-02-01] MEDS: FAMOTIDINE 20 MG/2 ML VIAL IV SCH ×2 (08:51→21:01)
[2023-02-01] MEDS: SACUBITRIL/VALSARTAN 24 MG-26 MG TABLET PO SCH ×2 (09:14→21:01)
[2023-02-01 11:05] LABS: Basophils # (A) 0.08 X 10*3/uL (0.00-0.10); Basophils % (A) 1.1 %; Eosinophils % (A) 1.4 %; HCT 45.1 % (39.6-50.0); HGB 14.6 g/dL (13.0-17.0); Immature Grans, Automated 1.2 %; Lymphocytes # (A) 1.19 X 10*3/uL (0.90-5.00); Lymphocytes % (A) 16.2 %; MCH 29.4 pg (27.0-32.0); MCHC 32.4 g/dL (32.0-37.0); MCV 90.9 fL (80.0-97.0); Mean Platelet Volume 9.4 fL (9.5-12.2); Monocytes # (A) 0.74 X 10*3/uL (0.20-1.00); Monocytes % (A) 10.1 %; NRBC Per 100 WBC 0 /100 WBCS (0.0-0.0); Neutrophils # (A) 5.14 X 10*3/uL (1.80-7.70); Platelet Count 194 X 10*3/uL (140-440); RBC 4.96 X 10*6/uL (4.40-5.60); RDW 14.1 % (11.5-14.5); WBC 7.34 X 10*3/uL (4.50-10.00)
--- NOTE | 2023-02-01 12:00 | P.PN ---
Subjective Progress Note Date: 02/01/23 This a very pleasant 67-year-old male patient who has history of hyperlipidemia, congestive heart failure, benign prosthetic hyperplasia, hypertension, obstructive sleep apnea maintained on CPAP at 14 cm of water, moderate chronic obstructive pulmonary disease maintained on Symbicort and albuterol and follows with Dr. Escamilla in our office for the same. He was treated for COPD exacerbation on 01/09/2023. He presented here to the emergency room yesterday with complaints of lower abdominal pain and shortness of breath. He stated his shortness of breath had gotten worse the past 3 days. He was having orthopnea. He was having some bilateral lower extremity edema. He is having lower abdominal pain for the past 2 weeks but had been increasing in intensity. Computed tomography scan of the abdomen revealed acute diverticulitis of the proximal sigmoid colon left pelvis with focal small abscess and focal perforation or free air. X-ray of the abdomen revealed nonspecific bowel gas pattern without radiographic evidence for acute process. Chest x-ray revealed no acute pulmonary process. Evidence of COPD. He is seen today in consultation on the regular medical floor. He is currently sitting up in bed. Awake and alert in no acute distress. Still having some lower abdominal discomfort. St ill having some shortness of breath with minimal conversation and minimal exertion. He is maintaining good O2 saturations in the 90s on room air. He's been afebrile. Hemodynamically stable. White count 9.9. Hemoglobin 14.5. INR 0.9. Sodium 137. Potassium 4.6. Bicarb 21. BUN 18. Creatinine 1.17. Glucose 109. AST 23. ALT 37. Troponin negative 1. ProBNP 55. He had been seen by surgical services who are planning to continue conservative management. He's been initiated on Zosyn. Resume Symbicort and DuoNeb inhalations. The patient is seen today 02/01/2023 in follow-up on the regular medical floor. He is currently sitting up in bed. Awake and alert in no acute distress. Ellyn ntaining good O2 saturations in the 90s on room air. He's been afebrile. Hemodynamically stable. Still having some lower abdominal discomfort. Tolerating a liquid diet. Blood cultures pending. White count 7.3. Hemoglobin 14.6. Platelets 194. He is on DuoNeb inhalations, Symbicort. For DVT prophylaxis. Remains on antibiotics in the form of Zosyn. Normal saline at 75 ML's per hour. Objective - Vital Signs Vital signs: Vital Signs Temp 98.6 F 02/01/23 07:40 Pulse 76 02/01/23 11:15 Resp 18 02/01/23 07:40 BP 136/72 02/01/23 07:40 Pulse Ox 96 02/01/23 07:53 FiO2 21 02/01/23 07:53 Intake & Output 01/31/23 02/01/23 02/01/23 18:59 06:59 18:59 Intake Total 1100 590 Balance 1100 590 Intake: Intake, IV Titration 1100 Amount Piperacillin-Tazobactam 3 200 .375 gm In Sodium Chloride 0.9% 100 ml @ 25 mls/hr IVPB Q8HR [facility] Rx# :[id number] Sodium Chloride 0.9% 1, 900 000 ml @ 75 mls/hr IV . [id number] [facility] Rx#:[id number] Oral 590 Other: Voiding Method Toilet Toilet # Voids 2 3 # Bowel Movements 2 - Exam GENERAL EXAM: Alert, pleasant 67-year-old male patient, on room air, comfortable in no apparent distress. HEAD: Normocephalic. EYES: Normal reaction of pupils, equal size. NOSE: Clear with pink turbinates. THROAT: No erythema or exudates. NECK: No masses, no JVD. CHEST: No chest wall deformity. LUNGS: Equal air entry with no crackles, wheeze, rhonchi or dullness. Diminished. CVS: S1 and S2 normal with no audible murmur, regular rhythm. ABDOMEN: Positive for left lower quadrant pain, normal bowel sounds, slightly guarding no rigidity. SPINE: No scoliosis or deformity SKIN: No rashes CENTRAL NERVOUS SYSTEM: No focal deficits, tone is normal in all 4 extremities. EXTREMITIES: There is no peripheral edema. No clubbing, no cyanosis. P eripheral pulses are intact. - Labs CBC & Chem 7: 02/01/23 07:51 01/30/23 14:08 Labs: Abnormal Lab Results - Last 24 Hours (Table) 02/01/23 Range/Units 07:51 MPV 9.4 L (9.5-12.2) fL Immature Gran # 0.09 H (0.00-0.04) X 10*3/uL Microbiology - Last 24 Hours (Table) 01/30/23 16:00 Blood Culture - Preliminary Blood 01/30/23 16:15 Blood Culture - Preliminary Blood Assessment and Plan Assessment: Acute abdominal pain secondary to acute diverticulitis of the proximal sigmoid colon left pelvis with focal small abscess and focal perforation or free air. Currently on Zosyn. Being managed conservatively. Acute exacerbation of chronic obstructive pulmonary disease Hyperlipidemia Hypertension Obstructive sleep apnea maintained on CPAP at 14 cm water Benign prostatic hyperplasia History of congestive heart failure Plan: The patient was seen and evaluated Medications and labs reviewed Stable and on room air Continue Symbicort and albuterol Continue Zosyn, clear liquid diet We will continue to follow I have personally seen and examined the patient, performed the documentation and the assessment and plan as written. Number of minutes spent on the visit: 10.
--- NOTE | 2023-02-01 12:25 | P.PN ---
Subjective Progress Note Date: 02/01/23 CHIEF COMPLAINT: Sigmoid diverticulitis with microperforation HISTORY OF PRESENT ILLNESS: Patient reports that his pain is less today than yesterday. He did have an increasing pain last night. It has improved. He did have a formed stool with no blood. Denies any nausea or vomiting. Currently on clear liquids. Afebrile. WBC is 7.34 PHYSICAL EXAM: VITAL SIGNS: Reviewed. GENERAL: Well-developed in no acute distress. HEENT: No sclera icterus. Extraocular movements grossly intact. Moist buccal mucosa. Head is atraumatic, normocephalic. ABDOMEN: Soft. Nondistended. Tenderness palpation left lower quadrant and suprapubic area NEUROLOGIC: Alert and oriented. Cranial nerves II through XII grossly intact. ASSESSMENT: 1. 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 Signing provider agrees with the documented findings, assessment, and plan of care. Objective - Vital Signs Vital signs: Vital Signs Temp 98.6 F 02/01/23 07:40 Pulse 76 02/01/23 11:15 Resp 18 02/01/23 07:40 BP 136/72 02/01/23 07:40 Pulse Ox 96 02/01/23 07:53 FiO2 21 02/01/23 07:53 Intake & Output 01/31/23 02/01/23 02/01/23 18:59 06:59 18:59 Intake Total 1100 590 Balance 1100 590 Intake: Intake, IV Titration 1100 Amount Piperacillin-Tazobactam 3 200 .375 gm In Sodium Chloride 0.9% 100 ml @ 25 mls/hr IVPB Q8HR [facility] Rx# :[id number] Sodium Chloride 0.9% 1, 900 000 ml @ 75 mls/hr IV . [id number] [facility] Rx#:[id number] Oral 590 Other: Voiding Method Toilet Toilet # Voids 2 3 # Bowel Movements 2 - Labs CBC & Chem 7: 02/01/23 07:51 01/30/23 14:08 Labs: Abnormal Lab Results - Last 24 Hours (Table) 02/01/23 Range/Units 07:51 MPV 9.4 L (9.5-12.2) fL Immature Gran # 0.09 H (0.00-0.04) X 10*3/uL Microbiology - Last 24 Hours (Table) 01/30/23 16:00 Blood Culture - Preliminary Blood 01/30/23 16:15 Blood Culture - Preliminary Blood
[2023-02-01 16:18] LABS: Anion Gap 15.1 mmol/L (10.00-18.00); BUN/Creat Ratio 8.21 Ratio (12.00-20.00); Blood Urea Nitrogen 11.5 mg/dL (9.0-27.0); Calcium 9.2 mg/dL (8.7-10.3); Carbon Dioxide 21.9 mmol/L (20.0-27.5); Non-African American GFR(CKD) 50.9 (60.0-200.0); Potassium 4.2 mmol/L (3.5-5.5)
--- NOTE | 2023-02-01 17:13 | P.PN ---
Subjective This is a pleasant 67 years old male with past medical history of COPD/asthma, hypertension, history of arthritis, sleep apnea Patient presents because of abdominal pain for 2 weeks duration, his pain in the lower abdomen about 5/10 in severity felt like sharp No vomiting, no diarrhea Patient complains from also chronic dyspnea, no coughing, no chest pain He denies smoking alcohol or illicit drug He denies urinary symptoms, no dysuria urgency, he has little headache and dizziness but no confusion weakness or numbness Patient is afebrile and vitals are stable He has unremarkable labs including CBC, INR, BMP, liver enzymes and urine analysis in CT of the abdomen and pelvis with contrast: Hepatic cyst 6.1 cm adjacent smaller hypodense lesion medially favors benign thin-walled cyst. Diffuse colonic diverticulosis with focal moderate to severe wall thickening in the proximal sigmoid colon of the left pelvis with there is mild to moderate adjacent Deepthi stranding with focal perforation and thin-walled fluid collection measuring 2.1 cm consistent with small abscess, with focal perforation or free air I spoke with Sandrita from ER team she told me she already talked to Dr. Michael the general surgeon on-call and he wants the patient to be admitted under medicine service and he will evaluate the patient for surgical treatment. Patient is started on Zosyn and aggressive fluid hydration in the emergency room 01/31/2023 Patient with minimal abdominal pain, tolerates that well, no diarrhea. Surgery team evaluated the patient and plan to continue with conservative management with IV antibiotics for 4 days. COPD is mild, pulmonary team evaluated the patient continue with Symbicort and bronchodilator 02/01/2023 Patient is still complaining of quadrant abdominal pain and tenderness. No diarrhea. His continued on Zosyn and normal saline 75 mL/h Objective - Vital Signs Vital signs: Vital Signs Temp 98 F 02/01/23 12:24 Pulse 69 02/01/23 12:24 Resp 18 02/01/23 12:24 BP 121/70 02/01/23 12:24 Pulse Ox 97 02/01/23 12:24 FiO2 21 02/01/23 07:53 Intake & Output 01/31/23 02/01/23 02/01/23 18:59 06:59 18:59 Intake Total 1100 590 Balance 1100 590 Intake: Intake, IV Titration 1100 Amount Piperacillin-Tazobactam 3 200 .375 gm In Sodium Chloride 0.9% 100 ml @ 25 mls/hr IVPB Q8HR [facility] Rx# :[id number] Sodium Chloride 0.9% 1, 900 000 ml @ 75 mls/hr IV . [id number] [facility] Rx#:[id number] Oral 590 Other: Voiding Method Toilet Toilet # Voids 2 3 # Bowel Movements 2 - Exam GENERAL: The patient is alert and oriented x3, not in any acute distress. Well developed, well nourished. HEENT: Pupils are round and equally reacting to light. EOMI. No scleral icterus. No conjunctival pallor. Normocephalic, atraumatic. No pharyngeal erythema. No thyromegaly. CARDIOVASCULAR: S1 and S2 present. No murmurs, rubs, or gallops. PULMONARY: Chest is clear to auscultation, no wheezing or crackles. ABDOMEN: Soft, nontender, nondistended, normoactive bowel sounds. No palpable organomegaly. MUSCULOSKELETAL: No joint swelling or deformity. EXTREMITIES: No cyanosis, clubbing, or pedal edema. NEUROLOGICAL: Gross neurological examination did not reveal any focal deficits. SKIN: No rashes. no petechiae. - Labs CBC & Chem 7: 02/01/23 07:51 02/01/23 07:03 Labs: Abnormal Lab Results - Last 24 Hours (Table) 02/01/23 Range/Units 07:51 MPV 9.4 L (9.5-12.2) fL Immature Gran # 0.09 H (0.00-0.04) X 10*3/uL Microbiology - Last 24 Hours (Table) 01/30/23 16:00 Blood Culture - Preliminary Blood 01/30/23 16:15 Blood Culture - Preliminary Blood Assessment and Plan Assessment: Acute proximal sigmoid diverticulitis with perforation and colonic abscess 2.1 cm COPD with no mild acute exacerbation Hypertension History of osteoarthritis History of sleep apnea obesity with BMI of 32.5 Plan: Continue with Zosyn and normal saline Bowel rest Pain management Surgery team consult Pulmonary consult, continue Symbicort Labs and medication were reviewed.. Continue same treatment. Continue with symptomatic treatment. Resume home medication. Monitor labs and vitals. DVT and GI prophylaxis. Further recommendations as per clinical course of the patient DVT prophylaxis: Subcutaneous heparin GI Prophylaxis: Pepcid PT/OT: Pending Prognosis is guarded
[2023-02-01] MEDS: HYDROcodone/APAP 5-325MG 1 EACH TAB PO PRN (18:27)
[2023-02-01] MEDS: LORATADINE 10 MG TAB PO SCH (21:01)
[2023-02-02] MEDS: PIPERACILLIN-TAZOBACTAM 3.375 GM in SODIUM CHLORIDE 0.9% 100 ML IVPB SCH ×3 (00:41→16:44)
[2023-02-02] MEDS: HYDROcodone/APAP 5-325MG 1 EACH TAB PO PRN (00:48)
[2023-02-02] MEDS: SYMBICORT 160-4.5 MCG INHALER INHALATION SCH ×2 (08:19→19:19)
[2023-02-02] MEDS: IPRATROPIUM-ALBUTEROL 3 ML NEB INHALATION SCH ×4 (08:19→19:19)
[2023-02-02] MEDS: FOLIC ACID 1 MG TAB PO SCH (09:30)
[2023-02-02] MEDS: HEPARIN SODIUM,PORCINE/PF 5,000 UNIT/0.5 ML SYRINGE SQ SCH ×2 (09:31→21:15)
[2023-02-02] MEDS: FAMOTIDINE 20 MG/2 ML VIAL IV SCH ×2 (09:31→21:15)
[2023-02-02] MEDS: FUROSEMIDE 20 MG TAB PO SCH ×2 (09:31→21:15)
[2023-02-02] MEDS: SACUBITRIL/VALSARTAN 24 MG-26 MG TABLET PO SCH ×2 (09:32→21:16)
--- NOTE | 2023-02-02 09:39 | P.PN ---
Progress Note - Text Progress Note Date: 02/02/23 Patient has increased pain today. His main left lower quadrant. On exam vital signs are stable. Abdomen soft. Mild left lower quadrant tenderness. Diverticula is. Patient to receive IV antibiotic.
--- NOTE | 2023-02-02 12:04 | P.PN ---
Subjective Progress Note Date: 02/02/23 This a very pleasant 67-year-old male patient who has history of hyperlipidemia, congestive heart failure, benign prosthetic hyperplasia, hypertension, obstructive sleep apnea maintained on CPAP at 14 cm of water, moderate chronic obstructive pulmonary disease maintained on Symbicort and albuterol and follows with Dr. Escamilla in our office for the same. He was treated for COPD exacerbation on 01/09/2023. He presented here to the emergency room yesterday with complaints of lower abdominal pain and shortness of breath. He stated his shortness of breath had gotten worse the past 3 days. He was having orthopnea. He was having some bilateral lower extremity edema. He is having lower abdominal pain for the past 2 weeks but had been increasing in intensity. Computed tomography scan of the abdomen revealed acute diverticulitis of the proximal sigmoid colon left pelvis with focal small abscess and focal perforation or free air. X-ray of the abdomen revealed nonspecific bowel gas pattern without radiographic evidence for acute process. Chest x-ray revealed no acute pulmonary process. Evidence of COPD. He is seen today in consultation on the regular medical floor. He is currently sitting up in bed. Awake and alert in no acute distress. Still having some lower abdominal discomfort. St ill having some shortness of breath with minimal conversation and minimal exertion. He is maintaining good O2 saturations in the 90s on room air. He's been afebrile. Hemodynamically stable. White count 9.9. Hemoglobin 14.5. INR 0.9. Sodium 137. Potassium 4.6. Bicarb 21. BUN 18. Creatinine 1.17. Glucose 109. AST 23. ALT 37. Troponin negative 1. ProBNP 55. He had been seen by surgical services who are planning to continue conservative management. He's been initiated on Zosyn. Resume Symbicort and DuoNeb inhalations. The patient is seen today 02/01/2023 in follow-up on the regular medical floor. He is currently sitting up in bed. Awake and alert in no acute distress. Ellyn ntaining good O2 saturations in the 90s on room air. He's been afebrile. Hemodynamically stable. Still having some lower abdominal discomfort. Tolerating a liquid diet. Blood cultures pending. White count 7.3. Hemoglobin 14.6. Platelets 194. He is on DuoNeb inhalations, Symbicort. For DVT prophylaxis. Remains on antibiotics in the form of Zosyn. Normal saline at 75 ML's per hour. The patient is seen today 02/02/2023 in follow-up on the regular medical floor. He is awake and alert in no acute distress. Maintaining good O2 saturations in the 90s on room air. Denies any worsening shortness of breath, cough or congestion. He is still having some issues with abdominal discomfort but seems to be improving daily. He is continued on Zosyn. Plan is continued medical treatment for his acute diverticulitis. Tolerating a full liquid diet. He remains on Symbicort, DuoNeb inhalations. Heparin for DVT prophylaxis. Remains on oral diuretics. Objective - Vital Signs Vital signs: Vital Signs Temp 98.2 F 02/02/23 06:03 Pulse 88 02/02/23 08:29 Resp 17 02/02/23 06:03 BP 125/72 02/02/23 06:03 Pulse Ox 95 02/02/23 06:03 FiO2 21 02/01/23 07:53 Intake & Output 02/01/23 02/02/23 02/02/23 18:59 06:59 18:59 Intake Total 1000 Balance 1000 Intake: Intake, IV Titration 1000 Amount Piperacillin-Tazobactam 3 100 .375 gm In Sodium Chloride 0.9% 100 ml @ 25 mls/hr IVPB Q8HR [facility] Rx# :[id number] Sodium Chloride 0.9% 1, 900 000 ml @ 75 mls/hr IV . [id number] [facility] Rx#:[id number] Other: Voiding Method Toilet Toilet # Voids 2 2 - Exam GENERAL EXAM: Alert, oriented 3, 67-year-old male patient, on room air, comfortable in no apparent distress. HEAD: Normocephalic. EYES: Normal reaction of pupils, equal size. NOSE: Clear with pink turbinates. THROAT: No erythema or exudates. NECK: No masses, no JVD. CHEST: No chest wall deformity. LUNGS: Equal air entry with no crackles, wheeze, rhonchi or dullness. Diminished. CVS: S1 and S2 normal with no audible murmur, regular rhythm. ABDOMEN: Positive for left lower quadrant pain, normal bowel sounds, slightly guarding no rigidity. SPINE: No scoliosis or deformity SKIN: No rashes CENTRAL NERVOUS SYSTEM: No focal deficits, tone is normal in all 4 extremities. EXTREMITIES: There is no peripheral edema. No clubbing, no cyanosis. Peripheral pulses are intact. - Labs CBC & Chem 7: 02/01/23 07:51 02/01/23 07:03 Labs: Abnormal Lab Results - Last 24 Hours (Table) 02/01/23 Range/Units 07:03 Est GFR (CKD-EPI)AfAm 59.0 L (60.0-200.0) Est GFR (CKD-EPI)NonAf 50.9 L (60.0-200.0) BUN/Creatinine Ratio 8.21 L (12.00-20.00) Ratio Microbiology - Last 24 Hours (Table) 01/30/23 16:00 Blood Culture - Preliminary Blood 01/30/23 16:15 Blood Culture - Preliminary Blood Assessment and Plan Assessment: Acute abdominal pain secondary to acute diverticulitis of the proximal sigmoid colon left pelvis with focal small abscess and focal perforation or free air. Currently on Zosyn. Being managed conservatively. Tolerating a full liquid diet Acute exacerbation of chronic obstructive pulmonary disease Hyperlipidemia Hypertension Obstructive sleep apnea maintained on CPAP at 14 cm water Benign prostatic hyperplasia History of congestive heart failure Plan: The patient was seen and evaluated Medications reviewed Continue Symbicort and albuterol Continue Zosyn, full liquid diet Stable and on room air We will continue to follow I have personally seen and examined the patient, performed the documentation and the assessment and plan as written. Number of minutes spent on the visit: 10.
[2023-02-02] MEDS: SODIUM CHLORIDE 0.9% 1,000 ML IV SCH ×2 (12:42→16:45)
[2023-02-02] MEDS: LORATADINE 10 MG TAB PO SCH (21:15)
--- NOTE | 2023-02-02 21:48 | P.PN ---
Subjective This is a pleasant 67 years old male with past medical history of COPD/asthma, hypertension, history of arthritis, sleep apnea Patient presents because of abdominal pain for 2 weeks duration, his pain in the lower abdomen about 5/10 in severity felt like sharp No vomiting, no diarrhea Patient complains from also chronic dyspnea, no coughing, no chest pain He denies smoking alcohol or illicit drug He denies urinary symptoms, no dysuria urgency, he has little headache and dizziness but no confusion weakness or numbness Patient is afebrile and vitals are stable He has unremarkable labs including CBC, INR, BMP, liver enzymes and urine analysis in CT of the abdomen and pelvis with contrast: Hepatic cyst 6.1 cm adjacent smaller hypodense lesion medially favors benign thin-walled cyst. Diffuse colonic diverticulosis with focal moderate to severe wall thickening in the proximal sigmoid colon of the left pelvis with there is mild to moderate adjacent Deepthi stranding with focal perforation and thin-walled fluid collection measuring 2.1 cm consistent with small abscess, with focal perforation or free air I spoke with Sandrita from ER team she told me she already talked to Dr. Michael the general surgeon on-call and he wants the patient to be admitted under medicine service and he will evaluate the patient for surgical treatment. Patient is started on Zosyn and aggressive fluid hydration in the emergency room 01/31/2023 Patient with minimal abdominal pain, tolerates that well, no diarrhea. Surgery team evaluated the patient and plan to continue with conservative management with IV antibiotics for 4 days. COPD is mild, pulmonary team evaluated the patient continue with Symbicort and bronchodilator 02/01/2023 Patient is still complaining of quadrant abdominal pain and tenderness. No diarrhea. His continued on Zosyn and normal saline 75 mL/h 02/02/2023 Patient is still complaining from left lower quadrant abdominal pain History improving slowly and gradually No chest pain or dyspnea, no new complaints He is on Zosyn and normal saline 75 mL/h Objective - Vital Signs Vital signs: Vital Signs Temp 98.2 F 02/02/23 06:03 Pulse 87 02/02/23 12:20 Resp 17 02/02/23 08:40 BP 125/72 02/02/23 06:03 Pulse Ox 95 02/02/23 06:03 FiO2 21 02/01/23 07:53 Intake & Output 02/01/23 02/02/23 02/02/23 18:59 06:59 18:59 Intake Total 1000 Balance 1000 Intake: Intake, IV Titration 1000 Amount Piperacillin-Tazobactam 3 100 .375 gm In Sodium Chloride 0.9% 100 ml @ 25 mls/hr IVPB Q8HR [facility] Rx# :[id number] Sodium Chloride 0.9% 1, 900 000 ml @ 75 mls/hr IV . [id number] [facility] Rx#:[id number] Other: Voiding Method Toilet Toilet Toilet # Voids 2 2 - Exam GENERAL: The patient is alert and oriented x3, not in any acute distress. Well developed, well nourished. HEENT: Pupils are round and equally reacting to light. EOMI. No scleral icterus. No conjunctival pallor. Normocephalic, atraumatic. No pharyngeal erythema. No thyromegaly. CARDIOVASCULAR: S1 and S2 present. No murmurs, rubs, or gallops. PULMONARY: Chest is clear to auscultation, no wheezing or crackles. ABDOMEN: Soft, nontender, nondistended, normoactive bowel sounds. No palpable organomegaly. MUSCULOSKELETAL: No joint swelling or deformity. EXTREMITIES: No cyanosis, clubbing, or pedal edema. NEUROLOGICAL: Gross neurological examination did not reveal any focal deficits. SKIN: No rashes. no petechiae. - Labs CBC & Chem 7: 02/01/23 07:51 02/01/23 07:03 Labs: Abnormal Lab Results - Last 24 Hours (Table) 02/01/23 Range/Units 07:03 Est GFR (CKD-EPI)AfAm 59.0 L (60.0-200.0) Est GFR (CKD-EPI)NonAf 50.9 L (60.0-200.0) BUN/Creatinine Ratio 8.21 L (12.00-20.00) Ratio Microbiology - Last 24 Hours (Table) 01/30/23 16:00 Blood Culture - Preliminary Blood 01/30/23 16:15 Blood Culture - Preliminary Blood Assessment and Plan Assessment: Acute proximal sigmoid diverticulitis with perforation and colonic abscess 2.1 cm COPD with no mild acute exacerbation Hypertension History of osteoarthritis History of sleep apnea obesity with BMI of 32.5 Plan: Continue with Zosyn and normal saline Bowel rest Pain management Surgery team consult Pulmonary consult, continue Symbicort Labs and medication were reviewed.. Continue same treatment. Continue with symptomatic treatment. Resume home medication. Monitor labs and vitals. DVT and GI prophylaxis. Further recommendations as per clinical course of the patient DVT prophylaxis: Subcutaneous heparin GI Prophylaxis: Pepcid PT/OT: Pending Prognosis is guarded
[2023-02-03] MEDS: PIPERACILLIN-TAZOBACTAM 3.375 GM in SODIUM CHLORIDE 0.9% 100 ML IVPB SCH ×4 (00:11→23:57)
[2023-02-03] MEDS: SYMBICORT 160-4.5 MCG INHALER INHALATION SCH ×2 (07:48→19:42)
[2023-02-03] MEDS: IPRATROPIUM-ALBUTEROL 3 ML NEB INHALATION SCH ×4 (07:48→19:41)
[2023-02-03] MEDS: FAMOTIDINE 20 MG/2 ML VIAL IV SCH ×2 (08:22→21:13)
[2023-02-03] MEDS: FOLIC ACID 1 MG TAB PO SCH (08:22)
[2023-02-03] MEDS: FUROSEMIDE 20 MG TAB PO SCH ×2 (08:22→21:13)
[2023-02-03] MEDS: HEPARIN SODIUM,PORCINE/PF 5,000 UNIT/0.5 ML SYRINGE SQ SCH ×2 (08:22→21:13)
[2023-02-03] MEDS: SACUBITRIL/VALSARTAN 24 MG-26 MG TABLET PO SCH ×2 (08:22→21:13)
[2023-02-03] MEDS: SODIUM CHLORIDE 0.9% 1,000 ML IV SCH ×2 (08:23→23:56)
--- NOTE | 2023-02-03 11:22 | P.PN ---
Subjective Progress Note Date: 02/03/23 This a very pleasant 67-year-old male patient who has history of hyperlipidemia, congestive heart failure, benign prosthetic hyperplasia, hypertension, obstructive sleep apnea maintained on CPAP at 14 cm of water, moderate chronic obstructive pulmonary disease maintained on Symbicort and albuterol and follows with Dr. Escamilla in our office for the same. He was treated for COPD exacerbation on 01/09/2023. He presented here to the emergency room yesterday with complaints of lower abdominal pain and shortness of breath. He stated his shortness of breath had gotten worse the past 3 days. He was having orthopnea. He was having some bilateral lower extremity edema. He is having lower abdominal pain for the past 2 weeks but had been increasing in intensity. Computed tomography scan of the abdomen revealed acute diverticulitis of the proximal sigmoid colon left pelvis with focal small abscess and focal perforation or free air. X-ray of the abdomen revealed nonspecific bowel gas pattern without radiographic evidence for acute process. Chest x-ray revealed no acute pulmonary process. Evidence of COPD. He is seen today in consultation on the regular medical floor. He is currently sitting up in bed. Awake and alert in no acute distress. Still having some lower abdominal discomfort. St ill having some shortness of breath with minimal conversation and minimal exertion. He is maintaining good O2 saturations in the 90s on room air. He's been afebrile. Hemodynamically stable. White count 9.9. Hemoglobin 14.5. INR 0.9. Sodium 137. Potassium 4.6. Bicarb 21. BUN 18. Creatinine 1.17. Glucose 109. AST 23. ALT 37. Troponin negative 1. ProBNP 55. He had been seen by surgical services who are planning to continue conservative management. He's been initiated on Zosyn. Resume Symbicort and DuoNeb inhalations. The patient is seen today 02/01/2023 in follow-up on the regular medical floor. He is currently sitting up in bed. Awake and alert in no acute distress. Ellyn ntaining good O2 saturations in the 90s on room air. He's been afebrile. Hemodynamically stable. Still having some lower abdominal discomfort. Tolerating a liquid diet. Blood cultures pending. White count 7.3. Hemoglobin 14.6. Platelets 194. He is on DuoNeb inhalations, Symbicort. For DVT prophylaxis. Remains on antibiotics in the form of Zosyn. Normal saline at 75 ML's per hour. The patient is seen today 02/02/2023 in follow-up on the regular medical floor. He is awake and alert in no acute distress. Maintaining good O2 saturations in the 90s on room air. Denies any worsening shortness of breath, cough or congestion. He is still having some issues with abdominal discomfort but seems to be improving daily. He is continued on Zosyn. Plan is continued medical treatment for his acute diverticulitis. Tolerating a full liquid diet. He remains on Symbicort, DuoNeb inhalations. Heparin for DVT prophylaxis. Remains on oral diuretics. The patient is seen today 02/03/2023 in follow-up on the regular medical floor. He is resting comfortably in bed. Awake and alert in no acute distress. Denies any significant abdominal discomfort. Feeling better each day. No worsening shortness of breath, cough or congestion. She is continued on Symbicort and DuoNeb inhalations. Antibiotics in the form of Zosyn. Heparin for DVT prophylaxis. Remains on oral diuretics. Blood cultures pending. No new labs today. Tolerating a full liquid diet. Objective - Vital Signs Vital signs: Vital Signs Temp 97.8 F 02/03/23 07:35 Pulse 76 02/03/23 11:11 Resp 20 02/03/23 08:20 BP 130/72 02/03/23 07:35 Pulse Ox 96 02/03/23 07:48 FiO2 21 02/01/23 07:53 Intake & Output 02/02/23 02/03/23 02/03/23 18:59 06:59 18:59 Intake Total 240 1140 Balance 240 1140 Intake: Intake, IV Titration 900 Amount Sodium Chloride 0.9% 1, 900 000 ml @ 75 mls/hr IV . [id number] [facility] Rx#:[id number] Oral 240 240 Other: Voiding Method Toilet Toilet Toilet # Voids 2 - Exam GENERAL EXAM: Alert, very pleasant 67-year-old male patient, on room air, comfortable in no apparent distress. HEAD: Normocephalic. EYES: Normal reaction of pupils, equal size. NOSE: Clear with pink turbinates. THROAT: No erythema or exudates. NECK: No masses, no JVD. CHEST: No chest wall deformity. LUNGS: Equal air entry with no crackles, wheeze, rhonchi or dullness. Diminished. CVS: S1 and S2 normal with no audible murmur, regular rhythm. ABDOMEN: Positive for left lower quadrant pain, normal bowel sounds, slightly guarding no rigidity. SPINE: No scoliosis or deformity SKIN: No rashes CENTRAL NERVOUS SYSTEM: No focal deficits, tone is normal in all 4 extremities. EXTREMITIES: There is no peripheral edema. No clubbing, no cyanosis. Peripheral pulses are intact. - Labs CBC & Chem 7: 02/01/23 07:51 02/01/23 07:03 Labs: Microbiology - Last 24 Hours (Table) 01/30/23 16:00 Blood Culture - Preliminary Blood 01/30/23 16:15 Blood Culture - Preliminary Blood Assessment and Plan Assessment: Acute abdominal pain secondary to acute diverticulitis of the proximal sigmoid colon left pelvis with focal small abscess and focal perforation or free air. Currently on Zosyn. Being managed conservatively. Tolerating a full liquid diet Acute exacerbation of chronic obstructive pulmonary disease Hyperlipidemia Hypertension Obstructive sleep apnea maintained on CPAP at 14 cm water Benign prostatic hyperplasia History of congestive heart failure Plan: The patient was seen and evaluated Medications reviewed Continue antibiotics Advance diet per surgical services Probable discharge in the a.m. We will continue to follow I have personally seen and examined the patient, performed the documentation and the assessment and plan as written. Number of minutes spent on the visit: 10.
--- NOTE | 2023-02-03 11:28 | P.PN ---
Progress Note - Text Progress Note Date: 02/03/23 Patient still has complaints of left lower quadrant pain. On exam vital signs appear stable. Abdomen soft. There is mild tenderness in the left lower quadrant. Resolving diverticula is. Patient can receive IV antibiotic.
--- NOTE | 2023-02-03 17:12 | P.PN ---
Subjective This is a pleasant 67 years old male with past medical history of COPD/asthma, hypertension, history of arthritis, sleep apnea Patient presents because of abdominal pain for 2 weeks duration, his pain in the lower abdomen about 5/10 in severity felt like sharp No vomiting, no diarrhea Patient complains from also chronic dyspnea, no coughing, no chest pain He denies smoking alcohol or illicit drug He denies urinary symptoms, no dysuria urgency, he has little headache and dizziness but no confusion weakness or numbness Patient is afebrile and vitals are stable He has unremarkable labs including CBC, INR, BMP, liver enzymes and urine analysis in CT of the abdomen and pelvis with contrast: Hepatic cyst 6.1 cm adjacent smaller hypodense lesion medially favors benign thin-walled cyst. Diffuse colonic diverticulosis with focal moderate to severe wall thickening in the proximal sigmoid colon of the left pelvis with there is mild to moderate adjacent Deepthi stranding with focal perforation and thin-walled fluid collection measuring 2.1 cm consistent with small abscess, with focal perforation or free air I spoke with Sandrita from ER team she told me she already talked to Dr. Michael the general surgeon on-call and he wants the patient to be admitted under medicine service and he will evaluate the patient for surgical treatment. Patient is started on Zosyn and aggressive fluid hydration in the emergency room 01/31/2023 Patient with minimal abdominal pain, tolerates that well, no diarrhea. Surgery team evaluated the patient and plan to continue with conservative management with IV antibiotics for 4 days. COPD is mild, pulmonary team evaluated the patient continue with Symbicort and bronchodilator 02/01/2023 Patient is still complaining of quadrant abdominal pain and tenderness. No diarrhea. His continued on Zosyn and normal saline 75 mL/h 02/02/2023 Patient is still complaining from left lower quadrant abdominal pain History improving slowly and gradually No chest pain or dyspnea, no new complaints He is on Zosyn and normal saline 75 mL/h 02/03/2023 Patient is improving slowly and gradually Still complaining from pain and tenderness in the left lower quadrant Remains on Zosyn and normal sinus 75 mL/h Check labs in the morning Objective - Vital Signs Vital signs: Vital Signs Temp 97.8 F 02/03/23 07:35 Pulse 78 02/03/23 08:20 Resp 20 02/03/23 08:20 BP 130/72 02/03/23 07:35 Pulse Ox 96 02/03/23 07:48 FiO2 21 02/01/23 07:53 Intake & Output 02/02/23 02/03/23 02/03/23 18:59 06:59 18:59 Intake Total 240 1140 Balance 240 1140 Intake: Intake, IV Titration 900 Amount Sodium Chloride 0.9% 1, 900 000 ml @ 75 mls/hr IV . [id number] [facility] Rx#:[id number] Oral 240 240 Other: Voiding Method Toilet Toilet Toilet # Voids 2 - Exam GENERAL: The patient is alert and oriented x3, not in any acute distress. Well developed, well nourished. HEENT: Pupils are round and equally reacting to light. EOMI. No scleral icterus. No conjunctival pallor. Normocephalic, atraumatic. No pharyngeal erythema. No thyromegaly. CARDIOVASCULAR: S1 and S2 present. No murmurs, rubs, or gallops. PULMONARY: Chest is clear to auscultation, no wheezing or crackles. ABDOMEN: Soft, nontender, nondistended, normoactive bowel sounds. No palpable organomegaly. MUSCULOSKELETAL: No joint swelling or deformity. EXTREMITIES: No cyanosis, clubbing, or pedal edema. NEUROLOGICAL: Gross neurological examination did not reveal any focal deficits. SKIN: No rashes. no petechiae. - Labs CBC & Chem 7: 02/01/23 07:51 02/01/23 07:03 Labs: Microbiology - Last 24 Hours (Table) 01/30/23 16:00 Blood Culture - Preliminary Blood 01/30/23 16:15 Blood Culture - Preliminary Blood Assessment and Plan Assessment: Acute proximal sigmoid diverticulitis with perforation and colonic abscess 2.1 cm COPD with no mild acute exacerbation Hypertension History of osteoarthritis History of sleep apnea obesity with BMI of 32.5 Plan: Continue with Zosyn and normal saline Bowel rest Pain management Surgery team consult Pulmonary consult, continue Symbicort Labs and medication were reviewed.. Continue same treatment. Continue with symptomatic treatment. Resume home medication. Monitor labs and vitals. DVT and GI prophylaxis. Further recommendations as per clinical course of the raheem noguera DVT prophylaxis: Subcutaneous heparin GI Prophylaxis: Pepcid PT/OT: Pending Prognosis is guarded
[2023-02-03] MEDS: LORATADINE 10 MG TAB PO SCH (21:13)
[2023-02-04] MEDS: IPRATROPIUM-ALBUTEROL 3 ML NEB INHALATION SCH ×4 (07:37→18:31)
[2023-02-04] MEDS: SYMBICORT 160-4.5 MCG INHALER INHALATION SCH ×2 (07:37→18:31)
[2023-02-04] MEDS: PIPERACILLIN-TAZOBACTAM 3.375 GM in SODIUM CHLORIDE 0.9% 100 ML IVPB SCH ×3 (08:21→23:43)
[2023-02-04] MEDS: SACUBITRIL/VALSARTAN 24 MG-26 MG TABLET PO SCH (08:23)
[2023-02-04] MEDS: FUROSEMIDE 20 MG TAB PO SCH ×2 (08:23→20:05)
[2023-02-04] MEDS: FAMOTIDINE 20 MG/2 ML VIAL IV SCH (08:23)
[2023-02-04] MEDS: HEPARIN SODIUM,PORCINE/PF 5,000 UNIT/0.5 ML SYRINGE SQ SCH ×2 (08:23→20:05)
[2023-02-04] MEDS: FOLIC ACID 1 MG TAB PO SCH (08:23)
[2023-02-04 11:04] LABS: Basophils # (A) 0.06 X 10*3/uL (0.00-0.10); Basophils % (A) 0.9 %; Eosinophils # (A) 0.38 X 10*3/uL (0.04-0.35); HCT 45.4 % (39.6-50.0); HGB 14.3 g/dL (13.0-17.0); Immature Grans, Automated 1.6 %; Lymphocytes # (A) 1.26 X 10*3/uL (0.90-5.00); Lymphocytes % (A) 19.7 %; MCH 28.1 pg (27.0-32.0); MCHC 31.5 g/dL (32.0-37.0); MCV 89.4 fL (80.0-97.0); Mean Platelet Volume 9.3 fL (9.5-12.2); Monocytes # (A) 0.56 X 10*3/uL (0.20-1.00); Monocytes % (A) 8.8 %; NRBC Per 100 WBC 0 /100 WBCS (0.0-0.0); Neutrophils # (A) 4.02 X 10*3/uL (1.80-7.70); Platelet Count 229 X 10*3/uL (140-440); RBC 5.08 X 10*6/uL (4.40-5.60); RDW 13.7 % (11.5-14.5); WBC 6.38 X 10*3/uL (4.50-10.00)
[2023-02-04 11:18] LABS: African American GFR (CKD) 50.2 (60.0-200.0); BUN/Creat Ratio 10.13 Ratio (12.00-20.00); Blood Urea Nitrogen 16.2 mg/dL (9.0-27.0); Calcium 9.3 mg/dL (8.7-10.3); Non-African American GFR(CKD) 43.3 (60.0-200.0); Potassium 4.1 mmol/L (3.5-5.5)
[2023-02-04] MEDS ORDERED: ARTIFICIAL TEARS-HYPROMELLOSE DROPS 15 ML BTL BOTH EYES PRN (12:20)
[2023-02-04] MEDS: SODIUM CHLORIDE 0.9% 1,000 ML IV SCH ×2 (12:48→23:44)
--- NOTE | 2023-02-04 12:54 | P.PN ---
Subjective Progress Note Date: 02/04/23 CHIEF COMPLAINT: Sigmoid diverticulitis with microperforation HISTORY OF PRESENT ILLNESS: Patient continues to have left lower quadrant pain. He does report that it is improving since admission. He does rate his pain about a 1 out of 10. Denies any nausea or vomiting. Afebrile. Last WBC was normal at 7.34 PHYSICAL EXAM: VITAL SIGNS: Reviewed. GENERAL: Well-developed in no acute distress. HEENT: No sclera icterus. Extraocular movements grossly intact. Moist buccal mucosa. Head is atraumatic, normocephalic. ABDOMEN: Soft. Nondistended. Tenderness palpation left lower quadrant NEUROLOGIC: Alert and oriented. Cranial nerves II through XII grossly intact. ASSESSMENT: 1. Acute sigmoid diverticulitis with abscess and microperforation PLAN: -Continue Full liquid diet -Continue to monitor -Continue IV antibiotics -Continue pain medication as needed Physician [employer] note has been reviewed by physician. Signing provider agrees with the documented findings, assessment, and plan of care. Objective - Vital Signs Vital signs: Vital Signs Temp 98.5 F 02/04/23 07:18 Pulse 76 02/04/23 11:37 Resp 16 02/04/23 07:18 BP 132/69 02/04/23 07:18 Pulse Ox 93 L 02/04/23 07:37 FiO2 21 02/01/23 07:53 Intake & Output 02/03/23 02/04/23 02/04/23 18:59 06:59 18:59 Intake Total 240 375 720 Output Total 500 Balance -260 375 720 Intake: Oral 240 375 720 Output: Urine 500 Other: Voiding Method Toilet Toilet # Voids 2 - Labs CBC & Chem 7: 02/04/23 06:32 02/04/23 06:32 Labs: Abnormal Lab Results - Last 24 Hours (Table) 02/04/23 02/04/23 Range/Units 06:32 06:32 MCHC 31.5 L (32.0-37.0) g/dL MPV 9.3 L (9.5-12.2) fL Immature Gran # 0.10 H (0.00-0.04) X 10*3/uL Eosinophils # 0.38 H (0.04-0.35) X 10*3/uL Creatinine 1.6 H (0.6-1.5) mg/dL Est GFR (CKD-EPI)AfAm 50.2 L (60.0-200.0) Est GFR (CKD-EPI)NonAf 43.3 L (60.0-200.0) BUN/Creatinine Ratio 10.13 L (12.00-20.00) Ratio Microbiology - Last 24 Hours (Table) 01/30/23 16:00 Blood Culture - Preliminary Blood 01/30/23 16:15 Blood Culture - Preliminary Blood
--- NOTE | 2023-02-04 14:27 | P.PN ---
Subjective This is a pleasant 67 years old male with past medical history of COPD/asthma, hypertension, history of arthritis, sleep apnea Patient presents because of abdominal pain for 2 weeks duration, his pain in the lower abdomen about 5/10 in severity felt like sharp No vomiting, no diarrhea Patient complains from also chronic dyspnea, no coughing, no chest pain He denies smoking alcohol or illicit drug He denies urinary symptoms, no dysuria urgency, he has little headache and dizziness but no confusion weakness or numbness Patient is afebrile and vitals are stable He has unremarkable labs including CBC, INR, BMP, liver enzymes and urine analysis in CT of the abdomen and pelvis with contrast: Hepatic cyst 6.1 cm adjacent smaller hypodense lesion medially favors benign thin-walled cyst. Diffuse colonic diverticulosis with focal moderate to severe wall thickening in the proximal sigmoid colon of the left pelvis with there is mild to moderate adjacent Deepthi stranding with focal perforation and thin-walled fluid collection measuring 2.1 cm consistent with small abscess, with focal perforation or free air I spoke with Sandrita from ER team she told me she already talked to Dr. Michael the general surgeon on-call and he wants the patient to be admitted under medicine service and he will evaluate the patient for surgical treatment. Patient is started on Zosyn and aggressive fluid hydration in the emergency room 01/31/2023 Patient with minimal abdominal pain, tolerates that well, no diarrhea. Surgery team evaluated the patient and plan to continue with conservative management with IV antibiotics for 4 days. COPD is mild, pulmonary team evaluated the patient continue with Symbicort and bronchodilator 02/01/2023 Patient is still complaining of quadrant abdominal pain and tenderness. No diarrhea. His continued on Zosyn and normal saline 75 mL/h 02/02/2023 Patient is still complaining from left lower quadrant abdominal pain History improving slowly and gradually No chest pain or dyspnea, no new complaints He is on Zosyn and normal saline 75 mL/h 02/03/2023 Patient is improving slowly and gradually Still complaining from pain and tenderness in the left lower quadrant Remains on Zosyn and normal sinus 75 mL/h Check labs in the morning 02/04/2023 Patient with persistent left lower quadrant pain and tenderness. Discussed with surgery team today , to continue with liquid diet for now Creatinine trending up 1.6 today. We are going to hold entresto . Vascular is negative, as per PT and we'll check bladder scan Monitor creatinine tomorrow Objective - Vital Signs Vital signs: Vital Signs Temp 97.4 F L 02/04/23 12:54 Pulse 82 02/04/23 12:54 Resp 18 02/04/23 12:54 BP 128/70 02/04/23 12:54 Pulse Ox 95 02/04/23 12:54 FiO2 21 02/01/23 07:53 Intake & Output 02/03/23 02/04/23 02/04/23 18:59 06:59 18:59 Intake Total 417 111 0888 Output Total 500 Balance -094 076 7128 Intake: Oral 556 344 0244 Output: Urine 500 Other: Voiding Method Toilet Toilet # Voids 2 - Exam GENERAL: The patient is alert and oriented x3, not in any acute distress. Well developed, well nourished. HEENT: Pupils are round and equally reacting to light. EOMI. No scleral icterus. No conjunctival pallor. Normocephalic, atraumatic. No pharyngeal erythema. No thyromegaly. CARDIOVASCULAR: S1 and S2 present. No murmurs, rubs, or gallops. PULMONARY: Chest is clear to auscultation, no wheezing or crackles. ABDOMEN: Soft, nontender, nondistended, normoactive bowel sounds. No palpable organomegaly. MUSCULOSKELETAL: No joint swelling or deformity. EXTREMITIES: No cyanosis, clubbing, or pedal edema. NEUROLOGICAL: Gross neurological examination did not reveal any focal deficits. SKIN: No rashes. no petechiae. - Labs CBC & Chem 7: 02/04/23 06:32 02/04/23 06:32 Labs: Abnormal Lab Results - Last 24 Hours (Table) 02/04/23 02/04/23 Range/Units 06:32 06:32 MCHC 31.5 L (32.0-37.0) g/dL MPV 9.3 L (9.5-12.2) fL Immature Gran # 0.10 H (0.00-0.04) X 10*3/uL Eosinophils # 0.38 H (0.04-0.35) X 10*3/uL Creatinine 1.6 H (0.6-1.5) mg/dL Est GFR (CKD-EPI)AfAm 50.2 L (60.0-200.0) Est GFR (CKD-EPI)NonAf 43.3 L (60.0-200.0) BUN/Creatinine Ratio 10.13 L (12.00-20.00) Ratio Microbiology - Last 24 Hours (Table) 01/30/23 16:00 Blood Culture - Preliminary Blood 01/30/23 16:15 Blood Culture - Preliminary Blood Assessment and Plan Assessment: Acute proximal sigmoid diverticulitis with perforation and colonic abscess 2.1 cm Mild acute kidney injury COPD with mild acute exacerbation Hypertension History of osteoarthritis History of sleep apnea obesity with BMI of 32.5 Plan: Continue with Zosyn and normal saline Bowel rest Pain management Surgery team consult Continue with normal saline Hold entresto . Check bladder scan. Monitor creatinine, if no improvement then consider nephrology consult Pulmonary consult, continue Symbicort Labs and medication were reviewed.. Continue same treatment. Continue with symptomatic treatment. Resume home medication. Monitor labs and vitals. DVT and GI prophylaxis. Further recommendations as per clinical course of the patient DVT prophylaxis: Subcutaneous heparin GI Prophylaxis: Pepcid Prognosis is guarded
--- NOTE | 2023-02-04 15:10 | P.PN ---
Subjective Progress Note Date: 02/04/23 This a very pleasant 67-year-old male patient who has history of hyperlipidemia, congestive heart failure, benign prosthetic hyperplasia, hypertension, obstructive sleep apnea maintained on CPAP at 14 cm of water, moderate chronic obstructive pulmonary disease maintained on Symbicort and albuterol and follows with Dr. Escamilla in our office for the same. He was treated for COPD exacerbation on 01/09/2023. He presented here to the emergency room yesterday with complaints of lower abdominal pain and shortness of breath. He stated his shortness of breath had gotten worse the past 3 days. He was having orthopnea. He was having some bilateral lower extremity edema. He is having lower abdominal pain for the past 2 weeks but had been increasing in intensity. Computed tomography scan of the abdomen revealed acute diverticulitis of the proximal sigmoid colon left pelvis with focal small abscess and focal perforation or free air. X-ray of the abdomen revealed nonspecific bowel gas pattern without radiographic evidence for acute process. Chest x-ray revealed no acute pulmonary process. Evidence of COPD. He is seen today in consultation on the regular medical floor. He is currently sitting up in bed. Awake and alert in no acute distress. Still having some lower abdominal discomfort. St ill having some shortness of breath with minimal conversation and minimal exertion. He is maintaining good O2 saturations in the 90s on room air. He's been afebrile. Hemodynamically stable. White count 9.9. Hemoglobin 14.5. INR 0.9. Sodium 137. Potassium 4.6. Bicarb 21. BUN 18. Creatinine 1.17. Glucose 109. AST 23. ALT 37. Troponin negative 1. ProBNP 55. He had been seen by surgical services who are planning to continue conservative management. He's been initiated on Zosyn. Resume Symbicort and DuoNeb inhalations. The patient is seen today 02/01/2023 in follow-up on the regular medical floor. He is currently sitting up in bed. Awake and alert in no acute distress. Ellyn ntaining good O2 saturations in the 90s on room air. He's been afebrile. Hemodynamically stable. Still having some lower abdominal discomfort. Tolerating a liquid diet. Blood cultures pending. White count 7.3. Hemoglobin 14.6. Platelets 194. He is on DuoNeb inhalations, Symbicort. For DVT prophylaxis. Remains on antibiotics in the form of Zosyn. Normal saline at 75 ML's per hour. The patient is seen today 02/02/2023 in follow-up on the regular medical floor. He is awake and alert in no acute distress. Maintaining good O2 saturations in the 90s on room air. Denies any worsening shortness of breath, cough or congestion. He is still having some issues with abdominal discomfort but seems to be improving daily. He is continued on Zosyn. Plan is continued medical treatment for his acute diverticulitis. Tolerating a full liquid diet. He remains on Symbicort, DuoNeb inhalations. Heparin for DVT prophylaxis. Remains on oral diuretics. The patient is seen today 02/03/2023 in follow-up on the regular medical floor. He is resting comfortably in bed. Awake and alert in no acute distress. Denies any significant abdominal discomfort. Feeling better each day. No worsening shortness of breath, cough or congestion. She is continued on Symbicort and DuoNeb inhalations. Antibiotics in the form of Zosyn. Heparin for DVT prophylaxis. Remains on oral diuretics. Blood cultures pending. No new labs today. Tolerating a full liquid diet. The patient is seen today 02/04/2023 in follow-up on the regular medical floor. Awake and alert in no acute distress. Resting quite comfortably in bed. Maintaining O2 saturations in the 90s on room air. Abdominal pain improving. Tolerating a full liquid diet. Continued on Zosyn. Remains on Symbicort and DuoNeb inhalations Objective - Vital Signs Vital signs: Vital Signs Temp 97.4 F L 02/04/23 12:54 Pulse 82 02/04/23 12:54 Resp 18 02/04/23 12:54 BP 128/70 02/04/23 12:54 Pulse Ox 95 02/04/23 12:54 FiO2 21 02/01/23 07:53 Intake & Output 02/03/23 02/04/23 02/04/23 18:59 06:59 18:59 Intake Total 316 045 0366 Output Total 500 96 Balance -396 710 6035 Intake: Oral 415 690 4123 Output: Urine 500 Post Void Residual 96 Other: Voiding Method Toilet Toilet # Voids 2 - Exam GENERAL EXAM: Alert, pleasant 67-year-old male patient, resting in bed, on room air, comfortable in no apparent distress. HEAD: Normocephalic. EYES: Normal reaction of pupils, equal size. NOSE: Clear with pink turbinates. THROAT: No erythema or exudates. NECK: No masses, no JVD. CHEST: No chest wall deformity. LUNGS: Equal air entry with no crackles, wheeze, rhonchi or dullness. Diminished. CVS: S1 and S2 normal with no audible murmur, regular rhythm. ABDOMEN: Positive for left lower quadrant pain, normal bowel sounds, slightly guarding no rigidity. SPINE: No scoliosis or deformity SKIN: No rashes CENTRAL NERVOUS SYSTEM: No focal deficits, tone is normal in all 4 extremities. EXTREMITIES: There is no peripheral edema. No clubbing, no cyanosis. Periph eral pulses are intact. - Labs CBC & Chem 7: 02/04/23 06:32 02/04/23 06:32 Labs: Abnormal Lab Results - Last 24 Hours (Table) 02/04/23 02/04/23 Range/Units 06:32 06:32 MCHC 31.5 L (32.0-37.0) g/dL MPV 9.3 L (9.5-12.2) fL Immature Gran # 0.10 H (0.00-0.04) X 10*3/uL Eosinophils # 0.38 H (0.04-0.35) X 10*3/uL Creatinine 1.6 H (0.6-1.5) mg/dL Est GFR (CKD-EPI)AfAm 50.2 L (60.0-200.0) Est GFR (CKD-EPI)NonAf 43.3 L (60.0-200.0) BUN/Creatinine Ratio 10.13 L (12.00-20.00) Ratio Microbiology - Last 24 Hours (Table) 01/30/23 16:00 Blood Culture - Preliminary Blood 01/30/23 16:15 Blood Culture - Preliminary Blood Assessment and Plan Assessment: Acute abdominal pain secondary to acute diverticulitis of the proximal sigmoid colon left pelvis with focal small abscess and focal perforation or free air. Currently on Zosyn. Being managed conservatively. Tolerating a full liquid diet Acute exacerbation of chronic obstructive pulmonary disease currently stable and on room air Hyperlipidemia Hypertension Obstructive sleep apnea maintained on CPAP at 14 cm water Benign prostatic hyperplasia History of congestive heart failure Plan: The patient was seen and evaluated Medications reviewed Remains on Zosyn Advance diet per surgical services Stable and on room air We will continue to follow I have personally seen and examined the patient, performed the documentation and the assessment and plan as written. Number of minutes spent on the visit: 10.
[2023-02-04 16:45] LABS: Appearance,Urine Clear (Clear); Bilirubin,Urine Negative (Negative); Blood,Urine Negative (Negative); Color,Urine Light Yellow; Glucose,Urine (UA) Negative (Negative); Ketones,Urine Negative (Negative); Leukocyte Esterase,Urine Negative (Negative); Nitrite,Urine Negative (Negative); PH, Urine 5.5 (5.0-8.0); Protein,Urine Negative (Negative); Specific Gravity,Urine 1.008 (1.001-1.035); Urobilinogen,Urine <2.0 mg/dL (<2.0)
[2023-02-04] MEDS: LORATADINE 10 MG TAB PO SCH (20:05)
[2023-02-05 02:59] VITALS: RESP 18
[2023-02-05] MEDS: SYMBICORT 160-4.5 MCG INHALER INHALATION SCH (07:36)
[2023-02-05] MEDS: IPRATROPIUM-ALBUTEROL 3 ML NEB INHALATION SCH ×3 (07:36→15:19)
[2023-02-05] MEDS ORDERED: FAMOTIDINE 20 MG/2 ML VIAL IV SCH (09:00)
[2023-02-05 09:52] LABS: African American GFR (CKD) 50.2 (60.0-200.0); Anion Gap 13.7 mmol/L (10.00-18.00); BUN/Creat Ratio 11.69 Ratio (12.00-20.00); Blood Urea Nitrogen 18.7 mg/dL (9.0-27.0); Calcium 9.3 mg/dL (8.7-10.3); Carbon Dioxide 20.3 mmol/L (20.0-27.5); Non-African American GFR(CKD) 43.3 (60.0-200.0); Potassium 4.3 mmol/L (3.5-5.5)
[2023-02-05] MEDS: HEPARIN SODIUM,PORCINE/PF 5,000 UNIT/0.5 ML SYRINGE SQ SCH (10:09)
[2023-02-05] MEDS: FOLIC ACID 1 MG TAB PO SCH (10:09)
[2023-02-05] MEDS: FUROSEMIDE 20 MG TAB PO SCH (10:09)
[2023-02-05] MEDS: PIPERACILLIN-TAZOBACTAM 3.375 GM in SODIUM CHLORIDE 0.9% 100 ML IVPB SCH (10:10)
[2023-02-05] MEDS ORDERED: NIFEdipine XL 30 MG TAB.ER.24 PO STA (11:02)
[2023-02-05 12:04] VITALS: BP 136/78; TEMP 98.2
--- NOTE | 2023-02-05 12:19 | P.PN ---
Subjective Progress Note Date: 02/05/23 This a very pleasant 67-year-old male patient who has history of hyperlipidemia, congestive heart failure, benign prosthetic hyperplasia, hypertension, obstructive sleep apnea maintained on CPAP at 14 cm of water, moderate chronic obstructive pulmonary disease maintained on Symbicort and albuterol and follows with Dr. Escamilla in our office for the same. He was treated for COPD exacerbation on 01/09/2023. He presented here to the emergency room yesterday with complaints of lower abdominal pain and shortness of breath. He stated his shortness of breath had gotten worse the past 3 days. He was having orthopnea. He was having some bilateral lower extremity edema. He is having lower abdominal pain for the past 2 weeks but had been increasing in intensity. Computed tomography scan of the abdomen revealed acute diverticulitis of the proximal sigmoid colon left pelvis with focal small abscess and focal perforation or free air. X-ray of the abdomen revealed nonspecific bowel gas pattern without radiographic evidence for acute process. Chest x-ray revealed no acute pulmonary process. Evidence of COPD. He is seen today in consultation on the regular medical floor. He is currently sitting up in bed. Awake and alert in no acute distress. Still having some lower abdominal discomfort. St ill having some shortness of breath with minimal conversation and minimal exertion. He is maintaining good O2 saturations in the 90s on room air. He's been afebrile. Hemodynamically stable. White count 9.9. Hemoglobin 14.5. INR 0.9. Sodium 137. Potassium 4.6. Bicarb 21. BUN 18. Creatinine 1.17. Glucose 109. AST 23. ALT 37. Troponin negative 1. ProBNP 55. He had been seen by surgical services who are planning to continue conservative management. He's been initiated on Zosyn. Resume Symbicort and DuoNeb inhalations. The patient is seen today 02/01/2023 in follow-up on the regular medical floor. He is currently sitting up in bed. Awake and alert in no acute distress. Ellyn ntaining good O2 saturations in the 90s on room air. He's been afebrile. Hemodynamically stable. Still having some lower abdominal discomfort. Tolerating a liquid diet. Blood cultures pending. White count 7.3. Hemoglobin 14.6. Platelets 194. He is on DuoNeb inhalations, Symbicort. For DVT prophylaxis. Remains on antibiotics in the form of Zosyn. Normal saline at 75 ML's per hour. The patient is seen today 02/02/2023 in follow-up on the regular medical floor. He is awake and alert in no acute distress. Maintaining good O2 saturations in the 90s on room air. Denies any worsening shortness of breath, cough or congestion. He is still having some issues with abdominal discomfort but seems to be improving daily. He is continued on Zosyn. Plan is continued medical treatment for his acute diverticulitis. Tolerating a full liquid diet. He remains on Symbicort, DuoNeb inhalations. Heparin for DVT prophylaxis. Remains on oral diuretics. The patient is seen today 02/03/2023 in follow-up on the regular medical floor. He is resting comfortably in bed. Awake and alert in no acute distress. Denies any significant abdominal discomfort. Feeling better each day. No worsening shortness of breath, cough or congestion. She is continued on Symbicort and DuoNeb inhalations. Antibiotics in the form of Zosyn. Heparin for DVT prophylaxis. Remains on oral diuretics. Blood cultures pending. No new labs today. Tolerating a full liquid diet. The patient is seen today 02/04/2023 in follow-up on the regular medical floor. Awake and alert in no acute distress. Resting quite comfortably in bed. Maintaining O2 saturations in the 90s on room air. Abdominal pain improving. Tolerating a full liquid diet. Continued on Zosyn. Remains on Symbicort and DuoNeb inhalations The patient is seen today 02/05/2023 in follow-up on the regular medical floor. Sitting up in bed. Awake and alert in no acute distress. Continues to maintain good O2 saturations in the 90s on room air. Blood cultures revealed no growth. Remains on Zosyn. Remains on some cord and DuoNeb inhalations. Abdominal pain has subsided. Tolerating a full liquid diet. Objective - Vital Signs Vital signs: Vital Signs Temp 98.2 F 02/05/23 11:38 Pulse 80 02/05/23 11:38 Resp 18 02/05/23 11:38 BP 136/78 02/05/23 11:38 Pulse Ox 92 L 02/05/23 11:38 FiO2 21 02/01/23 07:53 Intake & Output 02/04/23 02/05/23 02/05/23 18:59 06:59 18:59 Intake Total 1320 900 Output Total 96 Balance 1224 900 Intake: Intake, IV Titration 500 Amount Piperacillin-Tazobactam 3 100 .375 gm In Sodium Chloride 0.9% 100 ml @ 25 mls/hr IVPB Q8HR [facility] Rx# :[id number] Sodium Chloride 0.9% 1, 400 000 ml @ 75 mls/hr IV . [id number] [facility] Rx#:[id number] Oral 1320 400 Output: Post Void Residual 96 Other: Voiding Method Toilet # Voids 1 2 - Exam GENERAL EXAM: Alert, 67-year-old male patient, on room air, comfortable in no apparent distress. HEAD: Normocephalic. EYES: Normal reaction of pupils, equal size. NOSE: Clear with pink turbinates. THROAT: No erythema or exudates. NECK: No masses, no JVD. CHEST: No chest wall deformity. LUNGS: Equal air entry with no crackles, wheeze, rhonchi or dullness. Diminished. CVS: S1 and S2 normal with no audible murmur, regular rhythm. ABDOMEN: Positive for left lower quadrant pain, normal bowel sounds, slightly guarding no rigidity. SPINE: No scoliosis or deformity SKIN: No rashes CENTRAL NERVOUS SYSTEM: No focal deficits, tone is normal in all 4 extremities. EXTREMITIES: There is no peripheral edema. No clubbing, no cyanosis. Peripheral pulses are intact. - Labs CBC & Chem 7: 02/04/23 06:32 02/05/23 05:40 Labs: Abnormal Lab Results - Last 24 Hours (Table) 02/05/23 Range/Units 05:40 Creatinine 1.6 H (0.6-1.5) mg/dL Est GFR (CKD-EPI)AfAm 50.2 L (60.0-200.0) Est GFR (CKD-EPI)NonAf 43.3 L (60.0-200.0) BUN/Creatinine Ratio 11.69 L (12.00-20.00) Ratio Microbiology - Last 24 Hours (Table) 01/30/23 16:00 Blood Culture - Final Blood 01/30/23 16:15 Blood Culture - Final Blood Assessment and Plan Assessment: Acute abdominal pain secondary to acute diverticulitis of the proximal sigmoid colon left pelvis with focal small abscess and focal perforation or free air. Currently on Zosyn. Being managed conservatively. Tolerating a full liquid diet Acute exacerbation of chronic obstructive pulmonary disease currently stable and on room air Hyperlipidemia Hypertension Obstructive sleep apnea maintained on CPAP at 14 cm water Benign prostatic hyperplasia History of congestive heart failure Plan: The patient was seen and evaluated Medications reviewed Remains on Zosyn Advance diet per surgical services Stable and on room air Home once cleared by surgical services I have personally seen and examined the patient, performed the documentation and the assessment and plan as written. Number of minutes spent on the visit: 10.
--- NOTE | 2023-02-05 13:13 | P.PN ---
Subjective Progress Note Date: 02/05/23 CHIEF COMPLAINT: Sigmoid diverticulitis with microperforation HISTORY OF PRESENT ILLNESS: Patient reports improvement in his abdominal pain. He is not requiring pain medication. He denies any nausea or vomiting. He is tolerating diet. Afebrile. White count is normal at 6.38 patient feels ready for discharge. Patient seen and examined with Dr. Moncada PHYSICAL EXAM: VITAL SIGNS: Reviewed. GENERAL: Well-developed in no acute distress. HEENT: No sclera icterus. Extraocular movements grossly intact. Moist buccal mucosa. Head is atraumatic, normocephalic. ABDOMEN: Soft. Nondistended. Nontender NEUROLOGIC: Alert and oriented. Cranial nerves II through XII grossly intact. ASSESSMENT: 1. Acute sigmoid diverticulitis with abscess and microperforation PLAN: -Patient can be discharged from surgical standpoint with oral antibiotics -Patient can advance diet at home to soft/regular diet -Patient will need colonoscopy outpatient Physician Cocoa Powder Mixer Operator note has been reviewed by physician. Signing provider agrees with the documented findings, assessment, and plan of care. Objective - Vital Signs Vital signs: Vital Signs Temp 98.2 F 02/05/23 11:38 Pulse 80 02/05/23 11:38 Resp 18 02/05/23 11:38 BP 136/78 02/05/23 11:38 Pulse Ox 92 L 02/05/23 11:38 FiO2 21 02/01/23 07:53 Intake & Output 02/04/23 02/05/23 02/05/23 18:59 06:59 18:59 Intake Total 1320 900 Output Total 96 Balance 1224 900 Intake: Intake, IV Titration 500 Amount Piperacillin-Tazobactam 3 100 .375 gm In Sodium Chloride 0.9% 100 ml @ 25 mls/hr IVPB Q8HR [facility] Rx# :[id number] Sodium Chloride 0.9% 1, 400 000 ml @ 75 mls/hr IV . [id number] [facility] Rx#:[id number] Oral 1320 400 Output: Post Void Residual 96 Other: Voiding Method Toilet # Voids 1 2 - Labs CBC & Chem 7: 02/04/23 06:32 02/05/23 05:40 Labs: Abnormal Lab Results - Last 24 Hours (Table) 02/05/23 Range/Units 05:40 Creatinine 1.6 H (0.6-1.5) mg/dL Est GFR (CKD-EPI)AfAm 50.2 L (60.0-200.0) Est GFR (CKD-EPI)NonAf 43.3 L (60.0-200.0) BUN/Creatinine Ratio 11.69 L (12.00-20.00) Ratio Microbiology - Last 24 Hours (Table) 01/30/23 16:00 Blood Culture - Final Blood 01/30/23 16:15 Blood Culture - Final Blood
[2023-02-05 13:19] VITALS: BMI 33.5
[2023-02-05 15:31] VITALS: PULSE 84
--- NOTE | 2023-02-06 00:08 | P.DS ---
Providers Date of admission: 01/30/23 17:27 Attending physician: David Kenney MD Consults: 01/31/23 08:25 Consult Physician Routine Consulting Provider: Bryn Moncada Consult Reason/Comments: diverticulits with abscess and free air Do you want consulting provider notified?: Already Contacted 01/31/23 20:49 Consult Physician Routine Consulting Provider: Corey Hdz Consult Reason/Comments: copd Do you want consulting provider notified?: Already Contacted Primary care physician: [place] Subha Hospital Course: Diagnoses: Acute proximal sigmoid diverticulitis with perforation and colonic abscess 2.1 cm, improved upon discharge, Mild acute kidney injury, improved ,creatinine is stable upon discharge Chronic kidney disease stage III COPD with mild acute exacerbation Hypertension History of osteoarthritis History of sleep apnea obesity with BMI of 32.5 Hospital course: This is a pleasant 67 years old male with past medical history of COPD/asthma, hypertension, history of arthritis, sleep apnea Patient presents because of abdominal pain for 2 weeks duration, his pain in the lower abdomen about 5/10 in severity felt like sharp CT of the abdomen and pelvis:Diffuse colonic diverticulosis with focal moderate to severe wall thickening in the proximal sigmoid colon of the left pelvis with there is mild to moderate adjacent Deepthi stranding with focal perforation and thin-walled fluid collection measuring 2.1 cm consistent with small abscess, with focal perforation or free air I spoke with Sandrita from ER team she told me she already talked to Dr. Michael the general surgeon on-call and he wants the patient to be admi Patient vomited by surgery team, no surgical intervention. Patient was treated with prevented by Smith IV fluid. Patient showed interval improvement, patient's symptoms significantly improved, today only mild left lower quadrant abdominal tenderness. Patient advised that well. She was having bowel movements. Patient thinks he can go home today. Patient denies new complaints. Patient without dyspnea or chest pain. Patient was cleared for discharge by pulmonary and general surgery service. Patient is discharge on oral antibiotics for surgery team Patient entresto medication was held because of his kidney disease and nifedipine dose increased 60 mg of vitamin cramp up. His blood pressure is stable upon discharge. Patient instructed to follow up with rope tier as an outpatient for his kidney disease and he agrees Problems and management plan were discussed with the patient and he verbalized understanding and acceptance Patient was found stable and can be discharged home in guarded prognosis however he needs follow-up as an outpatient. Patient was instructed to follow up with PCP Dr. Mascorro within one week and patient agrees Patient was instructed to follow up with surgeon Dr. Elder on 02/14 and he agrees with the appointment date and time. Patient was instructed to follow up with vacuum truck driver Dr. Escamilla on 01/20 and he agrees. Patient was instructed to follow up with Dr. Mon 1-2 weeks and he agrees Patient told me that he plan to travel to [place] by air pain, I advised the patient to check with his PCP, vacuum truck driver and other doctors for safety prior to traveling and he agreed Physical exam Gen: patient is a AAOx3, no distress CVS: S1-S2, RRR, no murmur Lungs: B/L CTA, no wheezing Abdomen: soft, no distention, no tenderness, positive bowel sounds Extremity: no leg edema or induration Time spent more than 35 minutes Patient Condition at Discharge: Stable Plan - Discharge Summary Discharge Rx Participant: Yes New Discharge Prescriptions: New metroNIDAZOLE [Flagyl] 500 mg PO TID 10 Days #30 tab Wheat Dextrin [Benefiber] 1 packet PO DAILY #30 packet Levofloxacin [Levaquin] 500 mg PO DAILY 10 Days #10 tab Artificial Tears-Hypromellose [Artificial Tear Drops] 2 drops BOTH EYES QID PRN #10 ml PRN Reason: Dry Eye(S) NIFEdipine XL [Procardia XL] 90 mg PO DAILY #30 tab Budesonide-Formot 160-4.5 Mcg [Symbicort 160-4.5 Mcg Inhaler] 2 puff INHALATION RT-BID each Acetaminophen Tab [Tylenol] 650 mg PO Q6HR PRN tab PRN Reason: Mild Pain Or Fever > 100.5 Continue Folic Acid 1 mg PO DAILY #30 tablet Furosemide [Lasix] 20 mg PO BID Cetirizine HCl [Zyrtec] 10 mg PO HS Discontinued Sacubitril/Valsartan [Entresto 24 mg-26 mg Tablet] 1 tab PO BID Potassium Chloride [Potassium Chloride ER] 10 meq PO DAILY NIFEdipine XL [Procardia XL] 60 mg PO DAILY No Action Testosterone Cypionate [Depo-Testosterone] 100 mg IM WE Discharge Medication List Folic Acid 1 mg PO DAILY #30 tablet 03/01/18 [Rx] Furosemide [Lasix] 20 mg PO BID 10/28/18 [History] Testosterone Cypionate [Depo-Testosterone] 100 mg IM WE 08/03/20 [History] Cetirizine HCl [Zyrtec] 10 mg PO HS 01/30/23 [History] Acetaminophen Tab [Tylenol] 650 mg PO Q6HR PRN tab 02/05/23 [Rx] Artificial Tears-Hypromellose [Artificial Tear Drops] 2 drops BOTH EYES QID PRN #10 ml 02/05/23 [Rx] Budesonide-Formot 160-4.5 Mcg [Symbicort 160-4.5 Mcg Inhaler] 2 puff INHALATION RT-BID each 02/05/23 [Rx] Levofloxacin [Levaquin] 500 mg PO DAILY 10 Days #10 tab 02/05/23 [Rx] NIFEdipine XL [Procardia XL] 90 mg PO DAILY #30 tab 02/05/23 [Rx] Wheat Dextrin [Benefiber] 1 packet PO DAILY #30 packet 02/05/23 [Rx] metroNIDAZOLE [Flagyl] 500 mg PO TID 10 Days #30 tab 02/05/23 [Rx] Follow up Appointment(s)/Referral(s): Pily Mon MD [STAFF PHYSICIAN] - 02/20/23 9:40 am (kidney doctor. Will see UI UX DEVELOPER at this visit.) James Mascorro III, MD [Primary Care Provider] - 1-2 days (Office will call Pt. to set up date and time) [place] [employer] [NON-STAFF] - 1-2 Days (will call to deliver nebulizer any questions to call agency. ) Donovan Escamilla DO [Doctor of Osteopathic Medicine] - 02/19/23 9:45 am Bryn Moncada MD [STAFF PHYSICIAN] - 02/14/23 3:15 pm Patient Instructions/Handouts: Soft Diet (ED), Full Liquid Diet (DC) Activity/Diet/Wound Care/Special Instructions: [facility] will deliver your nebulizer to your home. Discharge Disposition: HOME SELF-CARE
[2023-02-06] MEDS ORDERED: NIFEdipine XL 90 MG TAB.ER.24 PO SCH (09:00)
== END 2023-02-05 15:50 | disposition home or self-care (01) | DRG 392 ==
LOC: EC 12:29 → 5NMEDONC 17:27
PROVIDERS: ADMIT Internal Medicine; ATTEND Internal Medicine
DX: K57.20 Diverticulitis of large intestine with perforation and abscess without bleeding (principal); I13.0 Hypertensive heart and chronic kidney disease with heart failure and stage 1 through stage 4 chronic kidney disease, or unspecified chronic kidney disease; J44.1 Chronic obstructive pulmonary disease with (acute) exacerbation; N17.9 Acute kidney failure, unspecified; M19.90 Unspecified osteoarthritis, unspecified site; E66.9 Obesity, unspecified; E78.5 Hyperlipidemia, unspecified; G47.33 Obstructive sleep apnea (adult) (pediatric); I50.9 Heart failure, unspecified; K76.89 Other specified diseases of liver; N18.30 Chronic kidney disease, stage 3 unspecified; N40.0 Benign prostatic hyperplasia without lower urinary tract symptoms; Z68.32 Body mass index [BMI] 32.0-32.9, adult; Z87.19 Personal history of other diseases of the digestive system; J45.909 Unspecified asthma, uncomplicated; Z96.641 Presence of right artificial hip joint; Z71.3 Dietary counseling and surveillance; Z88.5 Allergy status to narcotic agent; Z88.2 Allergy status to sulfonamides
CPT/HCPCS: 36415; 71046; 74018; 74177; 80048; 80053; 81003; 83605; 83880; 84484; 85025; 85610; 85730; 93005; 94640; 94760; 96361; 96374; 99285

== ENCOUNTER 2023-02-28 09:46 | Day surgery (SDC) | payer MEDICARE ==
[2023-02-27 08:57] VITALS: BMI 33.2
[~2023-02-28 09:46] MED LIST changes: -ACETAMINOPHEN TAB 500 MG TAB PO PRN; -DEXAMETHASONE SOD PHOSPHATE 10 MG/ML 1 ML VIAL IV PRN; -DOCUSATE 100 MG CAP PO PRN; -FAMOTIDINE 20 MG/2 ML VIAL IVP PRN; -KETOROLAC 15 MG/ML 1 ML VIAL IVP PRN; +LACTATED RINGERS 1,000 ML IV SCH; +LIDOCAINE 1% (10MG/ML) FOR IV START INTRADERMA PRN; -MIDAZOLAM 2 MG/2 ML VIAL IV PRN; -ONDANSETRON 4 MG/2 ML VIAL IVP PRN; -Pre Op ABX Message 1 EACH MISC MISCELLANE ONE; -TRANEXAMIC ACID IN NACL,ISO-OS 1,000 MG in SALINE 1 100ML.BAG IVPB PRN; -fentaNYL (PF) 50 MCG/ML 2 ML AMP IV PRN
[2023-02-28 10:18] VITALS: TEMP 98.5
[2023-02-28] MEDS ORDERED: PROPOFOL 10 MG/ML 20 ML VIAL IV ONE (10:42)
--- NOTE | 2023-02-28 11:01 | P.OP ---
Date of Procedure: 02/28/23 Preoperative Diagnosis: Diverticulitis Postoperative Diagnosis: Right colon polyp Diverticulitis Procedure(s) Performed: Colonoscopy Anesthesia: MAC Surgeon: Bryn Moncada Pathology: other (Right colon polyp) Condition: stable Disposition: PACU Description of Procedure: The patient's placed on the endoscopy table in the lateral position. He received IV sedation. Digital rectal exam was performed. This revealed external hemorrhoids. The flexible colonoscope was then placed patient anus and passed throughout the entire colon. The ileocecal valve was visualized. The cecum, appeared normal. In the ascending colon there was a polyp seen. This removed with the snare and forcep. The transverse colon had some scattered diverticula. There was more diverticula seen in the descending and sigmoid colon. Scope was brought back the rectum and this appeared normal. Scope withdrawn for patient.
[2023-02-28 11:21] VITALS: RESP 18
[2023-02-28 12:00] VITALS: BP 159/88; PULSE 77
== END 2023-02-28 12:15 | disposition home or self-care (01) ==
LOC: ORWHC2ENDO 09:46
PROVIDERS: ATTEND Surgery
DX: D12.2 Benign neoplasm of ascending colon (principal); K57.30 Diverticulosis of large intestine without perforation or abscess without bleeding; J44.9 Chronic obstructive pulmonary disease, unspecified; I10 Essential (primary) hypertension; G47.33 Obstructive sleep apnea (adult) (pediatric); Z90.49 Acquired absence of other specified parts of digestive tract; Z98.890 Other specified postprocedural states; Z79.899 Other long term (current) drug therapy; Z88.2 Allergy status to sulfonamides; Z88.5 Allergy status to narcotic agent
CPT/HCPCS: 88305; 45385; J2704

== ENCOUNTER → 2023-03-21 | Outpatient (CLI) | payer MEDICARE ==
[2023-03-21 16:17] LABS: Anion Gap 15.2 mmol/L (4.00-12.00); Carbon Dioxide 21.8 mmol/L (21.6-31.8)
[2023-03-21 16:26] LABS: Basophils # (A) 0.07 X 10*3/uL (0.00-0.10); Basophils % (A) 0.9 %; Eosinophils # (A) 0.29 X 10*3/uL (0.04-0.35); Eosinophils % (A) 3.7 %; HCT 45.2 % (39.6-50.0); HGB 14.6 d/dL (12.0-15.0); Lymphocytes # (A) 1.87 X 10*3/uL (0.90-5.00); Lymphocytes % (A) 24.1 %; MCH 29.3 pg (27.0-32.0); MCHC 32.3 d/dL (32.0-37.0); MCV 90.6 FL (80.0-97.0); Mean Platelet Volume 9.6 FL (9.5-12.2); Monocytes # (A) 0.93 X 10*3/uL (0.20-1.00); NRBC Per 100 WBC 0 X 10*3/uL (0.00-0.01); Neutrophils # (A) 4.48 X 10*3/uL (1.80-7.70); Neutrophils % (A) 57.8 %; Platelet Count 233 X 10*3/uL (140-440); RBC 4.99 X 10*6/uL (4.40-5.60); RDW 14.6 % (11.5-14.5); WBC 7.76 X 10*3/uL (4.50-10.00)
== END | disposition home or self-care (01) ==
LOC: LABPAT 09:18
PROVIDERS: ATTEND Surgery
DX: Z01.812 Encounter for preprocedural laboratory examination (principal)
CPT/HCPCS: 80051; 85025; 93005

== ENCOUNTER 2023-03-26 06:58 | Inpatient (IN) | payer MEDICARE ==
[~2023-03-26 06:58] MED LIST changes: +ACETAMINOPHEN TAB 500 MG TAB PO PRN; +HEPARIN SODIUM,PORCINE/PF 5,000 UNIT/0.5 ML SYRINGE SQ PRN; -LACTATED RINGERS 1,000 ML IV SCH; -LIDOCAINE 1% (10MG/ML) FOR IV START INTRADERMA PRN; +metroNIDAZOLE-NS PMX 500 MG in SALINE 1 100ML.BAG IVPB PRN
[2023-03-26] MEDS ORDERED: LACTATED RINGERS 1,000 ML IV ONE ×2 (07:45→11:38)
[2023-03-26] MEDS ORDERED: ALVIMOPAN 12 MG CAPSULE PO ONE (08:00)
[2023-03-26] MEDS ORDERED: ONDANSETRON 4 MG/2 ML VIAL ONE (08:01)
[2023-03-26 08:04] LABS: Glucose,Whole Blood 127 mg/dL (70-110)
[2023-03-26] MEDS ORDERED: DEXAMETHASONE SOD PHOSPHATE 4 MG/ML 1 ML VIAL IVP ONE (08:15)
[2023-03-26] MEDS ORDERED: MIDAZOLAM 2 MG/2 ML VIAL IVP ONE (08:59)
[2023-03-26] MEDS ORDERED: fentaNYL (PF) 50 MCG/ML 2 ML AMP ONE (10:08)
[2023-03-26] MEDS ORDERED: GLYCOPYRROLATE 0.2 MG/ML 2 ML VIAL ONE (10:08)
[2023-03-26] MEDS ORDERED: LIDOCAINE 2% INJ 20 MG/ML (2 ML VIAL) ONE (10:08)
[2023-03-26] MEDS ORDERED: ROCURONIUM 10 MG/ML (5 ML VIAL) IV ONE (10:08)
[2023-03-26] MEDS ORDERED: MIDAZOLAM 2 MG/2 ML VIAL ONE (10:08)
[2023-03-26] MEDS ORDERED: SUGAMMADEX SODIUM 200 MG/2 ML SDV IV ONE (10:08)
[2023-03-26] MEDS ORDERED: PROPOFOL 10 MG/ML 20 ML VIAL IV ONE (10:08)
[2023-03-26] MEDS ORDERED: SUCCINYLCHOLINE CHLORIDE 200 MG/10 ML VIAL IV ONE (10:08)
[2023-03-26] MEDS ORDERED: NEOSTIGMINE 1 MG/ML 10 ML VIAL ONE (10:08)
[2023-03-26] MEDS ORDERED: NALOXONE 0.4 MG/ML 1 ML VIAL IV PRN (11:10)
--- NOTE | 2023-03-26 11:13 | P.ANPRN ---
Procedure Note - Anesthesia - Epidural/Spinal Epidural Continuous Time Out Performed: Yes Date of Procedure: 03/26/23 Procedure Start Time: 08:58 Procedure Stop Time: 09:08 Location of Patient: PreOp Indication: Acute Post-Operative Pain, Requested by Surgeon Sedation Type: Sedate with meaningful contact maintained Preparation: Sterile Dressing Position: Sitting Catheter: Indwelling Needle Guage: 18 Blood Aspirated: No Pain Paresthesia on Injection Noted: No Events: Uneventful and Well Tolerated (Epidural catheter inserted at L3-L4, test dose Xylocaine 1.5% with epi 3 mL given with no adverse reaction)
[2023-03-26] MEDS ORDERED: ONDANSETRON 4 MG/2 ML VIAL IVP PRN (11:56)
[2023-03-26] MEDS ORDERED: BENZOCAINE/MENTHOL LOZENG 1 EACH LOZENGE MUCOUS MEM PRN (11:56)
--- NOTE | 2023-03-26 11:56 | P.OP ---
Date of Procedure: 03/26/23 Preoperative Diagnosis: History of perforated diverticulitis Postoperative Diagnosis: History of perforated diverticulitis Procedure(s) Performed: Low anterior resection Anesthesia: HALEYA Surgeon: Bryn Moncada Estimated Blood Loss (ml): 25 Pathology: other (Sigmoid colon) Condition: stable Disposition: PACU Description of Procedure: LDESCRIPTION OF PROCEDURE: The patient was placed on the operating table in the supine position. Patient received a general anesthesia. Patient was then placed in the dorsal lithotomy position. The patients abdomen was prepped and draped in the usual sterile fashion. Through a low midline incision, the abdomen was entered. The Alpine retractor was placed in the wound. The stomach appeared normal. The small bowel appeared normal. The liver appeared normal. The right colon and transverse colon appeared normal. On the left colon, there was an extensive diverticulosis noted. The sigmoid colon was then mobilized by dividing the white line of Toldt with electrocautery. At this point, the proximal sigmoid colon was transected with a GI stapler after a window had been made in the mesentery. The distal sigmoid colon was then dissected. Mesentery was taken down between Elis clamps and ligated with #0 silk ties. At a point beyond the lesion, the bowel was then transected with a Proximate stapler. This was then removed. The splenic flexure was then taken down in order to provide adequate lengthening of the sigmoid colon. At this point, the auto purse-string suture device was placed across the proximal colon and fired. The colon was then opened. The 29 mm EEA anvil was then placed into the colon and then the purse-string was secured. The EEA stapler device was then placed in the patients anus and passed into the rectum. The nail for the EEA was then brought out through the distal rectum and then attached to the anvil. The EEA stapler device was then fired. The anastomosis was inspected. There were 2 good donuts of tissue removed from the EEA stapler. The anastomosis was then tested under water and there was no air leak seen. At this point the abdomen was then irrigated. There was no bleeding seen. The fascia was then closed with double stranded #1 PDS. The skin was closed with hugh. The patient tolerated the procedure well.
[2023-03-26] MEDS: ROPIVACAINE 250 MG, HYDROMORPHONE (PF) 5 MG in SODIUM CHLORIDE 0.9% 200 ML EPIDURAL PRN ×3 (12:14→13:14)
[2023-03-26] MEDS ORDERED: ALBUTEROL NEBULIZED 2.5 MG/3 ML INHALATION ONE (12:28)
[2023-03-26] MEDS ORDERED: ARTIFICIAL TEARS-HYPROMELLOSE DROPS 15 ML BTL BOTH EYES PRN (14:12)
[2023-03-26] MEDS: D5-0.45% NACL WITH KCL 20MEQ/L 1,000 ML IV SCH ×2 (15:39→22:20)
[2023-03-26] MEDS: HEPARIN SODIUM,PORCINE/PF 5,000 UNIT/0.5 ML SYRINGE SQ SCH (15:40)
[2023-03-26] MEDS: carvediloL 6.25 MG TAB PO SCH (17:28)
[2023-03-26] MEDS: PANTOPRAZOLE 40 MG TABLET PO SCH (17:28)
[2023-03-26 18:07] LABS: Basophils % (A) 0 %; Eosinophils % (A) 0 %; HCT 44.9 % (39.0-53.0); HGB 14.5 gm/dL (13.0-17.5); Lymphocytes # (A) 0.6 k/uL (1.0-4.8); Lymphocytes % (A) 6 %; MCH 29.9 pg (25.0-35.0); MCHC 32.2 g/dL (31.0-37.0); MCV 92.9 fL (80.0-100.0); Mean Platelet Volume 7.4; Monocytes # (A) 0.6 k/uL (0-1.0); Monocytes % (A) 6 %; Neutrophils # (A) 9.3 k/uL (1.3-7.7); Neutrophils % (A) 88 %; Platelet Count 222 k/uL (150-450); RBC 4.84 m/uL (4.30-5.90); RDW 14.9 % (11.5-15.5); WBC 10.6 k/uL (3.8-10.6)
[2023-03-26 18:20] LABS: Potassium 4.7 mmol/L (3.5-5.1)
[2023-03-26 18:21] LABS: African American GFR (CKD) 69 (>60 ml/min/1.73 sqM); Anion Gap 14 mmol/L; Blood Urea Nitrogen 16 mg/dL (9-20); Calcium 8.9 mg/dL (8.4-10.2); Carbon Dioxide 20 mmol/L (22-30); Chloride 106 mmol/L (98-107); Glucose 148 mg/dL (74-99); Non-African American GFR(CKD) 60 (>60 ml/min/1.73 sqM); Sodium 140 mmol/L (137-145)
[2023-03-26] MEDS: LORATADINE 10 MG TAB PO SCH (19:39)
[2023-03-26] MEDS ORDERED: ALBUTEROL NEBULIZED 2.5 MG/3 ML INHALATION SCH (20:00)
[2023-03-26] MEDS: SYMBICORT 80-4.5 MCG INHALER INHALATION SCH (20:07)
[2023-03-27] MEDS ORDERED: HEPARIN SODIUM,PORCINE 5,000 UNIT/ML 1 ML VIAL ONE
[2023-03-27] MEDS: ALBUTEROL NEBULIZED 2.5 MG/3 ML INHALATION PRN (01:34)
[2023-03-27] MEDS: D5-0.45% NACL WITH KCL 20MEQ/L 1,000 ML IV SCH ×2 (05:15→15:32)
[2023-03-27] MEDS: HEPARIN SODIUM,PORCINE/PF 5,000 UNIT/0.5 ML SYRINGE SQ SCH ×4 (05:15→23:59)
--- NOTE | 2023-03-27 05:28 | CONS ---
CONSULTATION REASON FOR CONSULTATION: Advice regarding asthma and COPD requested by Surgery. HISTORY OF PRESENT ILLNESS: This is a 67-year-old gentleman with a past medical history of multiple medical problems including COPD and asthma, underwent low anterior resection by Dr. Moncada. There is no history of any fever or rigors. No history of headache, loss of consciousness, or seizures. PAST MEDICAL HISTORY: Reviewed includes asthma, COPD, and history of perforated diverticulitis. HOME MEDICATIONS: Reviewed include Coreg. Doses and rest of the medications are noted. ALLERGIES: Codeine. Rest of the allergies are noted. FAMILY HISTORY: Cancer. SOCIAL HISTORY: Previous history of smoking. No history of alcohol. REVIEW OF SYSTEMS: Fourteen-point review is negative except as mentioned earlier. PHYSICAL EXAMINATION: VITAL SIGNS: Pulse 51, blood pressure 157/87, respirations 18. HEENT: Conjunctivae are normal. NECK: No jugular venous distention. CARDIOVASCULAR: S1 and S2 muffled. RESPIRATORY: Breath sounds diminished at the bases. ABDOMEN: Soft. Status post surgery. LEGS: No edema. NERVOUS SYSTEM: Nonfocal. SKIN: No ulcers or rashes. JOINTS: No active deforming arthropathy. LABORATORY DATA: Reviewed. ASSESSMENT: 1. Status post low anterior resection. 2. History of perforated diverticulitis. 3. Chronic obstructive pulmonary disease and asthma. 4. Hypertension. 5. Multiple medical issues. RECOMMENDATIONS: Recommend to continue current medications. Continue symptomatic treatment. Resume the home medications, DVT prophylaxis, incentive spirometry, and proton pump inhibitors. We will follow the patient closely with you. Thank you Dr. Moncada. See orders for details. MMODL / IJN: [id number] /
[2023-03-27] MEDS: PANTOPRAZOLE 40 MG TABLET PO SCH (06:00)
[2023-03-27] MEDS: carvediloL 6.25 MG TAB PO SCH ×2 (06:49→17:35)
--- NOTE | 2023-03-27 07:44 | P.PN ---
Progress Note - Text Progress Note Date: 03/27/23 Patient was seen and evaluated at bedside. Postop day # 1 status post low ant erior resection. Patient was seen and examined at the bedside. Today is complaining his pain levels are 6-7 out of 10 in severity he rated. With activity his pain level sometimes 7-8. Most of the time the epidural pain medication helping as per patient. . Moving extremities well without any difficulty. He denied any red flag symptoms, pain over the catheter site. Physical exam: Vital signs: stable, afebrile Catheter site: Clean, and intact Dressing. no tenderness over the catheter area. Moving lower extremities without difficulty. Assessment: Acute postoperative pain secondary to low anterior resection postop day 1 Plan: Plan to increase epidural solution to 10 mL per hour. Also recommended to use breakthrough IV pain medication as needed. Please call anesthesia as needed
[2023-03-27] MEDS: FOLIC ACID 1 MG TAB PO SCH (08:09)
[2023-03-27] MEDS: ALVIMOPAN 12 MG CAPSULE PO SCH ×2 (08:09→20:33)
[2023-03-27] MEDS: NIFEdipine XL 90 MG TAB.ER.24 PO SCH (08:09)
[2023-03-27] MEDS: ALBUTEROL NEBULIZED 2.5 MG/3 ML INHALATION SCH ×3 (08:15→22:00)
[2023-03-27] MEDS: SYMBICORT 80-4.5 MCG INHALER INHALATION SCH ×2 (08:15→22:00)
[2023-03-27 08:19] LABS: Basophils % (A) 0 %; Eosinophils % (A) 0 %; HCT 40.7 % (39.0-53.0); HGB 13.1 gm/dL (13.0-17.5); Lymphocytes # (A) 1.5 k/uL (1.0-4.8); Lymphocytes % (A) 14 %; MCHC 32.2 g/dL (31.0-37.0); MCV 90.2 fL (80.0-100.0); Mean Platelet Volume 7.6; Monocytes # (A) 0.8 k/uL (0-1.0); Monocytes % (A) 8 %; Neutrophils # (A) 8.1 k/uL (1.3-7.7); Neutrophils % (A) 75 %; Platelet Count 207 k/uL (150-450); RBC 4.51 m/uL (4.30-5.90); WBC 10.7 k/uL (3.8-10.6)
[2023-03-27 08:39] LABS: African American GFR (CKD) 67 (>60 ml/min/1.73 sqM); Anion Gap 9 mmol/L; Blood Urea Nitrogen 15 mg/dL (9-20); Calcium 8.7 mg/dL (8.4-10.2); Carbon Dioxide 22 mmol/L (22-30); Chloride 105 mmol/L (98-107); Glucose 121 mg/dL (74-99); Non-African American GFR(CKD) 58 (>60 ml/min/1.73 sqM); Potassium 4.2 mmol/L (3.5-5.1); Sodium 136 mmol/L (137-145)
[2023-03-27] MEDS ORDERED: FUROSEMIDE 20 MG TAB PO SCH (09:00)
[2023-03-27] MEDS: ROPIVACAINE 250 MG, HYDROMORPHONE (PF) 5 MG in SODIUM CHLORIDE 0.9% 200 ML EPIDURAL PRN (10:27)
--- NOTE | 2023-03-27 12:42 | P.PN ---
Subjective Progress Note Date: 03/27/23 CHIEF COMPLAINT: Diverticulitis HISTORY OF PRESENT ILLNESS: Patient is postop day #1 status post lower anterior resection. He does complain of more abdominal pain today. Anesthesia has increased epidural to 10. Patient denies any nausea vomiting. Denies any flatus. Afebrile. WBC is 10.7 Hgb is 13.1 platelets 207 creatinine 1.26 PHYSICAL EXAM: VITAL SIGNS: Reviewed. GENERAL: Well-developed in no acute distress. HEENT: No sclera icterus. Extraocular movements grossly intact. Moist buccal mucosa. Head is atraumatic, normocephalic. ABDOMEN: Soft. Distended. Patient reports is normal size abdomen. Prevana wound vac dressing clean, dry, intact NEUROLOGIC: Alert and oriented. Cranial nerves II through XII grossly intact. ASSESSMENT: 1. History of perforated diverticulitis status post lower anterior resection PLAN: -Continue clear liquid diet -Continue pain management. Epidural adjusted by anesthesia service. -Continue to monitor -Continue IV fluids -Incentive spirometer ordered -Encourage patient to increase activity level -GI prophylaxis Protonix and DVT prophylaxis subcu heparin Physician Automotive Technology Instructor note has been reviewed by physician. Signing provider agrees with the documented findings, assessment, and plan of care. Objective - Vital Signs Vital signs: Vital Signs Temp 99.3 F 03/27/23 05:27 Pulse 82 03/27/23 08:28 Resp 18 03/27/23 08:00 BP 155/78 03/27/23 05:27 Pulse Ox 99 03/27/23 08:15 FiO2 21 03/27/23 08:15 Intake & Output 03/26/23 03/27/23 03/27/23 18:59 06:59 18:59 Intake Total 1908 1000 Output Total 800 1410 Balance 1108 -410 Weight 98.1 kg Intake: IV 1908 Intake, IV Titration 1000 Amount D5-0.45% NaCl with KCl 1000 20Meq/l 1,000 ml @ 125 mls/hr IV .Q8H [facility] Rx#: [id number] Output: Urine 750 1410 Estimated Blood Loss 50 Other: Voiding Method Indwelling Catheter Indwelling Catheter - Labs CBC & Chem 7: 03/27/23 06:35 03/27/23 06:35 Labs: Abnormal Lab Results - Last 24 Hours (Table) 03/26/23 03/26/23 03/27/23 Range/Units 17:36 17:36 06:35 WBC 10.7 H (3.8-10.6) k/uL Neutrophils # 9.3 H 8.1 H (1.3-7.7) k/uL Lymphocytes # 0.6 L (1.0-4.8) k/uL Sodium (137-145) mmol/L Carbon Dioxide 20 L (22-30) mmol/L Creatinine (0.66-1.25) mg/dL Glucose 148 H (74-99) mg/dL 03/27/23 Range/Units 06:35 WBC (3.8-10.6) k/uL Neutrophils # (1.3-7.7) k/uL Lymphocytes # (1.0-4.8) k/uL Sodium 136 L (137-145) mmol/L Carbon Dioxide (22-30) mmol/L Creatinine 1.26 H (0.66-1.25) mg/dL Glucose 121 H (74-99) mg/dL
--- NOTE | 2023-03-27 13:05 | XR ---
EXAMINATION TYPE: XR chest 1V portable DATE OF EXAM: 03/27/2023 COMPARISON: NONE HISTORY: Shortness of breath TECHNIQUE: Single frontal view of the chest is obtained. FINDINGS: There is no focal air space opacity, pleural effusion, or pneumothorax seen. The cardiac silhouette size is within normal limits. Hypertrophic changes of the spine. Shoulders. IMPRESSION: No acute process.
--- NOTE | 2023-03-27 14:00 | PN ---
PROGRESS NOTE DATE OF SERVICE: 03/27/2023 SUBJECTIVE: This is a 67-year-old gentleman who was admitted with low anterior resection. He also complains of some abdominal distention. The patient is also complaining of more pain, epidural is being enhanced. OBJECTIVE: VITAL SIGNS: Pulse is 73, blood pressure 150/70, and respirations 18. CHEST: Clear to auscultation. CARDIOVASCULAR: S1, S2. ABDOMEN: Soft, diffuse distention. LEGS: No edema, no swelling. No guarding, no rigidity. LABORATORY DATA: Reviewed. ASSESSMENT: 1. Status post low anterior resection. 2. History of perforated diverticulitis. 3. Chronic obstructive pulmonary disease. 4. Hypertension. 5. Multiple medical issues. 6. Increased creatinine. DISCUSSION AND RECOMMENDATIONS: Recommended to continue current management, continue symptomatic treatment. Avoid nephrotoxic medications. Otherwise, we will hold diuretics for now. Can repeat labs. Reduce IV fluids to 70 mL/hour. I would also recommend a baseline portable chest x-ray as well. Closely monitor. Follow closely with surgery. Further recommendations to follow. MMODL / IJN: [id number] /
[2023-03-27] MEDS: diphenhydrAMINE 50 MG/ML 1 ML VIAL IVP PRN (17:37)
[2023-03-27] MEDS: LORATADINE 10 MG TAB PO SCH (20:33)
[2023-03-28] MEDS: PANTOPRAZOLE 40 MG TABLET PO SCH (03:17)
[2023-03-28] MEDS: diphenhydrAMINE 50 MG/ML 1 ML VIAL IVP PRN (03:17)
[2023-03-28] MEDS: D5-0.45% NACL WITH KCL 20MEQ/L 1,000 ML IV SCH ×2 (03:18→17:19)
[2023-03-28] MEDS: ALBUTEROL NEBULIZED 2.5 MG/3 ML INHALATION PRN (03:48)
[2023-03-28] MEDS: carvediloL 6.25 MG TAB PO SCH ×2 (06:23→17:18)
[2023-03-28] MEDS: SYMBICORT 80-4.5 MCG INHALER INHALATION SCH ×2 (08:50→21:37)
[2023-03-28] MEDS: ALBUTEROL NEBULIZED 2.5 MG/3 ML INHALATION SCH ×2 (08:51→13:11)
[2023-03-28] MEDS: NIFEdipine XL 90 MG TAB.ER.24 PO SCH (09:19)
[2023-03-28] MEDS: FOLIC ACID 1 MG TAB PO SCH (09:19)
[2023-03-28] MEDS: HEPARIN SODIUM,PORCINE/PF 5,000 UNIT/0.5 ML SYRINGE SQ SCH ×2 (09:19→17:18)
[2023-03-28] MEDS: ALVIMOPAN 12 MG CAPSULE PO SCH ×2 (09:19→20:38)
[2023-03-28] MEDS: ROPIVACAINE 250 MG, HYDROMORPHONE (PF) 5 MG in SODIUM CHLORIDE 0.9% 200 ML EPIDURAL PRN (09:19)
[2023-03-28 11:07] LABS: Basophils % (A) 0.8 %; Eosinophils # (A) 0.12 X 10*3/uL (0.04-0.35); HGB 13.5 d/dL (12.0-15.0); Lymphocytes # (A) 1.19 X 10*3/uL (0.90-5.00); Lymphocytes % (A) 9.9 %; MCH 29.9 pg (27.0-32.0); MCHC 32.9 d/dL (32.0-37.0); MCV 90.9 FL (80.0-97.0); Mean Platelet Volume 9.9 FL (9.5-12.2); Monocytes # (A) 1.38 X 10*3/uL (0.20-1.00); Monocytes % (A) 11.5 %; NRBC Per 100 WBC 0 X 10*3/uL (0.00-0.01); Neutrophils # (A) 9.16 X 10*3/uL (1.80-7.70); Platelet Count 233 X 10*3/uL (140-440); RBC 4.51 X 10*6/uL (4.40-5.60); WBC 12.05 X 10*3/uL (4.50-10.00)
--- NOTE | 2023-03-28 11:13 | P.PN ---
Progress Note - Text 03/28/23 633am 67-year-old male status post low anterior resection. Patient has an epidural catheter for postop pain control with the solution running at 10 mL an hour with a VAS of 3. Patient has been ambulating with no motor or sensory deficits. Plan to continue epidural infusion
[2023-03-28 11:16] LABS: BUN/Creat Ratio 14.47 Ratio (12.00-20.00); Blood Urea Nitrogen 21.7 mg/dL (9.0-27.0); Calcium 9.2 mg/dL (8.7-10.3); Carbon Dioxide 21.4 mmol/L (21.6-31.8); Chloride 101 mmol/L (96-109); Glucose 172 mg/dL (70-110); Potassium 4.9 mmol/L (3.5-5.5); Sodium 135 mmol/L (135-145)
--- NOTE | 2023-03-28 13:27 | P.PN ---
Subjective Progress Note Date: 03/28/23 CHIEF COMPLAINT: Diverticulitis HISTORY OF PRESENT ILLNESS: Patient is postop day #2 status post lower anterior resection. Patient reports his pain is better controlled today. Radiating pain about a 3 out of 10. Denies any nausea or vomiting. He had some reflux like symptoms earlier that have improved after medication. He is having flatus. Tolerating liquids. Afebrile. He does complain of more abdominal pain today. Anesthesia has increased epidural to 10. Patient denies any nausea vomiting. Denies any flatus. Afebrile. WBC did go up to 12.05 Hgb 13.5 platelets 233 sodium 135 potassium 4.9 creatinine 1.5 PHYSICAL EXAM: VITAL SIGNS: Reviewed. GENERAL: Well-developed in no acute distress. HEENT: No sclera icterus. Extraocular movements grossly intact. Moist buccal mucosa. Head is atraumatic, normocephalic. ABDOMEN: Softer. Distended. Patient reports is normal size abdomen. Prevana wound vac dressing clean, dry, intact NEUROLOGIC: Alert and oriented. Cranial nerves II through XII grossly intact. ASSESSMENT: 1. History of perforated diverticulitis status post lower anterior resection PLAN: -Continue clear liquid diet -Epidural and Go catheter to be discontinued tomorrow -Repeat CBC in a.m. -Continue to monitor -Continue IV fluids -Incentive spirometer ordered -Encourage patient to increase activity level -GI prophylaxis Protonix and DVT prophylaxis subcu heparin Physician Roof Bolting Coal Miner note has been reviewed by physician. Signing provider agrees with the documented findings, assessment, and plan of care. Objective - Vital Signs Vital signs: Vital Signs Temp 98 F 03/28/23 07:37 Pulse 80 03/28/23 13:23 Resp 17 03/28/23 08:46 BP 141/78 03/28/23 07:37 Pulse Ox 95 03/28/23 08:51 FiO2 21 03/27/23 08:15 Intake & Output 03/27/23 03/28/23 03/28/23 18:59 06:59 18:59 Intake Total 960 228.667 Output Total 1100 Balance -140 228.667 Intake: Intake, IV Titration 960 228.667 Amount D5-0.45% NaCl with KCl 840 20Meq/l 1,000 ml @ 70 mls /hr IV .[id number] [facility] Rx#: [id number] Ropivacaine 250 mg 120 228.667 Hydromorphone (Pf) 5 mg In Sodium Chloride 0.9% 200 ml @ Per Protocol EPIDURAL .Q0M PRN Rx#: [id number] Output: Urine 1100 Other: Voiding Method Indwelling Catheter Indwelling Catheter Indwelling Catheter - Labs CBC & Chem 7: 03/28/23 07:30 03/28/23 07:30 Labs: Abnormal Lab Results - Last 24 Hours (Table) 03/28/23 03/28/23 Range/Units 07:30 07:30 WBC 12.05 H (4.50-10.00) X 10*3/uL RDW 15.0 H (11.5-14.5) % Neutrophils # 9.16 H (1.80-7.70) X 10*3/uL Monocytes # 1.38 H (0.20-1.00) X 10*3/uL Carbon Dioxide 21.4 L (21.6-31.8) mmol/L Anion Gap 12.60 H (4.00-12.00) mmol/L Est GFR (CKD-EPI) 50 L (>=60) Glucose 172 H (70-110) mg/dL
[2023-03-28] MEDS ORDERED: IPRATROPIUM-ALBUTEROL 3 ML NEB INHALATION PRN (14:42)
[2023-03-28] MEDS: IPRATROPIUM-ALBUTEROL 3 ML NEB INHALATION SCH ×2 (15:54→21:37)
[2023-03-28] MEDS: LORATADINE 10 MG TAB PO SCH (20:38)
--- NOTE | 2023-03-28 23:13 | PN ---
PROGRESS NOTE DATE OF SERVICE: 03/28/2023 SUBJECTIVE: This 67-year-old gentleman was admitted with low anterior resection. He also complains of some abdominal distention. The patient has history of shortness of breath, possibly COPD. OBJECTIVE: VITAL SIGNS: Pulse is 80, blood pressure 140/70, and respirations 17. CHEST: Few scattered rhonchi. ABDOMEN: Soft, distention, mild discomfort. No guarding, no rigidity, bowel sounds are diminished. LEGS: No edema. NERVOUS SYSTEM: No focal deficits. LABORATORY DATA: Reviewed. ASSESSMENT: 1. Status post low anterior resection. 2. History of perforated diverticulitis. 3. COPD. 4. Hypertension. 5. Multiple medical issues. 6. Increased creatinine. RECOMMENDATIONS: Recommended to continue current management, continue symptomatic treatment. Continue the bronchodilators. Repeat labs in the morning. Closely follow. Further recommendations to follow. HENRRY / SIDNEYN: [id number] /
[2023-03-29] MEDS: HEPARIN SODIUM,PORCINE/PF 5,000 UNIT/0.5 ML SYRINGE SQ SCH ×4 (00:01→22:24)
[2023-03-29] MEDS: PANTOPRAZOLE 40 MG TABLET PO SCH (06:06)
[2023-03-29] MEDS: carvediloL 6.25 MG TAB PO SCH ×2 (06:06→17:09)
[2023-03-29] MEDS: D5-0.45% NACL WITH KCL 20MEQ/L 1,000 ML IV SCH ×2 (06:07→20:05)
--- NOTE | 2023-03-29 08:17 | P.PN ---
Progress Note - Text Progress Note Date: 03/29/23 The patient has a lumbar epidural catheter for postoperative pain control. Postop day #(3 ), status post LAR. The patient is doing well. The pain is well controlled with a score of 4 out of 10 in intensity this morning. Patient denies any weakness or paresthesia in the lower extremities.,or any back pain. There are no signs of infection around the epidural catheter skin entry site. The epidural catheter is to be removed today. The patient did not receive his morning dose of heparin and we will hold his 2 PM dose also however he can receive his evening dose of heparin today. We will sign off, thank you for your consultation.
[2023-03-29] MEDS: FOLIC ACID 1 MG TAB PO SCH (08:34)
[2023-03-29] MEDS: NIFEdipine XL 90 MG TAB.ER.24 PO SCH (08:34)
[2023-03-29] MEDS: ALVIMOPAN 12 MG CAPSULE PO SCH ×2 (08:34→20:05)
[2023-03-29] MEDS: IPRATROPIUM-ALBUTEROL 3 ML NEB INHALATION SCH ×4 (08:35→20:51)
[2023-03-29] MEDS: SYMBICORT 80-4.5 MCG INHALER INHALATION SCH ×2 (08:35→20:51)
[2023-03-29] MEDS ORDERED: HYDROmorphone 1 MG/ML 1 ML SYRINGE IVP PRN (08:56)
[2023-03-29] MEDS ORDERED: HYDROcodone/APAP 5-325MG 1 EACH TAB PO PRN (08:57)
[2023-03-29 09:41] LABS: BUN/Creat Ratio 14.25 Ratio (12.00-20.00); Blood Urea Nitrogen 17.1 mg/dL (9.0-27.0); Calcium 8.9 mg/dL (8.7-10.3); Carbon Dioxide 21.9 mmol/L (21.6-31.8); Chloride 104 mmol/L (96-109); Glucose 129 mg/dL (70-110); Potassium 4.3 mmol/L (3.5-5.5); Sodium 136 mmol/L (135-145)
[2023-03-29 09:44] LABS: HCT 38.1 % (39.6-50.0); HGB 12.2 d/dL (12.0-15.0); MCH 29.3 pg (27.0-32.0); MCV 91.6 FL (80.0-97.0); Mean Platelet Volume 10.7 FL (9.5-12.2); NRBC Per 100 WBC 0 X 10*3/uL (0.00-0.01); Platelet Count 160 X 10*3/uL (140-440); RBC 4.16 X 10*6/uL (4.40-5.60); RDW 14.9 % (11.5-14.5); WBC 10.52 X 10*3/uL (4.50-10.00)
[2023-03-29 10:17] LABS: Basophils # (A) 0.09 X 10*3/uL (0.00-0.10); Basophils % (A) 0.9 %; Eosinophils # (A) 0.52 X 10*3/uL (0.04-0.35); Eosinophils % (A) 4.9 %; Lymphocytes # (A) 1.52 X 10*3/uL (0.90-5.00); Lymphocytes % (A) 14.4 %; Monocytes # (A) 1.27 X 10*3/uL (0.20-1.00); Monocytes % (A) 12.1 %; Neutrophils # (A) 7.01 X 10*3/uL (1.80-7.70); Neutrophils % (A) 66.7 %
--- NOTE | 2023-03-29 10:59 | P.PN ---
Subjective This is a pleasant 67 years old male who presented to general surgery service for perforated diverticulitis status post lower anterior resection by surgery team. Patient still not able to eat, he does not have bowel movement little with no gas. His abdominal pain is improving 3/10 but does abdomen is slightly distended Surgery team primary service are following the patient closely. Patient still has Go catheter Patient currently on liquid diet She is currently on D5 half-normal saline at 70 Objective - Vital Signs Vital signs: Vital Signs Temp 98.7 F 03/29/23 07:12 Pulse 72 03/29/23 08:51 Resp 18 03/29/23 07:26 BP 142/75 03/29/23 07:12 Pulse Ox 94 L 03/29/23 08:36 FiO2 21 03/27/23 08:15 Intake & Output 03/28/23 03/29/23 03/29/23 18:59 06:59 18:59 Intake Total 228.667 840 Output Total 600 375 Balance -371.333 465 Intake: Intake, IV Titration 228.667 840 Amount D5-0.45% NaCl with KCl 840 20Meq/l 1,000 ml @ 70 mls /hr IV .[id number] [facility] Rx#: [id number] Ropivacaine 250 mg 228.667 Hydromorphone (Pf) 5 mg In Sodium Chloride 0.9% 200 ml @ Per Protocol EPIDURAL .Q0M PRN Rx#: [id number] Output: Urine 600 375 Uretheral (Go) 375 Other: Voiding Method Indwelling Catheter Indwelling Catheter Indwelling Catheter - Exam -GENERAL: The patient is alert and oriented x3, not in any acute distres generally weak HEENT: Pupils are round and equally reacting to light. EOMI. No scleral icterus. No conjunctival pallor. Normocephalic, atraumatic. No pharyngeal erythema. No thyromegaly. CARDIOVASCULAR: S1 and S2 present. No murmurs, rubs, or gallops. PULMONARY: Chest is clear to auscultation, no wheezing , no crackles. ABDOMEN: Soft, nontender, nondistended, normoactive bowel sounds. No palpable organomegaly. MUSCULOSKELETAL: No joint swelling or deformity. EXTREMITIES: No cyanosis, clubbing, or pedal edema. NEUROLOGICAL: Gross neurological examination did not reveal any focal deficits. SKIN: No rashes. no petechiae. - Labs CBC & Chem 7: 03/29/23 06:01 03/29/23 06:01 Labs: Abnormal Lab Results - Last 24 Hours (Table) 03/28/23 03/28/23 03/29/23 Range/Units 07:30 07:30 06:01 WBC 12.05 H 10.52 H (4.50-10.00) X 10*3/uL RBC 4.16 L (4.40-5.60) X 10*6/uL Hct 38.1 L (39.6-50.0) % RDW 15.0 H 14.9 H (11.5-14.5) % Neutrophils # 9.16 H (1.80-7.70) X 10*3/uL Monocytes # 1.38 H 1.27 H (0.20-1.00) X 10*3/uL Eosinophils # 0.52 H (0.04-0.35) X 10*3/uL Carbon Dioxide 21.4 L (21.6-31.8) mmol/L Anion Gap 12.60 H (4.00-12.00) mmol/L Est GFR (CKD-EPI) 50 L (>=60) Glucose 172 H (70-110) mg/dL 03/29/23 Range/Units 06:01 WBC (4.50-10.00) X 10*3/uL RBC (4.40-5.60) X 10*6/uL Hct (39.6-50.0) % RDW (11.5-14.5) % Neutrophils # (1.80-7.70) X 10*3/uL Monocytes # (0.20-1.00) X 10*3/uL Eosinophils # (0.04-0.35) X 10*3/uL Carbon Dioxide (21.6-31.8) mmol/L Anion Gap (4.00-12.00) mmol/L Est GFR (CKD-EPI) (>=60) Glucose 129 H (70-110) mg/dL Assessment and Plan Assessment: Recent perforated diverticulitis status post lower anterior resection Hypertension COPD, no acute exacerbation History of posterior arthritis History of sleep apnea History of psoriasis Plan: Continue gentle hydration Surgery primary team about the case Advanced diet as per surgery team Labs and medication were reviewed.. Continue same treatment. Continue with symptomatic treatment. Resume home medication. Monitor labs and vitals. DVT and GI prophylaxis. Further recommendations as per clinical course of the patient DVT prophylaxis: Subcutaneous heparin GI Prophylaxis: Ppi PT/OT: Pending Prognosis is guarded
--- NOTE | 2023-03-29 12:20 | P.PN ---
Subjective Progress Note Date: 03/29/23 CHIEF COMPLAINT: Diverticulitis HISTORY OF PRESENT ILLNESS: Patient is postop day #3 status post lower anterior resection. Epidural and Go catheter scheduled to be discontinued today. Patient does report abdominal pain. He is having flatus. Denies any nausea or vomiting. Afebrile. WBC down from 12 to 10.52 hgb 12.2 sodium 136 potassium 4.3 creatinine 1.2 Patient seen and examined with Dr. fragoso PHYSICAL EXAM: VITAL SIGNS: Reviewed. GENERAL: Well-developed in no acute distress. HEENT: No sclera icterus. Extraocular movements grossly intact. Moist buccal mucosa. Head is atraumatic, normocephalic. ABDOMEN: Softer. Distended. Patient reports is normal size abdomen. Prevana wound vac dressing clean, dry, intact NEUROLOGIC: Alert and oriented. Cranial nerves II through XII grossly intact. ASSESSMENT: 1. History of perforated diverticulitis status post lower anterior resection PLAN: -Advance diet to full liquids -Epidural and Go catheter to be discontinued today -IV Dilaudid and [place] added for pain management -Incentive spirometer ordered -Encourage patient to increase activity level -Anticipate discharge tomorrow -GI prophylaxis Protonix and DVT prophylaxis subcu heparin Physician Aitchbone Breaker note has been reviewed by physician. Signing provider agrees with the documented findings, assessment, and plan of care. Objective - Vital Signs Vital signs: Vital Signs Temp 98.7 F 03/29/23 07:12 Pulse 72 03/29/23 08:51 Resp 18 03/29/23 07:26 BP 142/75 03/29/23 07:12 Pulse Ox 94 L 03/29/23 08:36 FiO2 21 03/27/23 08:15 Intake & Output 03/28/23 03/29/23 03/29/23 18:59 06:59 18:59 Intake Total 228.667 840 Output Total 600 375 Balance -371.333 465 Intake: Intake, IV Titration 228.667 840 Amount D5-0.45% NaCl with KCl 840 20Meq/l 1,000 ml @ 70 mls /hr IV .[id number] [facility] Rx#: [id number] Ropivacaine 250 mg 228.667 Hydromorphone (Pf) 5 mg In Sodium Chloride 0.9% 200 ml @ Per Protocol EPIDURAL .Q0M PRN Rx#: [id number] Output: Urine 600 375 Uretheral (Go) 375 Other: Voiding Method Indwelling Catheter Indwelling Catheter Indwelling Catheter - Labs CBC & Chem 7: 03/29/23 06:01 03/29/23 06:01 Labs: Abnormal Lab Results - Last 24 Hours (Table) 03/28/23 03/28/23 Range/Units 07:30 07:30 WBC 12.05 H (4.50-10.00) X 10*3/uL RDW 15.0 H (11.5-14.5) % Neutrophils # 9.16 H (1.80-7.70) X 10*3/uL Monocytes # 1.38 H (0.20-1.00) X 10*3/uL Carbon Dioxide 21.4 L (21.6-31.8) mmol/L Anion Gap 12.60 H (4.00-12.00) mmol/L Est GFR (CKD-EPI) 50 L (>=60) Glucose 172 H (70-110) mg/dL
[2023-03-29 12:32] VITALS: BMI 31.9
[2023-03-29] MEDS: LORATADINE 10 MG TAB PO SCH (20:05)
[2023-03-30] MEDS: PANTOPRAZOLE 40 MG TABLET PO SCH (05:38)
[2023-03-30] MEDS: carvediloL 6.25 MG TAB PO SCH ×2 (05:38→16:25)
[2023-03-30] MEDS: NIFEdipine XL 90 MG TAB.ER.24 PO SCH (08:02)
[2023-03-30] MEDS: FOLIC ACID 1 MG TAB PO SCH (08:02)
[2023-03-30] MEDS: ALVIMOPAN 12 MG CAPSULE PO SCH ×2 (08:02→20:15)
[2023-03-30] MEDS: HEPARIN SODIUM,PORCINE/PF 5,000 UNIT/0.5 ML SYRINGE SQ SCH ×2 (08:02→16:25)
[2023-03-30] MEDS: SYMBICORT 80-4.5 MCG INHALER INHALATION SCH ×2 (09:16→21:51)
[2023-03-30] MEDS: IPRATROPIUM-ALBUTEROL 3 ML NEB INHALATION SCH ×4 (09:17→21:51)
[2023-03-30 14:18] LABS: Basophils # (A) 0.06 X 10*3/uL (0.00-0.10); Basophils % (A) 0.6 %; Eosinophils # (A) 0.43 X 10*3/uL (0.04-0.35); Eosinophils % (A) 4.6 %; HCT 36.9 % (39.6-50.0); HGB 12.1 d/dL (12.0-15.0); Lymphocytes # (A) 1.28 X 10*3/uL (0.90-5.00); Lymphocytes % (A) 13.7 %; MCHC 32.8 d/dL (32.0-37.0); MCV 91.3 FL (80.0-97.0); Monocytes # (A) 1.02 X 10*3/uL (0.20-1.00); NRBC Per 100 WBC 0 X 10*3/uL (0.00-0.01); Neutrophils # (A) 6.41 X 10*3/uL (1.80-7.70); Neutrophils % (A) 68.9 %; Platelet Count 219 X 10*3/uL (140-440); RBC 4.04 X 10*6/uL (4.40-5.60); RBC Morphology Normal (Normal); RDW 14.8 % (11.5-14.5); WBC 9.31 X 10*3/uL (4.50-10.00)
--- NOTE | 2023-03-30 16:48 | P.PN ---
Subjective Progress Note Date: 03/30/23 He is having bowel movements. Pain control. Passing flatus. Full liquid diet. Advance low fiber diet. Disposition 24 hours. Objective - Vital Signs Vital signs: Vital Signs Temp 98.0 F 03/30/23 14:00 Pulse 80 03/30/23 16:25 Resp 19 03/30/23 14:00 BP 119/66 03/30/23 14:00 Pulse Ox 96 03/30/23 14:00 FiO2 21 03/27/23 08:15 Intake & Output 03/29/23 03/30/23 03/30/23 18:59 06:59 18:59 Intake Total 840 Output Total 300 315 Balance -300 525 Weight 98.1 kg Intake: Intake, IV Titration 840 Amount D5-0.45% NaCl with KCl 840 20Meq/l 1,000 ml @ 70 mls /hr IV .[id number] [facility] Rx#: [id number] Output: Urine 300 312 Stool 3 Other: Voiding Method Indwelling Catheter Toilet - Labs CBC & Chem 7: 03/30/23 07:09 03/29/23 06:01 Labs: Abnormal Lab Results - Last 24 Hours (Table) 03/30/23 Range/Units 07:09 RBC 4.04 L (4.40-5.60) X 10*6/uL Hct 36.9 L (39.6-50.0) % RDW 14.8 H (11.5-14.5) % Monocytes # 1.02 H (0.20-1.00) X 10*3/uL Eosinophils # 0.43 H (0.04-0.35) X 10*3/uL
[2023-03-30] MEDS: D5-0.45% NACL WITH KCL 20MEQ/L 1,000 ML IV SCH (17:34)
--- NOTE | 2023-03-30 19:55 | P.PN ---
Subjective This is a pleasant 67 years old male who presented to general surgery service for perforated diverticulitis status post lower anterior resection by surgery team. Patient still not able to eat, he does not have bowel movement little with no gas. His abdominal pain is improving 3/10 but does abdomen is slightly distended Surgery team primary service are following the patient closely. Patient still has Go catheter Patient currently on liquid diet She is currently on D5 half-normal saline at 70 03/30/23 Patient generally is doing fine, he feels improving. His abdominal pain is a stable and mild at 3/10 He had 2 bowel movement last night He tolerates liquid diet and advance to regular diet Go catheter was discontinued Objective - Vital Signs Vital signs: Vital Signs Temp 98.0 F 03/30/23 14:00 Pulse 75 03/30/23 14:00 Resp 19 03/30/23 14:00 BP 119/66 03/30/23 14:00 Pulse Ox 96 03/30/23 14:00 FiO2 21 03/27/23 08:15 Intake & Output 03/29/23 03/30/23 03/30/23 18:59 06:59 18:59 Intake Total 840 Output Total 300 315 Balance -300 525 Weight 98.1 kg Intake: Intake, IV Titration 840 Amount D5-0.45% NaCl with KCl 840 20Meq/l 1,000 ml @ 70 mls /hr IV .[id number] [facility] Rx#: [id number] Output: Urine 300 312 Stool 3 Other: Voiding Method Indwelling Catheter Toilet - Exam -GENERAL: The patient is alert and oriented x3, not in any acute distres generally weak HEENT: Pupils are round and equally reacting to light. EOMI. No scleral icterus. No conjunctival pallor. Normocephalic, atraumatic. No pharyngeal erythema. No thyromegaly. CARDIOVASCULAR: S1 and S2 present. No murmurs, rubs, or gallops. PULMONARY: Chest is clear to auscultation, no wheezing , no crackles. ABDOMEN: Soft, nontender, nondistended, normoactive bowel sounds. No palpable organomegaly. MUSCULOSKELETAL: No joint swelling or deformity. EXTREMITIES: No cyanosis, clubbing, or pedal edema. NEUROLOGICAL: Gross neurological examination did not reveal any focal deficits. SKIN: No rashes. no petechiae. - Labs CBC & Chem 7: 06/24/23 07:09 03/29/23 06:01 Labs: Abnormal Lab Results - Last 24 Hours (Table) 03/30/23 Range/Units 07:09 RBC 4.04 L (4.40-5.60) X 10*6/uL Hct 36.9 L (39.6-50.0) % RDW 14.8 H (11.5-14.5) % Monocytes # 1.02 H (0.20-1.00) X 10*3/uL Eosinophils # 0.43 H (0.04-0.35) X 10*3/uL Assessment and Plan Assessment: Recent perforated diverticulitis status post lower anterior resection Hypertension COPD, no acute exacerbation History of posterior arthritis History of sleep apnea History of psoriasis Plan: Continue gentle hydration Surgery primary team about the case Advanced diet as per surgery team Labs and medication were reviewed.. Continue same treatment. Continue with symptomatic treatment. Resume home medication. Monitor labs and vitals. DVT and GI prophylaxis. Further recommendations as per clinical course of the patient DVT prophylaxis: Subcutaneous heparin GI Prophylaxis: Ppi PT/OT: Pending Prognosis is guarded
[2023-03-30] MEDS: LORATADINE 10 MG TAB PO SCH (20:15)
[2023-03-31] MEDS: HEPARIN SODIUM,PORCINE/PF 5,000 UNIT/0.5 ML SYRINGE SQ SCH ×3 (00:27→16:36)
[2023-03-31] MEDS: D5-0.45% NACL WITH KCL 20MEQ/L 1,000 ML IV SCH ×2 (05:50→15:57)
[2023-03-31] MEDS: PANTOPRAZOLE 40 MG TABLET PO SCH (06:30)
[2023-03-31] MEDS: carvediloL 6.25 MG TAB PO SCH ×2 (06:30→16:39)
[2023-03-31] MEDS: ALVIMOPAN 12 MG CAPSULE PO SCH ×2 (08:11→20:39)
[2023-03-31] MEDS: FOLIC ACID 1 MG TAB PO SCH (08:11)
[2023-03-31] MEDS: NIFEdipine XL 90 MG TAB.ER.24 PO SCH (08:14)
[2023-03-31] MEDS: IPRATROPIUM-ALBUTEROL 3 ML NEB INHALATION SCH ×4 (09:04→20:20)
[2023-03-31] MEDS: SYMBICORT 80-4.5 MCG INHALER INHALATION SCH ×2 (09:04→20:20)
--- NOTE | 2023-03-31 09:42 | XR ---
EXAMINATION TYPE: XR chest 1V portable DATE OF EXAM: 03/31/2023 HISTORY: Shortness of breath. COMPARISON: 03/27/2023 TECHNIQUE: Single view of the chest is submitted. FINDINGS: Demonstrated are scattered senescent parenchymal change. Increased density left medial lung base may reflect atelectasis and less likely infiltrate. Correlate clinically. The heart is stable. Hilar and mediastinal structures are within normal limits. Degenerative changes are seen of the dorsal spine. IMPRESSION: 1. Increased density left medial lung base may reflect atelectasis and less likely infiltrate. Corre late clinically.
[2023-03-31] MEDS: PIPERACILLIN-TAZOBACTAM 3.375 GM in SODIUM CHLORIDE 0.9% 100 ML IVPB SCH ×2 (10:39→16:36)
[2023-03-31] MEDS: methylPREDNISolone SOD SUCCI 125 MG/2 ML VIAL IV SCH ×2 (10:52→16:38)
[2023-03-31 11:30] LABS: HCT 36.4 % (39.0-53.0); HGB 12.1 gm/dL (13.0-17.5); MCHC 33.2 g/dL (31.0-37.0); MCV 90.3 fL (80.0-100.0); Mean Platelet Volume 7.1; Platelet Count 225 k/uL (150-450); RBC 4.03 m/uL (4.30-5.90); RDW 15.2 % (11.5-15.5); WBC 6.6 k/uL (3.8-10.6)
[2023-03-31 11:47] LABS: African American GFR (CKD) 81 (>60 ml/min/1.73 sqM); Anion Gap 4 mmol/L; Blood Urea Nitrogen 13 mg/dL (9-20); Calcium 8.5 mg/dL (8.4-10.2); Carbon Dioxide 28 mmol/L (22-30); Chloride 105 mmol/L (98-107); Glucose 121 mg/dL (74-99); Non-African American GFR(CKD) 70 (>60 ml/min/1.73 sqM); Potassium 4.4 mmol/L (3.5-5.1); Sodium 137 mmol/L (137-145)
[2023-03-31 11:55] LABS: NT-Pro-B-Type Natriuretic Pept 106 pg/mL
--- NOTE | 2023-03-31 15:32 | P.PN ---
Subjective This is a pleasant 67 years old male who presented to general surgery service for perforated diverticulitis status post lower anterior resection by surgery team. Patient still not able to eat, he does not have bowel movement little with no gas. His abdominal pain is improving 3/10 but does abdomen is slightly distended Surgery team primary service are following the patient closely. Patient still has Go catheter Patient currently on liquid diet She is currently on D5 half-normal saline at 70 03/30/23 Patient generally is doing fine, he feels improving. His abdominal pain is a stable and mild at 3/10 He had 2 bowel movement last night He tolerates liquid diet and advance to regular diet Go catheter was discontinued 03/31/2023 patient today he is tolerating diet well, he is a low fiber diet, abdominal pain is minimal. This morning he developed worsening shortness of breath and tachypnea, he is currently saturating 96% on 2 L oxygen via nasal cannula. Chest x-ray showing possible left lower infiltrate suspicious for atelectasis rather than pneumonia, patient is afebrile and WBCs trending down and currently isn't within the reference range at 6.6 thousand. Patient is a known case of COPD and he follow-up with Dr. Rojas we going to start him on IV Solu-Medrol 60 mg 8 hours, also start Zosyn over the suspicion of infection is low, we will consider discontinuing antibiotic is procalcitonin is negative. Plan discussed with staff Active Medications Generic Name Dose Route Start Last Admin Trade Name Freq PRN Reason Stop Dose Admin Hydrocodone Bitart/Acetaminophen 1 each 03/29/23 08:57 03/29/23 22:23 Hydrocodone/Apap 5-325mg 1 Each Tab PO 1 each Q4HR PRN Administration Pain Albuterol Sulfate 2.5 mg 03/26/23 20:10 03/28/23 03:48 Albuterol Nebulized 2.5 Mg/3 Ml INHALATION 2.5 mg RT-Q2H PRN Administration Shortness Of Breath Or Wheezing Albuterol/Ipratropium 3 ml 03/28/23 16:00 03/31/23 15:19 Ipratropium-Albuterol 3 Ml Neb INHALATION 3 ml RT-QID VALERIE Administration Albuterol/Ipratropium 3 ml 03/28/23 14:42 Ipratropium-Albuterol 3 Ml Neb INHALATION RT-QID PRN Shortness Of Breath Or Wheezing Alvimopan 12 mg 03/27/23 09:00 03/31/23 08:11 Alvimopan 12 Mg Capsule PO 04/02/23 21:01 12 mg BID VALERIE Administration Artificial Tears 2 drops 03/26/23 14:12 Artificial Tears-Hypromellose Drops 15 Ml Btl BOTH EYES QID PRN Dry Eye(s) Benzocaine/Menthol 1 each 03/26/23 11:56 Benzocaine/Menthol Lozeng 1 Each Lozenge MUCOUS MEM Q1HR PRN Sore Throat Budesonide/Formoterol Fumarate 2 puff 03/26/23 20:00 03/31/23 09:04 Symbicort 80-4.5 Mcg Inhaler INHALATION 2 puff RT-BID VALERIE Administration Carvedilol 6.25 mg 03/26/23 17:30 03/31/23 06:30 Carvedilol 6.25 Mg Tab PO 6.25 mg AC-BID VALERIE Administration Diphenhydramine HCl 50 mg 03/27/23 17:29 03/28/23 03:17 Diphenhydramine 50 Mg/Ml 1 Ml Vial IVP 50 mg Q6HR PRN Administration Itching Folic Acid 1 mg 03/27/23 09:00 03/31/23 08:11 Folic Acid 1 Mg Tab PO 1 mg DAILY VALERIE Administration Heparin Sodium (Porcine) 5,000 unit 03/26/23 16:00 03/31/23 08:11 Heparin Sodium,Porcine/Pf 5,000 Unit/0.5 Ml Syringe SQ 5,000 unit Q8HR VALERIE Administration Hydromorphone HCl 1 mg 03/29/23 08:56 Hydromorphone 1 Mg/Ml 1 Ml Syringe IVP Q3HR PRN Pain Potassium Chloride/Dextrose/Sod Cl 1,000 mls @ 70 mls/hr 03/26/23 13:00 03/31/23 05:50 D5%-1/2ns-Kcl 20 Meq/L Iv Solution IV 70 mls/hr .[id number] VALERIE Administration Piperacillin Sod/Tazobactam 100 mls @ 25 mls/hr 03/31/23 10:00 03/31/23 10:39 Sod 3.375 gm/ Sodium Chloride IVPB 25 mls/hr Q8HR VALERIE Administration Protocol Loratadine 10 mg 03/26/23 21:00 03/30/23 20:15 Loratadine 10 Mg Tab PO 10 mg HS VALERIE Administration Methylprednisolone Sodium Succinate 60 mg 03/31/23 10:00 03/31/23 10:52 Methylprednisolone Sod Succi 125 Mg/2 Ml Vial IV 60 mg Q8HR VALERIE Administration Naloxone HCl 0.2 mg 03/26/23 11:10 Naloxone 0.4 Mg/Ml 1 Ml Vial IV Q2M PRN Opioid Reversal Nifedipine 90 mg 03/27/23 09:00 03/31/23 08:14 Nifedipine Xl 90 Mg Tab.Er.24 PO 90 mg DAILY VALERIE Administration Ondansetron HCl 4 mg 03/26/23 11:56 03/29/23 16:57 Ondansetron 4 Mg/2 Ml Vial IVP 4 mg Q8HR PRN Administration Nausea And Vomiting Pantoprazole Sodium 40 mg 03/26/23 16:00 03/31/23 06:30 Pantoprazole 40 Mg Tablet PO 40 mg AC-BRKFST VALERIE Administration Objective - Vital Signs Vital signs: Vital Signs Temp 98.4 F 03/31/23 07:18 Pulse 82 03/31/23 12:10 Resp 18 03/31/23 12:10 BP 135/80 03/31/23 09:09 Pulse Ox 98 03/31/23 09:09 FiO2 21 03/27/23 08:15 Intake & Output 03/30/23 03/31/23 03/31/23 18:59 06:59 18:59 Intake Total 1080 180 Balance 1080 180 Intake: Oral 1080 180 Other: Voiding Method Toilet # Voids 3 4 - Exam -GENERAL: The patient is alert and oriented x3, not in any acute distres generally weak HEENT: Pupils are round and equally reacting to light. EOMI. No scleral icterus. No conjunctival pallor. Normocephalic, atraumatic. No pharyngeal erythema. No thyromegaly. CARDIOVASCULAR: S1 and S2 present. No murmurs, rubs, or gallops. PULMONARY: Chest is clear to auscultation, no wheezing , no crackles. ABDOMEN: Soft, nontender, nondistended, normoactive bowel sounds. No palpable organomegaly. MUSCULOSKELETAL: No joint swelling or deformity. EXTREMITIES: No cyanosis, clubbing, or pedal edema. NEUROLOGICAL: Gross neurological examination did not reveal any focal deficits. SKIN: No rashes. no petechiae. - Labs CBC & Chem 7: 03/31/23 11:06 03/31/23 11:06 Labs: Abnormal Lab Results - Last 24 Hours (Table) 03/30/23 03/31/23 03/31/23 Range/Units 07:09 11:06 11:06 RBC 4.04 L 4.03 L (4.40-5.60) X 10*6/uL Hgb 12.1 L (13.0-17.5) gm/dL Hct 36.9 L 36.4 L (39.6-50.0) % RDW 14.8 H (11.5-14.5) % Monocytes # 1.02 H (0.20-1.00) X 10*3/uL Eosinophils # 0.43 H (0.04-0.35) X 10*3/uL Glucose 121 H (74-99) mg/dL Assessment and Plan Assessment: Acute COPD exacerbation Left lower lobe atelectasis rather than pneumonia Recent perforated diverticulitis status post lower anterior resection Hypertension COPD, no acute exacerbation History of posterior arthritis History of sleep apnea History of psoriasis Plan: Continue gentle hydration Surgery primary team about the case Advanced diet as per surgery team, currently tolerated well low fiber diet Start IV Solu-Medrol 60 mg Patient already on Symbicort Incentive spirometer Started on Zosyn and follow-up priorcalcitonin Labs and medication were reviewed.. Continue same treatment. Continue with sym ptomatic treatment. Resume home medication. Monitor labs and vitals. DVT and GI prophylaxis. Further recommendations as per clinical course of the patient DVT prophylaxis: Subcutaneous heparin GI Prophylaxis: Ppi PT/OT: Pending Prognosis is guarded
[2023-03-31] MEDS: LORATADINE 10 MG TAB PO SCH (20:39)
--- NOTE | 2023-03-31 22:37 | P.PN ---
Subjective Progress Note Date: 03/31/23 Principal diagnosis: He has tolerating diet. However patient developed COPD exacerbation. Continue hospitalization for new COPD exacerbation. Objective - Vital Signs Vital signs: Vital Signs Temp 97.9 F 03/31/23 19:17 Pulse 74 03/31/23 20:35 Resp 18 03/31/23 19:17 BP 132/71 03/31/23 19:17 Pulse Ox 96 03/31/23 19:17 FiO2 21 03/27/23 08:15 Intake & Output 03/31/23 03/31/23 04/01/23 06:59 18:59 06:59 Intake Total 260 Balance 260 Intake: Oral 260 Other: Voiding Method Toilet # Voids 4 3 - Labs CBC & Chem 7: 03/31/23 11:06 03/31/23 11:06 Labs: Abnormal Lab Results - Last 24 Hours (Table) 03/31/23 03/31/23 Range/Units 11:06 11:06 RBC 4.03 L (4.30-5.90) m/uL Hgb 12.1 L (13.0-17.5) gm/dL Hct 36.4 L (39.0-53.0) % Glucose 121 H (74-99) mg/dL
[2023-04-01] MEDS: HEPARIN SODIUM,PORCINE/PF 5,000 UNIT/0.5 ML SYRINGE SQ SCH ×2 (00:01→08:57)
[2023-04-01] MEDS: PIPERACILLIN-TAZOBACTAM 3.375 GM in SODIUM CHLORIDE 0.9% 100 ML IVPB SCH ×2 (00:02→09:32)
[2023-04-01] MEDS: methylPREDNISolone SOD SUCCI 125 MG/2 ML VIAL IV SCH ×2 (00:02→08:57)
[2023-04-01 02:09] VITALS: RESP 17
[2023-04-01 07:38] VITALS: BP 169/73; TEMP 97.7
[2023-04-01] MEDS: SYMBICORT 80-4.5 MCG INHALER INHALATION SCH (08:53)
[2023-04-01] MEDS: IPRATROPIUM-ALBUTEROL 3 ML NEB INHALATION SCH ×2 (08:53→11:56)
[2023-04-01] MEDS: NIFEdipine XL 90 MG TAB.ER.24 PO SCH (08:56)
[2023-04-01] MEDS: FOLIC ACID 1 MG TAB PO SCH (08:57)
[2023-04-01] MEDS: PANTOPRAZOLE 40 MG TABLET PO SCH (08:57)
[2023-04-01] MEDS: carvediloL 6.25 MG TAB PO SCH (08:57)
[2023-04-01] MEDS ORDERED: AMOXIC-POT CLAV 500-125 MG 1 EACH TAB PO SCH (09:30)
[2023-04-01] MEDS: ALVIMOPAN 12 MG CAPSULE PO SCH (10:36)
[2023-04-01 12:00] VITALS: PULSE 88
--- NOTE | 2023-04-01 13:22 | P.PN ---
Subjective This is a pleasant 67 years old male who presented to general surgery service for perforated diverticulitis status post lower anterior resection by surgery team. Patient still not able to eat, he does not have bowel movement little with no gas. His abdominal pain is improving 3/10 but does abdomen is slightly distended Surgery team primary service are following the patient closely. Patient still has Go catheter Patient currently on liquid diet She is currently on D5 half-normal saline at 70 03/30/23 Patient generally is doing fine, he feels improving. His abdominal pain is a stable and mild at 3/10 He had 2 bowel movement last night He tolerates liquid diet and advance to regular diet Go catheter was discontinued 03/31/2023 patient today he is tolerating diet well, he is a low fiber diet, abdominal pain is minimal. This morning he developed worsening shortness of breath and tachypnea, he is currently saturating 96% on 2 L oxygen via nasal cannula. Chest x-ray showing possible left lower infiltrate suspicious for atelectasis rather than pneumonia, patient is afebrile and WBCs trending down and currently isn't within the reference range at 6.6 thousand. Patient is a known case of COPD and he follow-up with Dr. Rojas we going to start him on IV Solu-Medrol 60 mg 8 hours, also start Zosyn over the suspicion of infection is low, we will consider discontinuing antibiotic is procalcitonin is negative. Plan discussed with staff 04/01/2023 Patient clinically much better, his breathing is much easier. Most likely patient condition is due to COPD exacerbation and he is On Solu-Medrol 60 mg ev lance 8 hours. With improvement this can be switched to oral prednisone upon discharge. Patient with no leukocytosis, no fever. Pro-calcitonin is not significantly elevated, only 0.12, with the resolution of leukocytosis and cleared quickly most likely patient does not have pneumonia, could have atelectasis versus aspiration pneumonitis. However antibiotics can be discontinued and patient monitored closely while off antibiotic. Patient other than that generally is doing well and he denies any other symptoms. Bladder scan was only 5 mL. He tolerates diet well. Patient looks medically stable for discharge from internal medicine review (primary team also cleared the patient for discharge). Patient can be discharged per surgery team once cleared by the primary team Objective - Vital Signs Vital signs: Vital Signs Temp 97.7 F 04/01/23 07:12 Pulse 90 04/01/23 09:09 Resp 17 04/01/23 07:12 BP 169/73 04/01/23 07:12 Pulse Ox 94 L 04/01/23 08:54 FiO2 21 03/27/23 08:15 Intake & Output 03/31/23 04/01/23 04/01/23 18:59 06:59 18:59 Intake Total 260 Balance 260 Intake: Oral 260 Other: Voiding Method Toilet Toilet # Voids 3 3 - Exam -GENERAL: The patient is alert and oriented x3, not in any acute distres general ly weak HEENT: Pupils are round and equally reacting to light. EOMI. No scleral icterus. No conjunctival pallor. Normocephalic, atraumatic. No pharyngeal erythema. No thyromegaly. CARDIOVASCULAR: S1 and S2 present. No murmurs, rubs, or gallops. PULMONARY: Chest is clear to auscultation, no wheezing , no crackles. ABDOMEN: Soft, nontender, nondistended, normoactive bowel sounds. No palpable organomegaly. MUSCULOSKELETAL: No joint swelling or deformity. EXTREMITIES: No cyanosis, clubbing, or pedal edema. NEUROLOGICAL: Gross neurological examination did not reveal any focal deficits. SKIN: No rashes. no petechiae. - Labs CBC & Chem 7: 03/31/23 11:06 03/31/23 11:06 Labs: Abnormal Lab Results - Last 24 Hours (Table) 03/31/23 03/31/23 03/31/23 Range/Units 11:06 11:06 11:06 RBC 4.03 L (4.30-5.90) m/uL Hgb 12.1 L (13.0-17.5) gm/dL Hct 36.4 L (39.0-53.0) % Glucose 121 H (74-99) mg/dL Procalcitonin 0.12 H (0.02-0.09) ng/mL Assessment and Plan Assessment: Acute COPD exacerbation Left lower lobe atelectasis rather than pneumonia Recent perforated diverticulitis status post lower anterior resection Hypertension COPD, no acute exacerbation History of posterior arthritis History of sleep apnea History of psoriasis Plan: Discontinue antibiotic Zosyn. Surgery primary team about the case Advanced diet as per surgery team, currently tolerated well low fiber diet Start IV Solu-Medrol 60 mg Patient already on Symbicort Incentive spirometer Discontinue with antibiotic and monitor while off antibiotic Pulmonary team has cleared the Patient for discharge. Patient is medically stable for discharge once cleared by surgery team Labs and medication were reviewed.. Continue same treatment. Continue with symptomatic treatment. Resume home medication. Monitor labs and vitals. DVT and GI prophylaxis. Further recommendations as per clinical course of the patient DVT prophylaxis: Subcutaneous heparin GI Prophylaxis: Ppi Thank you for consulting us
--- NOTE | 2023-04-01 13:30 | P.DS ---
Providers Date of admission: 03/26/23 06:58 Expected date of discharge: 04/01/23 Attending physician: Bryn Moncada Consults: 03/26/23 11:56 Consult Physician Routine Consulting Provider: Jessica Burton Consult Reason/Comments: Medical management Do you want consulting provider notified?: Yes 04/01/23 09:02 Consult Physician Routine Consulting Provider: Corey Hdz Consult Reason/Comments: COPD Do you want consulting provider notified?: Already Contacted Primary care physician: James Mascorro Hospital Course: Discharge diagnosis 1. History of perforated diverticulitis status post lower anterior resection 2. Acute COPD exacerbation followed by medicine and pulmonary service Hospital course This is a 67-year-old male who has a known history of perforated diverticulitis. He is status post lower anterior resection. Patient has tolerated surgery well. His pain is controlled. He is tolerating diet. He is having bowel movements and flatus. Has been up and ambulating. He is afebrile. He is stable for discharge. He has been cleared by consultants for discharge. Please refer to chart for any further details. Physician Logistics Research Engineer note has been reviewed by physician. Signing provider agrees with the documented findings, assessment, and plan of care. Patient Condition at Discharge: Stable Plan - Discharge Summary Discharge Rx Participant: Yes New Discharge Prescriptions: New Acetaminophen Tab [Tylenol Tab] 650 mg PO Q4H PRN #30 tablet PRN Reason: Pain predniSONE 10 mg PO DIRECTED #30 tab Pantoprazole [Protonix] 40 mg PO AC-BRKFST #30 tab oxyCODONE HCL [OxyIR] 5 mg PO Q6H PRN 3 Days #12 tab PRN Reason: Pain Continue Folic Acid 1 mg PO DAILY #30 tablet Furosemide [Lasix] 20 mg PO DAILY Testosterone Cypionate [Depo-Testosterone] 100 mg IM WE Cetirizine HCl [Zyrtec] 10 mg PO HS Wheat Dextrin [Benefiber] 1 packet PO DAILY #30 packet Fluticasone Propion/Salmeterol [Advair 500-50 Diskus] 1 puff INHALATION BID carvediloL [Coreg] 6.25 mg PO BID Artificial Tears-Hypromellose [Artificial Tear Drops] 2 drops BOTH EYES QID PRN #10 ml PRN Reason: Dry Eye(S) NIFEdipine XL [Procardia XL] 90 mg PO DAILY #30 tab Acetaminophen Tab [Tylenol] 650 mg PO Q6HR PRN tab PRN Reason: Mild Pain Or Fever > 100.5 Albuterol Nebulized [Ventolin Nebulized] 2.5 mg INHALATION Q6H Discharge Medication List Folic Acid 1 mg PO DAILY #30 tablet 03/01/18 [Rx] Furosemide [Lasix] 20 mg PO DAILY 10/28/18 [History] Testosterone Cypionate [Depo-Testosterone] 100 mg IM WE 08/03/20 [History] Cetirizine HCl [Zyrtec] 10 mg PO HS 01/30/23 [History] Acetaminophen Tab [Tylenol] 650 mg PO Q6HR PRN tab 02/05/23 [Rx] Artificial Tears-Hypromellose [Artificial Tear Drops] 2 drops BOTH EYES QID PRN #10 ml 02/05/23 [Rx] NIFEdipine XL [Procardia XL] 90 mg PO DAILY #30 tab 02/05/23 [Rx] Wheat Dextrin [Benefiber] 1 packet PO DAILY #30 packet 02/05/23 [Rx] Fluticasone Propion/Salmeterol [Advair 500-50 Diskus] 1 puff INHALATION BID 02/27/23 [History] carvediloL [Coreg] 6.25 mg PO BID 02/27/23 [History] Albuterol Nebulized [Ventolin Nebulized] 2.5 mg INHALATION Q6H 03/26/23 [History] Acetaminophen Tab [Tylenol Tab] 650 mg PO Q4H PRN #30 tablet 03/29/23 [Rx] oxyCODONE HCL [OxyIR] 5 mg PO Q6H PRN 3 Days #12 tab 03/29/23 [Rx] Pantoprazole [Protonix] 40 mg PO AC-BRKFST #30 tab 04/01/23 [Rx] predniSONE 10 mg PO DIRECTED #30 tab 04/01/23 [Rx] Follow up Appointment(s)/Referral(s): Maxime Silva DO [Doctor of Osteopathic Medicine] - 3 Weeks (For your spine disease) Bryn Moncada MD [STAFF PHYSICIAN] - 1 Week Activity/Diet/Wound Care/Special Instructions: No driving while taking OxyIR No lifting over 10 pounds Shower daily. No soaking or tub baths for 2 weeks Very light activity until you are reevaluated at your follow up appointment with your surgeon Discharge Disposition: HOME SELF-CARE
--- NOTE | 2023-04-01 13:39 | P.CNPUL ---
History of Present Illness Consult date: 04/01/23 Requesting physician: David Kenney Reason for consult: dyspnea, COPD Chief complaint: Abdominal pain History of present illness: This a very pleasant 67-year-old male patient who has history of hyperlipidemia, congestive heart failure, benign prosthetic hyperplasia, hypertension, obstructive sleep apnea maintained on CPAP at 14 cm of water, moderate chronic obstructive pulmonary disease maintained on Symbicort and albuterol and follows with Dr. Escamilla in our office for the same. He had also been having issues with diverticulitis and presented here on 03/26/2023 for an elective low anterior resection. He had been having issues with increasing shortness of breath. Chest x-ray showed increased density of the left medial lung base reflecting atelectasis. He is seen today in consultation on the regular medical floor. He is currently resting in bed. Awake and alert in no acute distress. He is working well with the incentive spirometer. Currently maintaining good O2 saturations in the 90s on 2 L/m per nasal cannula. His pro calcitonin level was 0.12. He is continued on Zosyn. He remains on Symbicort, DuoNeb inhalations, IV Solu-Medrol. Heparin for DVT prophylaxis. Receiving D5 and half-normal saline with 20 KCl at 70 ML's per hour. White count 6.6. Hemoglobin 12.1. S odium 137. Potassium 4.4. Bicarb 20. BUN 13. Creatinine 1.08. Glucose 121. Review of Systems REVIEW OF SYSTEMS: CONSTITUTIONAL: Denies any recent significant weight loss or weight gain. EYES: Denies change in vision. EARS, NOSE, MOUTH, THROAT: Denies headaches, denies sore throat. CARDIOVASCULAR: Denies chest pain, palpitations or syncopal episodes. RESPIRATORY: Positive for shortness of breath, cough, congestion no hemoptysis. GASTROINTESTINAL: Positive for surgical abdominal pain GENITOURINARY: Denies hematuria, denies infections. MUSKULOSKELETAL: Denies pain, denies swelling. INTEGUMENTARY: Denies rash, denies eczema. NEUROLOGICAL: Denies recent memory loss, no recent seizure activity. PSYCHIATRIC: Denies anxiety, denies depression. HEMATOLOGIC/LYMPHATIC: Denies anemia, denies enlarged lymph nodes. Past Medical History Past Medical History: Asthma, COPD, Hypertension, Osteoarthritis (OA), Skin Disorder, Sleep Apnea/CPAP/BIPAP Additional Past Medical History / Comment(s): psoriasis, uses cpap machine stopped entresto due to kidney issues has appt in april for workup History of Any Multi-Drug Resistant Organisms: None Reported Past Surgical History: Appendectomy, Cholecystectomy, Heart Catheterization, Joint Replacement, Orthopedic Surgery Additional Past Surgical History / Comment(s): repair fx. left hand with pins/plate, hemorrhoidectomy, bronchoscopy x2, colonscopies, arthroscopy knee, rt hip replacement, Past Anesthesia/Blood Transfusion Reactions: Previous Problems w/ Anesthesia Additional Past Anesthesia/Blood Transfusion Reaction / Comment(s): per 11/29/17 "during bronchoscopy, stopped breathing rescheduled to 12/04/17 was done under general anesthesic and was fine" Smoking Status: Former smoker - Past Family History Father Family Medical History: Cancer Mother Family Medical History: Cancer Sister(s) Family Medical History: Cancer Medications and Allergies Home Medications Medication Instructions Recorded Confirmed Type Folic Acid 1 mg PO DAILY #30 tablet 03/01/18 03/26/23 Rx Furosemide [Lasix] 20 mg PO DAILY 10/28/18 03/26/23 History Testosterone Cypionate 100 mg IM WE 08/03/20 03/26/23 History [Depo-Testosterone] Cetirizine HCl [Zyrtec] 10 mg PO HS 01/30/23 03/26/23 History Acetaminophen Tab [Tylenol] 650 mg PO Q6HR PRN tab 02/05/23 03/26/23 Rx Artificial Tears-Hypromellose 2 drops BOTH EYES QID PRN #10 ml 02/05/23 03/26/23 Rx [Artificial Tear Drops] NIFEdipine XL [Procardia XL] 90 mg PO DAILY #30 tab 02/05/23 03/26/23 Rx Wheat Dextrin [Benefiber] 1 packet PO DAILY #30 packet 02/05/23 03/26/23 Rx Fluticasone Propion/Salmeterol 1 puff INHALATION BID 02/27/23 03/26/23 History [Advair 500-50 Diskus] carvediloL [Coreg] 6.25 mg PO BID 02/27/23 03/26/23 History Albuterol Nebulized [Ventolin 2.5 mg INHALATION Q6H 03/26/23 03/26/23 History Nebulized] Acetaminophen Tab [Tylenol Tab] 650 mg PO Q4H PRN #30 tablet 03/29/23 Rx oxyCODONE HCL [OxyIR] 5 mg PO Q6H PRN 3 Days #12 tab 03/29/23 Rx Pantoprazole [Protonix] 40 mg PO AC-BRKFST #30 tab 04/01/23 Rx predniSONE 10 mg PO DIRECTED #30 tab 04/01/23 Rx Allergies Allergy/AdvReac Type Severity Reaction Status Date / Time codeine Allergy Nausea & Verified 03/26/23 07:32 Vomiting Sulfa (Sulfonamide Allergy Rash/Hives Verified 03/26/23 07:32 Antibiotics) Physical Exam Vitals: Vital Signs Temp Pulse Pulse Resp BP Pulse Ox 04/01/23 12:08 88 04/01/23 11:56 88 04/01/23 09:09 90 04/01/23 08:54 90 94 L 04/01/23 07:12 97.7 F 89 17 169/73 94 L 04/01/23 02:00 98.2 F 83 17 151/75 97 03/31/23 20:35 74 03/31/23 20:21 74 03/31/23 19:17 97.9 F 74 18 132/71 96 03/31/23 15:29 82 16 03/31/23 15:19 84 16 03/31/23 13:40 97.9 F 79 19 143/56 96 Intake and Output 03/31/23 04/01/23 04/01/23 22:59 06:59 14:59 Intake Total 80 Balance 80 Intake: Oral 80 Other: Voiding Method Toilet Toilet # Voids 3 3 Weight 98.1 kg GENERAL EXAM: Alert, very pleasant 67-year-old male, 2 L nasal cannula, fairly comfortable in no apparent distress. HEAD: Normocephalic. EYES: Normal reaction of pupils, equal size. NOSE: Clear with pink turbinates. THROAT: No erythema or exudates. NECK: No masses, no JVD. CHEST: No chest wall deformity. LUNGS: Equal air entry with faint crackles in the posterior bases. CVS: S1 and S2 normal with no audible murmur, regular rhythm. ABDOMEN: Wound VAC in place. No hepatosplenomegaly, normal bowel sounds, no guarding or rigidity. SPINE: No scoliosis or deformity SKIN: No rashes CENTRAL NERVOUS SYSTEM: No focal deficits, tone is normal in all 4 extremities. EXTREMITIES: There is no peripheral edema. No clubbing, no cyanosis. Pe ripheral pulses are intact. Results - Laboratory Findings CBC and BMP: 03/31/23 11:06 03/31/23 11:06 Abnormal lab findings: Abnormal Labs 03/26/23 03/26/23 03/26/23 07:48 17:36 17:36 WBC RBC Hgb Hct RDW Neutrophils # 9.3 H Lymphocytes # 0.6 L Monocytes # Eosinophils # Sodium Carbon Dioxide 20 L Anion Gap Creatinine Est GFR (CKD-EPI) Glucose 148 H POC Glucose (mg/dL) 127 H Procalcitonin 03/27/23 03/27/23 03/28/23 06:35 06:35 07:30 WBC 10.7 H 12.05 H RBC Hgb Hct RDW 15.0 H Neutrophils # 8.1 H 9.16 H Lymphocytes # Monocytes # 1.38 H Eosinophils # Sodium 136 L Carbon Dioxide Anion Gap Creatinine 1.26 H Est GFR (CKD-EPI) Glucose 121 H POC Glucose (mg/dL) Procalcitonin 03/28/23 03/29/23 03/29/23 07:30 06:01 06:01 WBC 10.52 H RBC 4.16 L Hgb Hct 38.1 L RDW 14.9 H Neutrophils # Lymphocytes # Monocytes # 1.27 H Eosinophils # 0.52 H Sodium Carbon Dioxide 21.4 L Anion Gap 12.60 H Creatinine Est GFR (CKD-EPI) 50 L Glucose 172 H 129 H POC Glucose (mg/dL) Procalcitonin 03/30/23 03/31/23 03/31/23 07:09 11:06 11:06 WBC RBC 4.04 L 4.03 L Hgb 12.1 L Hct 36.9 L 36.4 L RDW 14.8 H Neutrophils # Lymphocytes # Monocytes # 1.02 H Eosinophils # 0.43 H Sodium Carbon Dioxide Anion Gap Creatinine Est GFR (CKD-EPI) Glucose 121 H POC Glucose (mg/dL) Procalcitonin 03/31/23 11:06 WBC RBC Hgb Hct RDW Neutrophils # Lymphocytes # Monocytes # Eosinophils # Sodium Carbon Dioxide Anion Gap Creatinine Est GFR (CKD-EPI) Glucose POC Glucose (mg/dL) Procalcitonin 0.12 H - Diagnostic Findings Chest x-ray: image reviewed Assessment and Plan Assessment: Diverticulitis status post low anterior resection 03/26/2023 Acute exacerbation of chronic obstructive pulmonary disease Acute hypoxemic respiratory failure secondary to above Hyperlipidemia Hypertension Obstructive sleep apnea maintained on CPAP at 14 cm water Benign prosthetic hyperplasia History of congestive heart failure Plan: The patient was seen and evaluated Chest x-ray, labs and medications reviewed Cleared for discharge from the pulmonary standpoint Complete a prednisone taper Continue his home pulmonary medications Continue to work with the incentive spirometer Follow up in our office in 1 week I have personally seen and examined the patient, performed the documentation and the assessment and plan as written. Number of minutes spent on the visit: 10.
== END 2023-04-01 14:16 | disposition home or self-care (01) | DRG 329 ==
LOC: 2ORMAIN 06:58 → 4SSUR 12:52
PROVIDERS: ADMIT Surgery; ATTEND Surgery
PROC: 0DBN0ZZ Excision of Sigmoid Colon, Open Approach (ICD-10-PCS; principal; 2023-03-26 08:30)
DX: K57.20 Diverticulitis of large intestine with perforation and abscess without bleeding (principal); J96.01 Acute respiratory failure with hypoxia; J44.1 Chronic obstructive pulmonary disease with (acute) exacerbation; J98.11 Atelectasis; G47.33 Obstructive sleep apnea (adult) (pediatric); E78.5 Hyperlipidemia, unspecified; M19.90 Unspecified osteoarthritis, unspecified site; I11.0 Hypertensive heart disease with heart failure; K63.5 Polyp of colon; L40.9 Psoriasis, unspecified; J45.909 Unspecified asthma, uncomplicated; I50.9 Heart failure, unspecified; Z79.51 Long term (current) use of inhaled steroids; Z79.899 Other long term (current) drug therapy; Z87.891 Personal history of nicotine dependence; Z96.641 Presence of right artificial hip joint; Z71.3 Dietary counseling and surveillance; Z88.5 Allergy status to narcotic agent; Z88.2 Allergy status to sulfonamides
CPT/HCPCS: 71045; 80048; 83880; 84132; 84145; 85025; 85027; 86850; 86900; 86901; 88307; 93005; 94640; 94760

== ENCOUNTER → 2024-06-04 | Outpatient (CLI) | payer MEDICARE ==
--- NOTE | 2024-06-04 13:57 | XR ---
EXAMINATION TYPE: XR lumbar spine with bend/flex DATE OF EXAM: 06/04/2024 11:26 AM CLINICAL INDICATION: Male, 68 years old with history of G62.9 neuropathy; PHH COMPARISON: None TECHNIQUE: XR lumbar spine with bend/flex - Frontal, lateral and coned in L5-S1 lateral views of the spine. Extension and flexion views also performed. FINDINGS: No evidence of any acute osseous pathology. No evidence of loss of vertebral body height i s seen. There is normal alignment of the lumbar vertebral bodies. No significant abnormal alignment o f the tendon and extension views. Scattered disc space narrowing. Multilevel marginal osteophyte form ation throughout the visualized spine. There is facet joint arthropathy throughout the spine. Scatter ed at least mild neural foraminal stenosis. IMPRESSION: 1. No acute fracture. 2. Moderate multilevel disc degeneration.
== END | disposition home or self-care (01) ==
LOC: RADXRMAIN 10:52
PROVIDERS: ATTEND Internal Medicine
DX: G62.9 Polyneuropathy, unspecified
CPT/HCPCS: 72114

== ENCOUNTER 2024-10-11 01:34 | Inpatient (IN) | payer MEDICARE ==
--- NOTE | 2024-10-11 01:52 | ED ---
General Adult HPI - General Chief complaint: Shortness of Breath Stated complaint: Difficulty breathing Time Seen by Provider: 10/11/24 01:42 Source: patient, EMS Mode of arrival: EMS Limitations: no limitations - History of Present Illness Initial comments: Dictation was produced using Int[employer] dictation software. please excuse any grammatical, word or spelling errors. Chief Complaint: 69-year-old male presents with cough, chest pain shortness of breath History of Present Illness: Patient is a 69-year-old male brought in by EMS patient reports history of COPD for the last 2 days he has been having cough. States that the cough is dry and nonproductive. Complains of some chest pain that radiates down the left arm as well. Denies any cardiac history. Patient quit smoking 3 years ago. No obvious sick contacts. Denies any fever, chills or night sweats. The ROS documented in this emergency department record has been reviewed and confirmed by me. Those systems with pertinent positive or negative responses have been documented in the HPI. All other systems are other negative and/or noncontributory. - Related Data Home Medications Medication Instructions Recorded Confirmed Furosemide [Lasix] 20 mg PO DAILY 10/28/18 03/26/23 Testosterone Cypionate 100 mg IM WE 08/03/20 03/26/23 [Depo-Testosterone] Cetirizine HCl [Zyrtec] 10 mg PO HS 01/30/23 03/26/23 Fluticasone Propion/Salmeterol 1 puff INHALATION BID 02/27/23 03/26/23 [Advair 500-50 Diskus] carvediloL [Coreg] 6.25 mg PO BID 02/27/23 03/26/23 Albuterol Nebulized [Ventolin 2.5 mg INHALATION Q6H 03/26/23 03/26/23 Nebulized] Previous Rx's Medication Instructions Recorded Folic Acid 1 mg PO DAILY #30 tablet 03/01/18 Acetaminophen Tab [Tylenol] 650 mg PO Q6HR PRN tab 02/05/23 Artificial Tears-Hypromellose 2 drops BOTH EYES QID PRN #10 ml 02/05/23 [Artificial Tear Drops] NIFEdipine XL [Procardia XL] 90 mg PO DAILY #30 tab 02/05/23 Wheat Dextrin [Benefiber] 1 packet PO DAILY #30 packet 02/05/23 Acetaminophen Tab [Tylenol Tab] 650 mg PO Q4H PRN #30 tablet 03/29/23 oxyCODONE HCL [OxyIR] 5 mg PO Q6H PRN 3 Days #12 tab 03/29/23 Pantoprazole [Protonix] 40 mg PO AC-BRKFST #30 tab 04/01/23 predniSONE 10 mg PO DIRECTED #30 tab 04/01/23 Allergies Allergy/AdvReac Type Severity Reaction Status Date / Time codeine Allergy Nausea & Verified 10/11/24 01:40 Vomiting Sulfa (Sulfonamide Allergy Rash/Hives Verified 10/11/24 01:40 Antibiotics) Review of Systems ROS Statement: Those systems with pertinent positive or pertinent negative responses have been documented in the HPI. ROS Other: All systems not noted in ROS Statement are negative. Past Medical History Past Medical History: COPD Additional Past Medical History / Comment(s): psoriasis, uses cpap machine History of Any Multi-Drug Resistant Organisms: None Reported Past Surgical History: Appendectomy, Cholecystectomy, Heart Catheterization, Joint Replacement, Orthopedic Surgery Additional Past Surgical History / Comment(s): repair fx. left hand with pins/plate, hemorrhoidectomy, bronchoscopy x2, colonscopies, arthroscopy knee, rt hip replacement, Past Anesthesia/Blood Transfusion Reactions: Previous Problems w/ Anesthesia Additional Past Anesthesia/Blood Transfusion Reaction / Comment(s): per 11/29/17 "during bronchoscopy, stopped breathing rescheduled to 12/04/17 was done under general anesthesic and was fine" Past Psychological History: No Psychological Hx Reported Smoking Status: Former smoker - Past Family History Father Family Medical History: Cancer Mother Family Medical History: Cancer Sister(s) Family Medical History: Cancer General Exam - General Exam Comments Initial Comments: PHYSICAL EXAM: General Impression: Alert and oriented x3, not in acute distress HEENT: Normocephalic atraumatic, extra-ocular movements intact, pupils equal and reactive to light bilaterally, mucous membranes moist. Cardiovascular: Heart regular rate and rhythm Chest: Coughing, and expiratory wheezing, few scattered rhonchi Abdomen: abdomen soft, non-tender, non-distended, no organomegaly Musculoskeletal: Pulses present and equal in all extremities, no peripheral edema Motor: no focal deficits noted Neurological: CN II-XII grossly intact, no focal motor or sensory deficits noted Skin: Intact with no visualized rashes Psych: Normal affect and mood Limitations: no limitations Course Vital Signs 10/11/24 10/11/24 10/11/24 01:36 03:09 03:10 Temperature 100.8 F H Pulse Rate 92 89 84 Respiratory 20 16 Rate Blood Pressure 134/70 117/79 O2 Sat by Pulse 95 98 Oximetry 10/11/24 10/11/24 03:16 03:56 Temperature 98.8 F Pulse Rate 87 Respiratory Rate Blood Pressure O2 Sat by Pulse Oximetry EKG Findings - EKG Comments: EKG Findings:: My EKG interpretation: Ventricular rate 89, sinus rhythm,. 162, QRS 86, QTc 371. No UT prolongation, no QTC prolongation, no ST or T-wave changes noted. Overall, this EKG is unremarkable Medical Decision Making - Medical Decision Making Was pt. sent in by a medical professional or institution (, PA, LABOR RELATIONS TEACHER, urgent care, hospital, or [place] [facility]...) When possible be specific @ -No Did you speak to anyone other than the patient for history (EMS, parent, family, police, friend...)? What history was obtained from this source @ -No Did you review nursing and triage notes (agree or disagree)? Why? @ -I reviewed and agree with nursing and triage notes Were old charts reviewed (outside hosp., previous admission, EMS record, old EKG, old radiological studies, urgent care reports/EKG's, [place] [facility] records)? Report findings @ -No old charts were reviewed Differential Diagnosis (chest pain, altered mental status, abdominal pain women, abdominal pain men, vaginal bleeding, musculoskeletal, weakness, fever, dyspnea, syncope, headache, dizziness, GI bleed, back pain, seizure, CVA, palpatations, mental health)? @ -Differential Dyspnea: Coronary syndrome, arrhythmia, tamponade, asthma, COPD, pulmonary embolism, pneumonia, pneumothorax, pulmonary effusion, anaphylaxis, diabetic ketoacidosis, flailed chest, pulmonary contusion, diaphragmatic rupture, anemia, neuromuscular, this is not meant to be an all-inclusive list. EKG interpreted by me (3pts min.). @ -See above X-rays interpreted by me (1pt min.). @ -Chest x-ray shows lung hyperinflation CT interpreted by me (1pt min.). @ -None done U/S interpreted by me (1pt. min.). @ -None done What testing was considered but not performed or refused? (CT, X-rays, U/S, lab s)? Why? @ -None What meds were considered but not given or refused? Why? @ -None Was smoking cessation discussed for >3mins.? @ -No Were there social determinants of health that impacted care today? How? (Homelessness, low income, unemployed, alcoholism, drug addiction, transportation, low edu. Level, literacy, decrease access to med. care, [place] [facility], rehab)? @ -No Was there de-escalation of care discussed even if they declined (Discuss DNR or withdrawal of care, Hospice)? DNR status @ -No What co-morbidities impacted this encounter? (DM, HTN, Smoking, COPD, CAD, Cancer, CVA, ARF, Chemo, Hep., AIDS, mental health diagnosis, sleep apnea, morbid obesity)? @ -COPD history Was patient admitted / discharged? Hospital course, mention meds given and route, prescriptions, significant lab abnormalities, going to OR and other pertinent info. @ -69-year-old male with history of COPD presents to the emergency department with chief complaint of productive cough, difficulty breathing. Vital signs upon arrival shows temperature 100.8. Rest of vital signs within acceptable limits. Patient dyspneic at the bedside. Laboratory evaluation obtained. Lactic acidosis 2.4 influenza A positive. Rest of labs unremarkable. Given breathing treatment Decadron. Reevaluated bedside at 531 still dyspneic with diminished lung sounds bilaterally. Patient be admitted for COPD exacerbation with pulmonary consultation. Did you discuss the management of the patient with other professionals (professionals i.e. , PA, LABOR RELATIONS TEACHER, lab, RT, psych nurse, social worker health services, property disposal officer, teacher, immigration officer, child welfare caseworker)? Give summary @ -Case discussed with hospitalist for admission Was critical care preformed (if so, how long)? @ -No Undiagnosed new problem with uncertain prognosis? @ -No Drug Therapy requiring intensive monitoring for toxicity (Heparin, Nitro, Insulin, Cardizem)? @ -No Were any procedures done? @ -No Diagnosis/symptom? Acute, or Chronic, or Acute on Chronic? Uncomplicated (without systemic symptoms) or Complicated (systemic symptoms)? @ -Influenza, complicated by COPD exacerbation Side effects of treatment? @ -No Exacerbation, Progression, or Severe Exacerbation? @ -No Poses a threat to life or bodily function? How? (Chest pain, [place], NC, pneumonia, PE, COPD, DKA, ARF, appy, cholecystitis, CVA, Diverticulitis, Homicidal, Suicidal, threat to staff... and all critical care pts) @ -yes - Lab Data Result diagrams: 10/11/24 01:47 10/11/24 01:47 Lab Results 10/11/24 10/11/24 10/11/24 Range/Units 01:47 01:47 01:47 WBC 5.7 (3.8-10.6) k/uL RBC 5.07 (4.30-5.90) m/uL Hgb 15.3 (13.0-17.5) gm/dL Hct 46.6 (39.0-53.0) % MCV 91.9 (80.0-100.0) fL MCH 30.1 (25.0-35.0) pg MCHC 32.8 (31.0-37.0) g/dL RDW 14.4 (11.5-15.5) % Plt Count 154 (150-450) k/uL MPV 7.0 Neutrophils % 76 % Lymphocytes % 11 % Monocytes % 9 % Eosinophils % 1 % Basophils % 1 % Neutrophils # 4.3 (1.3-7.7) k/uL Lymphocytes # 0.6 L (1.0-4.8) k/uL Monocytes # 0.5 (0-1.0) k/uL Eosinophils # 0.1 (0-0.7) k/uL Basophils # 0.0 (0-0.2) k/uL PT 10.4 (10.0-12.5) sec INR 0.9 (<1.2) APTT 24.8 (22.0-30.0) sec Sodium 138 (137-145) mmol/L Potassium 4.1 (3.5-5.1) mmol/L Chloride 104 (98-107) mmol/L Carbon Dioxide 20 L (22-30) mmol/L Anion Gap 14 mmol/L BUN 19 (9-20) mg/dL Creatinine 1.09 (0.66-1.25) mg/dL Est GFR (CKD-EPI)AfAm 79 (>60 ml/min/1.73 sqM) Est GFR (CKD-EPI)NonAf 68 (>60 ml/min/1.73 sqM) Glucose 118 H (74-99) mg/dL Lactic Ac Sepsis Rflx Plasma Lactic Acid Alexandre (0.7-2.0) mmol/L Calcium 9.3 (8.4-10.2) mg/dL Magnesium 1.9 (1.6-2.3) mg/dL Total Bilirubin 0.6 (0.2-1.3) mg/dL AST 48 (17-59) U/L ALT 45 (4-49) U/L Alkaline Phosphatase 67 (38-126) U/L Troponin I (0.000-0.034) ng/mL NT-Pro-B Natriuret Pep 71 pg/mL Total Protein 6.6 (6.3-8.2) g/dL Albumin 4.1 (3.5-5.0) g/dL Influenza Type A (PCR) (Not Detectd) Influenza Type B (PCR) (Not Detectd) RSV (PCR) (Not Detectd) SARS-CoV-2 (PCR) (Not Detectd) 10/11/24 10/11/24 10/11/24 Range/Units 01:47 01:47 01:47 WBC (3.8-10.6) k/uL RBC (4.30-5.90) m/uL Hgb (13.0-17.5) gm/dL Hct (39.0-53.0) % MCV (80.0-100.0) fL MCH (25.0-35.0) pg MCHC (31.0-37.0) g/dL RDW (11.5-15.5) % Plt Count (150-450) k/uL MPV Neutrophils % % Lymphocytes % % Monocytes % % Eosinophils % % Basophils % % Neutrophils # (1.3-7.7) k/uL Lymphocytes # (1.0-4.8) k/uL Monocytes # (0-1.0) k/uL Eosinophils # (0-0.7) k/uL Basophils # (0-0.2) k/uL PT (10.0-12.5) sec INR (<1.2) APTT (22.0-30.0) sec Sodium (137-145) mmol/L Potassium (3.5-5.1) mmol/L Chloride (98-107) mmol/L Carbon Dioxide (22-30) mmol/L Anion Gap mmol/L BUN (9-20) mg/dL Creatinine (0.66-1.25) mg/dL Est GFR (CKD-EPI)AfAm (>60 ml/min/1.73 sqM) Est GFR (CKD-EPI)NonAf (>60 ml/min/1.73 sqM) Glucose (74-99) mg/dL Lactic Ac Sepsis Rflx Plasma Lactic Acid Alexandre 2.4 H* (0.7-2.0) mmol/L Calcium (8.4-10.2) mg/dL Magnesium (1.6-2.3) mg/dL Total Bilirubin (0.2-1.3) mg/dL AST (17-59) U/L ALT (4-49) U/L Alkaline Phosphatase (38-126) U/L Troponin I <0.012 (0.000-0.034) ng/mL NT-Pro-B Natriuret Pep pg/mL Total Protein (6.3-8.2) g/dL Albumin (3.5-5.0) g/dL Influenza Type A (PCR) Detected A (Not Detectd) Influenza Type B (PCR) Not Detected (Not Detectd) RSV (PCR) Not Detected (Not Detectd) SARS-CoV-2 (PCR) Not Detected (Not Detectd) 10/11/24 Range/Units 02:40 WBC (3.8-10.6) k/uL RBC (4.30-5.90) m/uL Hgb (13.0-17.5) gm/dL Hct (39.0-53.0) % MCV (80.0-100.0) fL MCH (25.0-35.0) pg MCHC (31.0-37.0) g/dL RDW (11.5-15.5) % Plt Count (150-450) k/uL MPV Neutrophils % % Lymphocytes % % Monocytes % % Eosinophils % % Basophils % % Neutrophils # (1.3-7.7) k/uL Lymphocytes # (1.0-4.8) k/uL Monocytes # (0-1.0) k/uL Eosinophils # (0-0.7) k/uL Basophils # (0-0.2) k/uL PT (10.0-12.5) sec INR (<1.2) APTT (22.0-30.0) sec Sodium (137-145) mmol/L Potassium (3.5-5.1) mmol/L Chloride (98-107) mmol/L Carbon Dioxide (22-30) mmol/L Anion Gap mmol/L BUN (9-20) mg/dL Creatinine (0.66-1.25) mg/dL Est GFR (CKD-EPI)AfAm (>60 ml/min/1.73 sqM) Est GFR (CKD-EPI)NonAf (>60 ml/min/1.73 sqM) Glucose (74-99) mg/dL Lactic Ac Sepsis Rflx Y Plasma Lactic Acid Alexandre (0.7-2.0) mmol/L Calcium (8.4-10.2) mg/dL Magnesium (1.6-2.3) mg/dL Total Bilirubin (0.2-1.3) mg/dL AST (17-59) U/L ALT (4-49) U/L Alkaline Phosphatase (38-126) U/L Troponin I (0.000-0.034) ng/mL NT-Pro-B Natriuret Pep pg/mL Total Protein (6.3-8.2) g/dL Albumin (3.5-5.0) g/dL Influenza Type A (PCR) (Not Detectd) Influenza Type B (PCR) (Not Detectd) RSV (PCR) (Not Detectd) SARS-CoV-2 (PCR) (Not Detectd) Disposition Clinical Impression: COPD exacerbation Disposition: ADMITTED IP TO THIS HOSP Condition: Fair Referrals: Griffin Patiño MD [Primary Care Provider] - 1-2 days Decision Time: 05:32
[2024-10-11] MEDS: DEXAMETHASONE SOD PHOSPHATE 10 MG/ML 1 ML VIAL IV STA (01:53)
[2024-10-11] MEDS: ACETAMINOPHEN TAB 500 MG TAB PO STA (01:58)
[2024-10-11 02:33] LABS: ALT 45 U/L (4-49); AST 48 U/L (17-59); African American GFR (CKD) 79 (>60 ml/min/1.73 sqM); Albumin 4.1 g/dL (3.5-5.0); Alkaline Phosphatase 67 U/L (38-126); Anion Gap 14 mmol/L; Blood Urea Nitrogen 19 mg/dL (9-20); Calcium 9.3 mg/dL (8.4-10.2); Carbon Dioxide 20 mmol/L (22-30); Chloride 104 mmol/L (98-107); Glucose 118 mg/dL (74-99); Magnesium 1.9 mg/dL (1.6-2.3); Non-African American GFR(CKD) 68 (>60 ml/min/1.73 sqM); Potassium 4.1 mmol/L (3.5-5.1); Sodium 138 mmol/L (137-145); Total Bilirubin 0.6 mg/dL (0.2-1.3); Total Protein 6.6 g/dL (6.3-8.2)
[2024-10-11 02:42] LABS: Basophils % (A) 1 %; Eosinophils # (A) 0.1 k/uL (0-0.7); Eosinophils % (A) 1 %; HCT 46.6 % (39.0-53.0); HGB 15.3 gm/dL (13.0-17.5); Lymphocytes # (A) 0.6 k/uL (1.0-4.8); Lymphocytes % (A) 11 %; MCH 30.1 pg (25.0-35.0); MCHC 32.8 g/dL (31.0-37.0); MCV 91.9 fL (80.0-100.0); Monocytes # (A) 0.5 k/uL (0-1.0); Monocytes % (A) 9 %; NT-Pro-B-Type Natriuretic Pept 71 pg/mL; Neutrophils # (A) 4.3 k/uL (1.3-7.7); Neutrophils % (A) 76 %; Platelet Count 154 k/uL (150-450); RBC 5.07 m/uL (4.30-5.90); RDW 14.4 % (11.5-15.5); WBC 5.7 k/uL (3.8-10.6)
[2024-10-11 02:46] LABS: INR 0.9 (<1.2); Partial Thromboplastin Time 24.8 sec (22.0-30.0); Prothrombin Time 10.4 sec (10.0-12.5)
[2024-10-11] MEDS: IPRATROPIUM-ALBUTEROL 3 ML NEB INHALATION STA (03:08)
--- NOTE | 2024-10-11 05:27 | XR ---
EXAM: XR Chest, 2 Views CLINICAL HISTORY: ITS.REASON XR Reason: cough, chest pain, sob TECHNIQUE: Frontal and lateral views of the chest. COMPARISON: X-ray dated 03/31/2023 FINDINGS: Lungs: Unremarkable. No consolidation. Pleural space: Unremarkable. No pneumothorax. Heart: Unremarkable. No cardiomegaly. Mediastinum: Unremarkable. Normal mediastinal contour. Bones/joints: Degenerative changes are seen in the spine and shoulders. No acute fracture. Vasculature: Calcifications overlie the aorta. IMPRESSION: No acute findings in the chest.
[2024-10-11] MEDS ORDERED: ACETAMINOPHEN TAB 325 MG TAB PO PRN (05:28)
[2024-10-11] MEDS ORDERED: NALOXONE 0.4 MG/ML 1 ML VIAL IVP PRN (05:28)
[2024-10-11] MEDS: SODIUM CHLORIDE 0.45% 1,000 ML IV SCH (06:18)
[2024-10-11] MEDS: IPRATROPIUM-ALBUTEROL 3 ML NEB INHALATION SCH (08:01)
[2024-10-11] MEDS: AZITHROMYCIN 500 MG TAB PO SCH (09:12)
[2024-10-11] MEDS: OSELTAMIVIR 75 MG CAP PO SCH (09:12)
[2024-10-11] MEDS: ATORVASTATIN 80 MG TAB PO SCH (11:17)
[2024-10-11] MEDS: DAPAGLIFLOZIN PROPANEDIOL 10 MG TABLET PO SCH (11:17)
[2024-10-11] MEDS: allopurinoL 100 MG TAB PO SCH (11:17)
[2024-10-11] MEDS: EZETIMIBE 10 MG TAB PO SCH (11:18)
[2024-10-11] MEDS: methylPREDNISolone SOD SUCCI 125 MG/2 ML VIAL IV SCH (11:18)
--- NOTE | 2024-10-11 11:29 | P.HPIM ---
History of Present Illness H&P Date: 10/11/24 Chief Complaint: Acute exacerbation of COPD/influenza A HISTORY OF PRESENT ILLNESS: This is a 69-year-old male with a previous medical history significant for hypertension and hypertensive cardiovascular disease, hyperlipidemia, diabetes mellitus type 2, nonischemic cardiomyopathy, mild COPD, diverticulitis status post partial colectomy 03/26/2023, obesity with obstructive sleep apnea, allergic rhinitis, enlarged prostate, patient presented to the emergency dep artment at [facility] with increased shortness of breath fever and chills, associated with minimal cough minimal phlegm production, he was found to have an influenza A, chest x-ray was obtained in the emergency department that showed evidence of COPD without evidence of any pneumonia, but the patient was quite tight his oxygen level was a bit on the lower side, because of that he was admitted to the hospital he was started on IV Solu-Medrol 60 mg a push every 6 hours, he was started on nebulized treatment in the form of DuoNeb 3 mL nebulization 4 times every day, Pulmicort 1 mg nebulization twice every day, he was also started on Tamiflu 75 mg orally twice every day, pulmonary consultation was obtained from Dr. Escamilla REVIEW OF SYSTEMS: Constitutional: positive for documented fever, positive for chills, no night sweats. No weight change. positive for weakness, fatigue or lethargy. No daytime sleepiness. EENT: positive for headache. No blurred vision or double vision, no loss of vision. No loss of Hearing, no ringing in the ears, no dizziness. No nasal drainage or congestion. No epistaxis. No sore throat. Lungs: positive for shortness of breath, occasional cough, minimal sputum production. positive for wheezing. Reports dyspnea with activity. Cardiovascular: No chest pain, no lower extremity edema. No palpitations. No paroxysmal nocturnal dyspnea. No orthopnea. No lightheadedness or dizziness. No syncopal episodes. Abdominal: Reports abdominal pain. No nausea, vomiting. No diarrhea. No constipation. No bloody or tarry stools reports loss of appetite. Genitourinary: No dysuria, increased frequency, urgency. No urinary retention. Musculoskeletal: positive for myalgias. generalized muscle weakness, no gait dysfunction, no frequent falls. No back pain. No neck pain. Integumentary: No wounds, no lesions. No rash or pruritus. No unusual bruising. No change in hair or nails. Neurologic: No aphasia. No facial droop. No change in mentation. No head injury. No headache. No paralysis. No paresthesia. Psychiatric: No depression. No anxiety. No mood swings. Endocrine: positive for abnormal blood sugars. No weight change. PAST MEDICAL HISTORY: Nonischemic cardiomyopathy. Hypertension and hypertensive cardiovascular disease. Mixed hyperlipidemia. Diabetes mellitus type 2. Obesity with obstructive sleep apnea. Enlarged prostate. Allergic rhinitis. COPD. PAST SURGICAL HISTORY: Appendectomy. Laparoscopic cholecystectomy. Left arthroscopic knee surgery. Right total hip arthroplasty 07/26/2022. Partial colectomy 03/26/2023 Vasectomy Left middle and fourth finger pins placement Colonoscopy 03/26/2023 Bilateral cataract surgery Left heart catheterization 2017 SOCIAL HISTORY: Patient used to smoke about 2 pack every day he started smoking at age 12 and quit about 30 years ago, he denies any alcohol ingestion, no drug use or abuse, FAMILY HISTORY: Father at age 65 from melanoma with mets to the lung, mother at the age of 69 from breast cancer with metastatic disease to the liver patient had 4 sisters 1 of pancreatic cancer 1 of COPD and the other 2 are okay patient has 1 son alive and well 39-year-old, patient has 2 daughter 1 is 50 with CVA the other 1 is okay PHYSICAL EXAMINATION: General: 69-year-old male laying down in bed in minimal distress. HEENT: Head is atraumatic, normocephalic, pupils were equal round reactive to light and recommendation, extraocular muscle movement were intact, sclera nonicteric, conjunctivae were pale, mucous membranes of the mouth are somewhat dry. Neck: Supple, no JVP, normal carotid upstroke bilaterally, no lymphadenopathy. Chest: Decreased breath sounds at the bases, few rhonchi, positive for expiratory wheezes, no chest wall tenderness, no intercostal retractions. Heart: First heart sound is normal, second heart sounds normal there is systolic ejection murmur 2 over systolic in the left sternal border Abdomen: Soft, nontender, nondistended, positive bowel sounds. Extremities: There is no edema no calf tenderness DP +2 bilaterally. Neurologic examination: Patient is awake alert and oriented x3, cranial nerves II-12 appear grossly intact, muscle power were 5 out of 5 in upper extremities and 5 out of 5 in bilateral lower extremities, deep tendon reflexes normal bilaterally. ASSESSMENT AND PLAN: 1. Acute hypoxemic respiratory failure due to influenza A with acute exacerbation of COPD. Continue Solu-Medrol 60 mg IV push every 6 hours, DuoNeb 3 mL nebulization 4 times every day, Symbicort 2 puffs inhalation twice every day, continue oxygen support, continue Tamiflu 75 mg orally twice every day, continue Zithromax 500 mg orally once every day, pulmonary consultation appreciated. 2. Nonischemic cardiomyopathy. Continue patient on Entresto 24/26 mg orally twice every day, carvedilol 6.25 mg orally twice every day, continue Farxiga 10 mg orally once every day, 3. Hypertension and hypertensive cardiovascular disease continue patient on carvedilol 6.25 mg orally twice every day, continue Entresto 24/26 mg orally twice every day monitor the patient blood pressure very closely. 4. Mixed hyperlipidemia. Continue rosuvastatin 40 mg orally once every day or substitute Lipitor 80 mg once every day, continue Zetia 10 mg once every day monitor lipid panel, keep LDL 55-70. 5. Diabetes mellitus type 2 with steroid-induced hyperglycemia start the patient on sliding scale insulin, start the patient back on Farxiga 10 mg orally once every day, start the patient back on tirzepatide 2.5 mg subcutaneously once every week. 6. COPD. Continue treatment as in paragraph#1. 7. History of diverticulitis status post partial colectomy colonoscopy is up-to-date it was done March 2023. 8. Allergic rhinitis. Continue with [id number] medication as outpatient. Not needed now. 9. Peripheral neuropathy. Continue patient on duloxetine 20 mg orally once every day 10. Obesity with obstructive sleep apnea. Patient will need to have a CPAP. 11. Enlarged prostate. Monitor the patient for urinary retention. 12. DVT prophylaxis. Continue Lovenox 40 mg subcutaneous every 24 hours as well as bilateral knee-high BRITTNEY hose. Early ambulation. 13. GI prophylaxis. Continue patient on Protonix 40 mg orally once every day. 14. Admit to inpatient. Estimated length of stay 2 midnights. 15. Patient is full code. Past Medical History Past Medical History: COPD Additional Past Medical History / Comment(s): psoriasis, uses cpap machine History of Any Multi-Drug Resistant Organisms: None Reported Past Surgical History: Appendectomy, Cholecystectomy, Heart Catheterization, Joint Replacement, Orthopedic Surgery Additional Past Surgical History / Comment(s): repair fx. left hand with pins/plate, hemorrhoidectomy, bronchoscopy x2, colonscopies, arthroscopy knee, rt hip replacement, Past Anesthesia/Blood Transfusion Reactions: Previous Problems w/ Anesthesia Additional Past Anesthesia/Blood Transfusion Reaction / Comment(s): per 11/29/17 "during bronchoscopy, stopped breathing rescheduled to 12/04/17 was done under general anesthesic and was fine" Past Psychological History: No Psychological Hx Reported Smoking Status: Former smoker Past Alcohol Use History: None Reported Additional Past Alcohol Use History / Comment(s): started smoking at age 13 was smoking 1.5 ppd and quit nov 2017 Past Drug Use History: None Reported Additional Drug Use History / Comment(s): occasional edible - Past Family History Father Family Medical History: Cancer Mother Family Medical History: Cancer Sister(s) Family Medical History: Cancer Medications and Allergies Home Medications Medication Instructions Recorded Confirmed Type carvediloL [Coreg] 6.25 mg PO BID 02/27/23 10/11/24 History DULoxetine HCL [Cymbalta] 20 mg PO DAILY 10/11/24 10/11/24 History Dapagliflozin Propanediol [Farxiga] 10 mg PO DAILY 10/11/24 10/11/24 History Dm/Acetaminophen/Doxylamine [Vicks 30 ml PO HS PRN 10/11/24 10/11/24 History Nyquil Cold-Flu Liquid] Ezetimibe [Zetia] 10 mg PO DAILY 10/11/24 10/11/24 History Fluticasone/Umeclidin/Vilanter 1 puff INHALATION RT-DAILY 10/11/24 10/11/24 History [Trelegy Ellipta 200-62.5-25] Hydrocortisone Cream 1 applic TOPICAL DAILY PRN 10/11/24 10/11/24 History [Hydrocortisone 2.5% Cream] Rosuvastatin Calcium [Crestor] 40 mg PO DAILY 10/11/24 10/11/24 History Sacubitril/Valsartan [Entresto 24 1 tab PO BID 10/11/24 10/11/24 History mg-26 mg Tablet] Tirzepatide [Mounjaro] 2.5 mg SQ DIRECTED 10/11/24 10/11/24 History allopurinoL 100 mg PO DAILY 10/11/24 10/11/24 History Allergies Allergy/AdvReac Type Severity Reaction Status Date / Time Sulfa (Sulfonamide Allergy Rash/Hives Verified 10/11/24 09:25 Antibiotics) codeine AdvReac Nausea & Verified 10/11/24 09:25 Vomiting Physical Exam Vitals: Vital Signs Temp Pulse Pulse Resp BP BP Pulse Ox 10/11/24 10:12 97.4 F L 84 18 136/73 95 10/11/24 08:14 72 10/11/24 08:03 97 10/11/24 08:01 69 10/11/24 07:30 98.9 F 82 18 120/58 97 10/11/24 03:56 98.8 F 10/11/24 03:16 87 10/11/24 03:10 84 16 117/79 98 10/11/24 03:09 89 10/11/24 01:40 20 10/11/24 01:36 100.8 F H 92 20 134/70 95 Intake and Output 10/10/24 10/11/24 10/11/24 22:59 06:59 14:59 Other: Weight 95.708 kg Results CBC & Chem 7: 10/11/24 01:47 10/11/24 01:47 Labs: Abnormal Lab Results - Last 24 Hours (Table) 10/11/24 10/11/24 10/11/24 Range/Units 01:47 01:47 01:47 Lymphocytes # 0.6 L (1.0-4.8) k/uL Carbon Dioxide 20 L (22-30) mmol/L Glucose 118 H (74-99) mg/dL Plasma Lactic Acid Alexandre 2.4 H* (0.7-2.0) mmol/L Influenza Type A (PCR) (Not Detectd) 10/11/24 Range/Units 01:47 Lymphocytes # (1.0-4.8) k/uL Carbon Dioxide (22-30) mmol/L Glucose (74-99) mg/dL Plasma Lactic Acid Alexandre (0.7-2.0) mmol/L Influenza Type A (PCR) Detected A (Not Detectd) Thrombosis Risk Factor Assmnt - Choose All That Apply Any of the Below Risk Factors Present?: Yes Each Factor Represents 1 point: Abnormal pulmonary function (COPD) Other Risk Factors: Yes Each Risk Factor Represents 2 Points: Age 61-74 years Other congenital or acquired thrombophilia - If yes, enter type in comment: No Thrombosis Risk Factor Assessment Total Risk Factor Score: 3 Thrombosis Risk Factor Assessment Level: Moderate Risk
[2024-10-11] MEDS: PANTOPRAZOLE 40 MG TABLET PO SCH (12:11)
[2024-10-11] MEDS: SACUBITRIL/VALSARTAN 24 MG-26 MG TABLET PO SCH (12:11)
[2024-10-11 12:32] LABS: Glucose,Whole Blood 132 mg/dL (70-110)
[2024-10-11] MEDS: INSULIN ASPART (NovoLOG) 100 UNIT/ML VIAL SQ SCH (12:38)
--- NOTE | 2024-10-11 12:42 | P.CNPUL ---
History of Present Illness Consult date: 10/11/24 Requesting physician: Griffin Patiño Reason for consult: COPD Chief complaint: Shortness of breath, cough, congestion History of present illness: This is a very pleasant 69-year-old male patient with a known history of chronic obstructive pulmonary disease, former smoker, obstructive sleep apnea utilizing CPAP, psoriasis who presented here to the emergency room early this morning with a 2-day history of increasing shortness of breath, cough congestion chest tightness and wheezing. Chest x-ray revealed no acute pulmonary process. White count 5.7. Hemoglobin 15.3. Platelets 154. INR 0.9. Sodium 138. Potassium 4.1. Bicarb 20. BUN 19. Creatinine 1.09. Glucose 118. Troponin negative x 1. proBNP 71. Viral screen positive for influenza A. Today in consultation in the emergency department. Currently sitting up in a stretcher. Awake and alert in no acute distress. He is maintaining O2 saturations in the 90s on 3 L/min per nasal cannula. He has normal saline at 80 mL/h. Feeling a bit better today compared to yesterday. Review of Systems REVIEW OF SYSTEMS: CONSTITUTIONAL: Denies any recent significant weight loss or weight gain. EYES: Denies change in vision. EARS, NOSE, MOUTH, THROAT: Denies headaches, denies sore throat. CARDIOVASCULAR: Denies chest pain, palpitations or syncopal episodes. RESPIRATORY: Positive for shortness of breath, cough, congestion no hemoptysis. GASTROINTESTINAL: Denies change in appetite, denies abdominal pain GENITOURINARY: Denies hematuria, denies infections. MUSKULOSKELETAL: Denies pain, denies swelling. INTEGUMENTARY: Denies rash, denies eczema. NEUROLOGICAL: Denies recent memory loss, no recent seizure activity. PSYCHIATRIC: Denies anxiety, denies depression. HEMATOLOGIC/LYMPHATIC: Denies anemia, denies enlarged lymph nodes. Past Medical History Past Medical History: COPD Additional Past Medical History / Comment(s): psoriasis, uses cpap machine History of Any Multi-Drug Resistant Organisms: None Reported Past Surgical History: Appendectomy, Cholecystectomy, Heart Catheterization, Joint Replacement, Orthopedic Surgery Additional Past Surgical History / Comment(s): repair fx. left hand with pins/plate, hemorrhoidectomy, bronchoscopy x2, colonscopies, arthroscopy knee, rt hip replacement, Past Anesthesia/Blood Transfusion Reactions: Previous Problems w/ Anesthesia Additional Past Anesthesia/Blood Transfusion Reaction / Comment(s): per 11/29/17 "during bronchoscopy, stopped breathing rescheduled to 12/04/17 was done under general anesthesic and was fine" Past Psychological History: No Psychological Hx Reported Smoking Status: Former smoker Past Alcohol Use History: None Reported Additional Past Alcohol Use History / Comment(s): started smoking at age 13 was smoking 1.5 ppd and quit nov 2017 Past Drug Use History: None Reported Additional Drug Use History / Comment(s): occasional edible - Past Family History Father Family Medical History: Cancer Mother Family Medical History: Cancer Sister(s) Family Medical History: Cancer Medications and Allergies Home Medications Medication Instructions Recorded Confirmed Type carvediloL [Coreg] 6.25 mg PO BID 02/27/23 10/11/24 History DULoxetine HCL [Cymbalta] 20 mg PO DAILY 10/11/24 10/11/24 History Dapagliflozin Propanediol [Farxiga] 10 mg PO DAILY 10/11/24 10/11/24 History Dm/Acetaminophen/Doxylamine [Vicks 30 ml PO HS PRN 10/11/24 10/11/24 History Nyquil Cold-Flu Liquid] Ezetimibe [Zetia] 10 mg PO DAILY 10/11/24 10/11/24 History Fluticasone/Umeclidin/Vilanter 1 puff INHALATION RT-DAILY 10/11/24 10/11/24 History [Trelegy Ellipta 200-62.5-25] Hydrocortisone Cream 1 applic TOPICAL DAILY PRN 10/11/24 10/11/24 History [Hydrocortisone 2.5% Cream] Rosuvastatin Calcium [Crestor] 40 mg PO DAILY 10/11/24 10/11/24 History Sacubitril/Valsartan [Entresto 24 1 tab PO BID 10/11/24 10/11/24 History mg-26 mg Tablet] Tirzepatide [Mounjaro] 2.5 mg SQ DIRECTED 10/11/24 10/11/24 History allopurinoL 100 mg PO DAILY 10/11/24 10/11/24 History Allergies Allergy/AdvReac Type Severity Reaction Status Date / Time Sulfa (Sulfonamide Allergy Rash/Hives Verified 10/11/24 09:25 Antibiotics) codeine AdvReac Nausea & Verified 10/11/24 09:25 Vomiting Physical Exam Vitals: Vital Signs Temp Pulse Pulse Resp BP BP Pulse Ox 10/11/24 12:15 72 10/11/24 12:05 70 10/11/24 10:12 97.4 F L 84 18 136/73 95 10/11/24 08:14 72 10/11/24 08:03 97 10/11/24 08:01 69 10/11/24 07:30 98.9 F 82 18 120/58 97 10/11/24 03:56 98.8 F 10/11/24 03:16 87 10/11/24 03:10 84 16 117/79 98 10/11/24 03:09 89 10/11/24 01:40 20 10/11/24 01:36 100.8 F H 92 20 134/70 95 Intake and Output 10/10/24 10/11/24 10/11/24 22:59 06:59 14:59 Other: Weight 95.708 kg GENERAL EXAM: Alert, pleasant 69-year-old male, on 3 L nasal cannula, fairly comfortable in no apparent distress. HEAD: Normocephalic. EYES: Normal reaction of pupils, equal size. NOSE: Clear with pink turbinates. THROAT: No erythema or exudates. NECK: No masses, no JVD. CHEST: No chest wall deformity. LUNGS: Equal air entry with bilateral end expiratory wheeze, few scattered rhonchi. CVS: S1 and S2 normal with no audible murmur, regular rhythm. ABDOMEN: No hepatosplenomegaly, normal bowel sounds, no guarding or rigidity. SPINE: No scoliosis or deformity SKIN: No rashes CENTRAL NERVOUS SYSTEM: No focal deficits, tone is normal in all 4 extremities. EXTREMITIES: There is no peripheral edema. No clubbing, no cyanosis. Peripheral pulses are intact. Results - Laboratory Findings CBC and BMP: 10/11/24 01:47 10/11/24 01:47 PT/INR, D-dimer PT 10.4 sec (10.0-12.5) 10/11/24 01:47 INR 0.9 (<1.2) 10/11/24 01:47 Abnormal lab findings: Abnormal Labs 10/11/24 10/11/24 10/11/24 01:47 01:47 01:47 Lymphocytes # 0.6 L Carbon Dioxide 20 L Glucose 118 H Plasma Lactic Acid Alexandre 2.4 H* Influenza Type A (PCR) 10/11/24 01:47 Lymphocytes # Carbon Dioxide Glucose Plasma Lactic Acid Alexandre Influenza Type A (PCR) Detected A - Diagnostic Findings Chest x-ray: image reviewed Assessment and Plan Assessment: Acute hypoxemic respiratory failure secondary to an acute exacerbation of chronic obstructive pulmonary disease complicated by influenza A Influenza A infection Former smoker Nonischemic cardiomyopathy Hyperlipidemia Diabetes mellitus, type II Obesity with obstructive sleep apnea maintained on CPAP BPH Hypertension Plan: The patient was seen and evaluated Chest x-ray, labs and medications reviewed Complete a course of Tamiflu DuoNeb inhalations, Symbicort Initiate Solu-Medrol Continue his home medications Empiric antibiotics in the form of azithromycin Check a procalcitonin Titrate down the FiO2 as tolerated We will continue to follow and make further recommendations based on his clinical status I have personally seen and examined the patient, performed the documentation and the assessment and plan as written. Number of minutes spent on the visit: 20 Dictation was produced using [employer] dictation software. Please excuse any grammatical, word or spelling errors. This patient was seen in coordination with the pulmonary/critical care physician, Dr. Escamilla. He did spend greater than 50% of the time evaluating, examining and developing the plan of care. He agrees to the above HPI, physical exam, assessment and plan of care as dictated by the nurse practitioner.
[2024-10-11 17:24] LABS: Glucose,Whole Blood 250 mg/dL (70-110)
[2024-10-11] MEDS: carvediloL 6.25 MG TAB PO SCH (17:59)
[2024-10-11] MEDS: SYMBICORT 160-4.5 MCG INHALER INHALATION SCH (20:59)
[2024-10-11] MEDS ORDERED: SACUBITRIL/VALSARTAN 24 MG-26 MG TABLET PO SCH (21:00)
[2024-10-11 21:25] LABS: Glucose,Whole Blood 146 mg/dL (70-110)
[2024-10-12 05:52] LABS: Glucose,Whole Blood 155 mg/dL (70-110)
[2024-10-12 08:45] LABS: ALT 37 U/L (10-49); AST 28 U/L (14-35); Albumin 4.1 g/dL (3.8-4.9); Albumin/Globulin Ratio 1.78 Ratio (1.60-3.17); Alkaline Phosphatase 70 U/L (41-126); Blood Urea Nitrogen 20.3 mg/dL (9.0-27.0); Calcium 8.9 mg/dL (8.7-10.3); Carbon Dioxide 19.8 mmol/L (21.6-31.8); Chloride 108 mmol/L (96-109); Globulin 2.3 g/dL (1.6-3.3); Glucose 159 mg/dL (70-110); Potassium 4.8 mmol/L (3.5-5.5); Sodium 139 mmol/L (135-145); Total Bilirubin 0.3 mg/dL (0.3-1.2); Total Protein 6.4 g/dL (6.2-8.2)
[2024-10-12 09:28] LABS: Basophils # (A) 0.02 X 10*3/uL (0.00-0.10); Basophils % (A) 0.2 %; Eosinophils # (A) 0 X 10*3/uL (0.04-0.35); Eosinophils % (A) 0 %; HCT 47.8 % (39.6-50.0); HGB 15.2 g/dL (13.0-17.0); Lymphocytes # (A) 0.75 X 10*3/uL (0.90-5.00); Lymphocytes % (A) 6.4 %; MCH 29.2 pg (27.0-32.0); MCHC 31.8 g/dL (32.0-37.0); MCV 91.7 FL (80.0-97.0); Mean Platelet Volume 9.7 FL (9.5-12.2); Monocytes # (A) 0.63 X 10*3/uL (0.20-1.00); Monocytes % (A) 5.4 %; NRBC Per 100 WBC 0 X 10*3/uL (0.00-0.01); Neutrophils # (A) 10.29 X 10*3/uL (1.80-7.70); Neutrophils % (A) 87.3 %; Platelet Count 198 X 10*3/uL (140-440); RBC 5.21 X 10*6/uL (4.40-5.60); RDW 14.4 % (11.5-14.5); WBC 11.77 X 10*3/uL (4.50-10.00)
[2024-10-12] MEDS: DULoxetine HCL 20 MG CAPSULE.DR PO SCH (09:48)
[2024-10-12] MEDS: ENOXAPARIN 40 MG/0.4 ML SYRINGE SQ SCH (09:53)
[2024-10-12 12:00] LABS: Glucose,Whole Blood 150 mg/dL (70-110)
[2024-10-12 17:24] LABS: Glucose,Whole Blood 160 mg/dL (70-110)
--- NOTE | 2024-10-12 18:55 | P.PN ---
Subjective Progress Note Date: 10/12/24 This is a very pleasant 69-year-old male patient with a known history of chronic obstructive pulmonary disease, former smoker, obstructive sleep apnea utilizing CPAP, psoriasis who presented here to the emergency room early this morning with a 2-day history of increasing shortness of breath, cough congestion chest tightness and wheezing. Chest x-ray revealed no acute pulmonary process. White count 5.7. Hemoglobin 15.3. Platelets 154. INR 0.9. Sodium 138. Potassium 4.1. Bicarb 20. BUN 19. Creatinine 1.09. Glucose 118. Troponin negative x 1. proBNP 71. Viral screen positive for influenza A. Today in consultation in the emergency department. Currently sitting up in a stretcher. Awake and alert in no acute distress. He is maintaining O2 saturations in the 90s on 3 L/min per nasal cannula. He has normal saline at 80 mL/h. Feeling a bit better today compared to yesterday. On 10/12/2023, patient is being seen for a follow-up. Doing well. No specific complaints. Remains on Tamiflu for an acute influenza and infection/syndrome. Noted the patient has received his flu shot for this current season. Remains on Symbicort. Remains on DuoNeb. Remains on IV Solu-Medrol. No new complaints otherwise for now. White cell count 11 with a hemoglobin 15.2 and a platelet count of 198. Electrolytes are all within normal limits. Objective - Vital Signs Vital signs: Vital Signs Temp 97.8 F 10/12/24 07:00 Pulse 80 10/12/24 12:48 Resp 16 10/12/24 07:00 BP 130/70 10/12/24 07:00 Pulse Ox 97 10/12/24 07:00 FiO2 Intake & Output 10/11/24 10/12/24 10/12/24 18:59 06:59 18:59 Intake Total 358 Balance 358 Intake: Oral 358 Other: # Voids 3 2 - Exam GENERAL EXAM: Alert, pleasant 69-year-old male, on 3 L nasal cannula, fairly comfortable in no apparent distress. HEAD: Normocephalic. EYES: Normal reaction of pupils, equal size. NOSE: Clear with pink turbinates. THROAT: No erythema or exudates. NECK: No masses, no JVD. CHEST: No chest wall deformity. LUNGS: Equal air entry with bilateral end expiratory wheeze, few scattered rhonchi. CVS: S1 and S2 normal with no audible murmur, regular rhythm. ABDOMEN: No hepatosplenomegaly, normal bowel sounds, no guarding or rigidity. SPINE: No scoliosis or deformity SKIN: No rashes CENTRAL NERVOUS SYSTEM: No focal deficits, tone is normal in all 4 extremities. EXTREMITIES: There is no peripheral edema. No clubbing, no cyanosis. Peripheral pulses are intact. - Labs CBC & Chem 7: 10/12/24 05:22 10/12/24 05:22 Labs: Abnormal Lab Results - Last 24 Hours (Table) 10/11/24 10/11/24 10/12/24 Range/Units 17:22 21:23 05:22 WBC 11.77 H (4.50-10.00) X 10*3/uL MCHC 31.8 L (32.0-37.0) g/dL Immature Gran # 0.08 H (0.00-0.04) X 10*3/uL Neutrophils # 10.29 H (1.80-7.70) X 10*3/uL Lymphocytes # 0.75 L (0.90-5.00) X 10*3/uL Eosinophils # 0 L (0.04-0.35) X 10*3/uL Carbon Dioxide (21.6-31.8) mmol/L BUN/Creatinine Ratio (12.00-20.00) Ratio Glucose (70-110) mg/dL POC Glucose (mg/dL) 250 H 146 H (70-110) mg/dL 10/12/24 10/12/24 10/12/24 Range/Units 05:22 05:51 11:59 WBC (4.50-10.00) X 10*3/uL MCHC (32.0-37.0) g/dL Immature Gran # (0.00-0.04) X 10*3/uL Neutrophils # (1.80-7.70) X 10*3/uL Lymphocytes # (0.90-5.00) X 10*3/uL Eosinophils # (0.04-0.35) X 10*3/uL Carbon Dioxide 19.8 L (21.6-31.8) mmol/L BUN/Creatinine Ratio 20.30 H (12.00-20.00) Ratio Glucose 159 H (70-110) mg/dL POC Glucose (mg/dL) 155 H 150 H (70-110) mg/dL Assessment and Plan Plan: Acute hypoxemic respiratory failure secondary to an acute exacerbation of chronic obstructive pulmonary disease complicated by influenza A, clinically stable and improving and the patient is currently on oxygen at 3 L/min nasal cannula Influenza A infection Former smoker Nonischemic cardiomyopathy Hyperlipidemia Diabetes mellitus, type II Obesity with obstructive sleep apnea maintained on CPAP BPH Hypertension Plan: Titrate oxygen flow to maintain saturation above 90%, currently on 3 L Clinically stable will continue the same treatment for now Complete a course of Tamiflu DuoNeb inhalations, Symbicort Continue Solu-Medrol Continue his home medications Check a procalcitonin is not elevated at 0.13 Titrate down the FiO2 as tolerated We will continue to follow and make further recommendations based on his clinical status
[2024-10-12 20:57] LABS: Glucose,Whole Blood 212 mg/dL (70-110)
[2024-10-13] MEDS: methylPREDNISolone SOD SUCCI 40 MG/ML 1 ML VIAL IV SCH ×2 (00:52→21:13)
[2024-10-13 05:48] LABS: Glucose,Whole Blood 148 mg/dL (70-110)
--- NOTE | 2024-10-13 06:21 | P.PN ---
Subjective Progress Note Date: 10/12/24 HISTORY OF PRESENT ILLNESS: This is a 69-year-old male with a previous medical history significant for hypertension and hypertensive cardiovascular disease, hyperlipidemia, diabetes mellitus type 2, nonischemic cardiomyopathy, mild COPD, diverticulitis status post partial colectomy 03/26/2023, obesity with obstructive sleep apnea, allergic rhinitis, enlarged prostate, patient presented to the emergency department at [facility] today with increased shortness of breath fever and chills, associated with minimal cough minimal phlegm production, he was found to have an influenza A, chest x-ray was obtained in the emergency department that showed evidence of COPD without evidence of any pneumonia, but the patient was quite tight his oxygen level was a bit on the lower side, because of that he was admitted to the hospital he was started on IV Solu-Medrol 60 mg a push every 6 hours, he was started on nebulized treatment in the form of DuoNeb 3 mL nebulization 4 times every day, Pulmicort 1 mg nebulization twice every day, he was also started on Tamiflu 75 mg orally twice every day, pulmonary consultation was obtained from Dr. Escamilla 10/12: Patient is feeling a bit more short of breath today, he is requiring about 3 L nasal cannula, he denies any chest pain at this time, he continues to have some minimal cough, minimal phlegm production, he continues to be on oseltamavir along with Solu-Medrol we will decrease that to 40 mg a push every 8 hours, continue current treatment plan, monitor the patient very closely, hopefully home in the next 1 or 2 days. REVIEW OF SYSTEMS: Constitutional: positive for documented fever, positive for chills, no night sweats. No weight change. positive for weakness, fatigue or lethargy. No daytime sleepiness. EENT: positive for headache. No blurred vision or double vision, no loss of vision. No loss of Hearing, no ringing in the ears, no dizziness. No nasal drainage or congestion. No epistaxis. No sore throat. Lungs: positive for shortness of breath, occasional cough, minimal sputum production. positive for wheezing. Reports dyspnea with activity. Cardiovascular: No chest pain, no lower extremity edema. No palpitations. No paroxysmal nocturnal dyspnea. No orthopnea. No lightheadedness or dizziness. No syncopal episodes. Abdominal: Reports abdominal pain. No nausea, vomiting. No diarrhea. No constipation. No bloody or tarry stools reports loss of appetite. Genitourinary: No dysuria, increased frequency, urgency. No urinary retention. Musculoskeletal: positive for myalgias. generalized muscle weakness, no gait dysfunction, no frequent falls. No back pain. No neck pain. Integumentary: No wounds, no lesions. No rash or pruritus. No unusual bruising. No change in hair or nails. Neurologic: No aphasia. No facial droop. No change in mentation. No head injury. No headache. No paralysis. No paresthesia. Psychiatric: No depression. No anxiety. No mood swings. Endocrine: positive for abnormal blood sugars. No weight change. PHYSICAL EXAMINATION: General: 69-year-old male laying down in bed in minimal distress. HEENT: Head is atraumatic, normocephalic, pupils were equal round reactive to light and recommendation, extraocular muscle movement were intact, sclera nonicteric, conjunctivae were pale, mucous membranes of the mouth are somewhat dry. Neck: Supple, no JVP, normal carotid upstroke bilaterally, no lymphadenopathy. Chest: Decreased breath sounds at the bases, few rhonchi, positive for expiratory wheezes, no chest wall tenderness, no intercostal retractions. Heart: First heart sound is normal, second heart sounds normal there is systolic ejection murmur 2 over systolic in the left sternal border Abdomen: Soft, nontender, nondistended, positive bowel sounds. Extremities: There is no edema no calf tenderness DP +2 bilaterally. Neurologic examination: Patient is awake alert and oriented x3, cranial nerves II-12 appear grossly intact, muscle power were 5 out of 5 in upper extremities and 5 out of 5 in bilateral lower extremities, deep tendon reflexes normal bilat erally. ASSESSMENT AND PLAN: 1. Acute hypoxemic respiratory failure due to influenza A with acute exacerbation of COPD. Continue Solu-Medrol 40 mg IV push every 8 hours, DuoNeb 3 mL nebulization 4 times every day, Symbicort 2 puffs inhalation twice every day, continue oxygen support, continue Tamiflu 75 mg orally twice every day, continue Zithromax 500 mg orally once every day, pulmonary consultation appreciated. 2. Nonischemic cardiomyopathy. Continue patient on Entresto 24/26 mg orally twice every day, carvedilol 6.25 mg orally twice every day, continue Farxiga 10 mg orally once every day, discontinue IV fluid. 3. Hypertension and hypertensive cardiovascular disease continue patient on carvedilol 6.25 mg orally twice every day, continue Entresto 24/26 mg orally twice every day monitor the patient blood pressure very closely. 4. Mixed hyperlipidemia. Continue rosuvastatin 40 mg orally once every day or substitute Lipitor 80 mg once every day, continue Zetia 10 mg once every day monitor lipid panel, keep LDL 55-70. 5. Diabetes mellitus type 2 with steroid-induced hyperglycemia start the patient on sliding scale insulin, start the patient back on Farxiga 10 mg orally once every day, start the patient back on tirzepatide 2.5 mg subcutaneously once every week. 6. COPD. Continue treatment as in paragraph#1. 7. History of diverticulitis status post partial colectomy colonoscopy is up-to-date it was done March 2023. 8. Allergic rhinitis. Continue with [id number] medication as outpatient. Not needed now. 9. Peripheral neuropathy. Continue patient on duloxetine 20 mg orally once every day 10. Obesity with obstructive sleep apnea. Patient will need to have a CPAP. 11. Enlarged prostate. Monitor the patient for urinary retention. 12. DVT prophylaxis. Continue Lovenox 40 mg subcutaneous every 24 hours as well as bilateral knee-high BRITTNEY hose. Early ambulation. 13. GI prophylaxis. Continue patient on Protonix 40 mg orally once every day. 14. Over the next 1 or 2 days. Objective - Vital Signs Vital signs: Vital Signs Temp 97.7 F 10/12/24 15:00 Pulse 64 10/12/24 16:49 Resp 18 10/12/24 15:00 BP 120/64 10/12/24 15:00 Pulse Ox 97 10/12/24 15:00 FiO2 Intake & Output 10/11/24 10/12/24 10/12/24 18:59 06:59 18:59 Intake Total 358 Balance 358 Intake: Oral 358 Other: # Voids 3 2 1 - Labs CBC & Chem 7: 10/12/24 05:22 10/12/24 05:22 Labs: Abnormal Lab Results - Last 24 Hours (Table) 10/11/24 10/12/24 10/12/24 Range/Units 21:23 05:22 05:22 WBC 11.77 H (4.50-10.00) X 10*3/uL MCHC 31.8 L (32.0-37.0) g/dL Immature Gran # 0.08 H (0.00-0.04) X 10*3/uL Neutrophils # 10.29 H (1.80-7.70) X 10*3/uL Lymphocytes # 0.75 L (0.90-5.00) X 10*3/uL Eosinophils # 0 L (0.04-0.35) X 10*3/uL Carbon Dioxide 19.8 L (21.6-31.8) mmol/L BUN/Creatinine Ratio 20.30 H (12.00-20.00) Ratio Glucose 159 H (70-110) mg/dL POC Glucose (mg/dL) 146 H (70-110) mg/dL 10/12/24 10/12/24 10/12/24 Range/Units 05:51 11:59 17:23 WBC (4.50-10.00) X 10*3/uL MCHC (32.0-37.0) g/dL Immature Gran # (0.00-0.04) X 10*3/uL Neutrophils # (1.80-7.70) X 10*3/uL Lymphocytes # (0.90-5.00) X 10*3/uL Eosinophils # (0.04-0.35) X 10*3/uL Carbon Dioxide (21.6-31.8) mmol/L BUN/Creatinine Ratio (12.00-20.00) Ratio Glucose (70-110) mg/dL POC Glucose (mg/dL) 155 H 150 H 160 H (70-110) mg/dL
[2024-10-13] MEDS: FUROSEMIDE 10 MG/ML 2 ML VIAL IV STA (06:36)
--- NOTE | 2024-10-13 07:42 | XR ---
EXAMINATION TYPE: XR chest 1V DATE OF EXAM: 10/13/2024 COMPARISON: 10/11/2024 CLINICAL INDICATION: Male, 69 years old with history of SOB; TECHNIQUE: Single frontal view of the chest is obtained. FINDINGS: Heart mildly enlarged. Diffuse interstitial density shows slight worsening. Mild hyperinflation. No p leural effusion. IMPRESSION: COPD and mild CHF with pulmonary vascular congestion. [facility], Workstation: [facility], 10/13/2024 7:40 AM
[2024-10-13 10:51] LABS: Basophils # (A) 0.02 X 10*3/uL (0.00-0.10); Basophils % (A) 0.1 %; Eosinophils # (A) 0.02 X 10*3/uL (0.04-0.35); Eosinophils % (A) 0.1 %; HCT 46.8 % (39.6-50.0); Lymphocytes # (A) 0.74 X 10*3/uL (0.90-5.00); Lymphocytes % (A) 4.8 %; MCH 29.2 pg (27.0-32.0); MCHC 32.1 g/dL (32.0-37.0); MCV 91.2 FL (80.0-97.0); Mean Platelet Volume 9.5 FL (9.5-12.2); Monocytes # (A) 0.98 X 10*3/uL (0.20-1.00); Monocytes % (A) 6.3 %; NRBC Per 100 WBC 0 X 10*3/uL (0.00-0.01); Neutrophils # (A) 13.51 X 10*3/uL (1.80-7.70); Neutrophils % (A) 87.3 %; Platelet Count 191 X 10*3/uL (140-440); RBC 5.13 X 10*6/uL (4.40-5.60); RDW 14.6 % (11.5-14.5); WBC 15.48 X 10*3/uL (4.50-10.00)
[2024-10-13 11:06] LABS: ALT 32 U/L (10-49); AST 22 U/L (14-35); Albumin 3.8 g/dL (3.8-4.9); Albumin/Globulin Ratio 1.65 Ratio (1.60-3.17); Alkaline Phosphatase 69 U/L (41-126); Blood Urea Nitrogen 25.6 mg/dL (9.0-27.0); Calcium 8.7 mg/dL (8.7-10.3); Chloride 110 mmol/L (96-109); Globulin 2.3 g/dL (1.6-3.3); Glucose 166 mg/dL (70-110); Potassium 4.2 mmol/L (3.5-5.5); Sodium 142 mmol/L (135-145); Total Bilirubin 0.2 mg/dL (0.3-1.2); Total Protein 6.1 g/dL (6.2-8.2)
[2024-10-13 12:13] LABS: Glucose,Whole Blood 143 mg/dL (70-110)
--- NOTE | 2024-10-13 15:00 | P.PN ---
Subjective Progress Note Date: 10/13/24 This is a very pleasant 69-year-old male patient with a known history of chronic obstructive pulmonary disease, former smoker, obstructive sleep apnea utilizing CPAP, psoriasis who presented here to the emergency room early this morning with a 2-day history of increasing shortness of breath, cough congestion chest tightness and wheezing. Chest x-ray revealed no acute pulmonary process. White count 5.7. Hemoglobin 15.3. Platelets 154. INR 0.9. Sodium 138. Potassium 4.1. Bicarb 20. BUN 19. Creatinine 1.09. Glucose 118. Troponin negative x 1. proBNP 71. Viral screen positive for influenza A. Today in consultation in the emergency department. Currently sitting up in a stretcher. Awake and alert in no acute distress. He is maintaining O2 saturations in the 90s on 3 L/min per nasal cannula. He has normal saline at 80 mL/h. Feeling a bit better today compared to yesterday. On 10/12/2023, patient is being seen for a follow-up. Doing well. No specific complaints. Remains on Tamiflu for an acute influenza and infection/syndrome. Noted the patient has received his flu shot for this current season. Remains on Symbicort. Remains on DuoNeb. Remains on IV Solu-Medrol. No new complaints otherwise for now. White cell count 11 with a hemoglobin 15.2 and a platelet count of 198. Electrolytes are all within normal limits. On 10/13/2024, the patient is being seen for a follow-up. Clinically improving. Less short of breath. Oxygenation is also improved and the patient is able to maintain a pulse ox between 91 to 95% on room air oxygen. Remains on Symbicort. Remains on DuoNeb treatments [id number]. Completing a 5-day course of Tamiflu. Remains on IV Solu-Medrol 40 mg every 8 hours. Labs from today shows a white cell count of 15 with a hemoglobin of 15 and a platelet count of 191. BUN is 25 with a creatinine of 1 and sodium levels at 142. LFTs are within normal limits. No other new complaints otherwise for now. Objective - Vital Signs Vital signs: Vital Signs Temp 97.5 F L 10/13/24 07:45 Pulse 72 10/13/24 12:51 Resp 17 10/13/24 07:45 BP 122/64 10/13/24 07:45 Pulse Ox 93 L 10/13/24 12:27 FiO2 Intake & Output 10/12/24 10/13/24 10/13/24 18:59 06:59 18:59 Intake Total 118 Balance 118 Intake: Oral 118 Other: # Voids 1 1 1 - Exam GENERAL EXAM: Alert, pleasant 69-year-old male, on room air oxygen, fairly comfortable in no apparent distress. HEAD: Normocephalic. EYES: Normal reaction of pupils, equal size. NOSE: Clear with pink turbinates. THROAT: No erythema or exudates. NECK: No masses, no JVD. CHEST: No chest wall deformity. LUNGS: Equal air entry with bilateral end expiratory wheeze, few scattered rhonchi. CVS: S1 and S2 normal with no audible murmur, regular rhythm. ABDOMEN: No hepatosplenomegaly, normal bowel sounds, no guarding or rigidity. SPINE: No scoliosis or deformity SKIN: No rashes CENTRAL NERVOUS SYSTEM: No focal deficits, tone is normal in all 4 extremities. EXTREMITIES: There is no peripheral edema. No clubbing, no cyanosis. Peripheral pulses are intact. - Labs CBC & Chem 7: 10/13/24 06:17 10/13/24 06:17 Labs: Abnormal Lab Results - Last 24 Hours (Table) 10/12/24 10/12/24 10/13/24 Range/Units 17:23 20:56 05:47 WBC (4.50-10.00) X 10*3/uL RDW (11.5-14.5) % Immature Gran # (0.00-0.04) X 10*3/uL Neutrophils # (1.80-7.70) X 10*3/uL Lymphocytes # (0.90-5.00) X 10*3/uL Eosinophils # (0.04-0.35) X 10*3/uL Chloride (96-109) mmol/L Carbon Dioxide (21.6-31.8) mmol/L BUN/Creatinine Ratio (12.00-20.00) Ratio Glucose (70-110) mg/dL POC Glucose (mg/dL) 160 H 212 H 148 H (70-110) mg/dL Total Bilirubin (0.3-1.2) mg/dL Total Protein (6.2-8.2) g/dL 10/13/24 10/13/2425 Range/Units 06:17 06:17 12:11 WBC 15.48 H (4.50-10.00) X 10*3/uL RDW 14.6 H (11.5-14.5) % Immature Gran # 0.21 H (0.00-0.04) X 10*3/uL Neutrophils # 13.51 H (1.80-7.70) X 10*3/uL Lymphocytes # 0.74 L (0.90-5.00) X 10*3/uL Eosinophils # 0.02 L (0.04-0.35) X 10*3/uL Chloride 110 H (96-109) mmol/L Carbon Dioxide 20.0 L (21.6-31.8) mmol/L BUN/Creatinine Ratio 25.60 H (12.00-20.00) Ratio Glucose 166 H (70-110) mg/dL POC Glucose (mg/dL) 143 H (70-110) mg/dL Total Bilirubin 0.2 L (0.3-1.2) mg/dL Total Protein 6.1 L (6.2-8.2) g/dL Assessment and Plan Plan: Acute hypoxemic respiratory failure secondary to an acute exacerbation of chronic obstructive pulmonary disease complicated by influenza A, clinically stable and improving and the patient is currently on oxygen at 3 L/min nasal cannula Influenza A infection Former smoker Nonischemic cardiomyopathy Hyperlipidemia Diabetes mellitus, type II Obesity with obstructive sleep apnea maintained on CPAP BPH Hypertension Plan: Clinically improving Oxygenation is improved and the patient is currently on room air oxygen Complete a course of Tamiflu DuoNeb inhalations, Symbicort Continue Solu-Medrol for another 24 hours and switch this patient to a prednisone burst taper as of tomorrow Continue his home medications Check a procalcitonin is not elevated at 0.13 We will continue to follow and make further recommendations based on his clinical status
[2024-10-13 17:35] LABS: Glucose,Whole Blood 200 mg/dL (70-110)
--- NOTE | 2024-10-13 19:04 | P.PN ---
Subjective Progress Note Date: 10/13/24 HISTORY OF PRESENT ILLNESS: This is a 69-year-old male with a previous medical history significant for hypertension and hypertensive cardiovascular disease, hyperlipidemia, diabetes mellitus type 2, nonischemic cardiomyopathy, mild COPD, diverticulitis status post partial colectomy 03/26/2023, obesity with obstructive sleep apnea, allergic rhinitis, enlarged prostate, patient presented to the emergency department at [facility] today with increased shortness of breath fever and chills, associated with minimal cough minimal phlegm production, he was found to have an influenza A, chest x-ray was obtained in the emergency department that showed evidence of COPD without evidence of any pneumonia, but the patient was quite tight his oxygen level was a bit on the lower side, because of that he was admitted to the hospital he was started on IV Solu-Medrol 60 mg a push every 6 hours, he was started on nebulized treatment in the form of DuoNeb 3 mL nebulization 4 times every day, Pulmicort 1 mg nebulization twice every day, he was also started on Tamiflu 75 mg orally twice every day, pulmonary consultation was obtained from Dr. Escamilla 10/12: Patient is feeling a bit more short of breath today, he is requiring about 3 L nasal cannula, he denies any chest pain at this time, he continues to have some minimal cough, minimal phlegm production, he continues to be on oseltamavir along with Solu-Medrol we will decrease that to 40 mg a push every 8 hours, continue current treatment plan, monitor the patient very closely, hopefully home in the next 1 or 2 days. 10/13: Is doing better today, he is moving around better, he continues to be on oxygen 2 L nasal cannula, repeated chest x-ray today, continue current treatment plan, keep the patient hospital for another 24 hours, pulmonary consultation appreciated, will follow-up with the patient very closely, decrease Solu-Medrol to 40 mg IV push every 12 hours. This is day #3 of oseltamivir. REVIEW OF SYSTEMS: Constitutional: positive for documented fever, positive for chills, no night sweats. No weight change. positive for weakness, fatigue or lethargy. No daytime sleepiness. EENT: positive for headache. No blurred vision or double vision, no loss of vision. No loss of Hearing, no ringing in the ears, no dizziness. No nasal drainage or congestion. No epistaxis. No sore throat. Lungs: positive for shortness of breath, occasional cough, minimal sputum production. positive for wheezing. Reports dyspnea with activity. Cardiovascular: No chest pain, no lower extremity edema. No palpitations. No paroxysmal nocturnal dyspnea. No orthopnea. No lightheadedness or dizziness. No syncopal episodes. Abdominal: Reports abdominal pain. No nausea, vomiting. No diarrhea. No constipation. No bloody or tarry stools reports loss of appetite. Genitourinary: No dysuria, increased frequency, urgency. No urinary retention. Musculoskeletal: positive for myalgias. generalized muscle weakness, no gait dysfunction, no frequent falls. No back pain. No neck pain. Integumentary: No wounds, no lesions. No rash or pruritus. No unusual bruising. No change in hair or nails. Neurologic: No aphasia. No facial droop. No change in mentation. No head injury. No headache. No paralysis. No paresthesia. Psychiatric: No depression. No anxiety. No mood swings. Endocrine: positive for abnormal blood sugars. No weight change. PHYSICAL EXAMINATION: General: 69-year-old male laying down in bed in minimal distress. HEENT: Head is atraumatic, normocephalic, pupils were equal round reactive to light and recommendation, extraocular muscle movement were intact, sclera nonicteric, conjunctivae were pale, mucous membranes of the mouth are somewhat dry. Neck: Supple, no JVP, normal carotid upstroke bilaterally, no lymphadenopathy. Chest: Decreased breath sounds at the bases, few rhonchi, positive for e xpiratory wheezes, no chest wall tenderness, no intercostal retractions. Heart: First heart sound is normal, second heart sounds normal there is systolic ejection murmur 2 over systolic in the left sternal border Abdomen: Soft, nontender, nondistended, positive bowel sounds. Extremities: There is no edema no calf tenderness DP +2 bilaterally. Neurologic examination: Patient is awake alert and oriented x3, cranial nerves II-12 appear grossly intact, muscle power were 5 out of 5 in upper extremities and 5 out of 5 in bilateral lower extremities, deep tendon reflexes normal bilaterally. ASSESSMENT AND PLAN: 1. Acute hypoxemic respiratory failure due to influenza A with acute exacerbation of COPD. Continue Solu-Medrol 40 mg IV push every 12 hours, DuoNeb 3 mL nebulization 4 times every day, Symbicort 2 puffs inhalation twice every day, continue oxygen support, continue Tamiflu 75 mg orally twice every day, continue Zithromax 500 mg orally once every day, pulmonary consultation brianna farrell. 2. Nonischemic cardiomyopathy. Continue patient on Entresto 24/26 mg orally twice every day, carvedilol 6.25 mg orally twice every day, continue Farxiga 10 mg orally once every day, discontinue IV fluid. 3. Hypertension and hypertensive cardiovascular disease continue patient on carvedilol 6.25 mg orally twice every day, continue Entresto 24/26 mg orally twice every day monitor the patient blood pressure very closely. 4. Mixed hyperlipidemia. Continue rosuvastatin 40 mg orally once every day or substitute Lipitor 80 mg once every day, continue Zetia 10 mg once every day monitor lipid panel, keep LDL 55-70. 5. Diabetes mellitus type 2 with steroid-induced hyperglycemia start the patient on sliding scale insulin, start the patient back on Farxiga 10 mg orally once every day, start the patient back on tirzepatide 2.5 mg subcutaneously once every week. 6. COPD. Continue treatment as in paragraph#1. 7. History of diverticulitis status post partial colectomy colonoscopy is up-to-date it was done March 2023. 8. Allergic rhinitis. Continue with [id number] medication as outpatient. Not needed now. 9. Peripheral neuropathy. Continue patient on duloxetine 20 mg orally once every day 10. Obesity with obstructive sleep apnea. Patient will need to have a CPAP. 11. Enlarged prostate. Monitor the patient for urinary retention. 12. DVT prophylaxis. Continue Lovenox 40 mg subcutaneous every 24 hours as well as bilateral knee-high BRITTNEY hose. Early ambulation. 13. GI prophylaxis. Continue patient on Protonix 40 mg orally once every day. 14. Over the next 1 or 2 days. Objective - Vital Signs Vital signs: Vital Signs Temp 97.5 F L 10/13/24 00:27 Pulse 72 10/13/24 00:27 Resp 17 10/13/24 00:27 BP 108/57 10/13/24 00:27 Pulse Ox 94 L 10/13/24 00:27 FiO2 Intake & Output 10/12/24 10/12/24 10/13/24 06:59 18:59 06:59 Other: # Voids 2 1 1 - Labs CBC & Chem 7: 10/13/24 06:17 10/13/24 06:17 Labs: Abnormal Lab Results - Last 24 Hours (Table) 10/12/24 10/12/24 10/12/24 Range/Units 05:22 05:22 11:59 WBC 11.77 H (4.50-10.00) X 10*3/uL MCHC 31.8 L (32.0-37.0) g/dL Immature Gran # 0.08 H (0.00-0.04) X 10*3/uL Neutrophils # 10.29 H (1.80-7.70) X 10*3/uL Lymphocytes # 0.75 L (0.90-5.00) X 10*3/uL Eosinophils # 0 L (0.04-0.35) X 10*3/uL Carbon Dioxide 19.8 L (21.6-31.8) mmol/L BUN/Creatinine Ratio 20.30 H (12.00-20.00) Ratio Glucose 159 H (70-110) mg/dL POC Glucose (mg/dL) 150 H (70-110) mg/dL 10/12/24 10/12/24 10/13/24 Range/Units 17:23 20:56 05:47 WBC (4.50-10.00) X 10*3/uL MCHC (32.0-37.0) g/dL Immature Gran # (0.00-0.04) X 10*3/uL Neutrophils # (1.80-7.70) X 10*3/uL Lymphocytes # (0.90-5.00) X 10*3/uL Eosinophils # (0.04-0.35) X 10*3/uL Carbon Dioxide (21.6-31.8) mmol/L BUN/Creatinine Ratio (12.00-20.00) Ratio Glucose (70-110) mg/dL POC Glucose (mg/dL) 160 H 212 H 148 H (70-110) mg/dL
[2024-10-13 20:29] LABS: Glucose,Whole Blood 174 mg/dL (70-110)
[2024-10-14 06:23] LABS: Glucose,Whole Blood 124 mg/dL (70-110)
[2024-10-14 07:39] VITALS: TEMP 98
[2024-10-14 12:13] LABS: Glucose,Whole Blood 154 mg/dL (70-110)
[2024-10-14 14:09] VITALS: BP 126/64; PULSE 64; RESP 22
--- NOTE | 2024-10-14 14:46 | P.PN ---
Subjective Progress Note Date: 10/14/24 This is a very pleasant 69-year-old male patient with a known history of chronic obstructive pulmonary disease, former smoker, obstructive sleep apnea utilizing CPAP, psoriasis who presented here to the emergency room early this morning with a 2-day history of increasing shortness of breath, cough congestion chest tightness and wheezing. Chest x-ray revealed no acute pulmonary process. White count 5.7. Hemoglobin 15.3. Platelets 154. INR 0.9. Sodium 138. Potassium 4.1. Bicarb 20. BUN 19. Creatinine 1.09. Glucose 118. Troponin negative x 1. proBNP 71. Viral screen positive for influenza A. Today in consultation in the emergency department. Currently sitting up in a stretcher. Awake and alert in no acute distress. He is maintaining O2 saturations in the 90s on 3 L/min per nasal cannula. He has normal saline at 80 mL/h. Feeling a bit better today compared to yesterday. On 10/12/2023, patient is being seen for a follow-up. Doing well. No specific complaints. Remains on Tamiflu for an acute influenza and infection/syndrome. Noted the patient has received his flu shot for this current season. Remains on Symbicort. Remains on DuoNeb. Remains on IV Solu-Medrol. No new complaints otherwise for now. White cell count 11 with a hemoglobin 15.2 and a platelet count of 198. Electrolytes are all within normal limits. On 10/13/2024, the patient is being seen for a follow-up. Clinically improving. Less short of breath. Oxygenation is also improved and the patient is able to maintain a pulse ox between 91 to 95% on room air oxygen. Remains on Symbicort. Remains on DuoNeb treatments [id number]. Completing a 5-day course of Tamiflu. Remains on IV Solu-Medrol 40 mg every 8 hours. Labs from today shows a white cell count of 15 with a hemoglobin of 15 and a platelet count of 191. BUN is 25 with a creatinine of 1 and sodium levels at 142. LFTs are within normal limits. No other new complaints otherwise for now. On 10/14/2024, the patient is being seen for a follow-up. He remains on room air oxygen. Improving. No significant shortness of breath. Cough and wheezing is gradually subsiding. The patient remains on IV Solu-Medrol. Remains on DuoNeb updrafts. Remains on Symbicort to be switched to Trelegy Ellipta on an outpatient basis. He is also completing a course of Tamiflu. Rest of the medications are unchanged. No new labs are available from today. Ambulating. No nausea or vomiting. No diarrhea. No altered mentation. No chest pain or pleurisy. Objective - Vital Signs Vital signs: Vital Signs Temp 98.0 F 10/14/24 07:00 Pulse 72 10/14/24 09:04 Resp 20 10/14/24 07:00 BP 136/54 10/14/24 07:00 Pulse Ox 92 L 10/14/24 07:00 FiO2 Intake & Output 10/13/24 10/14/24 10/14/24 18:59 06:59 18:59 Intake Total 586 Balance 586 Intake: Oral 586 Other: # Voids 1 1 - Exam GENERAL EXAM: Alert, pleasant 69-year-old male, on room air oxygen, fairly comfortable in no apparent distress. HEAD: Normocephalic. EYES: Normal reaction of pupils, equal size. NOSE: Clear with pink turbinates. THROAT: No erythema or exudates. NECK: No masses, no JVD. CHEST: No chest wall deformity. LUNGS: Equal air entry with bilateral end expiratory wheeze, few scattered rhonchi. CVS: S1 and S2 normal with no audible murmur, regular rhythm. ABDOMEN: No hepatosplenomegaly, normal bowel sounds, no guarding or rigidity. SPINE: No scoliosis or deformity SKIN: No rashes CENTRAL NERVOUS SYSTEM: No focal deficits, tone is normal in all 4 extremities. EXTREMITIES: There is no peripheral edema. No clubbing, no cyanosis. Peripheral pulses are intact. - Labs CBC & Chem 7: 10/13/24 06:17 10/13/24 06:17 Labs: Abnormal Lab Results - Last 24 Hours (Table) 10/13/24 10/13/24 10/14/24 Range/Units 17:33 20:28 06:22 POC Glucose (mg/dL) 200 H 174 H 124 H (70-110) mg/dL 10/14/24 Range/Units 12:12 POC Glucose (mg/dL) 154 H (70-110) mg/dL Assessment and Plan Plan: Acute hypoxemic respiratory failure secondary to an acute exacerbation of chronic obstructive pulmonary disease complicated by influenza A, clinically stable and improving and the patient is currently on oxygen room air oxygen Acute COPD exacerbation, improving Influenza A infection, currently on Tamiflu Former smoker Nonischemic cardiomyopathy Hyperlipidemia Diabetes mellitus, type II Obesity with obstructive sleep apnea maintained on CPAP BPH Hypertension Plan: Clinically improving, currently on room air oxygen Oxygenation is improved and the patient is currently on room air oxygen Complete a course of Tamiflu, completed 5-day course DuoNeb inhalations, Symbicort and Symbicort to be switched Rosas Riley on outpatient basis Continue Solu-Medrol for another 24 hours and switch this patient to a prednisone burst taper as of tomorrow Continue his home medications Check a procalcitonin is not elevated at 0.13 Possible home today
--- NOTE | 2024-10-14 14:52 | P.DS ---
Providers Date of admission: 10/13/24 16:30 Expected date of discharge: 10/14/24 Attending physician: Griffin Patiño Consults: 10/11/24 05:28 Consult Physician Stat Consulting Provider: Donovan Escamilla Reason/Comments: copd exacerbation Do you want consulting provider notified?: Yes Primary care physician: Griffin Patiño Hospital Course: HISTORY OF PRESENT ILLNESS: This is a 69-year-old male with a previous medical history significant for hypertension and hypertensive cardiovascular disease, hyperlipidemia, diabetes mellitus type 2, nonischemic cardiomyopathy, mild COPD, diverticulitis status post partial colectomy 03/26/2023, obesity with obstructive sleep apnea, allergic rhinitis, enlarged prostate, patient presented to the emergency department at [facility] today with increased shortness of breath fever and chills, associated with minimal cough minimal phlegm production, he was found to have an influenza A, chest x-ray was obtained in the emergency department that showed evidence of COPD without evidence of any pneumonia, but the patient was quite tight his oxygen level was a bit on the lower side, because of that he was admitted to the hospital he was started on IV Solu-Medrol 60 mg a push every 6 hours, he was started on nebulized treatment in the form of DuoNeb 3 mL nebulization 4 times every day, Pulmicort 1 mg nebulization twice every day, he was also started on Tamiflu 75 mg orally twice every day, pulmonary consultation was obtained from Dr. Escamilla 10/12: Patient is feeling a bit more short of breath today, he is requiring about 3 L nasal cannula, he denies any chest pain at this time, he continues to have some minimal cough, minimal phlegm production, he continues to be on oseltamavir along with Solu-Medrol we will decrease that to 40 mg a push every 8 hours, continue current treatment plan, monitor the patient very closely, hopefully home in the next 1 or 2 days. 10/13: Is doing better today, he is moving around better, he continues to be on oxygen 2 L nasal cannula, repeated chest x-ray today, continue current treatment plan, keep the patient hospital for another 24 hours, pulmonary consultation appreciated, will follow-up with the patient very closely, decrease Solu-Medrol to 40 mg IV push every 12 hours. This is day #3 of oseltamivir. 10/14: Patient sitting up in bed in no apparent distress, he did not use any oxygen over the last 24 hours, he is ambulating very well, he continues to be on Tamiflu 75 mg orally twice per day will need another day, patient can be discharged home and follow-up with me as an outpatient next week. Discharge diagnoses: 1. Acute hypoxemic respiratory failure due to influenza A with acute exacerbation of COPD. 2. Nonischemic cardiomyopathy. 3. Hypertension and hypertensive cardiovascular 4. Mixed hyperlipidemia. 5. Diabetes mellitus type 2 with steroid-induced hyperglycemia 6. COPD. 7. History of diverticulitis status post partial colectomy colonoscopy is up-to-date it was done March 2023. 8. Allergic rhinitis. 9. Peripheral neuropathy. 10. Obesity with obstructive sleep apnea. 11. Enlarged prostate. Patient Condition at Discharge: Fair Plan - Discharge Summary Discharge Rx Participant: No New Discharge Prescriptions: No Action carvediloL [Coreg] 6.25 mg PO BID DULoxetine HCL [Cymbalta] 20 mg PO DAILY Fluticasone/Umeclidin/Vilanter [Trelegy Ellipta 200-62.5-25] 1 puff INHALATION RT-DAILY Dm/Acetaminophen/Doxylamine [Vicks Nyquil Cold-Flu Liquid] 30 ml PO HS PRN PRN Reason: Cough Tirzepatide [Mounjaro] 2.5 mg SQ TH Rosuvastatin Calcium [Crestor] 40 mg PO DAILY Hydrocortisone Cream [Hydrocortisone 2.5% Cream] 1 applic TOPICAL DAILY PRN PRN Reason: Skin Irritation Dapagliflozin Propanediol [Farxiga] 10 mg PO DAILY allopurinoL 100 mg PO DAILY Sacubitril/Valsartan [Entresto 24 mg-26 mg Tablet] 1 tab PO BID Ezetimibe [Zetia] 10 mg PO DAILY Discharge Medication List carvediloL [Coreg] 6.25 mg PO BID 02/27/23 [History] DULoxetine HCL [Cymbalta] 20 mg PO DAILY 10/11/24 [History] Dapagliflozin Propanediol [Farxiga] 10 mg PO DAILY 10/11/24 [History] Dm/Acetaminophen/Doxylamine [Vicks Nyquil Cold-Flu Liquid] 30 ml PO HS PRN 10/11/24 [History] Ezetimibe [Zetia] 10 mg PO DAILY 10/11/24 [History] Fluticasone/Umeclidin/Vilanter [Trelegy Ellipta 200-62.5-25] 1 puff INHALATION RT-DAILY 10/11/24 [History] Hydrocortisone Cream [Hydrocortisone 2.5% Cream] 1 applic TOPICAL DAILY PRN 10/11/24 [History] Rosuvastatin Calcium [Crestor] 40 mg PO DAILY 10/11/24 [History] Sacubitril/Valsartan [Entresto 24 mg-26 mg Tablet] 1 tab PO BID 10/11/24 [History] Tirzepatide [Mounjaro] 2.5 mg SQ TH 10/11/24 [History] allopurinoL 100 mg PO DAILY 10/11/24 [History] Follow up Appointment(s)/Referral(s): Griffin Patiño MD [Primary Care Provider] - 1-2 days
[2024-10-15] MEDS ORDERED: predniSONE 20 MG TAB PO SCH (09:00)
[2024-10-15] MEDS ORDERED: NON FORMULARY DRUG (Tirzepatide [Mounjaro] 2.5 MG/0.5 ML Pen.Injctr) SQ SCH (09:00)
== END 2024-10-14 15:42 | disposition home or self-care (01) | DRG 193 ==
LOC: EC 01:34 → 6NMEDSUR 05:53 → OBSVTOIN 10-13 16:30
PROVIDERS: ADMIT Internal Medicine; ATTEND Internal Medicine
DX: J10.1 Influenza due to other identified influenza virus with other respiratory manifestations (principal); J96.01 Acute respiratory failure with hypoxia; J44.1 Chronic obstructive pulmonary disease with (acute) exacerbation; I42.8 Other cardiomyopathies; E11.40 Type 2 diabetes mellitus with diabetic neuropathy, unspecified; E66.9 Obesity, unspecified; Z68.31 Body mass index [BMI] 31.0-31.9, adult; G47.33 Obstructive sleep apnea (adult) (pediatric); I11.9 Hypertensive heart disease without heart failure; E11.65 Type 2 diabetes mellitus with hyperglycemia; T38.0X5A Adverse effect of glucocorticoids and synthetic analogues, initial encounter; E78.2 Mixed hyperlipidemia; J30.9 Allergic rhinitis, unspecified; Z96.641 Presence of right artificial hip joint; N40.0 Benign prostatic hyperplasia without lower urinary tract symptoms; Z90.49 Acquired absence of other specified parts of digestive tract; Z87.891 Personal history of nicotine dependence; Z79.899 Other long term (current) drug therapy; Z79.84 Long term (current) use of oral hypoglycemic drugs; Z79.51 Long term (current) use of inhaled steroids
CPT/HCPCS: 36415; 71045; 71046; 80053; 83605; 83735; 83880; 84145; 84484; 85025; 85610; 85730; 87636; 93005; 94640; 94760; 99284; 99285

== ENCOUNTER → 2024-10-20 | Outpatient (CLI) | payer MEDICARE ==
--- NOTE | 2024-10-20 15:11 | XR ---
EXAMINATION TYPE: XR chest 2V DATE OF EXAM: 10/20/2024 2:54 PM COMPARISON: Chest radiographs from 10/13/2024 CLINICAL INDICATION: Male, 69 years old with history of J44.1 COPD; TECHNIQUE: XR chest 2V Frontal and lateral views of the chest. FINDINGS: Lungs/Pleura: There is no evidence of pleural effusion, focal consolidation, or pneumothorax. Pulmonary vascularity: Unremarkable. Heart/mediastinum: Cardiomediastinal silhouette is unremarkable. Musculoskeletal: No acute osseous pathology. IMPRESSION: No acute cardiopulmonary disease/process. [facility], , 10/20/2024 3:09 PM
== END | disposition home or self-care (01) ==
LOC: RADXRMAIN 14:42
PROVIDERS: ATTEND Internal Medicine
DX: J44.1 Chronic obstructive pulmonary disease with (acute) exacerbation (principal)
CPT/HCPCS: 71046